=== PATIENT | female | born 1960 | race African-American/Black ===

== ENCOUNTER 2016-09-15 12:55 | Emergency (ER) | payer MEDICARE, OTHER ==
[2016-09-15] MEDS: ONDANSETRON PF 4 MG/2 ML VIAL. IV ONE (13:31)
[2016-09-15] MEDS: HYDROMORPHONE PF 1 MG/ML DISP.SYRIN. IV ONE ×2 (13:32→14:33)
[2016-09-15 13:54] LABS: BASO # 0.1 x10^3/uL (0.0-0.2); BASO % 1 % (0-3); EOS # 0.2 x10^3/uL (0.0-0.7); EOS % 4 % (0-3); HEMATOCRIT 38.8 % (36.0-47.0); HEMOGLOBIN 12.4 g/dL (12.0-15.5); LYMPH # 1.8 x10^3/uL (1.0-4.8); LYMPH % 27 % (24-48); MEAN CORPUSCULAR HEMOGLOBIN 28 pg (25-35); MEAN CORPUSCULAR HGB CONC 32 g/dL (31-37); MEAN CORPUSCULAR VOLUME 88 fL (79-100); MONO # 0.5 x10^3/uL (0.0-1.1); MONO % 7 % (0-9); NEUT % 61 % (31-73); PLATELET COUNT 205 x10^3/uL (140-400); RED BLOOD COUNT 4.42 x10^6/uL (3.50-5.40); WHITE BLOOD COUNT 6.5 x10^3/uL (4.0-11.0)
[2016-09-15 14:01] LABS: BILIRUBIN,URINE NEG (NEG); CLARITY,URINE HAZY; COLOR,URINE STRAW; GLUCOSE,URINE NEG (NEG)
[2016-09-15 14:02] LABS: AMORPHOUS SEDIMENT,UR PRESENT /HPF; BACTERIA,URINE FEW /HPF (0-FEW); GRANULAR CASTS,URINE OCC /HPF; HYALINE CASTS, URINE FEW /HPF; NITRITE,URINE NEG (NEG); SQUAMOUS EPITHELIAL CELL,UR MANY /LPF; UROBILINOGEN,URINE 0.2 mg/dL (0.2 mg/dL)
[2016-09-15 14:05] LABS: CREATININE 1.7 mg/dL (0.6-1.0); POTASSIUM 3.5 mmol/L (3.5-5.1)
[2016-09-15 15:00] VITALS: BP 131/48
--- NOTE | 2016-09-15 15:04 | ED.ADGEN ---
Past History Past Medical History: HIV Past Surgical History: Appendectomy, Hysterectomy Alcohol Use: None Drug Use: None Adult General HPI HPI Patient is a 55-year-old female presents emergency department complaining of lower abdominal pain. She has had this abdominal pain for at least 7 months since her last surgery. She has not followed back up with the surgeon regarding this pain. She was seen at another facility yesterday where she had a complete workup including blood work and a CT scan which all was normal. She is given prescriptions for hydrocodone and Phenergan which she did not fill. She has a follow-up appointment already scheduled with her primary care physician tomorrow. Patient denies that she has any new symptoms other than the pain which is at its baseline. Review of Systems Review of Systems Constitutional: Denies fever or chills [] Eyes: Denies change in visual acuity, redness, or eye pain [] HENT: Denies nasal congestion or sore throat [] Respiratory: Denies cough or shortness of breath [] Cardiovascular: No additional information not addressed in HPI [] GI: Denies abdominal pain, nausea, vomiting, bloody stools or diarrhea [] : Denies dysuria or hematuria [] Musculoskeletal: Denies back pain or joint pain [] Integument: Denies rash or skin lesions [] Neurologic: Denies headache, focal weakness or sensory changes [] Endocrine: Denies polyuria or polydipsia [] Current Medications Current Medications Current Medications Medications (Trade) Dose Ordered Sig/Bhavik Start Time Stop Time Status Last Admin Dose Admin Hydromorphone HCl (Dilaudid) 1 mg 1X ONCE 09/15/16 14:30 09/15/16 14:31 DC 09/15/16 14:33 1 MG Ondansetron HCl (Zofran) 4 mg 1X ONCE 09/15/16 13:40 09/15/16 13:41 DC 09/15/16 13:31 4 MG Allergies Allergies Allergies Coded Allergies Type Severity Reaction Last Updated Verified aspirin Allergy Intermediate 03/06/16 Yes tramadol Allergy Intermediate 03/06/16 Yes Physical Exam Physical Exam Constitutional: Well developed, well nourished, no acute distress, non-toxic appearance. [] HENT: Normocephalic, atraumatic, bilateral external ears normal, oropharynx moist, no oral exudates, nose normal. [] Eyes: PERRLA, EOMI, conjunctiva normal, no discharge. [] Neck: Normal range of motion, no tenderness, supple, no stridor. [] Cardiovascular:Heart rate regular rhythm, no murmur [] Lungs & Thorax: Bilateral breath sounds clear to auscultation [] Abdomen: Bowel sounds normal, soft, suprapubic tenderness palpation without peritoneal signs, no masses, no pulsatile masses. [] Skin: Warm, dry, no erythema, no rash. [] Back: No tenderness, no CVA tenderness. [] Extremities: No tenderness, no cyanosis, no clubbing, ROM intact, no edema. [] Neurologic: Alert and oriented X 3, normal motor function, normal sensory function, no focal deficits noted. [] Psychologic: Affect normal, judgement normal, mood normal. [] Current Patient Data Vital Signs Vital Signs Date Time Temp Pulse Resp B/P Pulse Ox O2 Delivery O2 Flow Rate FiO2 09/15/16 15:00 96 16 131/48 97 09/15/16 12:55 97.5 Room Air Lab Results Laboratory Tests Test 09/15/16 13:20 09/15/16 13:34 Urine Collection Type Unknown Urine Color Straw Urine Clarity Hazy Urine pH 5.0 Urine Specific [place] 1.010 Urine Protein 30 mg/dl (NEG-TRACE) Urine Glucose (UA) Negmg/dL (NEG) Urine Ketones (Stick) Negmg/dL (NEG) Urine Blood Trace (NEG) Urine Nitrite Neg (NEG) Urine Bilirubin Neg (NEG) Urine Urobilinogen Dipstick 0.2mg/dL (0.2 mg/dL) Urine Leukocyte Esterase Neg (NEG) Urine RBC 1-2/HPF (0-2) Urine WBC 1-4/HPF (0-4) Urine Squamous Epithelial Cells Many/LPF Urine Amorphous Sediment Present/HPF Urine Bacteria Few/HPF (0-FEW) Urine Hyaline Casts Few/HPF Urine Granular Casts Occ/HPF Urine Mucus Slight/LPF White Blood Count 6.5x10^3/uL (4.0-11.0) Red Blood Count 4.42x10^6/uL (3.50-5.40) Hemoglobin 12.4g/dL (12.0-15.5) Hematocrit 38.8% (36.0-47.0) Mean Corpuscular Volume 88fL (79-100) Mean Corpuscular Hemoglobin 28pg (25-35) Mean Corpuscular Hemoglobin Concent 32g/dL (31-37) Red Cell Distribution Width 16.0% (11.5-14.5) H Platelet Count 205x10^3/uL (140-400) Neutrophils (%) (Auto) 61% (31-73) Lymphocytes (%) (Auto) 27% (24-48) Monocytes (%) (Auto) 7% (0-9) Eosinophils (%) (Auto) 4% (0-3) H Basophils (%) (Auto) 1% (0-3) Neutrophils # (Auto) 4.0x10^3uL (1.8-7.7) Lymphocytes # (Auto) 1.8x10^3/uL (1.0-4.8) Monocytes # (Auto) 0.5x10^3/uL (0.0-1.1) Eosinophils # (Auto) 0.2x10^3/uL (0.0-0.7) Basophils # (Auto) 0.1x10^3/uL (0.0-0.2) Sodium Level 142mmol/L (136-145) Potassium Level 3.5mmol/L (3.5-5.1) Chloride Level 105mmol/L (98-107) Carbon Dioxide Level 27mmol/L (21-32) Anion Gap 10 (6-14) Blood Urea Nitrogen 15mg/dL (7-20) Creatinine 1.7mg/dL (0.6-1.0) H Estimated GFR (Cockcroft-Gault) 38.0 Glucose Level 109mg/dL (70-99) H Calcium Level 9.0mg/dL (8.5-10.1) Aspartate Amino Transferase (AST) 12U/L (15-37) L Alanine Aminotransferase (ALT) 27U/L (14-59) Alkaline Phosphatase 117U/L (46-116) H Lipase 81U/L (73-393) EKG EKG [] Radiology/Procedures Radiology/Procedures [] Course & Med Decision Making Course & Med Decision Making Pertinent Labs and Imaging studies reviewed. (See chart for details) Blood work was reassuring. Pain was improved after dose of Dilaudid. Patient was discharged home with supportive care instructions as well as follow-up directions. She was asked to fill her prescriptions are given to her yesterday. [] Final Impression Final Impression Abdominal pain [] Problems: Dragon Disclaimer Dragon Disclaimer This electronic medical record was generated, in whole or in part, using a voice recognition dictation system. ANA LEDESMA MD Sep 15, 2016 15:04
== END 2016-09-15 15:00 | disposition home or self-care (01) ==
LOC: ER 12:55
DX: R10.30 Lower abdominal pain, unspecified (principal); Z90.49 Acquired absence of other specified parts of digestive tract; Z90.710 Acquired absence of both cervix and uterus; Z21 Asymptomatic human immunodeficiency virus [HIV] infection status; Z88.6 Allergy status to analgesic agent
CPT/HCPCS: 36415; 80048; 81001; 83690; 84075; 84450; 84460; 85027; 96374; 96375; 96376; 99284; J1170; J2405

== ENCOUNTER 2016-12-02 20:24 | Emergency (ER) | payer MEDICARE, OTHER ==
[~2016-12-02] VITALS: Ht 172.7 cm; Wt 96.0 kg
[2016-12-02 20:25] VITALS: BP 131/48
--- NOTE | 2016-12-02 20:30 | ED.ADGEN ---
Past History Past Medical History: Depression, HIV, Seizure Past Surgical History: Appendectomy, Hysterectomy Alcohol Use: None Drug Use: None Adult General Chief Complaint Chief Complaint Bilateral hand numbness [facility] HPI Patient is a 56 year old -[place] female who presents with bilateral hand numbness is going on for greater than 3 years. She states she saw her neurologist today who ordered her night splints for her carpal tunnel syndrome. She's was go tomorrow to hang her clinic to get this performed. She presents to ER stating that she doesn't want to wait to finality ROM with her hands. She denies any fevers chills nausea vomiting. She denies any numbness or tingling and states that she has to wiggle no night and shake her hands make him feel better. Review of Systems Review of Systems Constitutional: Denies fever or chills [] Eyes: Denies change in visual acuity, redness, or eye pain [] HENT: Denies nasal congestion or sore throat [] Respiratory: Denies cough or shortness of breath [] Cardiovascular: No additional information not addressed in HPI [] GI: Denies abdominal pain, nausea, vomiting, bloody stools or diarrhea [] : Denies dysuria or hematuria [] Musculoskeletal: Denies back pain or joint pain [] Integument: Denies rash or skin lesions [] Neurologic: Denies headache, focal weakness or sensory changes [] Endocrine: Denies polyuria or polydipsia [] Allergies Allergies Allergies Coded Allergies Type Severity Reaction Last Updated Verified aspirin Allergy Intermediate 03/06/16 Yes tramadol Allergy Intermediate 03/06/16 Yes Physical Exam Physical Exam Constitutional: Well developed, well nourished, no acute distress, non-toxic appearance. [] HENT: Normocephalic, atraumatic, bilateral external ears normal, oropharynx moist, no oral exudates, nose normal. [] Eyes: PERRLA, EOMI, conjunctiva normal, no discharge. [] Neck: Normal range of motion, no tenderness, supple, no stridor. [] Cardiovascular:Heart rate regular rhythm, no murmur [] Lungs & Thorax: Bilateral breath sounds clear to auscultation [] Abdomen: Bowel sounds normal, soft, no tenderness, no masses, no pulsatile masses. [] Skin: Warm, dry, no erythema, no rash. [] Back: No tenderness, no CVA tenderness. [] Extremities: No tenderness, no cyanosis, no clubbing, ROM intact, no edema. [] Neurologic: Alert and oriented X 3, normal motor function, normal sensory function, no focal deficits noted. [] Psychologic: Affect normal, judgement normal, mood normal. [] Current Patient Data Lab Results Laboratory Tests Test 12/02/16 20:50 12/02/16 20:55 White Blood Count 6.3 x10^3/uL (4.0-11.0) Red Blood Count 4.02 x10^6/uL (3.50-5.40) Hemoglobin 11.8 g/dL (12.0-15.5) L Hematocrit 36.3 % (36.0-47.0) Mean Corpuscular Volume 90 fL (79-100) Mean Corpuscular Hemoglobin 29 pg (25-35) Mean Corpuscular Hemoglobin Concent 33 g/dL (31-37) Red Cell Distribution Width 14.2 % (11.5-14.5) Platelet Count 255 x10^3/uL (140-400) Neutrophils (%) (Auto) 48 % (31-73) Lymphocytes (%) (Auto) 40 % (24-48) Monocytes (%) (Auto) 9 % (0-9) Eosinophils (%) (Auto) 2 % (0-3) Basophils (%) (Auto) 1 % (0-3) Neutrophils # (Auto) 3.1 x10^3uL (1.8-7.7) Lymphocytes # (Auto) 2.5 x10^3/uL (1.0-4.8) Monocytes # (Auto) 0.5 x10^3/uL (0.0-1.1) Eosinophils # (Auto) 0.1 x10^3/uL (0.0-0.7) Basophils # (Auto) 0.0 x10^3/uL (0.0-0.2) Urine Collection Type Unknown Urine Color Yellow Urine Clarity Clear Urine pH 6.5 Urine Specific [place] 1.020 Urine Protein 30 mg/dl (NEG-TRACE) Urine Glucose (UA) Neg mg/dL (NEG) Urine Ketones (Stick) Neg mg/dL (NEG) Urine Blood Neg (NEG) Urine Nitrite Neg (NEG) Urine Bilirubin Neg (NEG) Urine Urobilinogen Dipstick 0.2 mg/dL (0.2 mg/dL) Urine Leukocyte Esterase Neg (NEG) Urine RBC Occ /HPF (0-2) Urine WBC 1-4 /HPF (0-4) Urine Squamous Epithelial Cells Many /LPF Urine Bacteria 0 /HPF (0-FEW) Sodium Level 140 mmol/L (136-145) Potassium Level 3.7 mmol/L (3.5-5.1) Chloride Level 105 mmol/L (98-107) Carbon Dioxide Level 28 mmol/L (21-32) Anion Gap 7 (6-14) Blood Urea Nitrogen 23 mg/dL (7-20) H Creatinine 1.4 mg/dL (0.6-1.0) H Estimated GFR (Cockcroft-Gault) 47.4 BUN/Creatinine Ratio 16 (6-20) Glucose Level 97 mg/dL (70-99) Calcium Level 8.6 mg/dL (8.5-10.1) Magnesium Level 2.0 mg/dL (1.8-2.4) Total Bilirubin 1.1 mg/dL (0.2-1.0) H Aspartate Amino Transferase (AST) 20 U/L (15-37) Alanine Aminotransferase (ALT) 33 U/L (14-59) Alkaline Phosphatase 172 U/L (46-116) H Total Protein 6.9 g/dL (6.4-8.2) Albumin 3.5 g/dL (3.4-5.0) Albumin/Globulin Ratio 1.0 (1.0-1.7) EKG EKG [] Radiology/Procedures Radiology/Procedures [] Course & Med Decision Making Course & Med Decision Making Pertinent Labs and Imaging studies reviewed. (See chart for details) 6 labs not show any acute amount. I do have TSH pending. She was seen today by Dr. 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 She's being discharged with return precautions. Final Impression Final Impression Bilateral carpal Tunnel syndrome Problems: Dragon Disclaimer Dragon Disclaimer This electronic medical record was generated, in whole or in part, using a voice recognition dictation system. TENISHA AHN MD Dec 02, 2016 20:30
[2016-12-02 21:15] LABS: BASO % 1 % (0-3); EOS # 0.1 x10^3/uL (0.0-0.7); EOS % 2 % (0-3); HEMATOCRIT 36.3 % (36.0-47.0); HEMOGLOBIN 11.8 g/dL (12.0-15.5); LYMPH # 2.5 x10^3/uL (1.0-4.8); LYMPH % 40 % (24-48); MEAN CORPUSCULAR HEMOGLOBIN 29 pg (25-35); MEAN CORPUSCULAR HGB CONC 33 g/dL (31-37); MEAN CORPUSCULAR VOLUME 90 fL (79-100); MONO # 0.5 x10^3/uL (0.0-1.1); MONO % 9 % (0-9); NEUT # 3.1 x10^3uL (1.8-7.7); NEUT % 48 % (31-73); PLATELET COUNT 255 x10^3/uL (140-400); RED BLOOD COUNT 4.02 x10^6/uL (3.50-5.40); RED CELL DISTRIBUTION WIDTH 14.2 % (11.5-14.5); WHITE BLOOD COUNT 6.3 x10^3/uL (4.0-11.0)
[2016-12-02 21:34] LABS: ALBUMIN 3.5 g/dL (3.4-5.0); CALCIUM 8.6 mg/dL (8.5-10.1); CREATININE 1.4 mg/dL (0.6-1.0); GFR 47.4; POTASSIUM 3.7 mmol/L (3.5-5.1); TOTAL BILIRUBIN 1.1 mg/dL (0.2-1.0); TOTAL PROTEIN 6.9 g/dL (6.4-8.2)
[2016-12-02 21:45] LABS: BACTERIA,URINE 0 /HPF (0-FEW); BILIRUBIN,URINE NEG (NEG); CLARITY,URINE CLEAR; COLOR,URINE YELLOW; GLUCOSE,URINE NEG (NEG); NITRITE,URINE NEG (NEG); RBC,URINE OCC /HPF (0-2); SQUAMOUS EPITHELIAL CELL,UR MANY /LPF; UROBILINOGEN,URINE 0.2 mg/dL (0.2 mg/dL)
== END 2016-12-02 22:25 | disposition home or self-care (01) ==
LOC: ER 20:24
DX: G56.03 Carpal tunnel syndrome, bilateral upper limbs (principal); Z88.6 Allergy status to analgesic agent; F32.9 Major depressive disorder, single episode, unspecified
CPT/HCPCS: 36415; 80053; 81001; 83735; 84443; 85027; 99284

== ENCOUNTER 2017-03-23 23:32 | Emergency (ER) | payer MEDICARE, OTHER ==
[~2017-03-23] VITALS: Ht 172.7 cm; Wt 91.5 kg
--- NOTE | 2017-03-23 23:54 | EKG ---
[address] [address] Test Date: 2017-03-23 Test Time: 23:36:52 Pat Name: HERNAN ANGEL Department: Room: Gender: F Regulatory Lead: : 1960 Requested By: TENISHA AHN Order Number: [id number] Reading MD: Measurements Intervals [place] Rate: 98 P: 2 IN: 188 QRS: 14 QRSD: 72 T: 22 QT: 404 QTc: 518 Interpretive Statements SINUS RHYTHM QRS(T) CONTOUR ABNORMALITY CONSIDER ANTEROLATERAL MYOCARDIAL DAMAGE PROLONGED QT POSSIBLY ABNORMAL ECG RI6.01 No previous ECG available for comparison
[2017-03-24] MEDS ORDERED: IV NORMAL SALINE 1,000ML 1,000 ML IV SCH
--- NOTE | 2017-03-24 00:01 | PHYS DOC ---
Past History Past Medical History: Depression, HIV, Seizure Past Surgical History: Appendectomy, Hysterectomy Alcohol Use: None Drug Use: None Adult General Chief Complaint Chief Complaint: SEIZURE HPI HPI Patient is a 56 year old -Wel[place] female who presents with a seizure. She states she has these occasionally. She states she is late alert during these and feels very tired afterwards. She states a friend was over and he noticed her having a seizure and got her attention. She also complains of some chest pain that she's been having for the last 3 months. She states is substernal as been constant in nature nothing makes it better or worse. She states she was hospitalized overnight in [place] for this same pain. She denies any nausea vomiting or shortness of breath. He states she's been compliant with all of her medications including her HIV and Keppra meds for her seizures. She is unsure what her viral load is but states it's low. Review of Systems Review of Systems Constitutional: Denies fever or chills [] Eyes: Denies change in visual acuity, redness, or eye pain [] HENT: Denies nasal congestion or sore throat [] Respiratory: Denies cough or shortness of breath [] Cardiovascular: No additional information not addressed in HPI [] GI: Denies abdominal pain, nausea, vomiting, bloody stools or diarrhea [] : Denies dysuria or hematuria [] Musculoskeletal: Denies back pain or joint pain [] Integument: Denies rash or skin lesions [] Neurologic: Denies headache, focal weakness or sensory changes [] Endocrine: Denies polyuria or polydipsia [] Current Medications Current Medications Current Medications Medications (Trade) Dose Ordered Sig/Bhavik Start Time Stop Time Status Last Admin Dose Admin Sodium Chloride 1,000 ml @ 1,000 mls/hr Q1H 03/24/17 00:00 03/24/17 00:59 Allergies Allergies Allergies Coded Allergies Type Severity Reaction Last Updated Verified aspirin Allergy Intermediate 03/06/16 Yes tramadol Allergy Intermediate 03/06/16 Yes Physical Exam Physical Exam Constitutional: Well developed, well nourished, no acute distress, non-toxic appearance. [] HENT: Normocephalic, atraumatic, bilateral external ears normal, oropharynx moist, no oral exudates, nose normal. [] Eyes: PERRLA, EOMI, conjunctiva normal, no discharge. [] Neck: Normal range of motion, no tenderness, supple, no stridor. [] Cardiovascular:Heart rate regular rhythm, no murmur [] Lungs & Thorax: Bilateral breath sounds clear to auscultation [] Abdomen: Bowel sounds normal, soft, no tenderness, no masses, no pulsatile masses. [] Skin: Warm, dry, no erythema, no rash. [] Back: No tenderness, no CVA tenderness. [] Extremities: No tenderness, no cyanosis, no clubbing, ROM intact, no edema. [] Neurologic: Alert and oriented X 3, normal motor function, normal sensory function, no focal deficits noted. [] Psychologic: Affect normal, judgement normal, mood normal. [] EKG EKG EKG shows sinus rhythm with rate of [address] elevations or T-wave inversions, normal axis, QTC 518 ms, as interpreted by me. Radiology/Procedures Radiology/Procedures One view chest x-ray does not show any bony abnormalities, pneumothorax, foreign bodies, as interpreted by me. Impressions: Seizure disorder Chest pain Hypokalemia Course & Med Decision Making Course & Med Decision Making Pertinent Labs and Imaging studies reviewed. (See chart for details) Her chest pains been constant for over a month. He is been evaluated once before. Her EKG, labs do not show any acute abnormalities in addition to her chest x-ray. Her potassium was slightly low at 3.2 and it was replaced with 140 mg 11. She has not had any additional seizures in her lactic acid is 2.2. She received 1 L of normal saline which should help clear out her slightly elevated lactic acid. She is in stable condition this time be discharged home with return precautions. Dragon Disclaimer Dragon Disclaimer This chart was dictated in whole or in part using Voice Recognition software in a busy, high-work load, and often noisy Emergency Department environment. It may contain unintended and wholly unrecognized errors or omissions. Departure Departure: Impression: Primary Impression: Seizure disorder Disposition: 01 HOME, SELF-CARE Condition: STABLE Referrals: ANNITA WOODWARD DO, [facility] (PCP) Patient Instructions: Seizure Disorder, Child, Generalized Tonic-Clonic Additional Instructions: You were seen today for your chest discomfort, your seizure disorder and your potassium level was slightly low. You potassium was replaced. You received IV fluids. Your being discharged home. Your EKG, chest x-ray and blood work did not show any abnormalities with her heart. You should follow up with your primary care physician regarding your constant chest pain that you have been having. Please continue taking your seizure medicines as instructed. TENISHA AHN MD Mar 24, 2017 00:01
[2017-03-24 01:00] LABS: BASO % 0 % (0-3); EOS % 1 % (0-3); HEMATOCRIT 38.6 % (36.0-47.0); HEMOGLOBIN 12.7 g/dL (12.0-15.5); LYMPH % 30 % (24-48); MEAN CORPUSCULAR HEMOGLOBIN 29 pg (25-35); MEAN CORPUSCULAR HGB CONC 33 g/dL (31-37); MEAN CORPUSCULAR VOLUME 89 fL (79-100); MONO # 0.6 x10^3/uL (0.0-1.1); MONO % 6 % (0-9); NEUT # 6.2 x10^3uL (1.8-7.7); NEUT % 63 % (31-73); PLATELET COUNT 240 x10^3/uL (140-400); RED BLOOD COUNT 4.36 x10^6/uL (3.50-5.40); RED CELL DISTRIBUTION WIDTH 14.8 % (11.5-14.5); WHITE BLOOD COUNT 9.8 x10^3/uL (4.0-11.0)
[2017-03-24 01:34] LABS: ALBUMIN 3.5 g/dL (3.4-5.0); CALCIUM 9.1 mg/dL (8.5-10.1); CREATININE 1.5 mg/dL (0.6-1.0); DIRECT BILIRUBIN 0.3 mg/dL (0.0-0.2); GFR 43.8; POTASSIUM 3.2 mmol/L (3.5-5.1); TOTAL BILIRUBIN 1.4 mg/dL (0.2-1.0)
[2017-03-24] MEDS ORDERED: POTASSIUM CHLORIDE 20 MEQ TABLET.ER. PO ONE (02:00)
[2017-03-24 02:09] VITALS: BP 107/60
[2017-03-24 02:09] LABS: BARBITURATES NEG (NEG); BENZODIAZEPINES NEG (NEG); CANNABINOIDS NEG (NEG); COCAINE NEG (NEG); METHADONE NEG (NEG); OPIATES POS (NEG); PHENCYCLIDINE NEG (NEG)
[2017-03-24 02:11] LABS: BACTERIA,URINE FEW /HPF (0-FEW); BILIRUBIN,URINE NEG (NEG); CLARITY,URINE CLEAR; COLOR,URINE YELLOW; GLUCOSE,URINE 500 mg/dL (NEG); NITRITE,URINE NEG (NEG); RBC,URINE 0 /HPF (0-2); SQUAMOUS EPITHELIAL CELL,UR FEW /LPF; UROBILINOGEN,URINE 1 mg/dL (0.2 mg/dL); WBC,URINE OCC /HPF (0-4)
[2017-03-24 02:13] LABS: AMPHETAMINE/METHAMPHETAMINE NEG (NEG)
[2017-03-24] MEDS ORDERED: ACETAMINOPHEN 500 MG TABLET PO ONE (02:30)
--- NOTE | 2017-03-24 07:38 | RAD ---
Chest x-ray Indication: Chest pain, seizure activity Technique: Portable AP chest x-ray Comparison: Previous study from 03/06/2016. Findings: Heart is normal in size. Lungs are clear. No pneumothorax or pleural effusion. Visualized bony thorax is within normal limits. Impression: No acute cardiopulmonary process.
== END 2017-03-24 02:27 | disposition home or self-care (01) ==
LOC: ER 23:32
DX: G40.909 Epilepsy, unspecified, not intractable, without status epilepticus (principal); E87.6 Hypokalemia; R07.2 Precordial pain; F32.9 Major depressive disorder, single episode, unspecified; Z88.6 Allergy status to analgesic agent
CPT/HCPCS: 36415; 71010; 80048; 80076; 80307; 81001; 82553; 83605; 83690; 83735; 83880; 84484; 85025; 85610; 85730; 93005; 96360; 99285-25; G0479; J7030

== ENCOUNTER 2017-05-10 20:26 | Emergency (ER) | payer MEDICARE, OTHER ==
[~2017-05-10] VITALS: Ht 172.7 cm; Wt 124.3 kg
[2017-05-10 22:34] LABS: BASO % 0 % (0-3); EOS # 0.1 x10^3/uL (0.0-0.7); EOS % 1 % (0-3); HEMATOCRIT 33.6 % (36.0-47.0); HEMOGLOBIN 10.9 g/dL (12.0-15.5); LYMPH # 2.9 x10^3/uL (1.0-4.8); LYMPH % 26 % (24-48); MEAN CORPUSCULAR HEMOGLOBIN 28 pg (25-35); MEAN CORPUSCULAR HGB CONC 32 g/dL (31-37); MEAN CORPUSCULAR VOLUME 88 fL (79-100); MONO # 0.8 x10^3/uL (0.0-1.1); MONO % 7 % (0-9); NEUT # 7.5 x10^3uL (1.8-7.7); NEUT % 66 % (31-73); PLATELET COUNT 390 x10^3/uL (140-400); RED BLOOD COUNT 3.84 x10^6/uL (3.50-5.40); RED CELL DISTRIBUTION WIDTH 14.3 % (11.5-14.5); WHITE BLOOD COUNT 11.3 x10^3/uL (4.0-11.0)
[2017-05-10 22:46] LABS: ALBUMIN 3.1 g/dL (3.4-5.0); ALBUMIN/GLOBULIN RATIO 0.7 (1.0-1.7); CALCIUM 9.2 mg/dL (8.5-10.1); CREATININE 1.4 mg/dL (0.6-1.0); GFR 47.4; POTASSIUM 3.2 mmol/L (3.5-5.1); TOTAL BILIRUBIN 1.2 mg/dL (0.2-1.0); TOTAL PROTEIN 7.4 g/dL (6.4-8.2)
[2017-05-10] MEDS ORDERED: HYDROcodone/APAP 5/325MG 1 TAB TABLET PO ONE (23:00)
[2017-05-10] MEDS ORDERED: IBUPROFEN 600 MG TABLET. PO ONE (23:00)
[2017-05-10] MEDS ORDERED: LORazepam 2 MG/ML VIAL ONE (23:25)
[2017-05-10] MEDS ORDERED: LORazepam 2 MG/ML VIAL IV ONE (23:30)
[2017-05-10] MEDS ORDERED: LORazepam 2 MG/ML VIAL IM ONE (23:30)
--- NOTE | 2017-05-10 23:35 | PHYS DOC ---
Past History Past Medical History: Depression, HIV, Migraines, Seizure Past Surgical History: Appendectomy, Hysterectomy, Other Alcohol Use: None Drug Use: None Adult General Chief Complaint Chief Complaint: SEIZURE HPI HPI Patient is a 56-year-old female with a history significant for HIV, seizure disorder, migraines, depression, who presents here today secondary to a seizure. Patient reports that she is on Keppra and has been compliant with her medication. Patient reports her last seizure was approximately 1-2 weeks ago. Patient has any fevers shakes chills nausea vomiting diarrhea chest pain short of breath cough cold rhinorrhea. Patient is complaining of diffuse myalgias after her seizure. Patient reports that she fell down and has pain to her lower back legs hip arms. Patient denies any C-spine or head discomfort. Review of systems: Constitutional: Denies fever or chills Eyes: Denies change in visual acuity, redness, or eye pain HENT: Denies nasal congestion or sore throat All other systems were reviewed and found to be within normal limits, except as documented in this note. Physical exam Constitutional: Well developed, well nourished, no acute distress, non-toxic appearance. HENT: Normocephalic, atraumatic, bilateral external ears normal, oropharynx moist, no oral exudates, nose normal. Eyes: PERRLA, EOMI, conjunctiva normal, no discharge. Neck: Normal range of motion, no tenderness, supple, no stridor. Cardiovascular:Heart rate regular rhythm, Lungs & Thorax: Bilateral breath sounds clear to auscultation Abdomen: Bowel sounds normal, soft, no tenderness, no masses, no pulsatile masses. Skin: Warm, dry, no erythema, no rash. Back: No tenderness, no CVA tenderness. Extremities: No tenderness, no cyanosis, no clubbing, ROM intact, no edema. Neurologic: Alert and oriented X 3, normal motor function, normal sensory function, no focal deficits noted. Psychologic: Affect normal, judgement normal, mood normal. EKG revealed normal sinus rhythm with nonspecific ST-T wave abnormalities at a heart rate of 87 with no evidence of ST elevation TN as interpreted by ER physician. Laboratory Tests Test 05/10/17 22:02 White Blood Count 11.3 x10^3/uL Red Blood Count 3.84 x10^6/uL Hemoglobin 10.9 g/dL Hematocrit 33.6 % Mean Corpuscular Volume 88 fL Mean Corpuscular Hemoglobin 28 pg Mean Corpuscular Hemoglobin Concent 32 g/dL Red Cell Distribution Width 14.3 % Platelet Count 390 x10^3/uL Neutrophils (%) (Auto) 66 % Lymphocytes (%) (Auto) 26 % Monocytes (%) (Auto) 7 % Eosinophils (%) (Auto) 1 % Basophils (%) (Auto) 0 % Neutrophils # (Auto) 7.5 x10^3uL Lymphocytes # (Auto) 2.9 x10^3/uL Monocytes # (Auto) 0.8 x10^3/uL Eosinophils # (Auto) 0.1 x10^3/uL Basophils # (Auto) 0.0 x10^3/uL Sodium Level 139 mmol/L Potassium Level 3.2 mmol/L Chloride Level 103 mmol/L Carbon Dioxide Level 29 mmol/L Anion Gap 7 Blood Urea Nitrogen 11 mg/dL Creatinine 1.4 mg/dL Estimated GFR (Cockcroft-Gault) 47.4 BUN/Creatinine Ratio 8 Glucose Level 96 mg/dL Calcium Level 9.2 mg/dL Total Bilirubin 1.2 mg/dL Aspartate Amino Transf (AST/SGOT) 13 U/L Alanine Aminotransferase (ALT/SGPT) 16 U/L Alkaline Phosphatase 140 U/L Troponin I Quantitative < 0.017 ng/mL Total Protein 7.4 g/dL Albumin 3.1 g/dL Albumin/Globulin Ratio 0.7 Current Medications Medications (Trade) Dose Ordered Sig/Bhavik Route PRN Reason Start Time Stop Time Status Last Admin Dose Admin Ibuprofen (Motrin) 600 mg 1X ONCE PO 05/10/17 23:00 05/10/17 23:01 DC 05/10/17 22:59 600 MG Acetaminophen/ Hydrocodone Bitart (Lortab 5/325) 1 tab 1X ONCE PO 05/10/17 23:00 05/10/17 23:01 DC 05/10/17 22:59 1 TAB Lorazepam (Ativan) 2 mg STK-MED ONCE .ROUTE 05/10/17 23:25 05/10/17 23:26 DC Lorazepam (Ativan) 1 mg 1X ONCE IV 05/10/17 23:30 05/10/17 23:31 UNV Assessment and plan: 1. Seizure disorder: Patient's clinically hemodynamically stable. Patient has been monitored in the ER for approximately 4 hours without any further episodes of seizure. Patient's labs were all within normal limits except for her hypokalemia. Patient's hyperkalemia was treated with 40 mmol of potassium. Patient is complaining of diffuse myalgias for which was given both ibuprofen and Jasper for. Patient reports some point that she had the sensation of feeling she might have another seizure so she was given 1 mg of IM Ativan to assist her with her seizure disorder. Patient was instructed to follow-up with her primary care physician for further evaluation the morning to reassess her medications. Keppra level has been sent but that likely will not be back in time for her disposition. Current Medications Current Medications Current Medications Medications (Trade) Dose Ordered Sig/Bhavik Start Time Stop Time Status Last Admin Dose Admin Acetaminophen/ Hydrocodone Bitart (Lortab 5/325) 1 tab 1X ONCE 05/10/17 23:00 05/10/17 23:01 DC 05/10/17 22:59 1 TAB Ibuprofen (Motrin) 600 mg 1X ONCE 05/10/17 23:00 05/10/17 23:01 DC 05/10/17 22:59 600 MG Lorazepam (Ativan) 1 mg 1X ONCE 05/10/17 23:30 05/10/17 23:31 UNV Allergies Allergies Allergies Coded Allergies Type Severity Reaction Last Updated Verified tramadol Allergy Intermediate 03/06/16 Yes aspirin Allergy Mild 03/24/17 Yes Current Patient Data Vital Signs Vital Signs Date Time Temp Pulse Resp B/P (MAP) Pulse Ox O2 Delivery O2 Flow Rate FiO2 05/10/17 20:30 98.0 88 12 98 Room Air Lab Results Laboratory Tests Test 05/10/17 22:02 White Blood Count 11.3 x10^3/uL (4.0-11.0) H Red Blood Count 3.84 x10^6/uL (3.50-5.40) Hemoglobin 10.9 g/dL (12.0-15.5) L Hematocrit 33.6 % (36.0-47.0) L Mean Corpuscular Volume 88 fL (79-100) Mean Corpuscular Hemoglobin 28 pg (25-35) Mean Corpuscular Hemoglobin Concent 32 g/dL (31-37) Red Cell Distribution Width 14.3 % (11.5-14.5) Platelet Count 390 x10^3/uL (140-400) Neutrophils (%) (Auto) 66 % (31-73) Lymphocytes (%) (Auto) 26 % (24-48) Monocytes (%) (Auto) 7 % (0-9) Eosinophils (%) (Auto) 1 % (0-3) Basophils (%) (Auto) 0 % (0-3) Neutrophils # (Auto) 7.5 x10^3uL (1.8-7.7) Lymphocytes # (Auto) 2.9 x10^3/uL (1.0-4.8) Monocytes # (Auto) 0.8 x10^3/uL (0.0-1.1) Eosinophils # (Auto) 0.1 x10^3/uL (0.0-0.7) Basophils # (Auto) 0.0 x10^3/uL (0.0-0.2) Sodium Level 139 mmol/L (136-145) Potassium Level 3.2 mmol/L (3.5-5.1) L Chloride Level 103 mmol/L (98-107) Carbon Dioxide Level 29 mmol/L (21-32) Anion Gap 7 (6-14) Blood Urea Nitrogen 11 mg/dL (7-20) Creatinine 1.4 mg/dL (0.6-1.0) H Estimated GFR (Cockcroft-Gault) 47.4 BUN/Creatinine Ratio 8 (6-20) Glucose Level 96 mg/dL (70-99) Calcium Level 9.2 mg/dL (8.5-10.1) Total Bilirubin 1.2 mg/dL (0.2-1.0) H Aspartate Amino Transferase (AST) 13 U/L (15-37) L Alanine Aminotransferase (ALT) 16 U/L (14-59) Alkaline Phosphatase 140 U/L (46-116) H Troponin I Quantitative < 0.017 ng/mL (0-0.055) Total Protein 7.4 g/dL (6.4-8.2) Albumin 3.1 g/dL (3.4-5.0) L Albumin/Globulin Ratio 0.7 (1.0-1.7) L EKG EKG [] Radiology/Procedures Radiology/Procedures [] Course & Med Decision Making Course & Med Decision Making Pertinent Labs and Imaging studies reviewed. (See chart for details) [] Christopher Disclaimer Dragon Disclaimer This electronic medical record was generated, in whole or in part, using a voice recognition dictation system. Departure Departure: Impression: Primary Impression: Seizure disorder Additional Impressions: Epilepsy HIV (human immunodeficiency virus infection) Musculoskeletal pain Hypokalemia Disposition: 01 HOME, SELF-CARE Condition: IMPROVED Referrals: ANNITA WOODWARD DO, MPH (PCP) Patient Instructions: Hypokalemia, Seizure, Adult Problem Qualifiers PLACIDO ASHFORD MD May 10, 2017 23:35
[2017-05-10 23:36] VITALS: BP 116/68
[2017-05-10] MEDS ORDERED: POTASSIUM CHLORIDE 20 MEQ TABLET.ER. PO ONE (23:45)
--- NOTE | 2017-05-11 07:56 | EKG ---
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
== END 2017-05-10 23:44 | disposition home or self-care (01) ==
LOC: ER 20:26
DX: G40.909 Epilepsy, unspecified, not intractable, without status epilepticus (principal); M79.1 Myalgia; E87.6 Hypokalemia; M54.5 Low back pain; G43.909 Migraine, unspecified, not intractable, without status migrainosus; F32.9 Major depressive disorder, single episode, unspecified; Z21 Asymptomatic human immunodeficiency virus [HIV] infection status; Z88.6 Allergy status to analgesic agent
CPT/HCPCS: 36415; 80053; 84484; 85025; 93005; 96372; 99285; J2060

== ENCOUNTER 2017-07-14 12:31 | Emergency (ER) | payer MEDICARE, OTHER ==
[~2017-07-14] VITALS: Ht 172.7 cm; Wt 91.5 kg
--- NOTE | 2017-07-14 12:58 | PHYS DOC ---
Past History Past Medical History: Depression, HIV, Migraines, Seizure Past Surgical History: Appendectomy, Hysterectomy, Other Alcohol Use: None Drug Use: None Adult General Chief Complaint Chief Complaint: LOWEREXTREMITY INJURY [facility] HPI Patient is a pleasant 56-year-old -Citizen Of [place] female with a known history of chronic lower back pain HIV positivity who does not remember her last CD4 count and last viral load who is on antiretrovirals presents with hip pain that began after a fall 3 days ago. Although she fell one month ago in her kitchen and has used Tylenol to treat her symptoms she fell than 3 days ago and noted increased pain of her right lateral thigh right knee right hip. Said the pain is actually better with walking worse with certain positions and ranges of motion. The pain emanates from the posterior aspect of the hip and radiates down the leg to the knee. She denies any numbness and tingling in the lower leg below the injury point. She denies any weakness chest pain. She is attempted use Tylenol without much improvement. She says that she is in some his discomfort she would prefer to be admitted to the hospital as her chronic pain. She denies any UTI symptoms, denies any nausea, vomiting, bloody stools, constipation or other symptoms. She denies any upper back pain or injuries from the fall sustained 3 days ago. She was able to ambulate to the EMS rig picked up for today's evaluation. Her pain today is 10 of 10 at this time she is resting quietly on the cot Review of Systems Review of Systems Constitutional: Denies fever or chills [] Eyes: Denies change in visual acuity, redness, or eye pain [] HENT: Denies nasal congestion or sore throat [] Respiratory: Denies cough or shortness of breath [] Cardiovascular: No additional information not addressed in HPI [] GI: Denies abdominal pain, nausea, vomiting, bloody stools or diarrhea [] : Denies dysuria or hematuria [] Musculoskeletal: Positive for chronic back pain and right hip pain and right knee pain Integument: Denies rash or skin lesions [] Neurologic: Denies headache, focal weakness or sensory changes [] Endocrine: Denies polyuria or polydipsia [] All other systems were reviewed and found to be within normal limits, except as documented in this note. Allergies Allergies Allergies Coded Allergies Type Severity Reaction Last Updated Verified tramadol Allergy Intermediate 03/06/16 Yes aspirin Allergy Mild 03/24/17 Yes Physical Exam Physical Exam Other vital signs recorded the chart this time within normal limits Constitutional: Well developed, well nourished, no acute distress, non-toxic appearance. [] HENT: Normocephalic, atraumatic, bilateral external ears normal, oropharynx moist, no oral exudates, nose normal. [] Cardiovascular:Heart rate regular rhythm, no murmur [] Lungs & Thorax: Bilateral breath sounds clear to auscultation [] Abdomen: Bowel sounds normal, soft, no tenderness, no masses, no pulsatile masses. [] Skin: Warm, dry, no erythema, no rash. [] Back: Slight tenderness to palpation of the right lateral aspect erector spinae muscles nothing midline Extremities: She has significant tenderness to palpation of the lateral aspect of the right hip with no obvious soft tissue swelling decreased range of motion secondary to pain obvious deformity patient is laying on her left side down there is no internal rotation of her hip patient has or hips straight and her leg straight decreased range of motion within the knee with lateral tenderness to palpation negative anterior posterior draw, there is some tenderness along the patella as well with no obvious deformities.. [] Neurologic: Alert and oriented X 3, normal motor function, normal sensory function, no focal deficits noted. [] Psychologic: Patient seems somewhat anxious and angry that she cannot be admitted to the hospital immediately given IV narcotics. Current Patient Data Vital Signs Vital Signs Date Time Temp Pulse Resp B/P (MAP) Pulse Ox O2 Delivery O2 Flow Rate FiO2 07/14/17 12:34 98.2 85 18 100 Room Air EKG EKG [] Radiology/Procedures Radiology/Procedures [] [address] [address] IMAGING REPORT Signed PATIENT: HERNAN ANGEL I ACCOUNT: [id number] : 1960 LOCATION: ER AGE: 56 SEX: F EXAM STATUS: REG ER ORD. PHYSICIAN: FLAKO HERNANDEZ MD REASON: all from standing right hip pain PROCEDURE: CT PELVIS WO CONTRAST EXAM: Pelvis CT without contrast. HISTORY: Fall. TECHNIQUE: Computed tomographic images of the pelvis were obtained without contrast. *One or more of the following individualized dose reduction techniques were utilized for this examination: 1. Automated exposure control. 2. Adjustment of the mA and/or kV according to patient size. 3. Use of iterative reconstruction technique. COMPARISON: 03/06/2016. FINDINGS: No acute fracture is seen. The femoral heads are normal in configuration and seated appropriately. There is instrumented posterior spinal fusion at L5-S1. The instrumentation consists of transpedicular screws bridged by vertical rods at the fused levels. There is lucency surrounding the right greater than left S1 screws, consistent with loosening. There are partial laminectomy changes at the fused levels. There is scarring within the midline posterior back soft tissues due to prior fusion surgery. The uterus and ovaries are surgically absent. The bladder and visualized bowel are unremarkable. IMPRESSION: 1. No acute osseous finding. 2. Instrumented fusion at L5-S1. There is lucency surrounding the right greater than left S1 screws, consistent with loosening. Electronically signed by: Ninoska Rios MD (07/14/2017 1:35 PM) [place] [id number] DICTATED AND SIGNED BY: NINOSKA RIOS MD DATE: 07/14/17 0812 CC: FLAKO HERNANDEZ MD; ANNITA WOODWARD DO, [place] ~ [place] [address] IMAGING REPORT Signed PATIENT: HERNAN ANGEL I ACCOUNT: [id number] : 1960 LOCATION: ER AGE: 56 SEX: F EXAM STATUS: REG ER ORD. PHYSICIAN: FLAKO HERNANDEZ MD REASON: fall PROCEDURE: KNEE RIGHT 3V EXAM: Right knee, 3 views; right femur, 2 views. HISTORY: Fall. COMPARISON: None. FINDINGS: Frontal and lateral views of the right femur and frontal, lateral and oblique views of the right knee are obtained. There is no acute fracture, dislocation or subluxation. There is a minimal tricompartmental spurring. There is trace joint fluid, without a significant effusion. IMPRESSION: No acute osseous finding. Electronically signed by: Ninoska Rios MD (07/14/2017 1:36 PM) [place] [id number] DICTATED AND SIGNED BY: NINOSKA RIOS MD DATE: 07/14/17 7286 CC: FLAKO HERNANDEZ MD; ANNITA WOODWARD DO, MPH ~ [address] [place] [address] IMAGING REPORT Signed PATIENT: HERNAN ANGEL I ACCOUNT: [id number] : 1960 LOCATION: ER AGE: 56 SEX: F EXAM STATUS: REG ER ORD. PHYSICIAN: FLAKO HERNANDEZ MD REASON: fall PROCEDURE: RIGHT FEMUR XRAY EXAM: Right knee, 3 views; right femur, 2 views. HISTORY: Fall. COMPARISON: None. FINDINGS: Frontal and lateral views of the right femur and frontal, lateral and oblique views of the right knee are obtained. There is no acute fracture, dislocation or subluxation. There is a minimal tricompartmental spurring. There is trace joint fluid, without a significant effusion. IMPRESSION: No acute osseous finding. Electronically signed by: Ninoska Rios MD (07/14/2017 1:36 PM) [place] [id number] DICTATED AND SIGNED BY: NINOSKA RIOS MD DATE: 07/14/17 7392 CC: FLAKO HERNANDEZ MD; ANNITA WOODWARD DO, MPH ~ Course & Med Decision Making Course & Med Decision Making Pertinent Labs and Imaging studies reviewed. (See chart for details) []She presents with hip pain that began 3 days ago after a fall from standing. Patient been able to walk on this wound since with increasing pain to her right knee right hip and right lower back. I will image her pelvis to ensure that this no injury to her pelvis from the fall. Looking for pelvic ring fractures, lumbar spine fractures and injuries within the itself. On physical exam she has marked tenderness to palpation with minimal if any soft tissue swelling. Patient is adamant that she wants medications for her pain include IV pain medications and admission to the hospital to treat her discomfort. Patient was given 2 by mouth Lortabs here in the emergency department her CAT scan of her did not show any acute injury or fracture there was questionable increased lucency around her sacral screw that may represent a loosening screw. Given the fact there is no acute injury at this time in her femur and knee based on x-rays read by me patient was given a muscle spasm medication and some for breakthrough pain and asked to follow-up with her neurosurgeon to review her films and see if any intervention on this loosening screw needed to be done. Disposition diagnosis contusion, knee sprain. I'm concerned with this patient's presentation that they may be addicted to narcotic medications. Their behavior could be described as drug seeking in nature and I'm concerned that if I do not explain to them my concerns and we have a discussion about how to treat this in the future we will continue to see them using these medications and possibly dangerous manners. We talked about overutilization that the medications associated with narcotics to include acetaminophen when taking large doses can cause liver injury that is permanent nature. We discussed a treatment plan and need for follow-up with a automotive painter to talk about alternatives to narcotic medications. We also talked about possible psychiatric intervention to help him cope with her chronic pain condition. We also discussed possible social work involvement or addiction treatment involvement to help address the possible withdrawal symptoms that may be experiencing which is causing the further use narcotics in this way. I will take the time to provide them addiction clinic information in the follow- up if they choose to accept my help. discharge: I've spoken with the patient and/or caregivers. I've explained the patient's condition, diagnosis and treatment plan based on information available to me at this time. I've answered the patient's and/or caregivers questions and addressed any concerns. The patient and/or caregivers have a good understanding the patient's diagnosis, condition and treatment plan as can be expected at this point. Vital signs have been stabilized. The patient's condition is stable for discharge from the emergency department. The patient will pursue further outpatient evaluation with her primary care provider or other designated consulting physician as outlined in the discharge instructions. Patient and/or caregivers are agreeable to this plan of care and follow-up instructions have been explained in detail. The patient and/or caregivers have received these instructions in written format and expressed understanding of these discharge instructions. The patient and her caregivers are aware that if any significant change in condition or worsening of symptoms should prompt him to immediately return to this of the closest emergency department. If an emergent department is not readily available I would encourage him to call 911. Christopher Disclaimer Christopher Disclaimer This electronic medical record was generated, in whole or in part, using a voice recognition dictation system. Departure Departure: Impression: Primary Impression: Contusion Additional Impressions: Back pain Knee contusion Disposition: 01 HOME, SELF-CARE Condition: STABLE Referrals: ANNITA WOODWARD DO, MPH (PCP) Patient Instructions: Contusion, Hip Exercises, Generic, SportsMed, Hip Injury , Hip Pain Additional Instructions: discharge: I've spoken with the patient and/or caregivers. I've explained the patient's condition, diagnosis and treatment plan based on information available to me at this time. I've answered the patient's and/or caregivers questions and addressed any concerns. The patient and/or caregivers have a good understanding the patient's diagnosis, condition and treatment plan as can be expected at this point. Vital signs have been stabilized. The patient's condition is stable for discharge from the emergency department. The patient will pursue further outpatient evaluation with her primary care provider or other designated consulting physician as outlined in the discharge instructions. Patient and/or caregivers are agreeable to this plan of care and follow-up instructions have been explained in detail. The patient and/or caregivers have received these instructions in written format and expressed understanding of these discharge instructions. The patient and her caregivers are aware that if any significant change in condition or worsening of symptoms should prompt him to immediately return to this of the closest emergency department. If an emergent department is not readily available I would encourage him to call 911. Scripts Methocarbamol (ROBAXIN-750) 750 Mg Tablet 1 TAB PO BID, #20 TAB Prov: FLAKO HERNANDEZ MD 07/14/17 Oxycodone Hcl/Acetaminophen (PERCOCET 5-325 MG TABLET) 1 Each Tablet 1-2 TAB PO Q4-6HRS, #10 TAB Prov: FLAKO HERNANDEZ MD 07/14/17 Problem Qualifiers FLAKO HERNANDEZ MD Jul 14, 2017 12:58
[2017-07-14] MEDS ORDERED: HYDROcodone/APAP 5/325MG 1 TAB TABLET PO ONE (13:30)
--- NOTE | 2017-07-14 13:38 | RAD ---
EXAM: Pelvis CT without contrast. HISTORY: Fall. TECHNIQUE: Computed tomographic images of the pelvis were obtained without contrast. *One or more of the following individualized dose reduction techniques were utilized for this examination: 1. Automated exposure control. 2. Adjustment of the mA and/or kV according to patient size. 3. Use of iterative reconstruction technique. COMPARISON: 03/06/2016. FINDINGS: No acute fracture is seen. The femoral heads are normal in configuration and seated appropriately. There is instrumented posterior spinal fusion at L5-S1. The instrumentation consists of transpedicular screws bridged by vertical rods at the fused levels. There is lucency surrounding the right greater than left S1 screws, consistent with loosening. There are partial laminectomy changes at the fused levels. There is scarring within the midline posterior back soft tissues due to prior fusion surgery. The uterus and ovaries are surgically absent. The bladder and visualized bowel are unremarkable. IMPRESSION: 1. No acute osseous finding. 2. Instrumented fusion at L5-S1. There is lucency surrounding the right greater than left S1 screws, consistent with loosening. Electronically signed by: Ninoska Gomez MD (07/14/2017 1:35 PM) [place] [id number]
--- NOTE | 2017-07-14 13:39 | RAD ---
EXAM: Right knee, 3 views; right femur, 2 views. HISTORY: Fall. COMPARISON: None. FINDINGS: Frontal and lateral views of the right femur and frontal, lateral and oblique views of the right knee are obtained. There is no acute fracture, dislocation or subluxation. There is a minimal tricompartmental spurring. There is trace joint fluid, without a significant effusion. IMPRESSION: No acute osseous finding. Electronically signed by: Ninoska Gomez MD (07/14/2017 1:36 PM) [place] [id number]
[2017-07-14] MEDS ORDERED: METH-38 PO (14:03)
[2017-07-14] MEDS ORDERED: OXYC-323 PO (14:03)
[2017-07-14 14:11] VITALS: BP 123/65
== END 2017-07-14 14:13 | disposition home or self-care (01) ==
LOC: ER 12:31
DX: S80.01XA Contusion of right knee, initial encounter (principal); M25.551 Pain in right hip; G89.29 Other chronic pain; M54.5 Low back pain; G43.909 Migraine, unspecified, not intractable, without status migrainosus; Z21 Asymptomatic human immunodeficiency virus [HIV] infection status; Z88.6 Allergy status to analgesic agent; W19.XXXA Unspecified fall, initial encounter; Y93.89 Activity, other specified; Y99.8 Other external cause status; Y92.89 Other specified places as the place of occurrence of the external cause
CPT/HCPCS: 72192; 73552; 73562; 99284-25

== ENCOUNTER 2017-09-23 15:16 | Inpatient (IN) | payer OTHER ==
[~2017-09-23] VITALS: Ht 172.7 cm; Wt 90.0 kg
[~2017-09-23 15:16] MED LIST: METH-38 PO; OXYC-323 PO
[2017-09-23] MEDS ORDERED: IV NORMAL SALINE 1,000ML 1,000 ML IV SCH (15:30)
--- NOTE | 2017-09-23 16:13 | PHYS DOC ---
Past History Past Medical History: Depression, HIV, Migraines, Seizure Past Surgical History: Appendectomy, Hysterectomy, Other Alcohol Use: None Drug Use: None Adult General Chief Complaint Chief Complaint: SEIZURE HPI HPI Patient is a 56 year old female who presents with complaint of seizure-like episode. Patient states that this took place approximately 20 minutes prior to arrival. Patient states that she has history of seizures and is currently on Keppra therapy. Patient takes 2250 mg of Keppra twice daily. Patient states that she has not missed any doses. Patient states that she started to feel numbness along the left side of her body which she has felt with previous seizures. Patient states that she did not go completely out with this episode. The patient was accompanied by an acquaintance who called EMS and had the patient transferred here to the emergency department. Patient states that she feels tired at this time but does not feel any unilateral weakness. Patient denies any pain currently. Patient noted to have significant hyperglycemia on her fingerstick. Patient denies any history of diabetes mellitus. Review of Systems Review of Systems Constitutional: Generalized fatigue, denies fever or chills [] Eyes: Denies change in visual acuity, redness, or eye pain [] HENT: Denies nasal congestion or sore throat [] Respiratory: Denies cough or shortness of breath [] Cardiovascular: Denies chest pain or edema[] GI: Denies abdominal pain, nausea, vomiting, bloody stools or diarrhea [] : Denies dysuria or hematuria [] Musculoskeletal: Denies back pain or joint pain [] Integument: Denies rash or skin lesions [] Neurologic: Seizure, numbness to left side of body currently resolved, denies focal weakness[] All other systems were reviewed and found to be within normal limits, except as documented in this note. Current Medications Current Medications Current Medications Medications (Trade) Dose Ordered Sig/Bhavik Start Time Stop Time Status Last Admin Dose Admin Sodium Chloride 1,000 ml @ 1,000 mls/hr Q1H 09/23/17 15:30 09/23/17 16:29 Allergies Allergies Allergies Coded Allergies Type Severity Reaction Last Updated Verified tramadol Allergy Intermediate 03/06/16 Yes aspirin Allergy Mild 03/24/17 Yes Physical Exam Physical Exam Constitutional: Alert, afebrile, vital signs stable, no acute distress. [] HENT: Normocephalic, atraumatic, bilateral external ears normal, oropharynx moist, no oral exudates, nose normal. [] Eyes: PERRLA, EOMI, conjunctiva normal, no discharge. [] Neck: Normal range of motion, no tenderness, supple, no stridor. [] Cardiovascular:Heart rate regular rhythm, no murmur [] Lungs & Thorax: Bilateral breath sounds clear to auscultation [] Abdomen: Bowel sounds normal, soft, no tenderness, no masses, no pulsatile masses. [] Skin: Warm, dry, no erythema, no rash. [] Back: No tenderness, no CVA tenderness. [] Extremities: No tenderness, no cyanosis, no clubbing, ROM intact, no edema. [] Neurologic: Alert and oriented X 3, normal motor function, normal sensory function, no focal deficits noted. [] Current Patient Data Vital Signs Vital Signs Date Time Temp Pulse Resp B/P (MAP) Pulse Ox O2 Delivery O2 Flow Rate FiO2 09/23/17 15:31 98.7 63 20 98 Room Air EKG EKG Interpreted by me: Heart rate 50, sinus rhythm, normal intervals, normal axis, no acute ST/T-wave abnormalities present[] Radiology/Procedures Radiology/[place] [address] IMAGING REPORT Signed PATIENT: HERNAN ANGEL I ACCOUNT: [id number] : 1960 LOCATION: ER AGE: 56 SEX: F EXAM STATUS: REG ER ORD. PHYSICIAN: MARIA DEL ROSARIO BENITEZ MD REASON: hyperglycemia, rule out acute cardiopulmonary abnormality PROCEDURE: PORTABLE CHEST 1V PORTABLE CHEST 1V History: Hyperglycemia Comparison: March 23, 2017 Findings: Single view of the chest is submitted. There is no infiltrate, pneumothorax, or effusion. The pericardial cardiac silhouette is stable, upper limits of normal. Impression: 1. There is no radiographic evidence of acute cardiopulmonary disease. Electronically signed by: Andie Erazo MD (09/23/2017 4:10 PM) [id number] DICTATED AND SIGNED BY: ANDIE ERAZO MD DATE: 09/23/17 5010 CC: MARIA DEL ROSARIO BENITEZ MD; ANNITA WOODWARD DO, MPH ~ [] Course & Med Decision Making Course & Med Decision Making Pertinent Labs and Imaging studies reviewed. (See chart for details) Patient was given IV fluids in the emergency department. The patient was found to have significantly elevated blood sugar about 300 which appears to be new onset. The patient likely has undiagnosed diabetes mellitus. Patient also noted to have elevated lactic acid level. Etiology is unclear and can be due to dehydration, recent seizure activity, or possible indolent infection though patient is afebrile and vital signs have remained stable during her emergency department stay. Patient has no evidence of infection in the pulmonary or urinary systems. After speaking with the patient, she states that she would prefer to be admitted to the hospital given her current findings. I spoke with Dr. Logan who accepted care patient in hospital. Dragon Disclaimer Dragon Disclaimer This electronic medical record was generated, in whole or in part, using a voice recognition dictation system. Departure Departure: Impression: Primary Impression: Hyperglycemia Additional Impressions: Elevated lactic acid level Seizure disorder Disposition: ADMITTED INPATIENT Admitting Physician: Alice Logan Condition: GUARDED Referrals: ANNITA WOODWARD DO, MPH (PCP) Problem Qualifiers MARIA DEL ROSARIO BENITEZ MD Sep 23, 2017 16:13
[2017-09-23 16:14] LABS: BASO % 0 % (0-3); EOS % 0 % (0-3); HEMATOCRIT 40.1 % (36.0-47.0); HEMOGLOBIN 12.5 g/dL (12.0-15.5); LYMPH # 1.3 x10^3/uL (1.0-4.8); LYMPH % 6 % (24-48); MEAN CORPUSCULAR HEMOGLOBIN 25 pg (25-35); MEAN CORPUSCULAR HGB CONC 31 g/dL (31-37); MEAN CORPUSCULAR VOLUME 81 fL (79-100); MONO # 0.9 x10^3/uL (0.0-1.1); MONO % 4 % (0-9); NEUT # 19.5 x10^3uL (1.8-7.7); NEUT % 90 % (31-73); PLATELET COUNT 389 x10^3/uL (140-400); RED BLOOD COUNT 4.92 x10^6/uL (3.50-5.40); RED CELL DISTRIBUTION WIDTH 16.9 % (11.5-14.5); WHITE BLOOD COUNT 21.8 x10^3/uL (4.0-11.0)
[2017-09-23 16:33] LABS: ALBUMIN 2.9 g/dL (3.4-5.0); ALBUMIN/GLOBULIN RATIO 0.6 (1.0-1.7); CREATININE 1.6 mg/dL (0.6-1.0); GFR 40.6; MAGNESIUM 2.2 mg/dL (1.8-2.4); POTASSIUM 4.3 mmol/L (3.5-5.1); TOTAL BILIRUBIN 1.4 mg/dL (0.2-1.0); TOTAL PROTEIN 7.7 g/dL (6.4-8.2)
[2017-09-23 16:34] LABS: BARBITURATES NEG (NEG); BENZODIAZEPINES NEG (NEG); CANNABINOIDS NEG (NEG); COCAINE NEG (NEG); METHADONE NEG (NEG); OPIATES POS (NEG); PHENCYCLIDINE NEG (NEG)
[2017-09-23 16:37] LABS: AMPHETAMINE/METHAMPHETAMINE NEG (NEG)
[2017-09-23] MEDS ORDERED: IV NORMAL SALINE 1,000ML 1,000 ML IV ONE (16:45)
[2017-09-23 16:55] LABS: BACTERIA,URINE FEW /HPF (0-FEW); BILIRUBIN,URINE NEG (NEG); CLARITY,URINE CLEAR; COLOR,URINE YELLOW; GLUCOSE,URINE >=1000 mg/dL (NEG); NITRITE,URINE NEG (NEG); SQUAMOUS EPITHELIAL CELL,UR MOD /LPF; UROBILINOGEN,URINE 0.2 mg/dL (0.2 mg/dL)
[2017-09-23] MEDS ORDERED: ONDANSETRON PF 4 MG/2 ML VIAL. IV PRN (17:45)
[2017-09-23] MEDS ORDERED: LEVE500T6 PO (18:41)
[2017-09-23] MEDS ORDERED: RITO100T PO (18:41)
[2017-09-23] MEDS ORDERED: ATAZ300C PO (18:41)
[2017-09-23] MEDS ORDERED: SERT100T PO (18:41)
[2017-09-23] MEDS ORDERED: HYDR-2766 PO (18:41)
[2017-09-23] MEDS ORDERED: EMTR1TAB8 PO (18:41)
[2017-09-23 19:15] VITALS: BP 159/84
--- NOTE | 2017-09-23 19:15 | NUR ---
Pt was admitted from ER to [facility] room 121 via [facility], accompanied by EMS and nursing staff. Pt self transferred from [place] to bed independently, steady gait noted. Pt here for new onset DM and ? Seizure activity. Pt does have a hx of Seizures, stating that her last one was about a year ago, Pt takes Keppra. Pt is HIV+. Home medications & health history reviewed. IVF started per order. Pt lives at home with family. SCDs for VTE. Pt UTD on pneumonia vaccine. Pt was given written information regarding hospital policies, unit procedures and contact persons. Valuables were checked and left at bedside. Call light within reach. Pt given box lunch per request. Dietary consulted for DM education.
[2017-09-23 19:35] LABS: % LYMPHS 10 % (24-48); % MONOS 4 % (0-10); % SEGS 85 % (35-66)
[2017-09-23 20:00] LABS: PLT ESTIMATE ADEQUATE (ADEQUATE)
[2017-09-23 20:02] LABS: % ATYL 1 % (0-0)
[2017-09-23] MEDS: levETIRAcetam 250 MG TABLET PO SCH (20:59)
[2017-09-23] MEDS: HYDROcodone/APAP 10/325 1 TAB TABLET PO PRN (20:59)
[2017-09-23] MEDS: IV NORMAL SALINE 1,000ML 1,000 ML IV SCH (21:00)
[2017-09-23 22:55] VITALS: BP 128/74
[2017-09-24] MEDS: IV NORMAL SALINE 1,000ML 1,000 ML IV SCH ×4 (02:42→21:43)
[2017-09-24 05:13] VITALS: BP 123/73
[2017-09-24 06:13] LABS: BASO % 0 % (0-3); EOS % 0 % (0-3); HEMATOCRIT 37.4 % (36.0-47.0); HEMOGLOBIN 11.9 g/dL (12.0-15.5); LYMPH # 1.8 x10^3/uL (1.0-4.8); LYMPH % 9 % (24-48); MEAN CORPUSCULAR HEMOGLOBIN 26 pg (25-35); MEAN CORPUSCULAR HGB CONC 32 g/dL (31-37); MEAN CORPUSCULAR VOLUME 81 fL (79-100); MONO # 0.6 x10^3/uL (0.0-1.1); MONO % 3 % (0-9); NEUT # 17.7 x10^3uL (1.8-7.7); NEUT % 88 % (31-73); PLATELET COUNT 358 x10^3/uL (140-400); RED CELL DISTRIBUTION WIDTH 16.9 % (11.5-14.5); WHITE BLOOD COUNT 20.1 x10^3/uL (4.0-11.0)
[2017-09-24 06:21] LABS: CALCIUM 8.4 mg/dL (8.5-10.1); CREATININE 1.4 mg/dL (0.6-1.0); GFR 47.4; POTASSIUM 4.4 mmol/L (3.5-5.1)
[2017-09-24] MEDS: SERTRALINE 100 MG TABLET. PO SCH (08:19)
[2017-09-24] MEDS: levETIRAcetam 250 MG TABLET PO SCH ×2 (08:20→21:37)
[2017-09-24] MEDS: EMTRICITAB/TENOFOVIR 200/300MG TABLET. PO SCH (08:31)
[2017-09-24] MEDS: ATAZANAVIR SULFATE 300 MG PO SCH (09:00)
[2017-09-24] MEDS: RITONAVIR 100 MG PO SCH (09:00)
[2017-09-24 10:36] VITALS: BP 138/55
--- NOTE | 2017-09-24 12:12 | NUR ---
IP: patient has hx of MRSA+ blood culture, requires contact precautions until 2 negative results 7 days apart.
--- NOTE | 2017-09-24 13:55 | EKG ---
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
--- NOTE | 2017-09-24 15:04 | NUR ---
Pt complained of chest pain. EKG done with no abnormality. Applied 2L O2 and gave Fentanyl 50mcg with relief. Pt resting at this time now. Dr Logan informed of changes.
[2017-09-24 15:12] VITALS: BP 113/72
[2017-09-24] MEDS ORDERED: DEXTROSE 50% 25 GM / 50ML DISP.SYRIN. IV PRN (16:45)
--- NOTE | 2017-09-24 17:15 | HP ---
ADMIT DATE: 09/24/2017 HISTORY OF PRESENT ILLNESS: The patient is a 56-year-old -[place] female patient who presented to the Emergency Room with a complaint of seizure-like episode. She stated that took place about 20 minutes before she arrived to the Emergency Room. She is known to have seizures and is followed by Dr. Martinez. She is on 2250 mg of Keppra twice a day. Last seizure was about a year ago and she has not missed any of her doses. She stated that she has numbness along the left side of her body, which she has felt with previous seizures. She stated that she did not go completely out with this episode. She has been accompanied by an acquaintance who called EMS and had the patient transferred to the Emergency Department. She feels tired on arrival, does not feel any unilateral weakness. Denied any pain; however, while in the Emergency Room, she was found to have significant hyperglycemia on fingerstick, although she denied any history of diabetes mellitus. PAST MEDICAL HISTORY: Significant for epilepsy. She is known to have HIV for the last 10 years, followed by a physician at [facility] there. She does not know her CD4 or viral load number and apparently she has never been diagnosed with AIDS defining illness. She is also known to have depression and migraine headache. PAST SURGICAL HISTORY: Significant for back surgery, appendectomy, total abdominal hysterectomy, bilateral salpingo-oophorectomy. She has also underwent esophagogastroduodenoscopy and colonoscopy. ALLERGIES: She is allergic to ASPIRIN and TRAMADOL. MEDICATIONS: She is currently on following medications: She is on atazanavir, or Reyataz 300 mg daily. She is on Truvada 200/300 mg 1 tablet daily, ritonavir 100 mg daily. She is on hydrocodone/APAP 10/325 one tablet every 6 hours. She is on levetiracetam 1500 mg twice a day and sertraline 100 mg for Zoloft daily. FAMILY HISTORY: She has 4 sisters who are older and she has very strong family history of diabetes, hypertension, CVA, and aneurysm. Two sisters , one because of myocardial infarction and one because of cerebral aneurysm rupture. Her father has , does not know why and how old he was. Her mother was killed when she was 5 years old. SOCIAL HISTORY: She is , has a daughter and a son. She never smoked, does not drink alcohol or recreational drugs. She is currently on disability. She apparently acquired HIV from her . REVIEW OF SYSTEMS: The patient denied any blurring of vision, cataract, glaucoma or macular degeneration. Denied any earache, tinnitus or sensorineural deafness. Denied any nosebleeds, stuffy nose or postnasal drip. Denied any sore throat, sore tongue, toothache, hoarseness of voice, or difficulty swallowing. Denied any nausea, vomiting, diarrhea or constipation. Denied any hematemesis, melena or hematochezia. Denied any dysuria, frequency or hematuria. Denied any nocturia. She did complain of occasional chest pain and shortness of breath. Denied any cough, phlegm or hemoptysis. Denied any orthopnea or nocturnal dyspnea. Denied any cough, phlegm or hemoptysis. Denied any dizziness, lightheadedness, or vertigo. Denied any chills, rigors or fever. PHYSICAL EXAMINATION: GENERAL: On arrival to the Emergency Room, she looked well and was clearly in no apparent respiratory distress, slightly pale, no jaundice, cyanosis, or thyromegaly. No jugular venous distension. No limb edema. VITAL SIGNS: Heart rate was 63, blood pressure 116/64, temperature was 98.7, respiratory rate 20, and oxygen saturation was 98%. HEAD, EYES, EARS, NOSE, AND THROAT: Showed normocephalic, atraumatic. NECK: Supple. HEART: Showed normal first and second heart sounds. No gallop, rub or murmur. CHEST: Clear to auscultation. No crepitation or rhonchi. ABDOMEN: Distended, soft, nontender. NEUROLOGIC: She is awake, alert, responding appropriately. All cranial nerves intact. EXTREMITIES: She moves extremities without difficulty. She ambulates without assistance or assistive devices. LABORATORY DATA: On arrival to the Emergency Room, she has had lab work done showed a white cell count 21,800, hemoglobin 12.5, hematocrit 40, MCV 81 and platelet count of 389,000 with a manual differential showed 90% neutrophils, 6% lymphocytes and 4% monocytes. Her chemistry on arrival showed that her serum sodium was 133, potassium 4.3, chloride was 98, bicarbonate 18, and anion gap of 17, BUN 22, creatinine 1.6, estimated GFR was 40 mL per minute. Her glucose was 313. Lactic acid was 3.3. Her calcium was 9, magnesium 2.2. Total bilirubin 1.4. AST, ALT were normal, however alkaline phosphatase was elevated. Her total protein was 7.7, albumin was 2.9. Urinalysis showed the urine was yellow, clear with a pH of 5.5, specific gravity 1.015 with a small amount of protein, large amount of glucose, negative for ketones, small amount of blood, negative for nitrite and leukocyte esterase, 1-2 rbc's, 1-4 wbc's, very few bacteria and toxic screen was positive for opiates but negative for methadone, barbiturates, phencyclidine, amphetamine, methamphetamine, benzodiazepine, cocaine, cannabinoids and alcohol. She did have a chest x-ray, which basically showed that there is no infiltrate, pneumothorax or effusion. The cardiac silhouette is stable, upper limits of normal. There is no radiographic evidence of acute cardiopulmonary disease. IMPRESSION: In summary, this is a 56-year-old -[place] female patient with a past medical history of seizures, followed by Dr. Martinez. She is known to have HIV for the last 10 years, on antiretroviral medication, who is followed by Infectious Disease specialist at [facility] in [place], who came in with another, seemed to be new onset of seizures, the last seizure she was about a year ago. However on questioning her further, she has not bitten her tongue, she was not incontinent of bowel or bladder and by description, it does not seem to be tonic-clonic seizure, it could be partial or it could be even a TIA. Her lab work showed that she has marked hyperglycemia, which is obviously an expected side effect of antiretroviral medication. She has also impaired kidney function. This could be just because of dehydration. PLAN: My plan is to obviously start her on insulin sliding scale. I will arrange for her to have a CT scan of the head and consult Dr. Masters to evaluate her. Continue with all her other medications and decide on further management accordingly. MAXIMINO TOURE MD DR: ZO/justin JOB#: [id number] / [id number]
--- NOTE | 2017-09-24 18:39 | RAD ---
CT scan of the head without contrast September 24, 2017 Clinical History: Breakthrough seizure. Technique: Unenhanced, contiguous, 5 mm axial sections were obtained through the head. One or more of the following individualized dose reduction techniques were utilized for this study: 1. Automated exposure control. 2. Adjustment of the mA and/or kV according to patient size. 3. Use of iterative reconstruction technique. Findings: The ventricles and sulci are within normal limits in size and configuration. No focal area of abnormal attenuation is seen involving the brain parenchyma. No extra-axial fluid collection is seen. No skull fracture is seen. Impression: Negative study. Electronically signed by: Keenan Reed MD (09/24/2017 6:36 PM) [facility]
[2017-09-24 19:00] VITALS: BP 151/85
[2017-09-24] MEDS: INSULIN ASPART 300 UNITS/3 ML INSULN.PEN SQ SCH (21:43)
--- NOTE | 2017-09-25 00:11 | PN ---
DATE: 09/24/2017 SUBJECTIVE: The patient is resting, slightly propped up in bed, in no apparent respiratory distress. She is awake, alert, denied any complaint. She has had no further episodes of seizures since admission. Her lab work showed that she has marked hyperglycemia. She has also impaired kidney function, which could be just a manifestation of dehydration, although as I do not have any other numbers to compare with. She apparently has been seen in the Emergency Room multiple times before and her kidney function was probably at around this value, at least since 04/2017. At that time, her creatinine was 1.4 and her blood sugar was actually normal, at least on her last time she was seen in 08/2016. OBJECTIVE: GENERAL: In any case, when I saw her today, she looked well and was clearly in no apparent respiratory distress, pale, no jaundice, cyanosis, or thyromegaly. No jugular venous distension. No limb edema. VITAL SIGNS: Her heart rate was 72, blood pressure was 113/72, temperature was 97.9, respiratory rate 20, and oxygen saturation was 97%. HEAD, EYES, EARS, NOSE AND NECK: Normocephalic, atraumatic head. NECK: Supple. HEART: Showed normal first and second heart sounds. No gallop, rub or murmur. CHEST: Auscultation crepitation or rhonchi. ABDOMEN: Distended, soft, nontender. No guarding or rigidity. No organomegaly. Hernial orifice is intact. Bowel sounds normal. NEUROLOGIC: She was awake, alert, responding appropriately. Cranial nerves are intact. She moves extremities without difficulty, ambulates without assistance or assistive devices. Her intake was 2300. No output was reported. LABORATORY DATA: Her lab work this morning showed that her serum sodium was 133, potassium 4.4, chloride 101, bicarbonate 21, anion gap of 11, BUN 23, creatinine 1.4, estimated GFR was 47 mL per minute. Her glucose was 220, calcium was 8.4. Her white cell count is down to 20,000, her hemoglobin 11.9, hematocrit 37, MCV 81, and platelet count 358,000. IMPRESSION: So, in summary, this is a 56-year-old -[place] female patient with: 1. Human immunodeficiency virus, on antiretroviral medication for the last 10 years. She is followed by an infectious disease specialist at [facility]. 2. New onset diabetes with marked hyperglycemia. Her lab work at least since 01/2017 showed no evidence of hyperglycemia. She has lebvy-di-xmzwsbc kidney injury. Her baseline creatinine is about 1.4, which came yesterday. It went up to 1.6. Other medical problems include epilepsy for which she is on Keppra. She presented with what seems to be numbness in the left side which is more a kind of transient ischemic attack, what could be sensory transient ischemic attack than the motor. It was not the classic tonic-clonic seizure. She did not bite her tongue. She was not incontinent of bowel and bladder. She obviously has depression, on Zoloft that and itself can be epileptogenic. PLAN: My plan is to consult Dr. Masters, arrange for a CT scan of the head without contrast, start her on insulin sliding scale, as her creatinine is high and she would not be a candidate for metformin. MAXIMINO TOURE MD DR: ZO/justin JOB#: [id number] / [id number]
--- NOTE | 2017-09-25 04:41 | CONS ---
DATE OF CONSULTATION: 09/24/2017 NEUROLOGY CONSULTATION REFERRING PHYSICIAN: Dr. Logan. REASON FOR CONSULTATION: Slurred speech and left-sided numbness. HISTORY OF PRESENT ILLNESS: This is a 56-year-old right-handed -[place] Citizen female, who has had positive HIV for 10 years, presented with a chief complaint of 20-minute episode described as a sudden onset of slurred speech, difficulty to complete sentences and numbness confined to the left upper and lower extremities. The patient stated that these are her symptoms when she would have a seizure. I asked about the cause of seizure. It is unknown and she described it as a sudden onset of difficulty to speak and numbness of the left side. The patient was followed by a neurologist in [place], and she has been receiving Keppra for possible seizure. The patient stated she never had an electroencephalogram done so far. She was somewhat confused, but she denies urinary or bowel incontinence or tongue biting. The patient recalls the event and she never had any convulsions. The patient denies any convulsion during her previous episodes. She was found to have hyperglycemia as well. On arrival to Emergency Room, the patient was alert and oriented. She has not had any recurrent seizures since admission, which was yesterday. The patient also complains of intermittent left-sided chest ____ without radiation to the shoulder or associated with nausea, vomiting or shortness of breath. She denies headache, visual disturbances or dysphagia. Initial nonenhanced head CT scan revealed no evidence of acute intracranial process. PAST MEDICAL HISTORY: Significant for HIV diagnosed 10 years ago and she on HIV medications, depressions, history of seizure-like activities, and migraine headaches. PAST SURGICAL HISTORY: Significant for hysterectomy, appendectomy, lumbosacral spine surgery with fusion. SOCIAL HISTORY: The patient is single. She has 2 children. She denies smoking, alcohol drinking, or illicit drug use. FAMILY HISTORY: Strongly positive for diabetes mellitus in her four sisters, hypertension, stroke and cerebral aneurysm. Otherwise, mother was killed when the patient was at the age of 5. MEDICATIONS: Keppra 750 mg twice daily, Truvada 200/300 tablet daily, Zoloft 100 mg daily, Reyataz 1 capsule daily, and ritonavir 1 tablet daily. ALLERGIES: THE PATIENT IS ALLERGIC TO ASPIRIN AND TRAMADOL. REVIEW OF SYSTEMS: 10-point review of system was performed and as mentioned above in history of present illness, otherwise unremarkable. PHYSICAL EXAMINATION: GENERAL: Well-developed and well-nourished -[place] Citizen female, not in acute distress. VITAL SIGNS: Blood pressure 151/85, respiratory rate 20, pulse is 45, temperature 98, and oxygen saturation is 96% on room air. HEENT: Normocephalic, atraumatic, otherwise unremarkable. NECK: Supple. Negative for carotid bruit, lymphadenopathy or thyromegaly. LUNGS: Clear to A and P. CARDIOVASCULAR: Regular rhythm, normal S1, S2. ABDOMEN: Soft. Bowel sounds positive. EXTREMITIES: Negative for cyanosis, clubbing or pitting edema. NEUROLOGIC: MENTAL STATUS: The patient is alert and oriented x 3. The speech is fluent. There is no language dysfunction. Memory, judgment and abstracting thinking are normal. The patient denies hallucination or delusion. CRANIAL NERVES: Visual brand are full. The pupils are reactive to light and accommodation. The extraocular movements are intact. There is no nystagmus. There is no facial motor or sensory deficit. Hearing is intact bilaterally. The palate is elevated symmetrically. Sternocleidomastoid muscles are powerful bilaterally. The patient shrugs her shoulders symmetrically and protrudes her tongue in the midline without fasciculation or atrophy. MOTOR: No focal muscle bulk was seen. The tone is normal. The strength is 5/5 throughout. SENSORY: Examination revealed normal pinprick, light touch, vibratory and position senses. Deep tendon reflexes were symmetric and hypoactive in the lower extremities, with absent Achilles responses bilaterally. GAIT: The stance is steady. The patient walks without assistance. DIAGNOSTIC DATA: A nonenhanced head CT scan as described above and chest x-ray revealed no evidence of acute cardiopulmonary process. LABORATORY DATA: CBC revealed white blood cells of 20,100, hemoglobin 11.9, hematocrit 37.4, and platelet count 358,000 with left shift. Chemistry: Sodium 133, potassium 4.4, chloride 101, CO2 of 21, BUN 23, creatinine 1.4, glucose 326, and calcium 8.4. Urinalysis is negative for urinary tract infection. Urine drug screen is positive for opiate. IMPRESSION: 1. A 20-minute episode of slurred speech associated with numbness and paresthesia of the left upper and lower extremities, etiology uncertain, rule out complex past partial seizure versus transient ischemic attack. 2. New-onset of hyperglycemia. RECOMMENDATIONS: 1. We will obtain carotid Doppler study. 2. Continue with current home medications and management initiated by Dr. Logan. 3. We will arrange for EEG to be done on an outpatient basis. M Kathy GR MD DR: JENNIFER/justin JOB#: [id number] / [id number]
[2017-09-25 06:18] VITALS: BP 176/86
[2017-09-25 06:22] LABS: HEMATOCRIT 39.8 % (36.0-47.0); HEMOGLOBIN 12.9 g/dL (12.0-15.5); RED BLOOD COUNT 4.89 x10^6/uL (3.50-5.40); RED CELL DISTRIBUTION WIDTH 17.2 % (11.5-14.5); WHITE BLOOD COUNT 23.1 x10^3/uL (4.0-11.0)
[2017-09-25 06:33] LABS: ALBUMIN 2.5 g/dL (3.4-5.0); ALBUMIN/GLOBULIN RATIO 0.5 (1.0-1.7); CALCIUM 8.4 mg/dL (8.5-10.1); CREATININE 1.3 mg/dL (0.6-1.0); GFR 51.6; POTASSIUM 4.7 mmol/L (3.5-5.1); TOTAL BILIRUBIN 0.6 mg/dL (0.2-1.0); TOTAL PROTEIN 7.5 g/dL (6.4-8.2)
[2017-09-25] MEDS: HYDROcodone/APAP 10/325 1 TAB TABLET PO PRN ×2 (06:56→21:40)
[2017-09-25] MEDS ORDERED: INSULIN ASPART 300 UNITS/3 ML INSULN.PEN SQ SCH (07:30)
[2017-09-25] MEDS: ATAZANAVIR SULFATE 300 MG PO SCH (08:59)
[2017-09-25] MEDS: RITONAVIR 100 MG PO SCH (09:00)
[2017-09-25] MEDS: EMTRICITAB/TENOFOVIR 200/300MG TABLET. PO SCH (09:01)
[2017-09-25] MEDS: SERTRALINE 100 MG TABLET. PO SCH (09:01)
[2017-09-25] MEDS: levETIRAcetam 250 MG TABLET PO SCH ×2 (09:02→21:31)
[2017-09-25] MEDS: INSULIN ASPART 300 UNITS/3 ML INSULN.PEN SQ SCH ×3 (09:05→17:23)
[2017-09-25 10:13] VITALS: BP 156/82
[2017-09-25] MEDS: IV NORMAL SALINE 1,000ML 1,000 ML IV SCH ×2 (10:15→18:04)
--- NOTE | 2017-09-25 10:41 | RAD ---
Clinical indications: Left-sided numbness. Slurred speech.. Duplex sonography of the cervical portion of both carotid arteries was performed including color flow imaging and spectral waveform analysis with flow velocity measurement and braswell scale evaluation. Right side: Peak systolic flow velocity of the mid CCA is 72 cm/sec. Peak systolic flow velocity of the ICA is 88 cm/sec. Thus, the ICA/CCA ratio is 1.2. Peak end diastolic flow velocity of the ICA is 30 cm/sec. The peak systolic velocity of the ECA is 79 cm/sec. Left side: Peak systolic flow velocity of the mid CCA is 75 cm/sec. Peak systolic flow velocity of the ICA is 84 cm/sec. Thus, the ICA/CCA ratio is 1.1. Peak end diastolic flow velocity of the ICA is 33 cm/sec. Peak systolic flow velocity of the ECA is 45 cm/sec. No significant plaque formation is identified. Antegrade vertebral flow is seen bilaterally. The measurements were made using the NASCET criteria. Impression:No significant plaque formation is identified within the cervical portion of either carotid artery.
[2017-09-25] MEDS ORDERED: NITROGLYCERIN SUBLINGUAL 0.4 MG BOTTLE OF 25. SL PRN (12:15)
--- NOTE | 2017-09-25 12:22 | EKG ---
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
--- NOTE | 2017-09-25 12:50 | PN ---
DATE: 09/25/2017 SUBJECTIVE: The patient denies any new neurological complaints; however, she continues to have intermittent substernal chest pain, more on the right side. She denied shortness of breath, diaphoresis, nausea, vomiting. A carotid Doppler study was performed today and revealed no evidence of significant carotid artery stenosis. OBJECTIVE: GENERAL: Well-developed, well-nourished -[place] female in no acute distress. VITAL SIGNS: Blood pressure 156/82, respiratory 20, pulse is 42, temperature is 97.8, oxygen saturation is 100% on room air. HEENT: Normocephalic, atraumatic, otherwise unremarkable. NECK: Supple. Negative for carotid bruit, JVD, lymphadenopathy or thyromegaly. LUNGS: Clear to A and P. CARDIOVASCULAR: Sinus rhythm, bradycardia, normal S1, S2. There is no S3, S4 or murmur. ABDOMEN: Soft, bowel sounds positive. EXTREMITIES: Negative for cyanosis, clubbing, edema. NEUROLOGIC: Mental status and intact cranial nerves. There is no evidence of focal motor or sensory deficit. Deep tendon reflexes were symmetric and hypoactive with absent acute responses. Gait and coordination are normal. LABORATORY DATA: CBC reveals white blood cells of 23.1 thousand, hemoglobin 12.9, hematocrit 39.8, platelet count 372. Chemistry revealed sodium of 133, potassium 4.7, chloride 102, CO2 25, BUN 27, creatinine 1.3, glucose 178. Lipid profile is normal with HDL of 64. IMPRESSION: 1. History of seizure disorder of unknown etiology and positive symptoms of transient ischemic attack, presented with slurred speech and left-sided numbness and paresthesia -- resolved with negative carotid Doppler study. 2. Positive human immunodeficiency virus, on medication. 3. New onset of hyperglycemia, hypertension and bradycardia. RECOMMENDATION: 1. Continue with current management initiated by Dr. Logan 2. We will arrange EEG to be done next week on an outpatient basis. JOSSUE SHELDON MD DR: RALF/justin JOB#: [id number] / [id number]
[2017-09-25 14:00] VITALS: BP 149/73
[2017-09-25 20:11] VITALS: BP 120/76
[2017-09-25 22:49] VITALS: BP 134/88
[2017-09-26 00:08] LABS: HEMOGLOBIN A1C 6.4 % (4.8-5.6)
[2017-09-26] MEDS: IV NORMAL SALINE 1,000ML 1,000 ML IV SCH (02:15)
[2017-09-26 05:22] VITALS: BP 128/86
[2017-09-26 05:52] LABS: CALCIUM 8.4 mg/dL (8.5-10.1); CREATININE 1.3 mg/dL (0.6-1.0); GFR 51.6
[2017-09-26] MEDS: PANTOPRAZOLE 40 MG TABLET. PO SCH (08:20)
[2017-09-26] MEDS: levETIRAcetam 250 MG TABLET PO SCH ×2 (08:20→21:34)
[2017-09-26] MEDS: SERTRALINE 100 MG TABLET. PO SCH (08:20)
[2017-09-26] MEDS: RITONAVIR 100 MG PO SCH (08:21)
[2017-09-26] MEDS: EMTRICITAB/TENOFOVIR 200/300MG TABLET. PO SCH (08:21)
[2017-09-26] MEDS: ATAZANAVIR SULFATE 300 MG PO SCH (08:22)
[2017-09-26] MEDS: INSULIN ASPART 300 UNITS/3 ML INSULN.PEN SQ SCH ×3 (08:29→17:09)
[2017-09-26] MEDS ORDERED: GLIMEPIRIDE 2 MG TABLET PO SCH ×2 (09:00→21:00)
--- NOTE | 2017-09-26 10:06 | PN ---
DATE: 09/25/2017 SUBJECTIVE: The patient is resting, slightly propped up in bed, in no apparent respiratory distress. She continued to have intermittent chest pain that comes and goes, not associated with exertion. It is retrosternal. No nausea, no vomiting, no diaphoresis. She has also episodes of bradycardia, especially at nighttime when she is asleep, so we did an EKG, which showed that she was in sinus rhythm with no evidence of ST segment elevation or depression. We have also arranged for at least first set of cardiac enzyme was negative. Her lipid profile was normal. In fact, her LDL was only 78 and HDL was 64 and the ratio was 2. She was seen by Dr. Masters, and we did a CT scan of the head which was unremarkable. She also had bilateral carotid Doppler ultrasound and this showed no significant plaque formation identified within the cervical portion of the either carotid artery. PHYSICAL EXAMINATION: GENERAL: When I examined her this afternoon, she was resting slightly propped up in bed, in no apparent respiratory distress. She was pale, not jaundice, cyanosis, or thyromegaly. No jugular venous distension. No limb edema. VITAL SIGNS: Her heart rate was 42, blood pressure 156/82, temperature 97.8, respiratory rate 20, and oxygen saturation was 100% on room air. HEAD, EYES, EARS, NOSE AND THROAT: Normocephalic, atraumatic. NECK: Supple. HEART: Showed normal first and second heart sounds with no gallop, rub or murmur. CHEST: Clear to auscultation. No crepitation or rhonchi. ABDOMEN: Distended, soft, nontender. No guarding or rigidity. No organomegaly. Hernial orifice intact. Bowel sounds normal. NEUROLOGIC: She is awake, alert, responding appropriately. Cranial nerves intact. She moves extremities without difficulty. She ambulates without assistance or assistive devices. Her intake over the last 24 hours was 2313. Output was recorded. LABORATORY DATA: As of this morning, her white cell count was 23,000, hemoglobin 12.9, hematocrit was 40, and platelet count was 372,000. Her chemistry showed a serum sodium 133, potassium 4.7, chloride 102, bicarbonate 25, anion gap of 6, BUN 27, creatinine 1.3, estimated GFR was 51 mL per minute. Her glucose was 501, calcium was 8.4. Total bilirubin, AST, ALT, alkaline phosphatase were normal. Total protein was 7.5, albumin was 2.8. Urinalysis was essentially unremarkable. Toxic screen was positive for opiates and negative for all other substances. Her chest x-ray showed no radiographic evidence of acute cardiopulmonary disease. The patient has chest pain that has responded to sublingual nitroglycerin; however, EKG and first cardiac enzymes were negative. ASSESSMENT: 1. Human immunodeficiency virus, on antiretroviral medication for the last 10 years. She is followed by the infectious disease specialist at [facility]. 2. New onset diabetes with marked hyperglycemia. Her lab works at least since 01/2017 showed no evidence of hyperglycemia. 3. She has acute on chronic kidney injury. Her baseline creatinine is about 1.4. When she came yesterday it went up to 1.6. 4. Other medical problems including epilepsy for which she is on Keppra. She presented with what seems to be numbness in her left side, which is more like a transient ischemic attack. It could be sensory rather than motor. It was not the classic tonic-clonic seizures. She did not bite her tongue. She was not incontinent of bowel or bladder. 5. She has depression, on Zoloft. So far, the patient had a CT scan which was negative. The bilateral carotid ultrasounds were negative. My plan is to start her on Amaryl 1 mg twice a day to hopefully have a good controlled blood sugar. We will consult the air export agent. MAXIMINO TOURE MD DR: ZO/justin JOB#: [id number] / [id number]
[2017-09-26 10:48] VITALS: BP 145/88
--- NOTE | 2017-09-26 11:50 | PDOC2 ---
CARDIAC CONSULT DATE OF CONSULT Date Of Consult DATE: 09/26/17 TIME: 11:39 REASON FOR CONSULT Reason for Consult Bradycardia REFERRING PHYSICIAN Referring Physician Dr. Logan SOURCE Source: Patient HPI History of Present Illness The patient is a pleasant 56-year-old female who was admitted on September 23 through the emergency room for seizure-like episode. The patient does have a history of seizure disorder and is treated by Dr. Rosado. The patient was continued on her baseline medications including Keppra and has no had no further recurrence. There was some question whether she may have had a mild TIA due to some facial drooping. CT head scan shows no acute changes. Carotid ultrasound shows no significant plaquing. Troponin has been normal at less than 0.017. Her EKG shows a sinus rhythm with mild nonspecific ST-T wave changes. We have been asked see the patient due to episodes of bradycardia at night while the patient is sleeping. In review of the last 48 hours, tele has shown several episodes of a heart rate during sleep decreasing to 38-40 bpm. She has remained in sinus rhythm. The patient denies any dizziness, lightheadedness or near syncopal episodes. She is now resting comfortably in bed. The patient has been HIV positive for greater than 10 years and has follow through [facility]. PAST MEDICAL HISTORY CENTRAL NERVOUS SYSTEM: Migraine, Seizure Psych: Depression Infectious disease: HIV PAST SURGICAL HISTORY Past Surgical History: Appendectomy, Hysterectomy FAMILY HISTORY Family History: Cancer, Coronary Artery Disease, Diabetes, Other SOCIAL HISTORY Smoke: No ALCOHOL: none CURRENT MEDICATIONS Current Medications Current Medications Sodium Chloride 1,000 ml @ 1,000 mls/hr Q1H IV Last administered on 09/23/17at 16:10; Start 09/23/17 at 15:30; Stop 09/23/17 at 16:29; Status DC Sodium Chloride 1,000 ml @ 1,000 mls/hr 1X ONCE IV Last administered on at 17:44; Start 09/23/17 at 16:45; Stop 09/23/17 at 17:44; Status DC Ondansetron HCl (Zofran) 4 mg PRN Q4HRS PRN IV NAUSEA/VOMITING; Start 09/23/17 at 17:45; Stop 09/24/17 at 17:44; Status DC Fentanyl Citrate (Fentanyl 2ml Vial) 50 mcg PRN Q2HR PRN IV PAIN Last administered on 09/24/17 13:11; Start 09/23/17 at 17:45; Stop 09/24/17 at 17:44; Status DC Sodium Chloride 1,000 ml @ 125 mls/hr Q8H IV Last administered on 09/24/17at 13: 17; Start 09/23/17 at 17:37; Stop 09/24/17 at 17:36; Status DC Emtricitabine/ Tenofovir (Truvada 200/300 Mg) 1 tab DAILY PO Last administered on 09/26/17 08:21; Start 09/24/17 at 09:00 Acetaminophen/ Hydrocodone Bitart (Lortab 10/325) 1 tab PRN Q6HRS PRN PO PAIN Last administered on 09/25/17 21:40; Start 09/23/17 at 20:30 Levetiracetam (Keppra) 750 mg BID PO Last administered on 09/26/17 08:20; Start 09/23/17 at 21:00 Sertraline HCl (Zoloft) 100 mg DAILY PO Last administered on 09/26/17 08:20; Start 09/24/17 at 09:00 Non-Formulary Medication (Atazanavir Sulfate (Reyataz)) 1 cap DAILY PO Last administered on 09/26/17 08:22; Start 09/24/17 at 09:00 Non-Formulary Medication (Ritonavir (Norvir)) 1 tab DAILY PO Last administered on 09/26/17 08:21; Start 09/24/17 at 09:00 Insulin Aspart (NovoLOG) 0-7 UNITS TIDAC SQ ; Start 09/25/17 at 07:30; Stop at 07:30; Status DC Dextrose 12.5 gm PRN Q15MIN PRN IV SEE COMMENTS; Start 09/24/17 at 16:45 Sodium Chloride 1,000 ml @ 125 mls/hr Q8H IV Last administered on 09/24/17 21: 43; Start 09/24/17 at 18:15 Insulin Aspart (NovoLOG) 0-7 UNITS TIDAC SQ Last administered on 09/26/17 08:29 ; Start 09/24/17 at 21:15 Nitroglycerin (Nitrostat) 0.4 mg PRN Q5MIN PRN SL CHEST PAIN Last administered on 09/25/17at 12:53; Start 09/25/17 at 12:15 Pantoprazole Sodium (Protonix) 40 mg DAILYAC PO Last administered on 09/26/17at 08:20; Start 09/26/17 at 07:30 Glimepiride (Amaryl) 2 mg DAILY PO Last administered on 09/26/17at 08:20; Start 09/26/17 at 09:00 Active Scripts Active Reported Levetiracetam 500 Mg Tablet 1.5 Tab PO BID LAST DOSE GIVEN: DATE: TIME: NEXT DOSE DUE: DATE: TIME: Norvir (Ritonavir) 100 Mg Tablet 1 Tab PO DAILY LAST DOSE GIVEN: DATE: TIME: NEXT DOSE DUE: DATE: TIME: Reyataz (Atazanavir Sulfate) 300 Mg Capsule 1 Cap PO DAILY LAST DOSE GIVEN: DATE: TIME: NEXT DOSE DUE: DATE: TIME: Truvada 200 Mg-300 Mg Tablet (Emtricitabine/Tenofovir) 1 Each Tablet 1 Tab PO DAILY LAST DOSE GIVEN: DATE: TIME: NEXT DOSE DUE: DATE: TIME: Hydrocodone-Apap 10-325 (Hydrocodone Bit/Acetaminophen) 1 Each Tablet 1 Tab PO PRN Q6HRS PRN LAST DOSE GIVEN: DATE: TIME: NEXT DOSE DUE: DATE: TIME: Zoloft (Sertraline Hcl) 100 Mg Tablet 1 Tab PO DAILY LAST DOSE GIVEN: DATE: TIME: NEXT DOSE DUE: DATE: TIME: ALLERGIES Allergies: Coded Allergies: tramadol (Verified Allergy, Intermediate, 03/06/16) aspirin (Verified Allergy, Mild, 03/24/17) RASH I S O L A T I O N *CONTACT* (Verified Allergy, Unknown, 09/24/17) +MRSA blood 03/06/16 ROS General: YES: Fatigue Neurological: YES: Weakness PHYSICAL EXAM General: No acute distress HEENT: Atraumatic Lungs: Clear to auscultation Heart: Regular rate Abdomen: Normal bowel sounds VITALS Vital Signs Vital Signs Date Time Temp Pulse Resp B/P (MAP) Pulse Ox O2 Delivery O2 Flow Rate FiO2 09/26/17 10:48 98.6 49 18 145/88 (107) 97 Room Air LABS LABS Laboratory Tests Test 09/24/17 15:15 09/24/17 16:36 4/6/18 20:38 09/25/17 05:55 Nasal Screen MRSA (PCR) Negative (Negative) Glucose (Fingerstick) 281 mg/dL (70-99) 326 mg/dL (70-99) White Blood Count 23.1 x10^3/uL (4.0-11.0) Red Blood Count 4.89 x10^6/uL (3.50-5.40) Hemoglobin 12.9 g/dL (12.0-15.5) Hematocrit 39.8 % (36.0-47.0) Mean Corpuscular Volume 81 fL (79-100) Mean Corpuscular Hemoglobin 26 pg (25-35) Mean Corpuscular Hemoglobin Concent 32 g/dL (31-37) Red Cell Distribution Width 17.2 % (11.5-14.5) Platelet Count 372 x10^3/uL (140-400) Sodium Level 133 mmol/L (136-145) Potassium Level 4.7 mmol/L (3.5-5.1) Chloride Level 102 mmol/L (98-107) Carbon Dioxide Level 25 mmol/L (21-32) Anion Gap 6 (6-14) Blood Urea Nitrogen 27 mg/dL (7-20) Creatinine 1.3 mg/dL (0.6-1.0) Estimated GFR (Cockcroft-Gault) 51.6 BUN/Creatinine Ratio 21 (6-20) Glucose Level 201 mg/dL (70-99) Hemoglobin A1c 6.4 % (4.8-5.6) Calcium Level 8.4 mg/dL (8.5-10.1) Total Bilirubin 0.6 mg/dL (0.2-1.0) Aspartate Amino Transf (AST/SGOT) 5 U/L (15-37) Alanine Aminotransferase (ALT/SGPT) 22 U/L (14-59) Alkaline Phosphatase 162 U/L (46-116) Total Protein 7.5 g/dL (6.4-8.2) Albumin 2.5 g/dL (3.4-5.0) Albumin/Globulin Ratio 0.5 (1.0-1.7) Triglycerides Level 42 mg/dL (0-150) Cholesterol Level 150 mg/dL (0-200) LDL Cholesterol, Calculated 78 mg/dL (0-100) VLDL Cholesterol, Calculated 8 mg/dL (0-40) Non-HDL Cholesterol Calculated 86 mg/dL (0-129) HDL Cholesterol 64 mg/dL (40-60) Cholesterol/HDL Ratio 2.0 Test 09/25/17 07:18 09/25/17 11:34 09/25/17 12:47 09/25/17 14:35 Glucose (Fingerstick) 178 mg/dL (70-99) 199 mg/dL (70-99) Creatine Kinase 24 U/L (26-192) Troponin I Quantitative < 0.017 ng/mL (0-0.055) < 0.017 ng/mL (0-0.055) Test 09/25/17 16:27 09/25/17 18:30 09/25/17 20:36 09/26/17 05:15 Glucose (Fingerstick) 211 mg/dL (70-99) 340 mg/dL (70-99) Troponin I Quantitative < 0.017 ng/mL (0-0.055) Sodium Level 130 mmol/L (136-145) Potassium Level 5.0 mmol/L (3.5-5.1) Chloride Level 97 mmol/L (98-107) Carbon Dioxide Level 23 mmol/L (21-32) Anion Gap 10 (6-14) Blood Urea Nitrogen 33 mg/dL (7-20) Creatinine 1.3 mg/dL (0.6-1.0) Estimated GFR (Cockcroft-Gault) 51.6 Glucose Level 254 mg/dL (70-99) Calcium Level 8.4 mg/dL (8.5-10.1) Test 09/26/17 08:19 Glucose (Fingerstick) 228 mg/dL (70-99) IMAGES IMAGES CT head scan without contrast shows no acute disease. Carotid ultrasound shows no significant plaquing Chest x-ray shows no acute disease EKG EKG EKG shows a sinus rhythm with mild nonspecific ST-T wave changes ASSESSMENT/PLAN Assessment/Plan 1. Probable seizure episode. Patient has a history of seizure disorders as above and is followed by neurology. There has been some consideration of possible mild TIA. She is continue on present medical treatment and feels well. 2. Hyperglycemia. Onset of diabetes. Treatment as above. 3. Nocturnal sinus bradycardia. Patient has episodes of heart rates down into the 38-42 bpm range. She has no episodes of bradycardia while awake. She is asymptomatic. She is on some neurological medicines that may contribute to this. However at this time in the setting of her nocturnal asymptomatic sinus bradycardia would continue to monitor while she is an inpatient. If the patient developed any symptoms suggestive of waking bradycardia would place an outpatient monitor. 4. History of migraine headaches. Thank you for allowing us to participate in the care of your patient MARK STEVENSON MD Sep 26, 2017 11:50
[2017-09-26] MEDS: GLIMEPIRIDE 2 MG TABLET PO SCH (17:07)
[2017-09-26 19:45] VITALS: BP 136/95
--- NOTE | 2017-09-26 22:27 | PN ---
DATE: REFERRING PHYSICIAN: Dr. Logan. SUBJECTIVE: The patient denies any new medical or neurological complaints. She stated her chest pain has resolved. She denies nausea, vomiting or any recurrent seizure-like activities. OBJECTIVE: GENERAL: Well-developed and well-nourished -[place] female, not in acute distress. VITAL SIGNS: Blood pressure 145/88, respiratory rate 18, pulse is 49, temperature 98.6, and oxygen saturation 97% on room air. HEENT: Normocephalic, atraumatic, otherwise unremarkable. NECK: Supple. Negative for carotid bruit, lymphadenopathy, JVD or thyromegaly. LUNGS: Clear to A and P. CARDIOVASCULAR: Regular rhythm, normal S1, S2. ABDOMEN: Soft. Bowel sounds positive. EXTREMITIES: Negative for cyanosis, clubbing or pitting edema. NEUROLOGIC: Normal mental status and intact cranial nerves. There is no focal motor or sensory deficit. Deep tendon reflexes were symmetric and hypoactive with absent Achilles responses. Gait and coordination are normal. LABORATORY DATA: Chemistry: Sodium 130, potassium 5, chloride 97, CO2 of 23, BUN 33, creatinine 1.3, glucose 254, hemoglobin A1c is 6.4, and calcium 8.4. Troponin level is less than 0.017. CK is 24. EKG is normal sinus rhythm, rate in the 50s, it was reported that pulse dropped to 39 during sleep. IMPRESSION: 1. HIV, on antiviral medications. 2. History of seizures and recurrent seizure-like activities versus transient ischemic attack, no recurrence. 3. Intermittent chest pain, probably noncardiac with bradycardia. 4. Chronic/acute renal failure. 5. New-onset of hyperglycemia/diabetes mellitus. 6. Multiple psychiatric problems including depression and anxiety. RECOMMENDATIONS: 1. Continue with current management initiated by Dr. Logan. 2. We will arrange for the EEG on an outpatient basis. The patient is neurologically stable. M Kathy GR MD DR: JENNIFER/justin JOB#: [id number] / [id number]
--- NOTE | 2017-09-26 22:55 | PN ---
DATE: SUBJECTIVE: The patient is resting, slightly propped up in bed, no apparent distress. On questioning her, she denied any complaint. Nursing staff ____ blood sugar continued to be high. PHYSICAL EXAMINATION: GENERAL: On examining her, she looked pale, but no jaundice, cyanosis, or thyromegaly. No jugular venous distension. No limb edema. VITAL SIGNS: Her heart rate was 49, blood pressure was 145/88, temperature was 98.6, respiratory rate was 18 and oxygen saturation was 97%. HEAD, EYES, EARS, NOSE AND THROAT: Normocephalic, atraumatic. NECK: Supple. HEART: Showed normal first and second heart sounds with no gallop, rub or murmur. CHEST: Clear to auscultation. No crepitation or rhonchi. ABDOMEN: Distended, soft, and nontender. No guarding or rigidity. No organomegaly. Hernial orifices intact. Bowel sounds normal. NEUROLOGIC: She is awake, alert, responding appropriately. Cranial nerves intact. She moves extremities without difficulty. She ambulates without assistance or assistive devices. Her intake over the last 24 hours was 1760 and no output was recorded. LABORATORY DATA: Lab work showed a white cell count of 23,000, hemoglobin 13, hematocrit 39, MCV 81 and platelet count 372,000. Her chemistry showed a serum sodium of 130, potassium 5, chloride 97, bicarbonate 23, anion gap of 10, BUN 33, creatinine 1.3, estimated GFR was ____ mL per minute. Her glucose was 254, calcium was 8.4. ASSESSMENT: 1. Human immunodeficiency virus, on antiretroviral medication for the last 10 years. She is followed by Infectious Disease specialist at [facility]. 2. New-onset diabetes with marked hyperglycemia. Her lab work since 01/2016 showed no evidence of hyperglycemia. 3. She has acute on chronic kidney injury. Her baseline creatinine is about 1.4. On arrival here, she went into ____, her creatinine was up to 1.6. 4. Other medical problems include epilepsy, for which she is on Keppra. 5. She presented with what seems to be numbness in her left side, which is more likely transient ischemic attack. It could be sensory rather than motor, but it was not the classic tonic-clonic seizures. She did not bite her tongue. She was not incontinent of bowel and bladder. 6. She has depression, on Zoloft. 7. She has nocturnal bradycardia with heart rate going down below 40, although she continued to be in sinus bradycardia in the mean time, her heart rate is usually within the mid 50s. PLAN: My plan is to increase her Amaryl to 2 mg twice a day and so far, her CT scan of the head was negative. The bilateral carotid ultrasound were negative and the biotech production specialist stated that they will do outpatient monitoring if she manifested any diurnal bradycardia and we will consult our bilingual patient support caseworker for placement in some form of an assisted living like [facility] that will be probably the perfect placement for her. MAXIMINO TOURE MD DR: ZO/justin JOB#: [id number] / [id number]
[2017-09-27 05:45] VITALS: BP 129/87
--- NOTE | 2017-09-27 06:16 | NUR ---
Pt has had an episode of urinary incontinence for the past two nights. Pt refused a brief last night, but decided she did want a brief at night time. Pt stated she sleeps so deep she just does not wake up.
[2017-09-27 07:00] LABS: ALBUMIN 2.6 g/dL (3.4-5.0); ALBUMIN/GLOBULIN RATIO 0.5 (1.0-1.7); BASO % 0 % (0-3); CALCIUM 8.6 mg/dL (8.5-10.1); CREATININE 1.4 mg/dL (0.6-1.0); EOS % 0 % (0-3); GFR 47.4; HEMATOCRIT 41.4 % (36.0-47.0); HEMOGLOBIN 13.3 g/dL (12.0-15.5); LYMPH # 1.9 x10^3/uL (1.0-4.8); LYMPH % 9 % (24-48); MEAN CORPUSCULAR HEMOGLOBIN 26 pg (25-35); MEAN CORPUSCULAR HGB CONC 32 g/dL (31-37); MEAN CORPUSCULAR VOLUME 81 fL (79-100); MONO # 1.1 x10^3/uL (0.0-1.1); MONO % 5 % (0-9); NEUT # 18.8 x10^3uL (1.8-7.7); NEUT % 86 % (31-73); PLATELET COUNT 365 x10^3/uL (140-400); POTASSIUM 4.6 mmol/L (3.5-5.1); RED CELL DISTRIBUTION WIDTH 17.1 % (11.5-14.5); TOTAL BILIRUBIN 1.2 mg/dL (0.2-1.0); TOTAL PROTEIN 7.8 g/dL (6.4-8.2); WHITE BLOOD COUNT 21.8 x10^3/uL (4.0-11.0)
[2017-09-27] MEDS: levETIRAcetam 250 MG TABLET PO SCH (08:19)
[2017-09-27] MEDS: ATAZANAVIR SULFATE 300 MG PO SCH (08:19)
[2017-09-27] MEDS: PANTOPRAZOLE 40 MG TABLET. PO SCH (08:19)
[2017-09-27] MEDS: SERTRALINE 100 MG TABLET. PO SCH (08:19)
[2017-09-27] MEDS: RITONAVIR 100 MG PO SCH (08:19)
[2017-09-27] MEDS: EMTRICITAB/TENOFOVIR 200/300MG TABLET. PO SCH (08:20)
[2017-09-27] MEDS: GLIMEPIRIDE 2 MG TABLET PO SCH (08:21)
[2017-09-27] MEDS: INSULIN ASPART 300 UNITS/3 ML INSULN.PEN SQ SCH ×2 (08:22→11:15)
[2017-09-27 08:55] LABS: % BANDS 2 % (0-9); % EOS 1 % (0-5); % LYMPHS 17 % (24-48); % MONOS 4 % (0-10); % SEGS 76 % (35-66); PLT ESTIMATE ADEQUATE (ADEQUATE)
[2017-09-27] MEDS: HYDROcodone/APAP 10/325 1 TAB TABLET PO PRN (08:56)
--- NOTE | 2017-09-27 09:34 | PN ---
DATE: 09/25/2017 SUBJECTIVE: The patient denies any new neurological complaints; however, she continues to have intermittent substernal chest pain, more on the right side. She denied shortness of breath, diaphoresis, nausea, vomiting. A carotid Doppler study was performed today and revealed no evidence of significant carotid artery stenosis. OBJECTIVE: GENERAL: Well-developed, well-nourished -[place]izen [place] female in no acute distress. VITAL SIGNS: Blood pressure 156/82, respiratory 20, pulse is 42, temperature is 97.8, oxygen saturation is 100% on room air. HEENT: Normocephalic, atraumatic, otherwise unremarkable. NECK: Supple. Negative for carotid bruit, JVD, lymphadenopathy or thyromegaly. LUNGS: Clear to A and P. CARDIOVASCULAR: Sinus rhythm, bradycardia, normal S1, S2. There is no S3, S4 or murmur. ABDOMEN: Soft, bowel sounds positive. EXTREMITIES: Negative for cyanosis, clubbing, edema. NEUROLOGIC: Mental status and intact cranial nerves. There is no evidence of focal motor or sensory deficit. Deep tendon reflexes were symmetric and hypoactive with absent acute responses. Gait and coordination are normal. LABORATORY DATA: CBC reveals white blood cells of 23.1 thousand, hemoglobin 12.9, hematocrit 39.8, platelet count 372. Chemistry revealed sodium of 133, potassium 4.7, chloride 102, CO2 25, BUN 27, creatinine 1.3, glucose 178. Lipid profile is normal with HDL of 64. IMPRESSION: 1. History of seizure disorder of unknown etiology and positive symptoms of transient ischemic attack, presented with slurred speech and left-sided numbness and paresthesia -- resolved with negative carotid Doppler study. 2. Positive human immunodeficiency virus, on medication. 3. New onset of hyperglycemia, hypertension and bradycardia. RECOMMENDATION: 1. Continue with current management initiated by Dr. Logan 2. We will arrange EEG to be done next week on an outpatient basis. M Kathy GR MD DR: JENNIFER/justin JOB#: [id number] / [id number]
[2017-09-27 10:40] VITALS: BP 146/77
--- NOTE | 2017-09-27 10:49 | PN ---
DATE: 09/27/2017 REFERRING PHYSICIAN: Alice Logan MD SUBJECTIVE: The patient denies any new medical or neurological complaints. She has not had any seizure since admission. OBJECTIVE: GENERAL: Well-developed, well-nourished -[place]ic female, not in acute distress. VITAL SIGNS: Blood pressure 129/87, respiratory rate 16, pulse is 54, temperature 97.9, oxygen saturation 100% on room air. HEENT: Normocephalic, atraumatic, otherwise unremarkable. NECK: Supple. Negative for carotid bruit, lymphadenopathy or thyromegaly. LUNGS: Clear to A and P. CARDIOVASCULAR: Regular rate and rhythm, normal S1, S2. There is no S3, S4 or murmur. ABDOMEN: Soft. Bowel sounds positive. EXTREMITIES: Negative for cyanosis, clubbing, pitting edema. NEUROLOGICAL EXAM: Mental Status: The patient is alert and oriented x 3. Speech is fluent. There is no language dysfunction. Memory, judgment and abstract thinking are normal. The patient denies hallucination or delusion. Cranial nerves are intact. No focal motor or sensory deficit. Deep tendon reflexes were symmetric and hypoactive with absent Achilles responses. Gait: Gait and coordination are normal; however, the patient is recommended to use a cane for ambulation. IMPRESSION: 1. History of seizure disorders. No recurrence since admission. 2. HIV, on antiviral medications. 3. Bradycardia with intermittent chest pain with normal cardiac enzymes and EKG. 4. Chronic/acute renal failure. 5. New onset of hyperglycemia-diabetes mellitus. 6. Multiple psychiatric problems include depressions and anxiety. RECOMMENDATIONS: 1. Continue with current management initiated by Dr. Logan. 2. We will arrange EEG, outpatient to be done on 09/29/2017 at 3:00 p.m. M Kathy GR MD DR: JENNIFER/justin JOB#: [id number] / [id number]
[2017-09-27] MEDS ORDERED: GLIM2TAB PO (11:58)
[2017-09-27] MEDS ORDERED: PANT40TA5 PO (11:58)
--- NOTE | 2017-09-27 12:20 | NUR ---
Pt has flat affect while expressing concerns about managing the newly diagnosed DM II. Pt information on the importance of glucose management, diet, medicine administration, and possible side effects were discussed at length with the pt. Pt expressed a understanding of the afore mentioned. Reinforcement teaching with demonstration return was performed prior to lunch. Pt expressed and showed proper knowledge.
--- NOTE | 2017-09-27 12:56 | DS ---
DATE OF DISCHARGE: 09/27/2017 HISTORY OF PRESENT ILLNESS: The patient is a 56-year-old female patient who presented to Emergency Room with a complaint of seizure-like episode. She stated that took place about 20 minutes before she arrived to the Emergency Room. She is known to have seizures followed by Dr. Martinez. She is on 1500 mg of Keppra twice a day. Last seizure was about a year ago. She has not missed any of her medication. She stated that she has numbness along the left side of her body which she felt with previous seizures. She has not lost any consciousness. She did not bite her tongue nor did she became incontinent of bowel or bladder and was brought to the Emergency Room for further evaluation and treatment. On arrival, she feels tired, but does not feel any unilateral weakness. Denied any pain. However, when she was seen in the Emergency Room, she was found to have significant hyperglycemia fingerstick, although she denied any history of diabetes mellitus and we looked back into her labs and as of last January 2017, her blood sugar was normal. In any case, the patient was admitted and extensively evaluated including a CT scan of the head, carotid Doppler ultrasound and both were negative. She was seen by Dr. Masters. She also complained of chest pain and has nocturnal bradycardia for which she was seeing Dr. Caicedo who did not recommend any further lab work. For her blood sugar, she was started on insulin and glimepiride and her blood sugar is slightly better, but not yet optimally controlled. Unfortunately, she has chronic kidney disease with baseline creatinine of about 1.4, which makes metformin probably contraindicated. PHYSICAL EXAMINATION: GENERAL: When I examined her today, she looked well and was in no apparent respiratory distress, pale, but no jaundice, cyanosis, or thyromegaly. No jugular venous distention. No limb edema. VITAL SIGNS: Her heart rate was 59, blood pressure 146/77, temperature was 100, respiratory rate was 20, and oxygen saturation was 97%. HEAD, EYES, EARS, NOSE, AND THROAT: Showed normocephalic, atraumatic. NECK: Supple. HEART: Showed normal first and second heart sounds with no gallop, rub, or murmur. CHEST: Clear to auscultation. No crepitation or rhonchi. ABDOMEN: Distended, soft, nontender. No guarding or rigidity. No organomegaly. Hernial orifice intact. Bowel sounds normal. NEUROLOGIC: She is awake, alert, responding appropriately. All cranial nerves intact. She moves extremities without difficulty. Her intake over the last 24 hours was 3900, no output was recorded. LABORATORY DATA: Her lab work as of this morning showed a serum sodium 134, potassium 4.6, chloride 98, bicarbonate 28, anion gap of 8, BUN 33, creatinine 1.4. Estimated GFR was 47 mL per minute. Her glucose was 125, calcium was 8.6. Total bilirubin, AST, ALT, alkaline phosphatase slightly elevated. Her total protein was 7.8, albumin 2.6. White cell count continued to be high at 21,800, hemoglobin 13, hematocrit 41, MCV 81, and platelet count 365,000 with manual differential showed 86% polymorphs, 9% lymphocytes. DISCHARGE MEDICATIONS: She was discharged home with home health to continue on the following medications: Glimepiride 2 mg twice a day, Protonix 40 mg once a day, Reyataz 300 mg daily, Truvada 1 tablet twice daily, hydrocodone/apap 10/325 one tablet every 6 hours, Keppra 1500 mg twice a day, ritonavir 100 mg daily, and sertraline for Zoloft 100 mg once a day. FINAL DISCHARGE DIAGNOSES: 1. Human immunodeficiency virus, on antiretroviral medications for the last 10 years. She is followed by infectious disease specialist at [facility]. 2. New-onset diabetes with marked hyperglycemia. Her lab work since January 2007 showed no evidence of hyperglycemia. 3. Amzaf-po-obdjiqw kidney injury, her baseline creatinine is about 1.4. On arrival, her creatinine was 1.6. 4. Other medical problems include epilepsy for which she is on Keppra 1500 mg twice a day. She also presented with numbness in her left side, which is more like transient ischemic attack. 5. Depression, for which she is on Zoloft. She has also nocturnal bradycardia with heart rate going down to below 40, although she continued to be in sinus rhythm in the meantime. Her heart rate is usually within mid 50s. The patient to be discharged home with home health. outreach and education social worker should assist her with move towards [facility]. MAXIMINO TOURE MD DR: ZO/justin JOB#: [id number] / [id number]
--- NOTE | 2017-09-27 14:09 | NUR ---
Received phone call from [facility] regarding pt. Radha from [place] stated that it was not safe to send her home to her sister's house. She stated that she had been sent home with home health to her sister's previously and her sister refused to allow home health agency employees into the house. According to Radha this cause the pt to go septic and "nearly ". This information was passed on to case management and after further investigation it was concluded that pt would be in a safe environment at her sister's house.
== END 2017-09-27 16:21 | disposition home health service (06) | DRG 638 ==
LOC: ER 15:16 → 1 SOUTH 17:25
PROVIDERS: ADMIT Internal Medicine; ATTEND Internal Medicine
DX: E11.65 Type 2 diabetes mellitus with hyperglycemia (principal); G45.9 Transient cerebral ischemic attack, unspecified; N17.9 Acute kidney failure, unspecified; E11.22 Type 2 diabetes mellitus with diabetic chronic kidney disease; E86.0 Dehydration; F41.9 Anxiety disorder, unspecified; F32.9 Major depressive disorder, single episode, unspecified; G43.909 Migraine, unspecified, not intractable, without status migrainosus; G40.909 Epilepsy, unspecified, not intractable, without status epilepticus; N18.9 Chronic kidney disease, unspecified; I12.9 Hypertensive chronic kidney disease with stage 1 through stage 4 chronic kidney disease, or unspecified chronic kidney disease; Z21 Asymptomatic human immunodeficiency virus [HIV] infection status; R00.1 Bradycardia, unspecified; Z79.899 Other long term (current) drug therapy; Z88.6 Allergy status to analgesic agent; Z88.8 Allergy status to other drugs, medicaments and biological substances; Z82.49 Family history of ischemic heart disease and other diseases of the circulatory system; Z82.3 Family history of stroke; Z83.3 Family history of diabetes mellitus; Z90.49 Acquired absence of other specified parts of digestive tract; Z90.710 Acquired absence of both cervix and uterus; Z90.722 Acquired absence of ovaries, bilateral
CPT/HCPCS: 36415; 70450; 71045; 80048; 80053; 80061; 80307; 81001; 82550; 82947; 83036; 83605; 83735; 84484; 85007; 85025; 85027; 87641; 93005; 93880; J1815; J3010; 99285-25; G0479; J7030

== ENCOUNTER 2017-11-06 05:34 | Emergency (ER) | payer OTHER ==
[~2017-11-06] VITALS: Ht 172.7 cm; Wt 89.8 kg
[~2017-11-06 05:34] MED LIST changes: +ATAZ300C PO; +EMTR1TAB8 PO; +GLIM2TAB PO; +HYDR-2766 PO; +LEVE500T6 PO; +PANT40TA5 PO; +RITO100T PO; +SERT100T PO
--- NOTE | 2017-11-06 05:37 | ED.ADGEN ---
Past History Past Medical History: Depression, HIV, Migraines, Seizure, Other Past Surgical History: Appendectomy, Hysterectomy, Other Alcohol Use: None Drug Use: None Adult General Chief Complaint Chief Complaint ".. I think I had a seizure.. I was sleep.. I ve been off my seizure meds.. they did not continue my Keppra when I was discharged from [facility]... ".." I am sore all...over like when I get a seizure..." HPI HPI Patient is a 57 year old female who presents with hx of seizure. Pt. reportedly has been off her seizure meds since discharge from [facility] on . Pt. was in [facility] for tx. of osteomyelitis of her spine in previous surgery and hardware placement. Initial back surgery was in 2008. Pt. was in [facility] from 10/01-to 10/18 for IV antibiotics. Pt. currently getting daily Home health infusions of antibiotics. Patient has history of prior seizure disorder which was controlled on Keppra 500 mg twice a day. Patient does have a history of diabetes. Patient's glucose per paramedics was 70. Pt. glucose on arrival 63. Pt. given glucose oral and 25 gm IV. Patient normally receives her care at [facility]. No recent travel. No specific ill contacts. No recent changes in meds other than has not taken Keppra since discharge from [facility]. Pt. admitted by at [place] on by Dr. Logan. Hx. of Multiple medical issues, DM, HIV, Chronic Renal Failure , and Psych. Issue.s. Review of Systems Review of Systems Constitutional: Denies fever or chills [] Eyes: Denies change in visual acuity, redness, or eye pain [] HENT: Denies nasal congestion or sore throat [] Respiratory: Denies cough or shortness of breath [] Cardiovascular: No additional information not addressed in HPI [] GI: Denies abdominal pain, nausea, vomiting, bloody stools or diarrhea [] : Denies dysuria or hematuria [] Musculoskeletal: generalize back pain and joint pain [] Integument: Denies rash or skin lesions [] Neurologic: Denies headache, focal weakness or sensory changes []Complaints of Seizure. Endocrine: Denies polyuria or polydipsia []- complaints of hypoglycemia. All other systems were reviewed and found to be within normal limits, except as documented in this note. Family History Family History Noncontributory Current Medications Current Medications Current Medications Medications (Trade) Dose Ordered Sig/Bhavik Start Time Stop Time Status Last Admin Dose Admin Dextrose 25 gm 1X ONCE 11/06/17 06:00 11/06/17 06:01 Glucose (Insta-Glucose) 15 gm STK-MED ONCE 11/06/17 05:40 11/06/17 05:41 DC Levetiracetam (Keppra) 500 mg STK-MED ONCE 11/06/17 05:55 11/06/17 05:56 DC Levetiracetam 1000 mg/Sodium Chloride 100 ml @ 400 mls/hr 1X ONCE 11/06/17 06:00 11/06/17 06:14 Lorazepam (Ativan) 1 mg 1X ONCE 11/06/17 06:00 11/06/17 06:01 Sodium Chloride 100 ml @ As Directed STK-MED ONCE 11/06/17 05:55 11/06/17 05:56 DC Allergies Allergies Allergies Coded Allergies Type Severity Reaction Last Updated Verified tramadol Allergy Intermediate 03/06/16 Yes aspirin Allergy Mild 03/24/17 Yes I S O L A T I O N *CONTACT* Allergy Unknown 09/24/17 Yes Physical Exam Physical Exam Constitutional: Moderately acute distress, non-toxic appearance. [] HENT: Normocephalic, atraumatic, bilateral external ears normal, oropharynx moist, no oral exudates, nose normal. [] Eyes: PERRLA, EOMI, conjunctiva normal, no discharge. [] Neck: Normal range of motion, no tenderness, supple, no stridor. [] Cardiovascular: Tachycardia Heart rate regular rhythm, no murmur [] Lungs & Thorax: Bilateral breath sounds equal at apexes with a few scattered rhonchi on right on auscultation [] Abdomen: Bowel sounds normal, soft, no tenderness, no masses, no pulsatile masses. [] Obese. Old surgery scars. Skin: Warm, dry, no erythema, no rash. [] Back: Para lumbar muscle tenderness, large old surgery scar that is somewhat tender, no CVA tenderness. [] Extremities: Generalized muscle tenderness, no cyanosis, no clubbing, ROM intact , trace ankle edema. [] Neurologic: Alert and oriented X 3, moves all extremities on request,, DTRs are +2 at patella. Psychologic: Affect anxious, judgement normal, mood normal. [] Current Patient Data Lab Results Laboratory Tests Test 11/06/17 05:38 Glucose (Fingerstick) 63 mg/dL (70-99) L EKG EKG [] Radiology/Procedures Radiology/Procedures [] Course & Med Decision Making Course & Med Decision Making Pertinent Labs and Imaging studies reviewed. (See chart for details)- Review presentation and current Hx. with Dr. Wolf at 0600 shift change. She will make disposition of pt. [] Final Impression Final Impression 1. Seizure 2. Hypoglycemia 3. Recent history of osteoarthritis-currently on IV antibiotic therapy[] 4. Hx. DM 5, Hx. of HIV 6. Hx. of Chronic Renal Failure 7. Hx. of Multiple Psych. Problems. Dragon Disclaimer Dragon Disclaimer This electronic medical record was generated, in whole or in part, using a voice recognition dictation system. CASEY CANNON MD November 06, 2017 05:37
[2017-11-06] MEDS ORDERED: DEXTROSE ORAL GEL 15 GM TUBE. ONE (05:40)
[2017-11-06] MEDS ORDERED: IV NORMAL SALINE 100ML 100 ML ONE ×2 (05:55→05:57)
[2017-11-06] MEDS ORDERED: levETIRAcetam 500 MG/5 ML VIAL IV ONE (05:55)
[2017-11-06] MEDS ORDERED: DEXTROSE 50% 25 GM / 50ML DISP.SYRIN. IV ONE (06:00)
[2017-11-06] MEDS ORDERED: LORazepam 2 MG/ML VIAL IV ONE (06:00)
[2017-11-06 06:15] LABS: BASO % 0 % (0-3); EOS # 0.2 x10^3/uL (0.0-0.7); EOS % 2 % (0-3); HEMATOCRIT 33.1 % (36.0-47.0); HEMOGLOBIN 10.8 g/dL (12.0-15.5); LYMPH # 3.1 x10^3/uL (1.0-4.8); LYMPH % 33 % (24-48); MEAN CORPUSCULAR HEMOGLOBIN 28 pg (25-35); MEAN CORPUSCULAR HGB CONC 33 g/dL (31-37); MEAN CORPUSCULAR VOLUME 86 fL (79-100); MONO # 0.7 x10^3/uL (0.0-1.1); MONO % 8 % (0-9); NEUT # 5.4 x10^3uL (1.8-7.7); NEUT % 57 % (31-73); PLATELET COUNT 267 x10^3/uL (140-400); RED BLOOD COUNT 3.85 x10^6/uL (3.50-5.40); WHITE BLOOD COUNT 9.4 x10^3/uL (4.0-11.0)
--- NOTE | 2017-11-06 06:26 | EKG ---
[address] [address] Test Date: 2017-11-06 Test Time: 06:20:59 Pat Name: HERNAN ANGEL Department: Room: Gender: F Sheet Sorter: STIVEN : 1960 Requested By: CASEY CANNON Order Number: [id number] Reading MD: Measurements Intervals [place] Rate: 96 P: 35 CT: 214 QRS: 8 QRSD: 74 T: 14 QT: 404 QTc: 518 Interpretive Statements SINUS RHYTHM PROLONGED CT INTERVAL PROLONGED QT ABNORMAL ECG RI6.01 Compared to ECG 09/25/2017 12:19:22 First degree AV block now present Prolonged QT interval now present
[2017-11-06 06:40] LABS: ANION GAP 9 (6-14); BLOOD UREA NITROGEN 12 mg/dL (7-20); CALCIUM 8.6 mg/dL (8.5-10.1); CARBON DIOXIDE 25 mmol/L (21-32); CHLORIDE 108 mmol/L (98-107); CREATININE 1.3 mg/dL (0.6-1.0); GFR 51.5; GLUCOSE 82 mg/dL (70-99); POTASSIUM 3.1 mmol/L (3.5-5.1); SODIUM 142 mmol/L (136-145)
--- NOTE | 2017-11-06 06:58 | PHYS DOC ---
Past History Past Medical History: Depression, HIV, Migraines, Seizure, Other Past Surgical History: Appendectomy, Hysterectomy, Other Alcohol Use: None Drug Use: None Adult General Chief Complaint Chief Complaint: SEIZURE HPI HPI Patient is a 57 year old female who presents with hx of seizure. Pt. reportedly has been off her seizure meds since discharge from [facility] on . Pt. was in [facility] for tx. of osteomyelitis of her spine in previous surgery and hardware placement. Initial back surgery was in 2008. Pt. was in [facility] from 10/01-to 10/18 for IV antibiotics. Pt. currently getting daily Home health infusions of antibiotics. Patient has history of prior seizure disorder which was controlled on Keppra 500 mg twice a day. Patient does have a history of diabetes. Patient's glucose per paramedics was 70. Pt. glucose on arrival 63. Pt. given glucose oral and 25 gm IV. Patient normally receives her care at [facility]. No recent travel. No specific ill contacts. No recent changes in meds other than has not taken Keppra since discharge from [facility]. Pt. admitted by at [place] on by Dr. Logan. Hx. of Multiple medical issues, DM, HIV, Chronic Renal Failure , and Psych. Issue.s."copied from Dr Fong chart" Review of Systems Review of Systems Constitutional: Denies fever or chills [] Eyes: Denies change in visual acuity, redness, or eye pain [] HENT: Denies nasal congestion or sore throat [] Respiratory: Denies cough or shortness of breath [] Cardiovascular: No additional information not addressed in HPI [] GI: Denies abdominal pain, nausea, vomiting, bloody stools or diarrhea [] : Denies dysuria or hematuria [] Musculoskeletal: generalize back pain and joint pain [] Integument: Denies rash or skin lesions [] Neurologic: Denies headache, focal weakness or sensory changes []Complaints of Seizure. Endocrine: Denies polyuria or polydipsia []- complaints of hypoglycemia. All other systems were reviewed and found to be within normal limits, except as documented in this note. Copied from Dr Fong chart Current Medications Current Medications Current Medications Medications (Trade) Dose Ordered Sig/Bhavik Start Time Stop Time Status Last Admin Dose Admin Dextrose 25 gm 1X ONCE 11/06/17 06:00 11/06/17 06:01 DC 11/06/17 06:03 25 GM Glucose (Insta-Glucose) 15 gm STK-MED ONCE 11/06/17 05:40 11/06/17 05:41 DC Levetiracetam (Keppra) 500 mg STK-MED ONCE 11/06/17 05:55 11/06/17 05:56 DC Levetiracetam 1000 mg/Sodium Chloride 100 ml @ 400 mls/hr 1X ONCE 11/06/17 06:00 11/06/17 06:14 DC 11/06/17 06:00 400 MLS/HR Lorazepam (Ativan) 1 mg 1X ONCE 11/06/17 06:00 11/06/17 06:01 DC 11/06/17 06:03 1 MG Potassium Bicarbonate (Klyte/Cl) 25 meq DAILY 11/06/17 09:00 UNV Sodium Chloride 100 ml @ As Directed STK-MED ONCE 11/06/17 05:57 11/06/17 05:58 DC Allergies Allergies Allergies Coded Allergies Type Severity Reaction Last Updated Verified tramadol Allergy Intermediate 03/06/16 Yes aspirin Allergy Mild 03/24/17 Yes I S O L A T I O N *CONTACT* Allergy Unknown 09/24/17 Yes Physical Exam Physical Exam Constitutional: Moderately acute distress, non-toxic appearance. [] HENT: Normocephalic, atraumatic, bilateral external ears normal, oropharynx moist, no oral exudates, nose normal. [] Eyes: PERRLA, EOMI, conjunctiva normal, no discharge. [] Neck: Normal range of motion, no tenderness, supple, no stridor. [] Cardiovascular: Tachycardia Heart rate regular rhythm, no murmur [] Lungs & Thorax: Bilateral breath sounds equal at apexes with a few scattered rhonchi on right on auscultation [] Abdomen: Bowel sounds normal, soft, no tenderness, no masses, no pulsatile masses. [] Obese. Old surgery scars. Skin: Warm, dry, no erythema, no rash. [] Back: Para lumbar muscle tenderness, large old surgery scar that is somewhat tender, no CVA tenderness. [] Extremities: Generalized muscle tenderness, no cyanosis, no clubbing, ROM intact , trace ankle edema. [] Neurologic: Alert and oriented X 3, moves all extremities on request,, DTRs are +2 at patella. Psychologic: Affect anxious, judgement normal, mood normal. [] "Copied from Dr Fong chart" Current Patient Data Lab Results Laboratory Tests Test 11/06/17 05:38 11/06/17 05:49 Glucose (Fingerstick) 63 mg/dL (70-99) L White Blood Count 9.4 x10^3/uL (4.0-11.0) Red Blood Count 3.85 x10^6/uL (3.50-5.40) Hemoglobin 10.8 g/dL (12.0-15.5) L Hematocrit 33.1 % (36.0-47.0) L Mean Corpuscular Volume 86 fL (79-100) Mean Corpuscular Hemoglobin 28 pg (25-35) Mean Corpuscular Hemoglobin Concent 33 g/dL (31-37) Red Cell Distribution Width 20.0 % (11.5-14.5) H Platelet Count 267 x10^3/uL (140-400) Neutrophils (%) (Auto) 57 % (31-73) Lymphocytes (%) (Auto) 33 % (24-48) Monocytes (%) (Auto) 8 % (0-9) Eosinophils (%) (Auto) 2 % (0-3) Basophils (%) (Auto) 0 % (0-3) Neutrophils # (Auto) 5.4 x10^3uL (1.8-7.7) Lymphocytes # (Auto) 3.1 x10^3/uL (1.0-4.8) Monocytes # (Auto) 0.7 x10^3/uL (0.0-1.1) Eosinophils # (Auto) 0.2 x10^3/uL (0.0-0.7) Basophils # (Auto) 0.0 x10^3/uL (0.0-0.2) Prothrombin Time 9.9 SEC (9.4-11.4) Prothrombin Time INR 1.0 (0.9-1.1) PTT 23 SEC (23-33) Sodium Level 142 mmol/L (136-145) Potassium Level 3.1 mmol/L (3.5-5.1) L Chloride Level 108 mmol/L (98-107) H Carbon Dioxide Level 25 mmol/L (21-32) Anion Gap 9 (6-14) Blood Urea Nitrogen 12 mg/dL (7-20) Creatinine 1.3 mg/dL (0.6-1.0) H Estimated GFR (Cockcroft-Gault) 51.5 Glucose Level 82 mg/dL (70-99) Calcium Level 8.6 mg/dL (8.5-10.1) Magnesium Level 2.0 mg/dL (1.8-2.4) Creatine Kinase 54 U/L (26-192) Creatine Kinase MB (Mass) < 0.5 ng/mL (0.0-3.6) Creatine Kinase MB Relative Index 0.9 % (0-4) Troponin I Quantitative < 0.017 ng/mL (0-0.055) NT-Gri-D-Type Natriuretic Peptide 95 pg/mL (0-124) EKG EKG [] Radiology/Procedures Radiology/Procedures [][address] [address] IMAGING REPORT Signed PATIENT: HERNAN ANGEL I ACCOUNT: [id number] : 1960 LOCATION: ER AGE: 57 SEX: F EXAM STATUS: DEP ER ORD. PHYSICIAN: CASEY FONG MD REASON: seizure PROCEDURE: PORTABLE CHEST 1V AP portable chest radiograph 11/06/2017 Clinical History: Seizure. History of hyperglycemia and chest pain. An AP erect portable digital radiograph of the chest was obtained. Comparison study is dated 09/23/2017. A left arm PICC has been placed. The tip of this catheter extends to overlie the superior vena cava. The cardiac silhouette is normal in size. The thoracic aorta is mildly tortuous. No acute pulmonary infiltrate is seen. No pleural effusion or pneumothorax is noted. A linear band of scarring and/or subsegmental atelectasis is seen within the right midlung essentially unchanged. The osseous structures are unchanged. Impression: No acute abnormality is seen. Electronically signed by: Keenan Reed MD (11/06/2017 8:02 AM) [facility] DICTATED AND SIGNED BY: KEENAN REED MD DATE: 11/06/17 0759 CC: CASEY FONG MD; RODERICK CABRERA MD; PCP,UNKNOWN ~ Course & Med Decision Making Course & Med Decision Making Pertinent Labs and Imaging studies reviewed. (See chart for details) Patient care transferred to me by at 0600 and he signed the chart by mistake, therefore I copied his note to my chart. Patient brought in because of seizure this morning and treated with Keppra that ordered by Dr. Fong. Patient also had blood sugar of 63 and treated with D50. Patient had unremarkable labs except for potassium of 3.1 and anemia with normal blood sugar. Prescription for Keppra was given and patient instructed to follow-up with her physician. Dragon Disclaimer Dragon Disclaimer This electronic medical record was generated, in whole or in part, using a voice recognition dictation system. Departure Departure: Impression: Primary Impression: Recurrent seizures Additional Impressions: Hypokalemia Renal insufficiency HIV (human immunodeficiency virus infection) Noncompliance Disposition: HOME, SELF-CARE (At 0705) Condition: IMPROVED Referrals: PCP,UNKNOWN (PCP) Patient Instructions: Hypokalemia, Seizure, Adult Additional Instructions: Follow-up with your primary care physician in 3-5 days Return to ER if not getting better Scripts Levetiracetam (KEPPRA) 500 Mg Tablet 1 TAB PO BID, #60 TAB 5 Refills Prov: RODERICK CABRERA MD 11/06/17 Problem Qualifiers RODERICK CABRERA MD November 06, 2017 06:58
[2017-11-06] MEDS ORDERED: POTASSIUM BICARB 25 MEQ EFFERVESCENT TAB. PO SCH (07:00)
[2017-11-06 07:03] VITALS: BP 110/77
[2017-11-06] MEDS ORDERED: POTASSIUM BICARB 25 MEQ EFFERVESCENT TAB. PO ONE (07:05)
[2017-11-06] MEDS ORDERED: LEVE500T56 PO (07:07)
--- NOTE | 2017-11-06 08:05 | RAD ---
AP portable chest radiograph 11/06/2017 Clinical History: Seizure. History of hyperglycemia and chest pain. An AP erect portable digital radiograph of the chest was obtained. Comparison study is dated 09/23/2017. A left arm PICC has been placed. The tip of this catheter extends to overlie the superior vena cava. The cardiac silhouette is normal in size. The thoracic aorta is mildly tortuous. No acute pulmonary infiltrate is seen. No pleural effusion or pneumothorax is noted. A linear band of scarring and/or subsegmental atelectasis is seen within the right midlung essentially unchanged. The osseous structures are unchanged. Impression: No acute abnormality is seen. Electronically signed by: Keenan Reed MD (11/06/2017 8:02 AM) [facility] [place]
[2017-11-06] MEDS ORDERED: DEXTROSE ORAL GEL 15 GM TUBE. PO ONE (20:15)
== END 2017-11-06 07:15 | disposition home or self-care (01) ==
LOC: ER 05:34
DX: G40.909 Epilepsy, unspecified, not intractable, without status epilepticus (principal); M54.9 Dorsalgia, unspecified; E87.6 Hypokalemia; N18.9 Chronic kidney disease, unspecified; E11.22 Type 2 diabetes mellitus with diabetic chronic kidney disease; M19.90 Unspecified osteoarthritis, unspecified site; F32.9 Major depressive disorder, single episode, unspecified; G43.909 Migraine, unspecified, not intractable, without status migrainosus; Z91.19 Patient's noncompliance with other medical treatment and regimen; Z21 Asymptomatic human immunodeficiency virus [HIV] infection status; Z88.6 Allergy status to analgesic agent; Z91.041 Radiographic dye allergy status
CPT/HCPCS: 36415; 71045; 80048; 82553; 82947; 83735; 83880; 84484; 85025; 85610; 85730; 93005; 96365; 96375; 99285; J1953; J2060

== ENCOUNTER 2017-11-23 05:19 | Emergency (ER) | payer MEDICARE, OTHER ==
[~2017-11-23] VITALS: Ht 172.7 cm; Wt 88.9 kg
[~2017-11-23 05:19] MED LIST changes: +LEVE500T56 PO
--- NOTE | 2017-11-23 06:16 | PHYS DOC ---
Past History Past Medical History: Other Past Surgical History: Appendectomy, Hysterectomy, Other Alcohol Use: None Drug Use: None Adult General Chief Complaint Chief Complaint: BACK PAIN - NO INJURY HPI HPI 57-year-old female presents with exacerbation of her chronic lumbar back pain. She states the pain is severe in and around her incision site. She denies pain going down her legs or radiating up her back. She had a fusion done. The patient recently had an infection for which she was seizing IV antibiotics. Her PICC line was removed yesterday. She tells me that she woke up about 2 AM with severe pain and spasm. She was supposed to be prescribed Flexeril, but did not get the prescription. She does have a regular doctor she follows for this. She denies fever or chills. She denies any new trauma or inciting event. She was asleep when the pain started. Review of Systems Review of Systems Constitutional: Denies fever or chills [] Eyes: Denies change in visual acuity, redness, or eye pain [] HENT: Denies nasal congestion or sore throat [] Respiratory: Denies cough or shortness of breath [] Cardiovascular: No additional information not addressed in HPI [] GI: Denies abdominal pain, nausea, vomiting, bloody stools or diarrhea [] : Denies dysuria or hematuria [] Musculoskeletal: Low back pain [] Integument: Denies rash or skin lesions [] Neurologic: Denies headache, focal weakness or sensory changes [] Endocrine: Denies polyuria or polydipsia [] All other systems were reviewed and found to be within normal limits, except as documented in this note. Allergies Allergies Allergies Coded Allergies Type Severity Reaction Last Updated Verified tramadol Allergy Intermediate 03/06/16 Yes aspirin Allergy Mild 03/24/17 Yes I S O L A T I O N *CONTACT* Allergy Unknown 09/24/17 Yes Physical Exam Physical Exam Constitutional: Well developed, well nourished, no acute distress, non-toxic appearance. [] HENT: Normocephalic, atraumatic, bilateral external ears normal, oropharynx moist, no oral exudates, nose normal. [] Eyes: PERRLA, EOMI, conjunctiva normal, no discharge. [] Neck: Normal range of motion, no tenderness, supple, no stridor. [] Cardiovascular:Heart rate regular rhythm, no murmur [] Lungs & Thorax: Bilateral breath sounds clear to auscultation [] Abdomen: Bowel sounds normal, soft, no tenderness, no masses, no pulsatile masses. [] Skin: Warm, dry, no erythema, no rash. [] Back: Diffuse lumbar paraspinal muscle pain and spasm bilaterally [] Extremities: No tenderness, no cyanosis, no clubbing, ROM intact, no edema. [] Neurologic: Alert and oriented X 3, normal motor function, normal sensory function, no focal deficits noted. [] Psychologic: Affect normal, judgement normal, mood normal. [] Current Patient Data Vital Signs Vital Signs Date Time Temp Pulse Resp B/P (MAP) Pulse Ox O2 Delivery O2 Flow Rate FiO2 11/23/17 05:21 98.0 89 20 97 Room Air EKG EKG [] Radiology/Procedures Radiology/Procedures [] Course & Med Decision Making Course & Med Decision Making Pertinent Labs and Imaging studies reviewed. (See chart for details A review of prescription drug registry shows that the patient has 120 hydrocodone 5/325 prescribed to her October 28. She had 120 prescribed October 18. I explained to the patient that it was very important that her pain medications be managed by one provider. I will be able to give her a muscle relaxer and 1 pain pill here in the ED, but she must go back to her provider for further pain management prescriptions. Patient stated understanding. She has a ride home with a cab. I will give her [place] 5/325 and Norflex IM. I will discharge her with prescription for Flexeril. [] Dragon Disclaimer Dragon Disclaimer This electronic medical record was generated, in whole or in part, using a voice recognition dictation system. Departure Departure: Referrals: ANNITA WOODWARD DO, MPH (PCP) Scripts Cyclobenzaprine Hcl (CYCLOBENZAPRINE HCL) 10 Mg Tablet 1 TAB PO TID, #30 TAB Prov: GAGE MOON DO 11/23/17 GAGE MOON DO Nov 23, 2017 06:16
[2017-11-23] MEDS ORDERED: CYCL-331 PO (06:19)
[2017-11-23] MEDS ORDERED: HYDROcodone/APAP 5/325MG 1 TAB TABLET PO ONE (06:30)
[2017-11-23] MEDS ORDERED: ORPHENADRINE CITRATE 60 MG/2 ML VIAL. IM ONE (06:30)
[2017-11-23 06:55] VITALS: BP 145/65
== END 2017-11-23 06:55 | disposition home or self-care (01) ==
LOC: ER 05:19
DX: G89.29 Other chronic pain (principal); M54.5 Low back pain; Z88.6 Allergy status to analgesic agent; Z91.041 Radiographic dye allergy status
CPT/HCPCS: 96372; 99283; J2360

== ENCOUNTER 2018-03-01 11:05 | Inpatient (IN) | payer MEDICARE, OTHER ==
[~2018-03-01] VITALS: Ht 172.7 cm; Wt 95.4 kg
[~2018-03-01 11:05] MED LIST changes: +CYCL-331 PO
[2018-03-01] MEDS ORDERED: ONDANSETRON PF 4 MG/2 ML VIAL. IV PRN (12:30)
[2018-03-01] MEDS ORDERED: ENOXAPARIN ** NOTE DOSE ** SYRINGE SQ ONE (12:30)
--- NOTE | 2018-03-01 12:38 | RAD ---
Left upper extremity venous Doppler ultrasound History: Left arm swelling. PICC line removal February 10. Technique: Grayscale, color Doppler and spectral waveform analysis is used. Findings: Left internal jugular vein is patent. Thrombus identified within the left subclavian vein, not occlusive. Small amount of flow is identified. Left axillary vein is patent. Very small nonocclusive thrombus is also suggested at the distal cephalic vein. Left basilic vein, brachial vein, radial vein and ulnar vein are patent. Impression: Positive for deep venous thrombosis. Thrombus identified in the left subclavian vein. Very small focus of thrombus is suggested in the distal cephalic vein. FOR INTERNAL CODING PURPOSES Critical result: Findings discussed with Dr. Bolivar at 03/01/2018 12:35 PM. RESULT CODE: (C) Electronically signed by: Tod Agarwal MD (03/01/2018 12:35 PM) [id number]
[2018-03-01] MEDS ORDERED: WARFARIN 5 MG TABLET. PO ONE (13:00)
[2018-03-01 13:18] LABS: BASO # 0.1 x10^3/uL (0.0-0.2); BASO % 1 % (0-3); EOS # 0.1 x10^3/uL (0.0-0.7); EOS % 2 % (0-3); HEMATOCRIT 37.3 % (36.0-47.0); LYMPH # 2.6 x10^3/uL (1.0-4.8); LYMPH % 37 % (24-48); MEAN CORPUSCULAR HEMOGLOBIN 28 pg (25-35); MEAN CORPUSCULAR HGB CONC 32 g/dL (31-37); MEAN CORPUSCULAR VOLUME 86 fL (79-100); MONO # 0.5 x10^3/uL (0.0-1.1); MONO % 8 % (0-9); NEUT # 3.5 x10^3uL (1.8-7.7); NEUT % 52 % (31-73); PLATELET COUNT 250 x10^3/uL (140-400); RED BLOOD COUNT 4.34 x10^6/uL (3.50-5.40); RED CELL DISTRIBUTION WIDTH 15.2 % (11.5-14.5); WHITE BLOOD COUNT 6.8 x10^3/uL (4.0-11.0)
[2018-03-01 13:31] LABS: ALBUMIN 3.3 g/dL (3.4-5.0); ALBUMIN/GLOBULIN RATIO 0.8 (1.0-1.7); CREATININE 1.2 mg/dL (0.6-1.0); GFR 56.4; POTASSIUM 4.4 mmol/L (3.5-5.1); TOTAL BILIRUBIN 1.7 mg/dL (0.2-1.0); TOTAL PROTEIN 7.6 g/dL (6.4-8.2)
[2018-03-01] MEDS: MORPHINE SULFATE 4 MG/ML DISP.SYRIN. IV PRN ×2 (13:44→17:22)
[2018-03-01 14:34] VITALS: BP 128/87
[2018-03-01] MEDS ORDERED: DOXY100C2 PO (15:47)
[2018-03-01] MEDS ORDERED: EMTR1TAB12 PO (15:47)
[2018-03-01 19:00] VITALS: BP 129/89
[2018-03-01] MEDS: levETIRAcetam 500 MG TABLET PO SCH (21:09)
[2018-03-01] MEDS: DOXYCYCLINE HYCLATE 100 MG TABLET PO SCH (21:09)
[2018-03-01] MEDS: HYDROcodone/APAP 10/325 1 TAB TABLET PO PRN (21:10)
[2018-03-01 22:32] VITALS: BP 100/63
[2018-03-02 05:36] VITALS: BP 112/71
[2018-03-02] MEDS ORDERED: REYATAZ 300 MG PO SCH (08:00)
[2018-03-02] MEDS: DOXYCYCLINE HYCLATE 100 MG TABLET PO SCH (08:06)
[2018-03-02] MEDS: levETIRAcetam 500 MG TABLET PO SCH (08:07)
[2018-03-02] MEDS: HYDROcodone/APAP 10/325 1 TAB TABLET PO PRN (08:11)
[2018-03-02] MEDS ORDERED: DESCOVY 200-25MG TAB PO SCH (09:00)
[2018-03-02] MEDS ORDERED: NORVIR 100MG TAB PO SCH (09:00)
[2018-03-02] MEDS ORDERED: SERTRALINE 100 MG TABLET. PO SCH (09:00)
[2018-03-02 10:21] VITALS: BP 112/61
[2018-03-02 13:19] LABS: CREATININE 1.4 mg/dL (0.6-1.0); GFR 47.2; POTASSIUM 3.7 mmol/L (3.5-5.1)
--- NOTE | 2018-03-02 13:32 | PDOC1 ---
History of Present Illness History of Present Illness 57-year-old female presented to the emergency department yesterday with left arm pain and swelling. Patient had a PICC line removed Past medical history: HIV, seizure disorder, migraines, depression Past surgical history: Total abdominal hysterectomy with bilateral salpingo- oophorectomy, appendectomy, back surgery Family history: Patient's father unknown cause, her mother was killed when she was 5 years old, she has 4 older sisters one with myocardial infarction one with cerebral aneurysm, strong family history of diabetes Social history: Patient is she has 2 kids she is on disability with HIV. Denies any history of alcohol tobacco or illicit substance abuse. Patient reportedly contracted HIV from her spouse, she was diagnosed 10 years ago uncertain of her viral load. Her PCP is at [facility] doctor is at [facility] on [address] Chief Complaint: UPPER EXTREMITY SWELLING Allergies: Coded Allergies: tramadol (Verified Allergy, Intermediate, 03/06/16) aspirin (Verified Allergy, Mild, 03/24/17) RASH I S O L A T I O N *CONTACT* (Verified Allergy, Unknown, 09/24/17) +MRSA blood 03/06/16 levofloxacin (Verified Allergy, Unknown, 03/01/18) naproxen (Verified Allergy, Unknown, 03/01/18) Review of Systems Review Of Systems Fourteen system , review of systems has been reviewed. See HPI for pertinent positives and negative responses, other silver all other systems are negative, non pertinent or non contributory Medications Current Medications Enoxaparin Sodium (Lovenox 100mg Syringe) 100 mg 1X ONCE SQ Last administered on 03/01/18at 13:14; Start 03/01/18 at 12:30; Stop 03/01/18 at 12:35; Status DC Ondansetron HCl (Zofran) 4 mg PRN Q4HRS PRN IV NAUSEA/VOMITING; Start 03/01/18 at 12:30; Stop 03/02/18 at 12:29; Status DC Morphine Sulfate (Morphine 4mg Syringe) 4 mg PRN Q2HR PRN IV PAIN Last administered on 03/01/18at 17:22; Start 03/01/18 at 12:30; Stop 03/02/18 at 12:29 ; Status DC Warfarin Sodium (Coumadin) 10 mg 1X ONCE PO Last administered on 03/01/18at 17: 23; Start 03/01/18 at 13:00; Stop 03/01/18 at 13:01; Status DC Sertraline HCl (Zoloft) 100 mg DAILY PO Last administered on 03/02/18at 08:06; Start 03/02/18 at 09:00 Non-Formulary Medication (Atazanavir Sulfate (Reyataz)) 1 cap DAILY08 PO Last administered on 03/02/18at 08:07; Start 03/02/18 at 08:00 Doxycycline Hyclate (Vibra-Tab) 100 mg BID PO Last administered on 03/02/18 08 :06; Start 03/01/18 at 21:00 Non-Formulary Medication (Emtricitabine/ Tenofov Alafenam (Descovy 200-25 mg Tablet)) 1 each DAILY PO Last administered on 03/02/18at 08:06; Start 03/02/18 at 09:00 Acetaminophen/ Hydrocodone Bitart (Lortab 10/325) 1 tab PRN Q6HRS PRN PO PAIN Last administered on 03/02/18at 08:11; Start 03/01/18 at 16:45 Levetiracetam (Keppra) 1,500 mg BID PO Last administered on 03/02/18 08:07; Start 03/01/18 at 21:00 Non-Formulary Medication (Ritonavir (Norvir)) 1 tab DAILY PO Last administered on 03/02/18at 08:07; Start 03/02/18 at 09:00 Warfarin Sodium (Coumadin Per Pharmacy) 1 each PRN DAILY PRN MC SEE COMMENTS Last administered on 03/01/18at 20:38; Start 03/01/18 at 20:15 Active Scripts Active Reported Descovy 200-25 mg Tablet (Emtricitabine/Tenofov Alafenam) 1 Each Tablet 1 Each PO DAILY Doxycycline Hyclate 100 Mg Capsule 1 Cap PO BID Levetiracetam 500 Mg Tablet 1.5 Tab PO BID LAST DOSE GIVEN: DATE: TIME: NEXT DOSE DUE: DATE: TIME: Norvir (Ritonavir) 100 Mg Tablet 1 Tab PO DAILY LAST DOSE GIVEN: DATE: TIME: NEXT DOSE DUE: DATE: TIME: Reyataz (Atazanavir Sulfate) 300 Mg Capsule 1 Cap PO DAILY LAST DOSE GIVEN: DATE: TIME: NEXT DOSE DUE: DATE: TIME: Hydrocodone-Apap 10-325 (Hydrocodone Bit/Acetaminophen) 1 Each Tablet 1 Tab PO PRN Q6HRS PRN LAST DOSE GIVEN: DATE: TIME: NEXT DOSE DUE: DATE: TIME: Zoloft (Sertraline Hcl) 100 Mg Tablet 1 Tab PO DAILY LAST DOSE GIVEN: DATE: TIME: NEXT DOSE DUE: DATE: TIME: Exam Vital Signs Vital Signs Date Time Temp Pulse Resp B/P (MAP) Pulse Ox O2 Delivery O2 Flow Rate FiO2 03/02/18 10:21 98.0 109 20 112/61 (78) 96 Room Air COURSE Allergies Coded Allergies Type Severity Reaction Last Updated Verified tramadol Allergy Intermediate 03/06/16 Yes aspirin Allergy Mild 03/24/17 Yes I S O L A T I O N *CONTACT* Allergy Unknown 09/24/17 Yes levofloxacin Allergy Unknown 03/01/18 Yes naproxen Allergy Unknown 03/01/18 Yes Laboratory Tests Test 03/02/18 05:46 Prothrombin Time 9.9 SEC (9.4-11.4) Prothromb Time International Ratio 1.0 (0.9-1.1) Sodium Level 140 mmol/L (136-145) Potassium Level 3.7 mmol/L (3.5-5.1) Chloride Level 105 mmol/L (98-107) Carbon Dioxide Level 27 mmol/L (21-32) Anion Gap 8 (6-14) Blood Urea Nitrogen 22 mg/dL (7-20) Creatinine 1.4 mg/dL (0.6-1.0) Estimated GFR (Cockcroft-Gault) 47.2 Glucose Level 87 mg/dL (70-99) Calcium Level 9.0 mg/dL (8.5-10.1) Current Medications Medications (Trade) Dose Ordered Sig/Bhavik Route PRN Reason Start Time Stop Time Status Last Admin Dose Admin Sertraline HCl (Zoloft) 100 mg DAILY PO 03/02/18 09:00 03/02/18 08:06 Non-Formulary Medication (Atazanavir Sulfate (Reyataz)) 1 cap DAILY08 PO 03/02/18 08:00 03/02/18 08:07 Doxycycline Hyclate (Vibra-Tab) 100 mg BID PO 03/01/18 21:00 03/02/18 08:06 Non-Formulary Medication (Emtricitabine/ Tenofov Alafenam (Descovy 200-25 mg Tablet)) 1 each DAILY PO 03/02/18 09:00 03/02/18 08:06 Acetaminophen/ Hydrocodone Bitart (Lortab 10/325) 1 tab PRN Q6HRS PRN PO PAIN 03/01/18 16:45 03/02/18 08:11 Levetiracetam (Keppra) 1,500 mg BID PO 03/01/18 21:00 03/02/18 08:07 Non-Formulary Medication (Ritonavir (Norvir)) 1 tab DAILY PO 03/02/18 09:00 03/02/18 08:07 Warfarin Sodium (Coumadin Per Pharmacy) 1 each PRN DAILY PRN MC SEE COMMENTS 03/01/18 20:15 03/01/18 20:38 I & O 03/02/18 00:00 Intake Total 1060 ml Balance 1060 ml Orders Procedure Category Date Status Time Partial LAB 03/01/18 Complete Thromboplastin Time 13:37 Regular DIET 03/01/18 Transmitted Dinner Insert And Maintain Iv BRIGIDA 03/01/18 In Process 14:26 Up Ad Feli (As BRIGIDA 03/01/18 In Process Tolerated) 14:26 Fall Precautions BRIGIDA 03/01/18 In Process 15:58 Apply Delonte Stockings BRIGIDA 03/01/18 In Process And Toñito Wr 15:58 Pneumatic Compression BRIGIDA 03/01/18 In Process Device 15:58 Admit Orders ADT 03/01/18 Transmitted High Risk Dc CONS 03/01/18 Transmitted Readmission 16:19 Sertraline (Zoloft) PHA 03/02/18 In Process 09:00 (Nf) Atazanavir PHA 03/02/18 In Process Sulfate (Reyataz) 08:00 Doxycycline Hyclate PHA 03/01/18 In Process (Vibra-Tab) 21:00 (NF) PHA 03/02/18 In Process Emtricitabine/Tenofov 09:00 Hydrocodone/Apap PHA 03/01/18 In Process 10/325 (Lortab 10/325) 16:45 Levetiracetam (Keppra) PHA 03/01/18 In Process 21:00 (Nf) Ritonavir PHA 03/02/18 In Process (Norvir) 09:00 Mrsa By Pcr LAB 03/01/18 In Process 20:15 Warfarin Per Pharmacy PHA 03/01/18 In Process (Coumadin Per Phar 20:15 Protime LAB 03/02/18 Complete 06:00 Protime LAB 03/03/18 Verified 06:00 Protime LAB 03/04/18 Verified 06:00 Basic Metabolic Panel LAB 03/02/18 Complete 13:08 Vital Signs Date Time Temp Pulse Resp B/P (MAP) Pulse Ox O2 Delivery O2 Flow Rate FiO2 03/02/18 10:21 98.0 109 20 112/61 (78) 96 Room Air ANDIE POST DO Mar 02, 2018 13:32
== END 2018-03-02 14:26 | disposition home or self-care (01) | DRG 300 ==
LOC: ER 11:05 → 1 SOUTH 14:00
PROVIDERS: ADMIT Neuromusculoskeletal Medicine & OMM; ATTEND Neuromusculoskeletal Medicine & OMM
DX: I82.B12 Acute embolism and thrombosis of left subclavian vein (principal); E44.1 Mild protein-calorie malnutrition; G40.909 Epilepsy, unspecified, not intractable, without status epilepticus; F32.9 Major depressive disorder, single episode, unspecified; Z90.722 Acquired absence of ovaries, bilateral; Z90.710 Acquired absence of both cervix and uterus; Z90.49 Acquired absence of other specified parts of digestive tract; Z83.3 Family history of diabetes mellitus; Z82.49 Family history of ischemic heart disease and other diseases of the circulatory system; Z88.6 Allergy status to analgesic agent; Z88.8 Allergy status to other drugs, medicaments and biological substances; Z79.899 Other long term (current) drug therapy
CPT/HCPCS: 36415; 80048; 80053; 85025; 85610; 85730; 87641; 93971; 96372; J1650; J2270; 99285-25

== ENCOUNTER → 2018-05-11 | Outpatient (CLI) | payer MEDICARE, OTHER, MEDICAID ==
[~2018-05-11] MED LIST changes: +DOXY100C2 PO; +EMTR1TAB12 PO
--- NOTE | 2018-05-11 13:17 | RAD ---
Left upper extremity venous doppler ultrasound History: Left arm pain, arm swelling Comparison: None Findings: Multiple grayscale, color, and duplex spectral analysis sonographic images were acquired of the left upper extremity veins to evaluate for the presence of DVT. Interrogated left upper extremity veins are patent with normal color flow and phasicity, also normal compression. There is questionable small left elbow joint effusion. Impression: 1. There is no evidence of deep venous thrombosis of the interrogated left upper extremity veins. Electronically signed by: Juan José Loving MD (05/11/2018 1:13 PM) [id number]
== END | disposition home or self-care (01) ==
LOC: US 10:26
PROVIDERS: ATTEND Family Medicine Sports Medicine
DX: M79.602 Pain in left arm (principal); R22.32 Localized swelling, mass and lump, left upper limb
CPT/HCPCS: 93971

== ENCOUNTER 2018-05-14 16:34 | Emergency (ER) | payer MEDICARE, OTHER ==
[~2018-05-14] VITALS: Ht 172.7 cm; Wt 98.0 kg
--- NOTE | 2018-05-14 17:25 | RAD ---
EXAM: Left elbow, 3 views; left humerus, 2 views. HISTORY: Pain. COMPARISON: None. FINDINGS: 3 views of the left elbow and 2 views left humerus are obtained. There is no fracture, dislocation or subluxation. There is no elbow effusion. There is a tiny corticated ossicle adjacent to the coronoid process of the olecranon, possibly developmental or the sequela of remote injury. IMPRESSION: 1. No acute osseous finding. 2. Tiny corticated ossicle adjacent to the coronoid process of the olecranon, possibly developmental or the sequela of remote injury. Electronically signed by: Ninoska Gomez MD (05/14/2018 5:22 PM) [facility]
--- NOTE | 2018-05-14 17:50 | PHYS DOC ---
Past History Past Medical History: Diabetes, HIV, Seizure, Other Past Surgical History: Appendectomy, Hysterectomy, Other Alcohol Use: None Drug Use: None Adult General Chief Complaint Chief Complaint: ELBOW PROBLEM HPI HPI 57-year-old female presents with left elbow and upper arm pain. Patient states that she fell a couple hours ago at home. She tripped over something on the floor in her living room. She denies hitting her head or losing consciousness. She has had pain in this arm previously, but states that it is now worse. It is tender to touch her elbow and humerus. She denies any other injuries or complaints. Review of Systems Review of Systems Constitutional: Denies fever or chills [] Eyes: Denies change in visual acuity, redness, or eye pain [] HENT: Denies nasal congestion or sore throat [] Respiratory: Denies cough or shortness of breath [] Cardiovascular: No additional information not addressed in HPI [] GI: Denies abdominal pain, nausea, vomiting, bloody stools or diarrhea [] : Denies dysuria or hematuria [] Musculoskeletal: Left upper extremity pain[] Integument: Denies rash or skin lesions [] Neurologic: Denies headache, focal weakness or sensory changes [] Endocrine: Denies polyuria or polydipsia [] All other systems were reviewed and found to be within normal limits, except as documented in this note. Allergies Allergies Allergies Coded Allergies Type Severity Reaction Last Updated Verified tramadol Allergy Intermediate 03/06/16 Yes aspirin Allergy Mild 03/24/17 Yes I S O L A T I O N *CONTACT* Allergy Unknown 09/24/17 Yes levofloxacin Allergy Unknown 03/01/18 Yes naproxen Allergy Unknown 03/01/18 Yes Physical Exam Physical Exam Constitutional: Well developed, well nourished, no acute distress, non-toxic appearance. [] HENT: Normocephalic, atraumatic, bilateral external ears normal, oropharynx moist, no oral exudates, nose normal. [] Eyes: PERRLA, EOMI, conjunctiva normal, no discharge. [] Neck: Normal range of motion, no tenderness, supple, no stridor. [] Cardiovascular:Heart rate regular rhythm, no murmur [] Lungs & Thorax: Bilateral breath sounds clear to auscultation [] Abdomen: Bowel sounds normal, soft, no tenderness, no masses, no pulsatile masses. [] Skin: Warm, dry, no erythema, no rash. [] Back: No tenderness, no CVA tenderness. [] Extremities: Tenderness of the left elbow and humerus, no ecchymosis, no swelling, no obvious deformity[] Neurologic: Alert and oriented X 3, normal motor function, normal sensory function, no focal deficits noted. [] Psychologic: Affect normal, judgement normal, mood normal. [] Current Patient Data Vital Signs Vital Signs Date Time Temp Pulse Resp B/P (MAP) Pulse Ox O2 Delivery O2 Flow Rate FiO2 05/14/18 16:40 Room Air 05/14/18 16:40 98.3 91 20 100 EKG EKG [] Radiology/Procedures Radiology/Procedures [] Impressions: EXAM: Left elbow, 3 views; left humerus, 2 views. HISTORY: Pain. COMPARISON: None. FINDINGS: 3 views of the left elbow and 2 views left humerus are obtained. There is no fracture, dislocation or subluxation. There is no elbow effusion. There is a tiny corticated ossicle adjacent to the coronoid process of the olecranon, possibly developmental or the sequela of remote injury. IMPRESSION: 1. No acute osseous finding. 2. Tiny corticated ossicle adjacent to the coronoid process of the olecranon, possibly developmental or the sequela of remote injury. Electronically signed by: Ninoska Gomez MD (05/14/2018 5:22 PM) [facility] DICTATED AND SIGNED BY: NINOSKA GOMEZ MD DATE: 05/14/18 1720 CC: GAGE MOON DO; ANNITA WOODWARD DO, MPH Course & Med Decision Making Course & Med Decision Making Pertinent Labs and Imaging studies reviewed. (See chart for details) The patient's x-rays are negative for acute fracture. She does have some old findings that could be exacerbating her pain. I will advise that she take over- the-counter pain medication as needed. She is stable for discharge at this time. [] Dragon Disclaimer Dragon Disclaimer This electronic medical record was generated, in whole or in part, using a voice recognition dictation system. Departure Departure: Referrals: ANNITA WOODWARD DO, MPH (PCP) GAGE MOON DO May 14, 2018 17:50
[2018-05-14 18:00] VITALS: BP 109/75
== END 2018-05-14 18:00 | disposition home or self-care (01) ==
LOC: ER 16:34
DX: M25.522 Pain in left elbow (principal); M79.622 Pain in left upper arm; E11.9 Type 2 diabetes mellitus without complications; G89.11 Acute pain due to trauma; Z88.6 Allergy status to analgesic agent; Z88.1 Allergy status to other antibiotic agents; Z91.041 Radiographic dye allergy status; Z88.8 Allergy status to other drugs, medicaments and biological substances; W18.09XA Striking against other object with subsequent fall, initial encounter; Y93.89 Activity, other specified; Y92.098 Other place in other non-institutional residence as the place of occurrence of the external cause; Y99.8 Other external cause status
CPT/HCPCS: 73060; 73080; 99284

== ENCOUNTER 2018-06-10 12:16 | Emergency (ER) | payer MEDICARE, OTHER ==
[~2018-06-10] VITALS: Ht 172.7 cm; Wt 100.2 kg
[~2018-06-10 12:16] MED LIST changes: -HYDR-2766 PO; +HYDR-2769 PO; -OXYC-323 PO; +OXYC1TAB15 PO
--- NOTE | 2018-06-10 12:54 | PHYS DOC ---
Past History Past Medical History: Diabetes, HIV, Seizure, Other Past Surgical History: Appendectomy, Hysterectomy, Other Alcohol Use: None Drug Use: None Adult General Chief Complaint Chief Complaint: chest pain HPI HPI Patient is a 57-year-old female who presents with complaint of chest pain that started this morning. Patient states that pain is also in her mid thoracic region. She describes pain as being sharp and stabbing in nature and states the pain is worse when she takes in a deep breath. She denies any recent injuries and denies any heavy lifting. She denies any cough. She also denies any nausea, vomiting or diaphoresis. Patient rates her pain to be an 8 out of 10 and states that nothing improves her pain. Review of Systems Review of Systems Constitutional: Denies fever or chills [] Respiratory: Denies cough or shortness of breath [] Cardiovascular: No additional information not addressed in HPI [] GI: Denies abdominal pain, nausea, vomiting or diarrhea [] Musculoskeletal: Complains of back pain [] All other systems were reviewed and found to be within normal limits, except as documented in this note. Allergies Allergies Allergies Coded Allergies Type Severity Reaction Last Updated Verified tramadol Allergy Intermediate 03/06/16 Yes aspirin Allergy Mild 03/24/17 Yes I S O L A T I O N *CONTACT* Allergy Unknown 09/24/17 Yes levofloxacin Allergy Unknown 03/01/18 Yes naproxen Allergy Unknown 03/01/18 Yes Physical Exam Physical Exam Constitutional: Well developed, well nourished, no acute distress, non-toxic appearance. [] HENT: Normocephalic, atraumatic, bilateral external ears normal, oropharynx moist, no oral exudates, nose normal. [] Eyes: PERRLA, EOMI, conjunctiva normal, no discharge. [] Neck: Normal range of motion, no tenderness, supple, no stridor. [] Cardiovascular: Regular rate and rhythm [] Lungs & Thorax: Bilateral breath sounds clear to auscultation [] Abdomen: Bowel sounds normal, soft, no tenderness. [] Skin: Warm, dry, no erythema, no rash. [] Extremities: No tenderness, no cyanosis, no clubbing, ROM intact, no edema. [] Neurologic: Awake and alert, no focal deficits noted. [] EKG EKG EKG demonstrates normal sinus rhythm with no ST segment abnormalities.[] Radiology/Procedures Radiology/Procedures [] Impressions: PROCEDURE: PORTABLE CHEST 1V PORTABLE CHEST 1V History: CHEST PAIN TODAY. Comparison: November 06, 2017 Cardiomediastinal silhouette: Not grossly enlarged. Lungs: Somewhat low lung volumes. No airspace consolidation. Pleura: No evidence of pleural effusion. Pneumothorax: None visualized Support Devices: None. Impression: No evidence of acute infiltrate. Electronically signed by: Tod Agarwal MD (06/10/2018 1:02 PM) [id number] Course & Med Decision Making Course & Med Decision Making Pertinent Labs and Imaging studies reviewed. (See chart for details) [] Dragon Disclaimer Dragon Disclaimer This electronic medical record was generated, in whole or in part, using a voice recognition dictation system. Departure Departure: Impression: Primary Impression: Costochondritis Disposition: 01 HOME, SELF-CARE Condition: STABLE Referrals: ANNITA WOODWARD DO, MPH (PCP) Patient Instructions: Costochondritis Scripts Methylprednisolone (MEDROL) 4 Mg Tab.ds.pk 1 PKG PO UD for inflammation, #1 PKG Prov: IKER BRITO Jr. DO 06/10/18 Diclofenac Sodium (DICLOFENAC SODIUM) 50 Mg Tablet.dr 1 TAB PO BID PRN for PAIN, #20 TAB Prov: IKER BRITO Jr. DO 06/10/18 IKER BRITO Jr. DO Jun 10, 2018 12:53
[2018-06-10 12:56] LABS: BASO % 1 % (0-3); EOS # 0.1 x10^3/uL (0.0-0.7); EOS % 1 % (0-3); HEMATOCRIT 39.1 % (36.0-47.0); HEMOGLOBIN 12.6 g/dL (12.0-15.5); LYMPH # 2.1 x10^3/uL (1.0-4.8); LYMPH % 39 % (24-48); MEAN CORPUSCULAR HEMOGLOBIN 28 pg (25-35); MEAN CORPUSCULAR HGB CONC 32 g/dL (31-37); MEAN CORPUSCULAR VOLUME 88 fL (79-100); MONO # 0.4 x10^3/uL (0.0-1.1); MONO % 8 % (0-9); NEUT # 2.7 x10^3uL (1.8-7.7); NEUT % 50 % (31-73); PLATELET COUNT 251 x10^3/uL (140-400); RED BLOOD COUNT 4.44 x10^6/uL (3.50-5.40); RED CELL DISTRIBUTION WIDTH 14.4 % (11.5-14.5); WHITE BLOOD COUNT 5.3 x10^3/uL (4.0-11.0)
--- NOTE | 2018-06-10 13:06 | RAD ---
PORTABLE CHEST 1V History: CHEST PAIN TODAY. Comparison: November 06, 2017 Cardiomediastinal silhouette: Not grossly enlarged. Lungs: Somewhat low lung volumes. No airspace consolidation. Pleura: No evidence of pleural effusion. Pneumothorax: None visualized Support Devices: None. Impression: No evidence of acute infiltrate. Electronically signed by: Tod Agarwal MD (06/10/2018 1:02 PM) [id number]
[2018-06-10 13:10] LABS: ALBUMIN 3.5 g/dL (3.4-5.0); ALBUMIN/GLOBULIN RATIO 0.8 (1.0-1.7); CALCIUM 9.6 mg/dL (8.5-10.1); CREATININE 1.4 mg/dL (0.6-1.0); GFR 47.2; POTASSIUM 4.1 mmol/L (3.5-5.1); TOTAL BILIRUBIN 1.9 mg/dL (0.2-1.0); TOTAL PROTEIN 7.7 g/dL (6.4-8.2)
[2018-06-10] MEDS ORDERED: METH4TAB2 PO (13:38)
[2018-06-10] MEDS ORDERED: DICL50TA4 PO (13:38)
[2018-06-10] MEDS ORDERED: KETOROLAC 30 MG/ML VIAL. IV ONE (13:45)
[2018-06-10 13:50] VITALS: BP 129/84
== END 2018-06-10 13:50 | disposition home or self-care (01) ==
LOC: ER 12:16
DX: M94.0 Chondrocostal junction syndrome [Tietze] (principal); E11.9 Type 2 diabetes mellitus without complications; Z90.49 Acquired absence of other specified parts of digestive tract; Z90.710 Acquired absence of both cervix and uterus; Z88.6 Allergy status to analgesic agent; Z88.1 Allergy status to other antibiotic agents; Z91.041 Radiographic dye allergy status
CPT/HCPCS: 36415; 71045; 80053; 84484; 85025; 93005; 96374; 99284; J1885

== ENCOUNTER 2018-06-12 23:33 | Emergency (ER) | payer MEDICARE, OTHER ==
[~2018-06-12] VITALS: Ht 175.3 cm; Wt 103.9 kg
[~2018-06-12 23:33] MED LIST changes: +DICL50TA4 PO; +METH4TAB2 PO
[2018-06-13] MEDS ORDERED: IV NORMAL SALINE 1,000ML 1,000 ML IV ONE (00:30)
[2018-06-13 00:51] LABS: BASO % 1 % (0-3); EOS # 0.2 x10^3/uL (0.0-0.7); EOS % 2 % (0-3); HEMATOCRIT 38.3 % (36.0-47.0); HEMOGLOBIN 12.2 g/dL (12.0-15.5); LYMPH # 2.7 x10^3/uL (1.0-4.8); LYMPH % 40 % (24-48); MEAN CORPUSCULAR HEMOGLOBIN 28 pg (25-35); MEAN CORPUSCULAR HGB CONC 32 g/dL (31-37); MEAN CORPUSCULAR VOLUME 89 fL (79-100); MONO # 0.8 x10^3/uL (0.0-1.1); MONO % 12 % (0-9); NEUT # 3.1 x10^3uL (1.8-7.7); NEUT % 45 % (31-73); PLATELET COUNT 259 x10^3/uL (140-400); RED BLOOD COUNT 4.33 x10^6/uL (3.50-5.40); RED CELL DISTRIBUTION WIDTH 14.1 % (11.5-14.5); WHITE BLOOD COUNT 6.8 x10^3/uL (4.0-11.0)
[2018-06-13 00:59] LABS: ALBUMIN 3.5 g/dL (3.4-5.0); ALBUMIN/GLOBULIN RATIO 0.9 (1.0-1.7); CALCIUM 9.5 mg/dL (8.5-10.1); CREATININE 1.6 mg/dL (0.6-1.0); GFR 40.5; POTASSIUM 3.6 mmol/L (3.5-5.1); TOTAL BILIRUBIN 1.1 mg/dL (0.2-1.0); TOTAL PROTEIN 7.6 g/dL (6.4-8.2)
--- NOTE | 2018-06-13 01:04 | PHYS DOC ---
Past History Past Medical History: Diabetes, HIV, Seizure, Other Past Surgical History: Appendectomy, Hysterectomy, Other Alcohol Use: None Drug Use: None Adult General Chief Complaint Chief Complaint: SEIZURE HPI HPI 57-year-old female presents via EMS after seizure. Patient had a witnessed seizure at home. Was reportedly lasted a couple of minutes. The patient has known seizure disorder. She is on 1500 mg a day of Keppra. She ran out of her medication 4 days ago. She cannot get a refill until days from now due to the holiday. Patient's last seizure before that was about a month ago. At this time she does not have any complaints. She has some nasal congestion, but no other signs of illness. She has not had fever or chills. Review of Systems Review of Systems Constitutional: Denies fever or chills [] Eyes: Denies change in visual acuity, redness, or eye pain [] HENT: Denies nasal congestion or sore throat [] Respiratory: Denies cough or shortness of breath [] Cardiovascular: No additional information not addressed in HPI [] GI: Denies abdominal pain, nausea, vomiting, bloody stools or diarrhea [] : Denies dysuria or hematuria [] Musculoskeletal: Denies back pain or joint pain [] Integument: Denies rash or skin lesions [] Neurologic: Denies headache, focal weakness or sensory changes [] Endocrine: Denies polyuria or polydipsia [] All other systems were reviewed and found to be within normal limits, except as documented in this note. Current Medications Current Medications Current Medications Medications (Trade) Dose Ordered Sig/Bhavik Start Time Stop Time Status Last Admin Dose Admin Levetiracetam (Keppra) 500 mg 1X STAT 06/13/18 00:58 06/13/18 00:59 UNV Levetiracetam 1000 mg/Sodium Chloride 100 ml @ 400 mls/hr 1X ONCE 06/13/18 00:30 06/13/18 00:44 DC Sodium Chloride 1,000 ml @ 1,000 mls/hr 1X ONCE 06/13/18 00:30 06/13/18 01:29 Allergies Allergies Allergies Coded Allergies Type Severity Reaction Last Updated Verified tramadol Allergy Intermediate 03/06/16 Yes aspirin Allergy Mild 03/24/17 Yes I S O L A T I O N *CONTACT* Allergy Unknown 09/24/17 Yes levofloxacin Allergy Unknown 03/01/18 Yes naproxen Allergy Unknown 03/01/18 Yes Physical Exam Physical Exam Constitutional: Well developed, well nourished, no acute distress, non-toxic appearance. [] HENT: Normocephalic, atraumatic, bilateral external ears normal, oropharynx moist, no oral exudates, nose congested. [] Eyes: PERRLA, EOMI, conjunctiva normal, no discharge. [] Neck: Normal range of motion, no tenderness, supple, no stridor. [] Cardiovascular:Heart rate regular rhythm, no murmur [] Lungs & Thorax: Bilateral breath sounds clear to auscultation [] Abdomen: Bowel sounds normal, soft, no tenderness, no masses, no pulsatile masses. [] Skin: Warm, dry, no erythema, no rash. [] Back: No tenderness, no CVA tenderness. [] Extremities: No tenderness, no cyanosis, no clubbing, ROM intact, no edema. [] Neurologic: Alert and oriented X 3, normal motor function, normal sensory function, no focal deficits noted. [] Psychologic: Affect normal, judgement normal, mood normal. [] Current Patient Data Vital Signs Vital Signs Date Time Temp Pulse Resp B/P (MAP) Pulse Ox O2 Delivery O2 Flow Rate FiO2 06/12/18 23:33 98.1 90 18 100 Room Air EKG EKG [] Radiology/Procedures Radiology/Procedures [] Course & Med Decision Making Course & Med Decision Making Pertinent Labs and Imaging studies reviewed. (See chart for details) I will not get a Keppra level back tonight, so I will presume her Keppra level as low as and she has not had a dose in 5 days. I will load her with 1 g by IV as well as 500 by mouth. Labs are unremarkable except for an elevated creatinine 1.6 and an elevated BUN of 29. A review of the patient's chart shows that her creatinine has been 1.4 in the past with the BUN in the mid 20s. She was given 1 L normal saline. The patient's urinalysis is suggestive of infection. I will give her 1 g of Rocephin in the ED followed by 3 more days of Keflex. I will order an additional 1500 mg of Keppra for the patient to come and last picker after our pharmacy opens in the morning so that she will have a dose to get her through until she can get her refill the day after tomorrow. The patient is stable for discharge at this time. [] Dragon Disclaimer Dragon Disclaimer This electronic medical record was generated, in whole or in part, using a voice recognition dictation system. Departure Departure: Referrals: ANNITA WOODWARD DO, [facility] (PCP) GAGE MOON DO Jun 13, 2018 01:04
[2018-06-13 01:08] LABS: BACTERIA,URINE FEW /HPF (0-FEW); BILIRUBIN,URINE NEG (NEG); CLARITY,URINE HAZY; COLOR,URINE STRAW; GLUCOSE,URINE NEG (NEG); NITRITE,URINE NEG (NEG); RBC,URINE OCC /HPF (0-2); UROBILINOGEN,URINE 0.2 mg/dL (0.2 mg/dL)
[2018-06-13 01:09] LABS: SQUAMOUS EPITHELIAL CELL,UR FEW /LPF
[2018-06-13] MEDS ORDERED: levETIRAcetam 500 MG/5 ML VIAL IV ONE (01:13)
[2018-06-13] MEDS ORDERED: IV NORMAL SALINE 100ML 100 ML ONE (01:13)
[2018-06-13] MEDS ORDERED: levETIRAcetam 500 MG TABLET PO ONE (01:30)
[2018-06-13] MEDS ORDERED: CEPH-264 PO (01:52)
[2018-06-13] MEDS ORDERED: IV NORMAL SALINE 50ML 50 ML ONE (02:15)
[2018-06-13] MEDS ORDERED: cefTRIAXone SODIUM 1 GM VIAL IV ONE (02:15)
[2018-06-13 02:50] VITALS: BP 103/66
[2018-06-13] MEDS ORDERED: OXYMETAZOLINE 0.05% NASAL SPRAY 15ML BOTTLE. NS ONE (04:00)
== END 2018-06-13 03:18 | disposition home or self-care (01) ==
LOC: ER 23:33
DX: G40.901 Epilepsy, unspecified, not intractable, with status epilepticus (principal); E11.9 Type 2 diabetes mellitus without complications; Z88.6 Allergy status to analgesic agent; Z91.041 Radiographic dye allergy status; Z88.1 Allergy status to other antibiotic agents; Z88.8 Allergy status to other drugs, medicaments and biological substances
CPT/HCPCS: 36415; 80053; 81001; 85025; 87086; 96365; 96367; 99283; J0696; J1953; J7030

== ENCOUNTER 2018-07-12 12:19 | Emergency (ER) | payer MEDICARE, OTHER ==
[~2018-07-12] VITALS: Ht 175.3 cm; Wt 107.5 kg
[~2018-07-12 12:19] MED LIST changes: +CEPH-264 PO
[2018-07-12 13:46] VITALS: BP 121/73
[2018-07-12] MEDS ORDERED: LEVE100020 PO (13:57)
--- NOTE | 2018-07-12 13:57 | PHYS DOC ---
Past History Past Medical History: Diabetes, HIV, Seizure, Other Past Surgical History: Appendectomy, Hysterectomy, Other Alcohol Use: None Drug Use: None Adult General Chief Complaint Chief Complaint: SEIZURE HPI HPI Patient is a 57 year old F who presents with a seizure. Matthew does have seizures disorder. She currently takes Keppra 1500 mg twice daily however she's been out of her medications for a couple of days. She is planning on following up with her neurologist next week. She does not feel that her symptoms are unusual for her previous seizures. She states that she has seizure approximately once a month despite taking her medication regularly Review of Systems Review of Systems Constitutional: Denies fever or chills [] Eyes: Denies change in visual acuity, redness, or eye pain [] HENT: Denies nasal congestion or sore throat [] Respiratory: Denies cough or shortness of breath [] Cardiovascular: No additional information not addressed in HPI [] GI: Denies abdominal pain, nausea, vomiting, bloody stools or diarrhea [] : Denies dysuria or hematuria [] Musculoskeletal: Denies back pain or joint pain [] Integument: Denies rash or skin lesions [] Neurologic: Denies headache, focal weakness or sensory changes [] Endocrine: Denies polyuria or polydipsia [] All other systems were reviewed and found to be within normal limits, except as documented in this note. Family History Family History No pertinent family medical history is reported Current Medications Current Medications Current medications reviewed Allergies Allergies Allergies Coded Allergies Type Severity Reaction Last Updated Verified tramadol Allergy Intermediate 03/06/16 Yes aspirin Allergy Mild 03/24/17 Yes I S O L A T I O N *CONTACT* Allergy Unknown 09/24/17 Yes levofloxacin Allergy Unknown 03/01/18 Yes naproxen Allergy Unknown 03/01/18 Yes Physical Exam Physical Exam Constitutional: Well developed, well nourished, no acute distress, non-toxic appearance. [] HENT: Normocephalic, atraumatic, Eyes: PERRLA, EOMI, conjunctiva normal, no discharge. [] Neck: Normal range of motion, no tenderness, supple, no stridor. [] Cardiovascular:Heart rate regular rhythm, Lungs & Thorax: Bilateral breath sounds clear to auscultation [] Abdomen: Bowel sounds normal, soft, no tenderness, no masses, no pulsatile masses. [] Skin: Warm, dry, no erythema, no rash. [] Back: No tenderness, no CVA tenderness. [] Extremities: No tenderness, no cyanosis, no clubbing, ROM intact, no edema. [] Neurologic: Alert and oriented X 3, normal motor function, normal sensory function, no focal deficits noted. [] Psychologic: Affect normal, judgement normal, mood normal. [] Current Patient Data Vital Signs Vital Signs Date Time Temp Pulse Resp B/P (MAP) Pulse Ox O2 Delivery O2 Flow Rate FiO2 07/12/18 13:46 86 18 121/73 (89) 95 Room Air 07/12/18 12:29 97.9 EKG EKG [] Radiology/Procedures Radiology/Procedures [] Course & Med Decision Making Course & Med Decision Making Pertinent Labs and Imaging studies reviewed. (See chart for details) [] Dragon Disclaimer Dragon Disclaimer This electronic medical record was generated, in whole or in part, using a voice recognition dictation system. Departure Departure: Impression: Primary Impression: Seizure Disposition: 01 HOME, SELF-CARE Condition: STABLE Referrals: ANNITA WOODWARD DO, [facility] (PCP) Patient Instructions: Seizure, Adult Additional Instructions: Matthew was seen in the emergency department for seizure. No emergency medical condition was found on history or physical exam. She was given a refill of her Keppra and advised to follow up with her neurologist as soon as possible for further management. Scripts Levetiracetam (KEPPRA) 1,000 Mg Tablet 1.5 TAB PO BID for seizure for 14 Days, #42 TAB 0 Refills Prov: JOSSUE BROOKE MD 07/12/18 JOSSUE BROOKE MD Jul 12, 2018 13:57
== END 2018-07-12 14:05 | disposition home or self-care (01) ==
LOC: ER 12:19
DX: G40.909 Epilepsy, unspecified, not intractable, without status epilepticus (principal); E11.9 Type 2 diabetes mellitus without complications; Z88.6 Allergy status to analgesic agent; Z91.041 Radiographic dye allergy status; Z88.1 Allergy status to other antibiotic agents; Z88.8 Allergy status to other drugs, medicaments and biological substances
CPT/HCPCS: 99283

== ENCOUNTER 2018-08-26 19:26 | Emergency (ER) | payer MEDICARE, OTHER ==
[~2018-08-26] VITALS: Ht 175.3 cm; Wt 98.4 kg
[~2018-08-26 19:26] MED LIST changes: +LEVE100020 PO
--- NOTE | 2018-08-26 19:31 | ED.ADGEN ---
Past History Past Medical History: Diabetes, HIV, Seizure, Other Past Surgical History: Appendectomy, Hysterectomy, Other Alcohol Use: None Drug Use: None Adult General Chief Complaint Chief Complaint ".. I just left [facility].. .they were working me up for my back pain.. but I had a seizure... I ve been taking my meds.. but I still get seizures.. and I ve got my post headache .. like I usually have..... I see Michelle tomorrow.... I ve been take my Keppra.. I don't want to do any big work up.. and CT.. " HPI HPI Patient is a 57 year old female who presents with hx of Seizure tonic clonic. Pt. has long hx of Seizure disorder. Pt. states she has been compliant with her seizure meds. Patient denies any other changes in meds. Patient denies any trauma. Patient denies any history of fever or chills. Patient currently alert and oriented. Moves all extremities on request. Does complain of a mild headache which is normal for her after a seizure. No recent travel. No specific ill contacts. Patient has a scheduled appointment with Dr. Martinez neurology at [facility]. at bedsides states her mental state is normal. Pt. has been compliant with all her meds. including HIV suppression meds. Pt. states she been HIV + for more 10 yrs. and counts remain low. Pt. has remote hx of TIA like presentation in past. Pt. insistent on discharge and at first decline labs. Pt. did state she did not want a CT or CXR. Review of Systems Review of Systems Constitutional: Denies fever or chills [] Eyes: Denies change in visual acuity, redness, or eye pain [] HENT: Denies nasal congestion or sore throat [] Respiratory: Denies cough or shortness of breath [] Cardiovascular: No additional information not addressed in HPI [] GI: Denies abdominal pain, nausea, vomiting, bloody stools or diarrhea [] : Denies dysuria or hematuria [] Musculoskeletal: Denies back pain or joint pain [] Integument: Denies rash or skin lesions [] Neurologic: Complains of mild frontal headache, complaints of seizure at home. Denies focal weakness or sensory changes [] Endocrine: Denies polyuria or polydipsia [] All other systems were reviewed and found to be within normal limits, except as documented in this note. Family History Family History Noncontributory Current Medications Current Medications Current Medications Medications (Trade) Dose Ordered Sig/Bhavik Start Time Stop Time Status Last Admin Dose Admin Lactated Ringer's 1,000 ml @ 1,000 mls/hr Q1H 08/26/18 19:35 08/26/18 20:34 DC Levetiracetam (Keppra) 500 mg STAT STAT 08/26/18 19:35 08/26/18 19:40 DC 08/26/18 20:26 500 MG Lorazepam (Ativan) 2 mg 1X ONCE 08/26/18 19:45 08/26/18 19:46 DC 08/26/18 20:25 2 MG Ondansetron HCl (Zofran Odt) 8 mg 1X ONCE 08/26/18 20:30 08/26/18 20:31 DC 08/26/18 20:30 8 MG Oxycodone/ Acetaminophen (Percocet 5/325) 2 tab 1X ONCE 08/26/18 20:30 08/26/18 20:31 DC 08/26/18 20:30 2 TAB Allergies Allergies Allergies Coded Allergies Type Severity Reaction Last Updated Verified tramadol Allergy Intermediate 03/06/16 Yes aspirin Allergy Mild 03/24/17 Yes I S O L A T I O N *CONTACT* Allergy Unknown 09/24/17 Yes levofloxacin Allergy Unknown 03/01/18 Yes naproxen Allergy Unknown 03/01/18 Yes Physical Exam Physical Exam Constitutional: no acute distress, non-toxic appearance. [] HENT: Normocephalic, atraumatic, bilateral external ears normal, oropharynx moist, no oral exudates, nose normal. [] Eyes: PERRLA, EOMI, conjunctiva normal, no discharge. [] Neck: Normal range of motion, no tenderness, supple, no stridor. [] Cardiovascular: Tachycardia Heart rate regular rhythm, no murmur [] Lungs & Thorax: Bilateral breath sounds equal at apexes auscultation [] Abdomen: Bowel sounds normal, soft, no tenderness, no masses, no pulsatile masses. [] Old surgery scars. Skin: Warm, dry, no erythema, no rash. [] Back: No tenderness, no CVA tenderness. [] Extremities: No tenderness, no cyanosis, no clubbing, ROM intact, no edema. [] Neurologic: Alert and oriented X 3, normal motor function, normal sensory function, no focal deficits noted. [DTRs +2 patella and brachial. No drift. [employer] equal. Ambulatory without problems Psychologic: Affect anxious, judgement normal, mood normal. [] Current Patient Data Vital Signs Vital Signs Date Time Temp Pulse Resp B/P (MAP) Pulse Ox O2 Delivery O2 Flow Rate FiO2 08/26/18 19:30 98.0 101 20 98 Room Air Lab Results Laboratory Tests Test 08/26/18 19:55 White Blood Count 6.0 x10^3/uL (4.0-11.0) Red Blood Count 4.27 x10^6/uL (3.50-5.40) Hemoglobin 12.0 g/dL (12.0-15.5) Hematocrit 37.7 % (36.0-47.0) Mean Corpuscular Volume 88 fL (79-100) Mean Corpuscular Hemoglobin 28 pg (25-35) Mean Corpuscular Hemoglobin Concent 32 g/dL (31-37) Red Cell Distribution Width 14.3 % (11.5-14.5) Platelet Count 262 x10^3/uL (140-400) Neutrophils (%) (Auto) 54 % (31-73) Lymphocytes (%) (Auto) 38 % (24-48) Monocytes (%) (Auto) 6 % (0-9) Eosinophils (%) (Auto) 1 % (0-3) Basophils (%) (Auto) 1 % (0-3) Neutrophils # (Auto) 3.2 x10^3uL (1.8-7.7) Lymphocytes # (Auto) 2.3 x10^3/uL (1.0-4.8) Monocytes # (Auto) 0.4 x10^3/uL (0.0-1.1) Eosinophils # (Auto) 0.1 x10^3/uL (0.0-0.7) Basophils # (Auto) 0.0 x10^3/uL (0.0-0.2) Erythrocyte Sedimentation Rate 42 (0-25) H Prothrombin Time 10.4 SEC (9.4-11.4) Prothrombin Time INR 1.0 (0.9-1.1) PTT 23 SEC (23-33) Sodium Level 143 mmol/L (136-145) Potassium Level 3.5 mmol/L (3.5-5.1) Chloride Level 105 mmol/L (98-107) Carbon Dioxide Level 30 mmol/L (21-32) Anion Gap 8 (6-14) Blood Urea Nitrogen 18 mg/dL (7-20) Creatinine 1.3 mg/dL (0.6-1.0) H Estimated GFR (Cockcroft-Gault) 51.5 Glucose Level 160 mg/dL (70-99) H Calcium Level 9.4 mg/dL (8.5-10.1) Magnesium Level 1.9 mg/dL (1.8-2.4) Total Bilirubin 1.4 mg/dL (0.2-1.0) H Direct Bilirubin 0.3 mg/dL (0.0-0.2) H Aspartate Amino Transferase (AST) 13 U/L (15-37) L Alanine Aminotransferase (ALT) 20 U/L (14-59) Alkaline Phosphatase 153 U/L (46-116) H Troponin I Quantitative < 0.017 ng/mL (0-0.055) JT-Qvb-H-Type Natriuretic Peptide 120 pg/mL (0-124) Total Protein 7.2 g/dL (6.4-8.2) Albumin 3.5 g/dL (3.4-5.0) Urine Opiates Screen Pos (NEG) Urine Methadone Screen Neg (NEG) Urine Barbiturates Neg (NEG) Urine Phencyclidine Screen Neg (NEG) Urine Amphetamine/Methamphetamine Neg (NEG) Urine Benzodiazepines Screen Neg (NEG) Urine Cocaine Screen Neg (NEG) Urine Cannabinoids Screen Neg (NEG) Urine Ethyl Alcohol Neg (NEG) EKG EKG My interpretation EKG shows a sinus rhythm at 93 bpm. There is slightly prolonged QT interval. QTc interval is a 5 23 ms. [] Radiology/Procedures Radiology/Procedures Pt. declines CXR or CT[]- risks of missed lesions discussed with pt. especially with Hx of HIV infection a concern. Course & Med Decision Making Course & Med Decision Making Pertinent Labs and Imaging studies reviewed. (See chart for details) Pt. follow-up with her primary care physician and Dr. Martinez neurology at [facility]. Patient continue her seizure meds as previous directed no change in dosage. Return if any concerns. No driving or hazard activity until released by neurology or primary. Pt. encourage to return if any symptoms- risks discussed reference missed diagnosis, and risks associated with HIV. [] Final Impression Final Impression 1. Breakthrough tonic-clonic seizure[] 2. Elevation ESR- 42 3. DM 160 glu 4. Elevated Stewart 1.4/0.3 direct and Alk Phos 153 5. Hx of HIV- on suppression meds Dragon Disclaimer Dragon Disclaimer This electronic medical record was generated, in whole or in part, using a voice recognition dictation system. CASEY CANNON MD Aug 26, 2018 19:31
[2018-08-26] MEDS ORDERED: levETIRAcetam 500 MG TABLET PO STA (19:35)
[2018-08-26] MEDS ORDERED: IV RINGERS SOLUTION,LACTATED 1,000 ML IV SCH (19:35)
[2018-08-26 20:19] LABS: BASO % 1 % (0-3); EOS # 0.1 x10^3/uL (0.0-0.7); EOS % 1 % (0-3); HEMATOCRIT 37.7 % (36.0-47.0); LYMPH # 2.3 x10^3/uL (1.0-4.8); LYMPH % 38 % (24-48); MEAN CORPUSCULAR HEMOGLOBIN 28 pg (25-35); MEAN CORPUSCULAR HGB CONC 32 g/dL (31-37); MEAN CORPUSCULAR VOLUME 88 fL (79-100); MONO # 0.4 x10^3/uL (0.0-1.1); MONO % 6 % (0-9); NEUT # 3.2 x10^3uL (1.8-7.7); NEUT % 54 % (31-73); PLATELET COUNT 262 x10^3/uL (140-400); RED BLOOD COUNT 4.27 x10^6/uL (3.50-5.40); RED CELL DISTRIBUTION WIDTH 14.3 % (11.5-14.5)
[2018-08-26 20:24] LABS: BARBITURATES NEG (NEG); BENZODIAZEPINES NEG (NEG); CANNABINOIDS NEG (NEG); COCAINE NEG (NEG); METHADONE NEG (NEG); OPIATES POS (NEG); PHENCYCLIDINE NEG (NEG)
[2018-08-26 20:25] LABS: AMPHETAMINE/METHAMPHETAMINE NEG (NEG)
[2018-08-26] MEDS ORDERED: oxyCODONE/APAP 5/325 1 TAB TABLET PO ONE (20:30)
[2018-08-26] MEDS ORDERED: ONDANSETRON ODT 4 MG TAB.RAPDIS PO ONE (20:30)
[2018-08-26 20:42] LABS: ALBUMIN 3.5 g/dL (3.4-5.0); CALCIUM 9.4 mg/dL (8.5-10.1); CREATININE 1.3 mg/dL (0.6-1.0); DIRECT BILIRUBIN 0.3 mg/dL (0.0-0.2); GFR 51.5; MAGNESIUM 1.9 mg/dL (1.8-2.4); POTASSIUM 3.5 mmol/L (3.5-5.1); TOTAL BILIRUBIN 1.4 mg/dL (0.2-1.0); TOTAL PROTEIN 7.2 g/dL (6.4-8.2)
[2018-08-26 21:27] VITALS: BP 107/70
[2018-08-26 21:34] LABS: SEDIMENTATION RATE 42 (0-25)
[2018-08-27] MEDS ORDERED: keppra PO (02:05)
--- NOTE | 2018-08-27 05:52 | EKG ---
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
== END 2018-08-26 21:30 | disposition home or self-care (01) ==
LOC: ER 19:26
DX: G40.909 Epilepsy, unspecified, not intractable, without status epilepticus (principal); R70.0 Elevated erythrocyte sedimentation rate; E11.9 Type 2 diabetes mellitus without complications; R74.8 Abnormal levels of other serum enzymes; E80.7 Disorder of bilirubin metabolism, unspecified; Z88.6 Allergy status to analgesic agent; Z91.041 Radiographic dye allergy status; Z88.1 Allergy status to other antibiotic agents
CPT/HCPCS: 36415; 80048; 80076; 80307; 83735; 83880; 84443; 84484; 85025; 85610; 85651; 85730; 93005; 96372; 99284; J2060; Q0162

== ENCOUNTER 2018-09-02 15:36 | Emergency (ER) | payer MEDICARE, OTHER ==
[~2018-09-02] VITALS: Ht 172.7 cm; Wt 101.1 kg
[~2018-09-02 15:36] MED LIST changes: +keppra PO
[2018-09-02] MEDS ORDERED: IV NORMAL SALINE 1,000ML 1,000 ML IV ONE (15:45)
[2018-09-02 16:14] LABS: BASO % 1 % (0-3); EOS % 1 % (0-3); HEMATOCRIT 36.1 % (36.0-47.0); HEMOGLOBIN 11.7 g/dL (12.0-15.5); LYMPH % 36 % (24-48); MEAN CORPUSCULAR HEMOGLOBIN 29 pg (25-35); MEAN CORPUSCULAR HGB CONC 32 g/dL (31-37); MEAN CORPUSCULAR VOLUME 89 fL (79-100); MONO # 0.3 x10^3/uL (0.0-1.1); MONO % 6 % (0-9); NEUT # 3.2 x10^3uL (1.8-7.7); NEUT % 57 % (31-73); PLATELET COUNT 245 x10^3/uL (140-400); RED BLOOD COUNT 4.08 x10^6/uL (3.50-5.40); RED CELL DISTRIBUTION WIDTH 14.9 % (11.5-14.5); WHITE BLOOD COUNT 5.6 x10^3/uL (4.0-11.0)
[2018-09-02 16:30] LABS: ALBUMIN 3.4 g/dL (3.4-5.0); CALCIUM 9.3 mg/dL (8.5-10.1); CREATININE 1.3 mg/dL (0.6-1.0); DIRECT BILIRUBIN 0.2 mg/dL (0.0-0.2); GFR 51.5; POTASSIUM 3.5 mmol/L (3.5-5.1); TOTAL BILIRUBIN 1.4 mg/dL (0.2-1.0); TOTAL PROTEIN 7.1 g/dL (6.4-8.2)
--- NOTE | 2018-09-02 16:31 | RAD ---
PQRS Compliance Statement: One or more of the following individualized dose reduction techniques were utilized for this examination: 1. Automated exposure control 2. Adjustment of the mA and/or kV according to patient size 3. Use of iterative reconstruction technique CT HEAD WITHOUT CONTRAST History: AURA WITH POSSIBLE SEIZURE, HX OF EPILEPSY Comparison: CT head without contrast, September 24, 2017. Procedure: Axial images are obtained of the head from the skull base through the vertex without IV contrast. Findings: The ventricles and sulci are normal for the patient's age. No mass-effect, midline shift, hemorrhage, extra-axial fluid collection, or obvious acute infarction is identified. Basilar cisterns are patent. Bone windows demonstrate no acute calvarial abnormality. The visualized paranasal sinuses are clear. Mastoid air cells are well aerated. IMPRESSION: No acute intracranial abnormality. Electronically signed by: Panchito Jackman MD (09/02/2018 4:28 PM) [id number]
--- NOTE | 2018-09-02 16:34 | PHYS DOC ---
Past History Past Medical History: Diabetes, Glaucoma, HIV, Hypertension, Seizure Past Surgical History: Appendectomy, Hysterectomy, Tonsillectomy Alcohol Use: None Drug Use: None Adult General Chief Complaint Chief Complaint: seizure HPI HPI 57-year-old female presenting the emergency department after having an episode of a focal seizure in her left upper extremity. She reports this happened about an hour prior to arrival. She reports a tremulousness of the left upper extremity which lasted for approximately 5-10 minutes. It was witnessed by her significant other. It then resolved. She called paramedics and they bring her in to be evaluated. She has a history of HIV. She reports seeing her medications. She cannot remember what her last CD4 count was spent reports continuous use of her medication since being diagnosed and not sustaining palpitations of the diagnosis thus far. She has a history of seizures and is on Keppra twice a day 750 mg. She follows with Dr. Rosado neurology. ROS: She denies any recent headaches fevers vision changes slurred speech numbness weakness or tingling. All other review of systems is negative unless otherwise noted in history of present illness. ED course: 57-year-old female presenting the emergency department today with an episode of a focal seizure. She has a history of epilepsy and took her antiepileptic medications as usual. She has feeling much better. On arrival she is afebrile with a normal heart rate. Pulse within normal limits. Saturating well on room air. Neurologic exam is unremarkable this time. Blood work ordered along with head CT. CBC shows 2000 lymphocytes. Intervals within normal limits. Total White blood cell count is 5.6 within normal limits similar to previous on August 26. Chemistry panel shows creatinine of 1.3 similar to previous on the eighth of this month. I attempted to get a hold of our neurologist Dr. Masters manager animation for the hospital and Dr. Haji manager animation for [facility]. We've paged Dr. Masters [address] Haji 5 times we've been waiting approximately 1 hour to return phone calls from these neurologists, however have not heard a response. The patient would like to be discharged. The patient will probably need an MRI which can be sought an outpatient basis. She is stable at this time and I do not see a reason to admit her to the hospital. She is asymptomatic at this time resting comfortably examination room. We'll have her follow up with her neurologist Dr. Rosado or to return for any changing or worsening symptoms. Addendum: Dr. Haji finally returned the page. He would like to add Depakote 500 mg by mouth every 12 to the patient's antiepileptic medication regimen. We will initiate that and have her follow-up with Dr. Rosado.The patient has been examined and was not found to have an emergency medical condition. The patient was then discharged home in stable condition to follow up with their primary care physician over the next 1-2 days. They were to return if their symptoms worsened or if they were concerned for any reason. They were also instructed to return to the emergency department if they were unable to get the recommended and appropriate follow-up. [id number] discharge instructions and return precautions were given. Patient's questions were answered to their satisfaction. Patient is comfortable with plan. Review of Systems Review of Systems SEE ABOVE. Current Medications Current Medications Current Medications Medications (Trade) Dose Ordered Sig/Bhavik Start Time Stop Time Status Last Admin Dose Admin Sodium Chloride 1,000 ml @ 1,000 mls/hr 1X ONCE 09/02/18 15:45 09/02/18 16:44 09/02/18 16:09 1,000 MLS/HR Allergies Allergies Allergies Coded Allergies Type Severity Reaction Last Updated Verified tramadol Allergy Intermediate 03/06/16 Yes aspirin Allergy Mild 03/24/17 Yes I S O L A T I O N *CONTACT* Allergy Unknown 09/24/17 Yes levofloxacin Allergy Unknown 03/01/18 Yes naproxen Allergy Unknown 03/01/18 Yes Physical Exam Physical Exam SEE ABOVE Constitutional: Well developed, well nourished, no acute distress, non-toxic appearance. [] HENT: Normocephalic, atraumatic, bilateral external ears normal, oropharynx moist, no oral exudates, nose normal. Eyes: PERRLA, EOMI, conjunctiva normal, no discharge. [] Neck: Normal range of motion, no tenderness, supple, no stridor. Cardiovascular:Heart rate regular rhythm, no murmur Lungs & Thorax: Bilateral breath sounds clear to auscultation [] Abdomen: Bowel sounds normal, soft, no tenderness, no masses, no pulsatile masses. Skin: Warm, dry, no erythema, no rash. [] Back: No tenderness, no CVA tenderness. Extremities: No tenderness, no cyanosis, no clubbing, ROM intact, no edema. [] Neurologic: Mental status: Awake oriented and alert x3 Cranial nerves: Extraocular movements intact, eyebrows garth bilaterally, smile symmetric, uvula elevation nl, shoulder shrug intact bilaterally, tongue protrusion normal DTRs: 2+ Sensation: equal and normal in all extremities Strength: 5/5 in upper and lower extremities bilaterally Psychologic: Affect normal, judgement normal, mood normal. [] Current Patient Data Vital Signs Vital Signs Date Time Temp Pulse Resp B/P (MAP) Pulse Ox O2 Delivery O2 Flow Rate FiO2 09/02/18 15:36 98.4 86 24 99 Room Air Lab Results Laboratory Tests Test 09/02/18 16:00 White Blood Count 5.6 x10^3/uL (4.0-11.0) Red Blood Count 4.08 x10^6/uL (3.50-5.40) Hemoglobin 11.7 g/dL (12.0-15.5) L Hematocrit 36.1 % (36.0-47.0) Mean Corpuscular Volume 89 fL (79-100) Mean Corpuscular Hemoglobin 29 pg (25-35) Mean Corpuscular Hemoglobin Concent 32 g/dL (31-37) Red Cell Distribution Width 14.9 % (11.5-14.5) H Platelet Count 245 x10^3/uL (140-400) Neutrophils (%) (Auto) 57 % (31-73) Lymphocytes (%) (Auto) 36 % (24-48) Monocytes (%) (Auto) 6 % (0-9) Eosinophils (%) (Auto) 1 % (0-3) Basophils (%) (Auto) 1 % (0-3) Neutrophils # (Auto) 3.2 x10^3uL (1.8-7.7) Lymphocytes # (Auto) 2.0 x10^3/uL (1.0-4.8) Monocytes # (Auto) 0.3 x10^3/uL (0.0-1.1) Eosinophils # (Auto) 0.0 x10^3/uL (0.0-0.7) Basophils # (Auto) 0.0 x10^3/uL (0.0-0.2) EKG EKG [] Radiology/Procedures Radiology/Procedures [] Course & Med Decision Making Course & Med Decision Making Pertinent Labs and Imaging studies reviewed. (See chart for details) [] Dragon Disclaimer Dragon Disclaimer This electronic medical record was generated, in whole or in part, using a voice recognition dictation system. Departure Departure: Impression: Primary Impression: Seizure Disposition: 01 HOME, SELF-CARE Condition: STABLE Referrals: ANNITA WOODWARD DO, MPH (PCP) Patient Instructions: Seizure, Adult Additional Instructions: Thank you for allowing us to participate in your care today. Return to the emergency department you have any new or worsening symptoms, or if you are concerned for any reason. Return to emergency department if you have any new or concerning symptoms including but not limited to fever, chills, nausea, vomiting, intractable pain, any new rashes, chest pain, shortness of air , uncontrolled bleeding, difficulty breathing, and/or vision loss. Follow up with your primary care physician within 1-2 days. Call your Primary Doctor tomorrow and inform them of your visit today. If you do not have a primary care provider we are happy to provide you with a list of our primary care providers contact information. This condition should be evaluated by your primary care physician and any recommended consulting services for continued management within 2 days after discharge. If at any time, you are having difficulty getting into your primary care doctor or a specialist, return to the emergency department. Scripts Divalproex Sodium (DEPAKOTE ER) 500 Mg Tab.er.24h 1 TAB PO BID for seizure for 7 Days, #14 TAB 0 Refills Prov: ELAINE SOSA MD 09/02/18 ELAINE SOSA MD Sep 02, 2018 16:34
[2018-09-02 16:42] LABS: BILIRUBIN,URINE NEG (NEG); CLARITY,URINE CLEAR; COLOR,URINE YELLOW; GLUCOSE,URINE NEG (NEG); UROBILINOGEN,URINE 0.2 mg/dL (0.2 mg/dL)
[2018-09-02 16:43] LABS: BACTERIA,URINE 0 /HPF (0-FEW); NITRITE,URINE NEG (NEG); RBC,URINE 0 /HPF (0-2); SQUAMOUS EPITHELIAL CELL,UR OCC /LPF; U PREG PATIENT NEGATIVE (NEG); WBC,URINE 0 /HPF (0-4)
[2018-09-02 17:40] VITALS: BP 109/58
[2018-09-02] MEDS ORDERED: DIVA500T4 PO (17:57)
--- NOTE | 2018-09-03 12:28 | EKG ---
[address] [address] Test Date: 2018-09-02 Test Time: 15:44:44 Pat Name: HERNAN ANGEL Department: Room: Gender: F [employer]: : 1960 Requested By: ELAINE SOSA Order Number: [id number] Reading MD: Pete Vegas MD Measurements Intervals [place] Rate: 81 P: 24 LA: 214 QRS: 22 QRSD: 74 T: 18 QT: 382 QTc: 444 Interpretive Statements SINUS RHYTHM PROLONGED LA INTERVAL Electronically Signed On 09-08-2018 13:57:26 CDT by Peet Vegas MD
== END 2018-09-02 18:00 | disposition home or self-care (01) ==
LOC: ER 15:36
DX: G40.909 Epilepsy, unspecified, not intractable, without status epilepticus (principal); E11.9 Type 2 diabetes mellitus without complications; I10 Essential (primary) hypertension; E11.39 Type 2 diabetes mellitus with other diabetic ophthalmic complication; H42 Glaucoma in diseases classified elsewhere; Z88.6 Allergy status to analgesic agent; Z91.041 Radiographic dye allergy status; Z88.1 Allergy status to other antibiotic agents; Z88.8 Allergy status to other drugs, medicaments and biological substances
CPT/HCPCS: 36415; 70450; 80048; 80076; 81001; 81025; 83690; 85025; 96360; 99284-25; J7030

== ENCOUNTER 2019-02-01 16:40 | Emergency (ER) | payer MEDICARE, OTHER ==
[~2019-02-01] VITALS: Ht 172.7 cm; Wt 104.1 kg
[~2019-02-01 16:40] MED LIST changes: +DIVA500T4 PO
[2019-02-01] MEDS ORDERED: HYDR-3165 PO (17:53)
[2019-02-01] MEDS ORDERED: CEPH-264 PO (17:53)
--- NOTE | 2019-02-01 17:53 | PHYS DOC ---
Past History Past Medical History: Diabetes, Glaucoma, HIV, Hypertension, Seizure Past Surgical History: Appendectomy, Hysterectomy, Tonsillectomy Alcohol Use: None Drug Use: None Adult General Chief Complaint Chief Complaint: EYE PROBLEMS HPI HPI 58 showed female presents with left periorbital eye problem. Patient states that she accidentally walked into a wind chime 3 days ago. She initially felt like she had a scratching sensation in her eye, but that has resolved. She has a small abrasion below the eye. She states that there has been some purulent drainage from it. She is concern for infection. It is still quite tender to the touch. She denies change in vision. She denies fever or chills. She has no other injuries or complaints. Review of Systems Review of Systems Constitutional: Denies fever or chills [] Eyes: Denies change in visual acuity. Abrasion below the left eye. [] HENT: Denies nasal congestion or sore throat [] Respiratory: Denies cough or shortness of breath [] Cardiovascular: No additional information not addressed in HPI [] GI: Denies abdominal pain, nausea, vomiting, bloody stools or diarrhea [] : Denies dysuria or hematuria [] Musculoskeletal: Denies back pain or joint pain [] Integument: Denies rash or skin lesions [] Neurologic: Denies headache, focal weakness or sensory changes [] Endocrine: Denies polyuria or polydipsia [] All other systems were reviewed and found to be within normal limits, except as documented in this note. Allergies Allergies Allergies Coded Allergies Type Severity Reaction Last Updated Verified levofloxacin Allergy Severe seizure 02/01/19 Yes aspirin Allergy Mild 02/01/19 Yes naproxen Allergy Mild RASH 02/01/19 Yes tramadol Allergy Mild RASH 02/01/19 Yes I S O L A T I O N *CONTACT* Allergy Unknown 09/24/17 Yes ibuprofen Allergy Unknown 02/01/19 Yes Physical Exam Physical Exam Constitutional: Well developed, well nourished, no acute distress, non-toxic appearance. [] HENT: Normocephalic, atraumatic, bilateral external ears normal, oropharynx moist, no oral exudates, nose normal. [] Eyes: PERRLA, EOMI, conjunctiva mildly erythematous on the left, no discharge. Abrasion of the skin below the left eye, mildly erythematous and warm. [] Neck: Normal range of motion, no tenderness, supple, no stridor. [] Cardiovascular:Heart rate regular rhythm, no murmur [] Lungs & Thorax: Bilateral breath sounds clear to auscultation [] Abdomen: Bowel sounds normal, soft, no tenderness, no masses, no pulsatile masses. [] Skin: Warm, dry, no erythema, no rash. [] Back: No tenderness, no CVA tenderness. [] Extremities: No tenderness, no cyanosis, no clubbing, ROM intact, no edema. [] Neurologic: Alert and oriented X 3, normal motor function, normal sensory function, no focal deficits noted. [] Psychologic: Affect normal, judgement normal, mood normal. [] Current Patient Data Vital Signs Vital Signs Date Time Temp Pulse Resp B/P (MAP) Pulse Ox O2 Delivery O2 Flow Rate FiO2 02/01/19 16:53 98.3 86 18 97 Room Air EKG EKG [] Radiology/Procedures Radiology/Procedures [] Course & Med Decision Making Course & Med Decision Making Pertinent Labs and Imaging studies reviewed. (See chart for details) The patient's abrasion is mildly erythematous and warm. I am not certain of infection. Given its proximity to her eye, I will not take a chance I will cover her with antibiotics. She has multiple allergies. She believes she has tolerated Keflex in the past. I will discharge her this medication for 7 days. I will also give her a short course of [place] for her pain as she has requested. She is stable for discharge at this time. [] Dragon Disclaimer Dragon Disclaimer This electronic medical record was generated, in whole or in part, using a voice recognition dictation system. Departure Departure: Impression: Primary Impression: Periorbital cellulitis of left eye Disposition: HOME, SELF-CARE Condition: STABLE Referrals: ANNITA WOODWARD DO, MPH (PCP) Patient Instructions: Cellulitis, [id number] Scripts Hydrocodone Bit/Acetaminophen (NORCO 5-325 TABLET) 1 Each Tablet 1 TAB PO PRN Q6HRS PRN for PAIN, #10 TAB 0 Refills Prov: GAGE MOON DO 02/01/19 Cephalexin (KEFLEX) 500 Mg Capsule 1 CAP PO TID for cellulitis, #21 CAP Prov: GAGE MOON DO 02/01/19 GAGE MOON DO Feb 01, 2019 17:53
[2019-02-01 18:03] VITALS: BP 108/80
== END 2019-02-01 18:04 | disposition home or self-care (01) ==
LOC: ER 16:40
DX: S00.81XA Abrasion of other part of head, initial encounter (principal); L03.213 Periorbital cellulitis; E11.39 Type 2 diabetes mellitus with other diabetic ophthalmic complication; H42 Glaucoma in diseases classified elsewhere; I10 Essential (primary) hypertension; Z88.6 Allergy status to analgesic agent; Z91.041 Radiographic dye allergy status; W22.8XXA Striking against or struck by other objects, initial encounter; Y93.89 Activity, other specified; Y92.89 Other specified places as the place of occurrence of the external cause; Y99.8 Other external cause status
CPT/HCPCS: 99283

== ENCOUNTER → 2019-02-10 | Outpatient (CLI) | payer MEDICARE, OTHER ==
[2019-02-01 18:03] VITALS: BP 108/80
[~2019-02-10] MED LIST changes: +HYDR-3165 PO
== END | disposition home or self-care (01) ==
LOC: SURG 08:28
PROVIDERS: ATTEND Anesthesiology Pain Medicine
DX: M47.816 Spondylosis without myelopathy or radiculopathy, lumbar region (principal); M46.46 Discitis, unspecified, lumbar region; M96.1 Postlaminectomy syndrome, not elsewhere classified; F11.90 Opioid use, unspecified, uncomplicated; B20 Human immunodeficiency virus [HIV] disease; M19.90 Unspecified osteoarthritis, unspecified site; Z79.899 Other long term (current) drug therapy
CPT/HCPCS: 99214

== ENCOUNTER 2019-06-07 11:32 | Emergency (ER) | payer MEDICARE, OTHER, MEDICAID ==
[~2019-06-07] VITALS: Ht 172.7 cm; Wt 104.1 kg
[2019-06-07] MEDS ORDERED: HYDROcodone/APAP 5/325MG 1 TAB TABLET PO ONE (12:00)
[2019-06-07] MEDS ORDERED: DEXAMETHASONE SOD PHOS 10 MG/ML VIAL IV ONE (12:00)
--- NOTE | 2019-06-07 12:08 | PHYS DOC ---
Past History Past Medical History: Diabetes, DVT, Glaucoma, HIV, Hypertension, Seizure Past Surgical History: Appendectomy, Hysterectomy, Tonsillectomy Smoking: Non-smoker Alcohol Use: None Drug Use: None Adult General Chief Complaint Chief Complaint: LOWER EXT PAIN HPI HPI 58-year-old female presents with several week history of right knee achiness. Denies known trauma. Reports thinks there might be some slight swelling. Denies fever or chills. Denies redness. Patient does have a history of DVT. Denies current blood thinner use. Denies trauma. Review of Systems Review of Systems Constitutional: Denies fever or chills Eyes: Denies redness or eye pain HENT: Denies nasal congestion or sore throat Respiratory: Denies cough or shortness of breath Cardiovascular: Denies chest pain or palpitations GI: Denies abdominal pain, nausea, or vomiting : Denies dysuria or hematuria Musculoskeletal: Denies back pain; reports right knee pain and swelling Integument: Denies rash or skin lesions Neurologic: Denies headache, focal weakness or sensory changes Complete systems were reviewed and found to be within normal limits, except as documented in this note. Current Medications Current Medications Current Medications Medications (Trade) Dose Ordered Sig/Bhavik Start Time Stop Time Status Last Admin Dose Admin Acetaminophen/ Hydrocodone Bitart (Lortab 5/325) 1 tab 1X ONCE 06/07/19 12:00 06/07/19 12:01 DC Dexamethasone Sodium Phosphate (Decadron) 10 mg 1X ONCE 06/07/19 12:00 06/07/19 12:01 DC Allergies Allergies Allergies Coded Allergies Type Severity Reaction Last Updated Verified levofloxacin Allergy Severe seizure 02/10/19 Yes aspirin Allergy Mild 02/10/19 Yes naproxen Allergy Mild RASH 02/10/19 Yes tramadol Allergy Mild RASH 02/10/19 Yes I S O L A T I O N *CONTACT* Allergy Unknown 02/10/19 Yes ibuprofen Allergy Unknown 02/10/19 Yes Physical Exam Physical Exam Constitutional: Well developed, obese, no acute distress, non-toxic appearance HENT: Normocephalic, atraumatic, oropharynx moist Eyes: Conjunctiva normal, no discharge Neck: Normal range of motion, no tenderness, supple Cardiovascular: Heart rate normal, regular rhythm Lungs & Thorax: Bilateral breath sounds clear to auscultation, no wheezing Skin: Warm, dry, no erythema, no rash Extremities: Mild right tibial tenderness on palpation, no deformity, ROM intact, 1+ pretibial edema bilaterally Neurologic: Alert and oriented X 3, no focal deficits noted Psychologic: Affect normal, judgement normal EKG EKG [] Radiology/Procedures Radiology/Procedures PROCEDURE: KNEE RIGHT 3V EXAM: Right knee, 3 views. HISTORY: Pain. COMPARISON: None. FINDINGS: 3 views of the right knee are obtained. There is medial compartment joint space narrowing. There is degenerative subchondral cyst formation involving the patella. There is no fracture, dislocation or subluxation. There is no joint effusion. IMPRESSION: 1. Mild osteoarthritis of the right knee. 2. No acute osseous finding. Electronically signed by: Ninoska Gomez MD (06/07/2019 12:15 PM) [id number] PROCEDURE: VENOUS LOWER EXTREMITY RIGHT Right lower extremity venous doppler ultrasound History: Right leg pain Comparison: None Findings: Multiple grayscale, color, and duplex spectral analysis sonographic images were acquired of the right lower extremity veins to evaluate for the presence of DVT. There is normal phasicity. Normal compression, color-flow, and augmentation is demonstrated from the right common femoral to the popliteal veins. There is normal color flow of the proximal greater saphenous and profunda femoris veins. There is normal color flow of segments of the calf veins. Impression: 1. There is no evidence of deep venous thrombosis from the right common femoral to the popliteal veins. Electronically signed by: Juan José Loving MD (06/07/2019 1:09 PM) [facility] Course & Med Decision Making Course & Med Decision Making Pertinent Imaging studies reviewed. (See chart for details) Patient presents with right knee pain without known history of trauma. Knee stable. No ecchymosis or erythema appreciated. No joint effusion noted. X-ray obtained with signs of arthritis. Venous Doppler negative for acute DVT. Pain addressed with [place] and one-time dose of oral dexamethasone. Patient reports taking taxi to department and previously treated for pain with norco. [facility] report obtained with last narcotic prescription from 02/19/19. Patient stable for discharge with outpatient follow-up with PCP/orthopedics. Orthopedic referral provided Discussed findings and plan with patient, who acknowledges understanding and agreement. Dragon Disclaimer Dragon Disclaimer This electronic medical record was generated, in whole or in part, using a voice recognition dictation system. Departure Departure: Impression: Primary Impression: Knee pain, right Disposition: 01 HOME, SELF-CARE Condition: STABLE Referrals: ANNITA WOODWARD DO, MPH (PCP) XIOMARA WEBB MD Patient Instructions: Knee Pain, [id number]-[id number], Knee Wraps (Elastic Bandage) and RICE Scripts Hydrocodone Bit/Acetaminophen (NORCO 5-325 TABLET) 1 Each Tablet 0.5-1 TAB PO Q6HRS PRN for PAIN, #10 TAB Prov: SHANTHI BENAVIDES DO 06/07/19 Problem Qualifiers Primary Impression: Knee pain, right Chronicity: acute Qualified Codes: M25.561 - Pain in right knee SHANTHI BENAVIDES DO Jun 07, 2019 12:08
--- NOTE | 2019-06-07 12:18 | RAD ---
EXAM: Right knee, 3 views. HISTORY: Pain. COMPARISON: None. FINDINGS: 3 views of the right knee are obtained. There is medial compartment joint space narrowing. There is degenerative subchondral cyst formation involving the patella. There is no fracture, dislocation or subluxation. There is no joint effusion. IMPRESSION: 1. Mild osteoarthritis of the right knee. 2. No acute osseous finding. Electronically signed by: Ninoska Gomez MD (06/07/2019 12:15 PM) [facility]
[2019-06-07] MEDS ORDERED: HYDR-3165 PO (12:26)
[2019-06-07] MEDS ORDERED: DEXAMETHASONE 4 MG TABLET PO ONE (12:45)
[2019-06-07 13:05] VITALS: BP 117/65
--- NOTE | 2019-06-07 13:12 | RAD ---
Right lower extremity venous doppler ultrasound History: Right leg pain Comparison: None Findings: Multiple grayscale, color, and duplex spectral analysis sonographic images were acquired of the right lower extremity veins to evaluate for the presence of DVT. There is normal phasicity. Normal compression, color-flow, and augmentation is demonstrated from the right common femoral to the popliteal veins. There is normal color flow of the proximal greater saphenous and profunda femoris veins. There is normal color flow of segments of the calf veins. Impression: 1. There is no evidence of deep venous thrombosis from the right common femoral to the popliteal veins. Electronically signed by: Juan José Loving MD (06/07/2019 1:09 PM) [id number]
== END 2019-06-07 13:23 | disposition home or self-care (01) ==
LOC: ER 11:32
DX: M25.561 Pain in right knee (principal); R22.31 Localized swelling, mass and lump, right upper limb; Z86.718 Personal history of other venous thrombosis and embolism; E11.9 Type 2 diabetes mellitus without complications; I10 Essential (primary) hypertension; Z88.1 Allergy status to other antibiotic agents; Z88.6 Allergy status to analgesic agent; Z91.041 Radiographic dye allergy status
CPT/HCPCS: 73562; 93971; 99284; J8540

== ENCOUNTER 2019-06-14 17:28 | Emergency (ER) | payer MEDICARE, OTHER, MEDICAID ==
[~2019-06-14] VITALS: Ht 172.7 cm; Wt 106.1 kg
[2019-06-14] MEDS ORDERED: IV NORMAL SALINE 1,000ML 1,000 ML IV ONE (17:45)
--- NOTE | 2019-06-14 17:45 | PHYS DOC ---
Past History Past Medical History: Diabetes, DVT, Glaucoma, HIV, Hypertension, Seizure (BLAKE CASTILLO DO) Past Surgical History: Appendectomy, Hysterectomy, Tonsillectomy (BLAKE CASTILLO DO) Smoking: Non-smoker Alcohol Use: None Drug Use: None (BLAKE CASTILLO DO) Adult General Chief Complaint Chief Complaint: SEIZURE HPI HPI Patient is a 58-year-old female presents following a seizure. She does have a known history of seizures, and is currently on Keppra. No recent changes in her antiseizure medicines. This happened approximately 40 minutes prior to arrival, and may have lasted up to 20 minutes according to EMS. Patient reports being sor e in her lower extremities. She was lying down when the seizure happened, did not hit her head. Denies any other pain. Denies any nausea or vomiting. Denies any loss of bowel or bladder control. No medicine has been taken for the discomfort. The discomfort in her legs is mild to moderate and improving over time.[] (BLAKE CASTILLO DO) Review of Systems Review of Systems Constitutional: Denies fever or chills [] Eyes: Denies change in visual acuity, redness, or eye pain [] HENT: Denies nasal congestion or sore throat [] Respiratory: Denies cough or shortness of breath [] Cardiovascular: No chest pain or palpitations[] GI: Denies abdominal pain, nausea, vomiting, bloody stools or diarrhea [] : Denies dysuria or hematuria [] Musculoskeletal: Denies back pain, see history of present illness[] Integument: Denies rash or skin lesions [] Neurologic: Denies headache, focal weakness or sensory changes, see history of present illness [] Endocrine: Denies polyuria or polydipsia [] All other systems were reviewed and found to be within normal limits, except as documented in this note. (BLAKE CASTILLO DO) Allergies Allergies Allergies Coded Allergies Type Severity Reaction Last Updated Verified levofloxacin Allergy Severe seizure 02/10/19 Yes aspirin Allergy Mild 02/10/19 Yes naproxen Allergy Mild RASH 02/10/19 Yes tramadol Allergy Mild RASH 02/10/19 Yes I S O L A T I O N *CONTACT* Allergy Unknown 02/10/19 Yes ibuprofen Allergy Unknown 02/10/19 Yes (EIDENBERG,BLAKE DO) Physical Exam Physical Exam Constitutional: Well developed, well nourished, no acute distress, non-toxic appearance. [] HENT: Normocephalic, atraumatic, bilateral external ears normal, oropharynx moist, no oral exudates, nose normal. [] Eyes: PERRLA, EOMI, conjunctiva normal, no discharge. [] Neck: Normal range of motion, no tenderness, supple, no stridor. [] Cardiovascular:Heart rate regular rhythm, no murmur [] Lungs & Thorax: Bilateral breath sounds clear to auscultation [] Abdomen: Bowel sounds normal, soft, no tenderness, no masses, no pulsatile masses. [] Skin: Warm, dry, no erythema, no rash. [] Back: No tenderness, no CVA tenderness. [] Extremities: Mild tenderness diffusely in bilateral lower extremities in the quadriceps, hamstrings, and Achilles/gastroc groups. There is no pain with axial loading. Hip, knee, ankle joints all have full range of motion without any laxity. There is no pain in the long bones with axial loading. She is distally neurovascularly intact. No significant edema is appreciated bilaterally. She was able to ambulate to the restroom without any significant difficulty The upper extremities show: No tenderness, no cyanosis, no clubbing, ROM intact, no edema. [] Neurologic: Alert and oriented X 3, normal motor function, normal sensory function, no focal deficits noted. [] Psychologic: Affect normal, judgement normal, mood normal. [] (BLAKE CASTILLO DO) EKG EKG [] (BLAKE CASTILLO DO) Radiology/Procedures Radiology/Procedures [] (BLAKE CASTILLO DO) Course & Med Decision Making Course & Med Decision Making Pertinent Labs and Imaging studies reviewed. (See chart for details) Emergency department course: Patient arrived, was placed in bed, and tolerated exam well. IV access was established, she was given IV fluids, and laboratory samples were obtained. Patient care was endorsed to the nighttime physician at 1800 with laboratory testing and reevaluation pending.[] (BLAKE CASTILLO DO) Course & Med Decision Making The patient's labs are essentially unremarkable. I've given her an additional 1000 mg of Keppra by mouth. I have also given her one [place] 5/325 for some lower extremity pain. The patient had no further seizure activity. I advised that she follow up with her neurologist about her breakthrough seizure. She is stable for discharge at this time. (GAGE MOON DO) Dragon Disclaimer Dragon Disclaimer This electronic medical record was generated, in whole or in part, using a voice recognition dictation system. (BLAKE CASTILLO DO) Departure Departure: Impression: Primary Impression: Breakthrough seizure Disposition: 01 HOME, SELF-CARE Condition: STABLE Referrals: ANNITA WOODWARD DO, MPH (PCP) Patient Instructions: Seizure, Adult, [id number] BLAKE CASTILLO DO Jun 14, 2019 17:45 GAGE MOON DO Jun 14, 2019 19:12
[2019-06-14 18:37] LABS: BASO # 0.1 x10^3/uL (0.0-0.2); BASO % 1 % (0-3); EOS # 0.2 x10^3/uL (0.0-0.7); EOS % 1 % (0-3); HEMATOCRIT 39.7 % (36.0-47.0); HEMOGLOBIN 12.5 g/dL (12.0-15.5); LYMPH # 3.9 x10^3/uL (1.0-4.8); LYMPH % 32 % (24-48); MEAN CORPUSCULAR HEMOGLOBIN 29 pg (25-35); MEAN CORPUSCULAR HGB CONC 32 g/dL (31-37); MEAN CORPUSCULAR VOLUME 91 fL (79-100); MONO # 0.9 x10^3/uL (0.0-1.1); MONO % 7 % (0-9); NEUT # 7.1 x10^3uL (1.8-7.7); NEUT % 59 % (31-73); PLATELET COUNT 306 x10^3/uL (140-400); RED BLOOD COUNT 4.37 x10^6/uL (3.50-5.40); RED CELL DISTRIBUTION WIDTH 13.8 % (11.5-14.5); WHITE BLOOD COUNT 12.1 x10^3/uL (4.0-11.0)
[2019-06-14 18:40] LABS: CALCIUM 9.1 mg/dL (8.5-10.1); CREATININE 1.2 mg/dL (0.6-1.0); GFR 56.2; POTASSIUM 4.5 mmol/L (3.5-5.1)
[2019-06-14 18:47] LABS: ALBUMIN 3.3 g/dL (3.4-5.0); TOTAL BILIRUBIN 1.2 mg/dL (0.2-1.0); TOTAL PROTEIN 6.7 g/dL (6.4-8.2)
[2019-06-14 18:53] LABS: BACTERIA,URINE 0 /HPF (0-FEW); BILIRUBIN,URINE NEG (NEG); CLARITY,URINE CLEAR; COLOR,URINE YELLOW; GLUCOSE,URINE NEG (NEG); NITRITE,URINE NEG (NEG); RBC,URINE 0 /HPF (0-2); SQUAMOUS EPITHELIAL CELL,UR MOD /LPF; UROBILINOGEN,URINE 0.2 mg/dL (0.2 mg/dL)
[2019-06-14] MEDS ORDERED: HYDROcodone/APAP 5/325MG 1 TAB TABLET PO ONE (19:00)
[2019-06-14] MEDS ORDERED: levETIRAcetam 500 MG TABLET PO ONE (19:00)
[2019-06-14 19:20] VITALS: BP 107/79
== END 2019-06-14 19:25 | disposition home or self-care (01) ==
LOC: ER 17:28
DX: R56.9 Unspecified convulsions (principal); E11.39 Type 2 diabetes mellitus with other diabetic ophthalmic complication; I10 Essential (primary) hypertension; Z86.718 Personal history of other venous thrombosis and embolism; Z88.1 Allergy status to other antibiotic agents; Z88.6 Allergy status to analgesic agent; Z88.8 Allergy status to other drugs, medicaments and biological substances; Z91.041 Radiographic dye allergy status
CPT/HCPCS: 36415; 80053; 81001; 82550; 83605; 85025; 87086; 99284-25; J7030

== ENCOUNTER 2019-06-22 18:31 | Emergency (ER) | payer MEDICARE, OTHER, MEDICAID ==
[~2019-06-22] VITALS: Ht 172.7 cm; Wt 104.1 kg
[2019-06-22 19:10] LABS: BASO % 1 % (0-3); EOS # 0.1 x10^3/uL (0.0-0.7); EOS % 1 % (0-3); HEMATOCRIT 36.6 % (36.0-47.0); HEMOGLOBIN 11.9 g/dL (12.0-15.5); LYMPH % 30 % (24-48); MEAN CORPUSCULAR HEMOGLOBIN 29 pg (25-35); MEAN CORPUSCULAR HGB CONC 32 g/dL (31-37); MEAN CORPUSCULAR VOLUME 89 fL (79-100); MONO # 0.7 x10^3/uL (0.0-1.1); MONO % 7 % (0-9); NEUT # 6.1 x10^3uL (1.8-7.7); NEUT % 61 % (31-73); PLATELET COUNT 268 x10^3/uL (140-400); RED BLOOD COUNT 4.13 x10^6/uL (3.50-5.40); RED CELL DISTRIBUTION WIDTH 13.6 % (11.5-14.5)
--- NOTE | 2019-06-22 19:12 | RAD ---
PORTABLE CHEST 1V Clinical History: Chest pain Technique: AP view of the chest was obtained at 06/22/2019 6:42 PM. Comparison: None. Findings: The cardiomediastinal silhouette is normal. The pulmonary vasculature is normal. There is linear opacities in the lung bases. Impression: Mild basal infiltrates likely discoid atelectasis. Electronically signed by: Leonidas Orellana III, MD (06/22/2019 7:09 PM) [facility]
[2019-06-22 19:22] LABS: CALCIUM 9.1 mg/dL (8.5-10.1); CREATININE 1.2 mg/dL (0.6-1.0); GFR 56.2
--- NOTE | 2019-06-22 19:23 | PHYS DOC ---
Past History Past Medical History: Diabetes, DVT, Glaucoma, HIV, Hypertension, Seizure Past Surgical History: Appendectomy, Hysterectomy, Tonsillectomy, Other Additional Past Surgical Histo: BACK AND LEFT ACHILLES Smoking: Non-smoker Alcohol Use: None Drug Use: None Adult General Chief Complaint Chief Complaint: CHEST PAIN HPI HPI Patient is a 58-year-old female who presented to ER today for evaluation of substernal chest pain that started about 2 PM today. Patient described the pain as sharp stabbing pain hurt worse with palpation or cough on deep breathing. She denies any fever, no nausea or vomiting, no trouble breathing. She denies any abdominal pain, no recent Or, no recent operation. Patient had history of DVT in the past. Patient has history of diabetes, hypertension, HIV.. Patient is on anti-HIV medication. She had no history of coronary artery disease, no family history of coronary artery disease. aLL OTHER ros IS NEGATIVE UNLESS OTHERWISE NOTED IN hpi Review of Systems Review of Systems See above Allergies Allergies Allergies Coded Allergies Type Severity Reaction Last Updated Verified levofloxacin Allergy Severe seizure 02/10/19 Yes aspirin Allergy Mild 02/10/19 Yes naproxen Allergy Mild RASH 02/10/19 Yes tramadol Allergy Mild RASH 02/10/19 Yes I S O L A T I O N *CONTACT* Allergy Unknown 02/10/19 Yes ibuprofen Allergy Unknown 02/10/19 Yes Physical Exam Physical Exam See above Constitutional: Well developed, well nourished, no acute distress, non-toxic appearance. [] HENT: Normocephalic, atraumatic, bilateral external ears normal, oropharynx moist, no oral exudates, nose normal. [] Eyes: PERRLA, EOMI, conjunctiva normal, no discharge. [] Neck: Normal range of motion, no tenderness, supple, no stridor. [] Cardiovascular:Heart rate regular rhythm, no murmur [] Lungs & Thorax: Bilateral breath sounds clear to auscultation . ANTERIOR CHEST, STERNUM AREA ARE TENDER TO PALPATION, REPRODUCIBLE. Abdomen: Bowel sounds normal, soft, no tenderness, no masses, no pulsatile masses. [] Skin: Warm, dry, no erythema, no rash. [] Back: No tenderness, no CVA tenderness. [] Extremities: No tenderness, no cyanosis, no clubbing, ROM intact, no edema. [] Neurologic: Alert and oriented X 3, normal motor function, normal sensory function, no focal deficits noted. [] Psychologic: Affect normal, judgement normal, mood normal. [] Current Patient Data Lab Results Laboratory Tests Test 06/22/19 18:35 White Blood Count 10.0 x10^3/uL (4.0-11.0) Red Blood Count 4.13 x10^6/uL (3.50-5.40) Hemoglobin 11.9 g/dL (12.0-15.5) L Hematocrit 36.6 % (36.0-47.0) Mean Corpuscular Volume 89 fL (79-100) Mean Corpuscular Hemoglobin 29 pg (25-35) Mean Corpuscular Hemoglobin Concent 32 g/dL (31-37) Red Cell Distribution Width 13.6 % (11.5-14.5) Platelet Count 268 x10^3/uL (140-400) Neutrophils (%) (Auto) 61 % (31-73) Lymphocytes (%) (Auto) 30 % (24-48) Monocytes (%) (Auto) 7 % (0-9) Eosinophils (%) (Auto) 1 % (0-3) Basophils (%) (Auto) 1 % (0-3) Neutrophils # (Auto) 6.1 x10^3uL (1.8-7.7) Lymphocytes # (Auto) 3.0 x10^3/uL (1.0-4.8) Monocytes # (Auto) 0.7 x10^3/uL (0.0-1.1) Eosinophils # (Auto) 0.1 x10^3/uL (0.0-0.7) Basophils # (Auto) 0.0 x10^3/uL (0.0-0.2) EKG EKG EKG WAS READ BY THIS PHYSICIAN AT 0640 PM, RATE OF 89 BPM, NO STEMI. Radiology/Procedures Radiology/Procedures [][address] [address] IMAGING REPORT Signed PATIENT: HERNAN ANGEL I ACCOUNT: [id number] : 1960 LOCATION: ER AGE: 58 SEX: F EXAM STATUS: REG ER ORD. PHYSICIAN: JOSSUE GRAY DO REASON: chest pain PROCEDURE: PORTABLE CHEST 1V PORTABLE CHEST 1V Clinical History: Chest pain Technique: AP view of the chest was obtained at 06/22/2019 6:42 PM. Comparison: None. Findings: The cardiomediastinal silhouette is normal. The pulmonary vasculature is normal. There is linear opacities in the lung bases. Impression: Mild basal infiltrates likely discoid atelectasis. Electronically signed by: Xiomara Anaya III, MD (06/22/2019 7:09 PM) [facility] DICTATED AND SIGNED BY: XIOMARA ANAYA III, MD DATE: 06/22/191908 CC: JOSSUE GRAY DO; ANNITA WOODWARD DO, MPH ~ [address] [address] IMAGING REPORT Signed PATIENT: HERNAN ANGEL I ACCOUNT: [id number] : 1960 LOCATION: ER AGE: 58 SEX: F EXAM STATUS: REG ER ORD. PHYSICIAN: JOSSUE GRAY DO REASON: chest pain, soa. Hx: DVT, HIV, Appy, Hystero PROCEDURE: CT ANGIOGRAPHY CHEST CTA Chest with contrast: Clinical History: Chest pain and Shortness of breath. Axial helical images of the chest were obtained after the administration of 100 cc of IV Isovue-370 and timed appropriately for a pulmonary arterial study. Conventional axial reconstruction was performed in addition to coronal, sagittal and bilateral oblique MIP (maximum intensity projection). This study was ordered to detect possible pulmonary embolism. There are no filling defects to suggest pulmonary embolism. The lungs and pleural margins are clear. There is no mediastinal or hilar lymphadenopathy. The thoracic aorta appears normal. Impression: 1. No evidence of pulmonary embolism. 2. No significant findings. PQRS Compliance Statement: One or more of the following individualized dose reduction techniques were utilized for this examination: 1. Automated exposure control 2. Adjustment of the mA and/or kV according to patient size 3. Use of iterative reconstruction technique Electronically signed by: Xiomara Anaya III, MD (06/22/2019 8:36 PM) [facility] DICTATED AND SIGNED BY: XIOMARA ANAYA III, MD DATE: 06/22/192035 CC: JOSSUE GRAY DO; ANNITA WOODWARD DO, MPH ~ Course & Med Decision Making Course & Med Decision Making Pertinent Labs and Imaging studies reviewed. (See chart for details) [] Dragon Disclaimer Dragon Disclaimer This electronic medical record was generated, in whole or in part, using a voice recognition dictation system. Departure Departure: Impression: Primary Impression: Chest pain Disposition: HOME, SELF-CARE Condition: IMPROVED Referrals: ANNITA WOODWARD DO, MPH (PCP) PLEASE CALL YOUR DOCTOR FOR FOLLOW UP ON WEDNESDAY Patient Instructions: Chest Pain (Nonspecific) Additional Instructions: CALL YOUR DOCTOR TOMORROW FOR FOLLOW UP FOR REEVALUATION. HEART Score for Chest Pain PTs The HEART Score for CP Pts HEART Score for Chest Pain: HEART Score for Chest Pain Response (Comments) Value History Slighlty/Non-Suspicious 0 ECG Normal 0 Age >45 - < 65 1 Risk Factors 1 or 2 Risk Factors 1 Troponin < Normal Limit 0 Total 2 Risk Factors: Risk Factors: DM, Current or recent (<one month) smoker, HTN, HLP, family history of CAD, obesity. Risk Scores: Score 0 - 3: 2.5% MACE over next 6 weeks - Discharge Home Score 4 - 6: 20.3% MACE over next 6 weeks - Admit for Clinical Observation Score 7 - 10: 72.7% MACE over next 6 weeks - Early Invasive Strategies JOSSUE GRAY DO Jun 22, 2019 19:23
[2019-06-22 19:34] LABS: ALBUMIN 3.2 g/dL (3.4-5.0); MAGNESIUM 1.7 mg/dL (1.8-2.4); TOTAL PROTEIN 6.5 g/dL (6.4-8.2)
[2019-06-22] MEDS ORDERED: IOHEXOL 350 MG/ML 100 ML VIAL. IV ONE (20:00)
[2019-06-22 20:10] LABS: BACTERIA,URINE 0 /HPF (0-FEW); BILIRUBIN,URINE NEG (NEG); CLARITY,URINE CLEAR; COLOR,URINE YELLOW; GLUCOSE,URINE NEG (NEG); NITRITE,URINE NEG (NEG); RBC,URINE 0 /HPF (0-2); SQUAMOUS EPITHELIAL CELL,UR OCC /LPF; UROBILINOGEN,URINE 0.2 mg/dL (0.2 mg/dL); WBC,URINE 0 /HPF (0-4)
--- NOTE | 2019-06-22 20:38 | RAD ---
CTA Chest with contrast: Clinical History: Chest pain and Shortness of breath. Axial helical images of the chest were obtained after the administration of 100 cc of IV Isovue-370 and timed appropriately for a pulmonary arterial study. Conventional axial reconstruction was performed in addition to coronal, sagittal and bilateral oblique MIP (maximum intensity projection). This study was ordered to detect possible pulmonary embolism. There are no filling defects to suggest pulmonary embolism. The lungs and pleural margins are clear. There is no mediastinal or hilar lymphadenopathy. The thoracic aorta appears normal. Impression: 1. No evidence of pulmonary embolism. 2. No significant findings. PQRS Compliance Statement: One or more of the following individualized dose reduction techniques were utilized for this examination: 1. Automated exposure control 2. Adjustment of the mA and/or kV according to patient size 3. Use of iterative reconstruction technique Electronically signed by: Leonidas Orellana III, MD (06/22/2019 8:36 PM) [facility]
[2019-06-22 21:16] VITALS: BP 126/81
--- NOTE | 2019-06-24 01:17 | EKG ---
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
== END 2019-06-22 21:20 | disposition home or self-care (01) ==
LOC: ER 18:31
DX: R07.2 Precordial pain (principal); Z86.718 Personal history of other venous thrombosis and embolism; E11.9 Type 2 diabetes mellitus without complications; I10 Essential (primary) hypertension; Z88.6 Allergy status to analgesic agent; Z88.8 Allergy status to other drugs, medicaments and biological substances; Z91.041 Radiographic dye allergy status; Z88.1 Allergy status to other antibiotic agents
CPT/HCPCS: 36415; 71045; 71275; 80053; 80177; 81001; 83690; 83735; 83880; 84484; 85025; 85610; 85730; 93005; 96374; 99285; J3010; Q9967

== ENCOUNTER → 2019-06-29 | Outpatient (CLI) | payer MEDICARE, OTHER, MEDICAID ==
[~2019-06-29] MED LIST changes: +0.9 % SODIUM CHLORIDE 10 ML VIAL ONE; +IOHEXOL 300 MG/ML 50 ML VIAL. ONE; +LIDOCAINE 1% PF 30 ML VIAL. ONE; +methylPREDNISolone ACETATE 80 MG/ML VIAL. ONE
[2019-06-29 15:05] VITALS: BP 121/79
== END | disposition home or self-care (01) ==
LOC: SURG 14:05
PROVIDERS: ATTEND Anesthesiology Pain Medicine
DX: M47.26 Other spondylosis with radiculopathy, lumbar region (principal); B20 Human immunodeficiency virus [HIV] disease; M46.46 Discitis, unspecified, lumbar region; M96.1 Postlaminectomy syndrome, not elsewhere classified; F11.90 Opioid use, unspecified, uncomplicated; M19.90 Unspecified osteoarthritis, unspecified site; Z91.041 Radiographic dye allergy status; Z79.899 Other long term (current) drug therapy; Z88.6 Allergy status to analgesic agent; Z88.8 Allergy status to other drugs, medicaments and biological substances; Z98.890 Other specified postprocedural states
CPT/HCPCS: 62323; 82947; J1040; J2001; Q9967

== ENCOUNTER 2019-07-26 15:29 | Emergency (ER) | payer MEDICARE, OTHER, MEDICAID ==
[~2019-07-26] VITALS: Ht 172.7 cm; Wt 111.0 kg
[~2019-07-26 15:29] MED LIST changes: -0.9 % SODIUM CHLORIDE 10 ML VIAL ONE; -IOHEXOL 300 MG/ML 50 ML VIAL. ONE; -LIDOCAINE 1% PF 30 ML VIAL. ONE; -methylPREDNISolone ACETATE 80 MG/ML VIAL. ONE
[2019-07-26] MEDS ORDERED: IV NORMAL SALINE 1,000ML 1,000 ML IV ONE (16:00)
[2019-07-26 16:23] LABS: BASO # 0.1 x10^3/uL (0.0-0.2); BASO % 1 % (0-3); EOS # 0.1 x10^3/uL (0.0-0.7); EOS % 1 % (0-3); HEMATOCRIT 37.9 % (36.0-47.0); HEMOGLOBIN 12.2 g/dL (12.0-15.5); LYMPH # 2.6 x10^3/uL (1.0-4.8); LYMPH % 29 % (24-48); MEAN CORPUSCULAR HEMOGLOBIN 29 pg (25-35); MEAN CORPUSCULAR HGB CONC 32 g/dL (31-37); MEAN CORPUSCULAR VOLUME 90 fL (79-100); MONO # 0.6 x10^3/uL (0.0-1.1); MONO % 6 % (0-9); NEUT # 5.5 x10^3uL (1.8-7.7); NEUT % 62 % (31-73); PLATELET COUNT 265 x10^3/uL (140-400); RED BLOOD COUNT 4.19 x10^6/uL (3.50-5.40); RED CELL DISTRIBUTION WIDTH 14.8 % (11.5-14.5); WHITE BLOOD COUNT 8.8 x10^3/uL (4.0-11.0)
[2019-07-26 16:26] LABS: CALCIUM 8.8 mg/dL (8.5-10.1); CREATININE 1.2 mg/dL (0.6-1.0); GFR 56.2; POTASSIUM 3.7 mmol/L (3.5-5.1)
[2019-07-26 16:32] LABS: ALBUMIN 3.1 g/dL (3.4-5.0); ALBUMIN/GLOBULIN RATIO 0.8 (1.0-1.7); MAGNESIUM 1.7 mg/dL (1.8-2.4); TOTAL PROTEIN 7.1 g/dL (6.4-8.2)
--- NOTE | 2019-07-26 16:33 | PHYS DOC ---
Past History Past Medical History: Diabetes, DVT, Glaucoma, HIV, Hypertension, Seizure Past Surgical History: Appendectomy, Hysterectomy, Tonsillectomy, Other Additional Past Surgical Histo: BACK AND LEFT ACHILLES Smoking: Non-smoker Alcohol Use: None Drug Use: None Adult General Chief Complaint Chief Complaint: SEIZURE HPI HPI Patient is a 58-year-old female who presents to the ED after a seizure-like episode that lasted approximately 20 minutes. She states that during that period of time she was conscious but unable to talk. She admits to having a headache following the episode. She lives at home alone with no one to witness recent events. She states that this has been happening since childhood. She recently went to her neurologist on the 21 of July for an epilepsy workup. She is cu rrently taking Keppra. She denies biting her tongue, loss of bowel or bladder control, and confusion following event. She denies any recent illnesses, fevers, chills, dysuria, increased frequency of urination, diarrhea, nausea, and vomiting. Review of Systems Review of Systems Constitutional: Denies fever or chills Eyes: Denies redness or eye pain, denies blurred vision HENT: Denies nasal congestion or sore throat Respiratory: Denies cough or shortness of breath Cardiovascular: Denies chest pain or palpitations GI: Denies abdominal pain, nausea, or vomiting : Denies dysuria or hematuria Musculoskeletal: Denies back pain or joint pain Neurologic: Admits headache, denies focal weakness, dizziness, and sensory changes Complete systems were reviewed and found to be within normal limits, except as documented in this note. Family History Family History Sister with history of seizures Current Medications Current Medications Current Medications Medications (Trade) Dose Ordered Sig/Bhavik Start Time Stop Time Status Last Admin Dose Admin Sodium Chloride 1,000 ml @ 1,000 mls/hr 1X ONCE 07/26/19 16:00 07/26/19 16:59 07/26/19 16:00 1,000 MLS/HR Allergies Allergies Allergies Coded Allergies Type Severity Reaction Last Updated Verified levofloxacin Allergy Severe seizure 06/29/19 Yes aspirin Allergy Mild 06/29/19 Yes naproxen Allergy Mild RASH 06/29/19 Yes tramadol Allergy Mild RASH 06/29/19 Yes I S O L A T I O N *CONTACT* Allergy Unknown 06/29/19 Yes ibuprofen Allergy Unknown 06/29/19 Yes Physical Exam Physical Exam Constitutional: Well developed, well nourished, no acute distress, non-toxic appearance HENT: Normocephalic, atraumatic, oropharynx moist Eyes: PERRL, EOMI, conjunctiva normal, no discharge Neck: Normal range of motion, no tenderness, supple Cardiovascular: Heart rate normal, regular rhythm Lungs & Thorax: Bilateral breath sounds clear to auscultation, no wheezing Abdomen: Soft, no tenderness Skin: Warm, dry, no erythema, no rash Extremities: Left lower extremity tenderness to palpation, ROM intact, no edema Neurologic: Alert and oriented X 3, normal motor function, normal sensory function, no focal deficits noted, cranial nerves II through XII intact bilaterally Psychologic: Affect normal, judgment normal Current Patient Data Vital Signs Vital Signs Date Time Temp Pulse Resp B/P (MAP) Pulse Ox O2 Delivery O2 Flow Rate FiO2 07/26/19 15:32 98.5 96 18 150/89 (109) 98 Room Air EKG EKG [] Radiology/Procedures Radiology/Procedures [] Course & Med Decision Making Course & Med Decision Making Pertinent Labs and Imaging studies reviewed. (See chart for details) [] Dragon Disclaimer Dragon Disclaimer This electronic medical record was generated, in whole or in part, using a voice recognition dictation system. Departure Departure: Impression: Primary Impression: Seizure-like activity Additional Impressions: Hypomagnesemia Headache Disposition: 01 HOME, SELF-CARE Condition: STABLE Referrals: ANNITA WOODWARD DO, MPH (PCP) Patient Instructions: Headache, FAQs, Hypomagnesemia, Nonepileptic Seizures, Seizure, Adult, [id number] Additional Instructions: Please follow with your neurologist. Dr. Martinez at [facility] Scripts [place]al[place]/Acetaminophen/Caffeine ([id number] 50-325-40) 1 Each Tablet 1 EACH PO Q6HRS PRN for HEADACHE, #14 TAB Prov: SHANTHI BENAVIDES DO 07/26/19 Problem Qualifiers Additional Impressions: Headache Headache type: unspecified Headache chronicity pattern: acute headache Intractability: not intractable Qualified Codes: R51 - Headache SHANTHI BENAVIDES DO Jul 26, 2019 16:33
[2019-07-26] MEDS ORDERED: MAGNESIUM CHLORIDE ER 64 MG TABLET.ER PO ONE (16:45)
[2019-07-26 17:08] LABS: BARBITURATES NEG (NEG); BENZODIAZEPINES NEG (NEG); CANNABINOIDS NEG (NEG); COCAINE NEG (NEG); METHADONE NEG (NEG); OPIATES NEG (NEG); PHENCYCLIDINE NEG (NEG)
[2019-07-26 17:10] LABS: BACTERIA,URINE 0 /HPF (0-FEW); BILIRUBIN,URINE NEG (NEG); CLARITY,URINE CLEAR; COLOR,URINE YELLOW; GLUCOSE,URINE NEG (NEG); NITRITE,URINE NEG (NEG); RBC,URINE 0 /HPF (0-2); SQUAMOUS EPITHELIAL CELL,UR FEW /LPF; UROBILINOGEN,URINE 0.2 mg/dL (0.2 mg/dL)
[2019-07-26 17:13] LABS: AMPHETAMINE/METHAMPHETAMINE NEG (NEG)
[2019-07-26 17:20] VITALS: BP 132/82
[2019-07-26] MEDS ORDERED: BUTA1TAB23 PO (17:33)
[2019-07-26] MEDS ORDERED: BUTALB/APAP/CAFEIN 50/325/40MG TABLET. PO ONE (17:45)
== END 2019-07-26 17:40 | disposition home or self-care (01) ==
LOC: ER 15:29
DX: R51 Headache (principal); E83.42 Hypomagnesemia; E11.9 Type 2 diabetes mellitus without complications; I10 Essential (primary) hypertension; Z88.1 Allergy status to other antibiotic agents; Z88.6 Allergy status to analgesic agent; Z88.8 Allergy status to other drugs, medicaments and biological substances; Z90.49 Acquired absence of other specified parts of digestive tract; Z90.710 Acquired absence of both cervix and uterus; Z90.89 Acquired absence of other organs
CPT/HCPCS: 36415; 80053; 80177; 80307; 81001; 82550; 83605; 83735; 85025; 99284; J7030

== ENCOUNTER 2019-08-02 17:53 | Emergency (ER) | payer MEDICARE, OTHER, MEDICAID ==
[~2019-08-02] VITALS: Ht 172.7 cm; Wt 113.0 kg
[~2019-08-02 17:53] MED LIST changes: +BUTA1TAB23 PO
--- NOTE | 2019-08-02 19:07 | PHYS DOC ---
Past History Past Medical History: Diabetes, DVT, Glaucoma, HIV, Hypertension, Seizure Past Surgical History: Appendectomy, Hysterectomy, Tonsillectomy, Other Additional Past Surgical Histo: BACK AND LEFT ACHILLES Smoking: Non-smoker Alcohol Use: None Drug Use: None Adult General Chief Complaint Chief Complaint: SEIZURE HPI HPI Patient is a 58 year old female who presents with complaint of seizures. Patient states that she has had 2 seizure episodes today. Her first episode was at 1600. The patient states she has history of seizure disorder and currently follows with Dr. Rosado of neurology. States that she is scheduled to have an EEG done on August [address] Rosado for further evaluation of seizures. Currently takes Keppra for treatment. States that the patient is able to be conscious during these episodes. States that she is unable to speak or move when these episodes occur. First episode happened while at rest using the restroom. She notes a second episode which occurred at 1730. These episodes last between 5-10 minutes. EMS was called and brought patient to the emergency department. They noted patient was alert and oriented 3 at scene and she continues to display normal cognition currently. Patient denies any fever, chest pain, shortness of breath, abdominal pain, or vomiting. Does note headache which she has had with previous seizure episodes. Notes that she has been having more frequent seizures over the past 2-3 weeks. Review of Systems Review of Systems Constitutional: Denies fever or chills [] Eyes: Denies change in visual acuity, redness, or eye pain [] HENT: Denies nasal congestion or sore throat [] Respiratory: Denies cough or shortness of breath [] Cardiovascular: Denies chest pain or edema[] GI: Denies abdominal pain, nausea, vomiting, bloody stools or diarrhea [] : Denies dysuria or hematuria [] Musculoskeletal: Denies back pain or joint pain [] Integument: Denies rash or skin lesions [] Neurologic: Seizure, headache, denies focal weakness or sensory changes [] All other systems were reviewed and found to be within normal limits, except as documented in this note. Allergies Allergies Allergies Coded Allergies Type Severity Reaction Last Updated Verified levofloxacin Allergy Severe seizure 06/29/19 Yes aspirin Allergy Mild 06/29/19 Yes naproxen Allergy Mild RASH 06/29/19 Yes tramadol Allergy Mild RASH 06/29/19 Yes I S O L A T I O N *CONTACT* Allergy Unknown 06/29/19 Yes ibuprofen Allergy Unknown 06/29/19 Yes Physical Exam Physical Exam Constitutional: Well developed, well nourished, no acute distress, non-toxic appearance. [] HENT: Normocephalic, atraumatic, bilateral external ears normal, oropharynx moist, no oral exudates, nose normal. [] Eyes: PERRLA, EOMI, conjunctiva normal, no discharge. [] Neck: Normal range of motion, no tenderness, supple, no stridor. [] Cardiovascular:Heart rate regular rhythm, no murmur [] Lungs & Thorax: Bilateral breath sounds clear to auscultation [] Abdomen: Bowel sounds normal, soft, no tenderness, no masses, no pulsatile masses. [] Skin: Warm, dry, no erythema, no rash. [] Back: No tenderness, no CVA tenderness. [] Extremities: No tenderness, no cyanosis, no clubbing, ROM intact, no edema. [] Neurologic: Alert and oriented X 3, normal motor function, normal sensory function, no focal deficits noted. [] Current Patient Data Vital Signs Vital Signs Date Time Temp Pulse Resp B/P (MAP) Pulse Ox O2 Delivery O2 Flow Rate FiO2 08/02/19 18:54 83 18 157/88 (111) 98 Room Air 08/02/19 18:01 98.3 Lab Results Laboratory Tests Test 08/02/19 18:44 08/02/19 19:01 White Blood Count 9.6 x10^3/uL Red Blood Count 4.29 x10^6/uL Hemoglobin 12.5 g/dL Hematocrit 38.8 % Mean Corpuscular Volume 91 fL Mean Corpuscular Hemoglobin 29 pg Mean Corpuscular Hemoglobin Concent 32 g/dL Red Cell Distribution Width 14.9 % Platelet Count 272 x10^3/uL Neutrophils (%) (Auto) 63 % Lymphocytes (%) (Auto) 30 % Monocytes (%) (Auto) 6 % Eosinophils (%) (Auto) 1 % Basophils (%) (Auto) 1 % Neutrophils # (Auto) 6.0 x10^3uL Lymphocytes # (Auto) 2.8 x10^3/uL Monocytes # (Auto) 0.6 x10^3/uL Eosinophils # (Auto) 0.1 x10^3/uL Basophils # (Auto) 0.1 x10^3/uL Sodium Level 141 mmol/L Potassium Level 3.9 mmol/L Chloride Level 103 mmol/L Carbon Dioxide Level 29 mmol/L Anion Gap 9 Blood Urea Nitrogen 26 mg/dL Creatinine 1.1 mg/dL Estimated GFR (Cockcroft-Gault) 62.2 Glucose Level 107 mg/dL Calcium Level 9.1 mg/dL Urine Collection Type Unknown Urine Color Yellow Urine Clarity Clear Urine pH 5.5 Urine Specific [place] 1.025 Urine Protein Neg Urine Glucose (UA) Neg mg/dL Urine Ketones (Stick) Neg mg/dL Urine Blood Neg Urine Nitrite Neg Urine Bilirubin Neg Urine Urobilinogen Dipstick 0.2 mg/dL Urine Leukocyte Esterase Neg Urine RBC 0 /HPF Urine WBC 1-4 /HPF Urine Squamous Epithelial Cells Occ /LPF Urine Bacteria Few /HPF Urine Mucus Slight /LPF Urine Opiates Screen Pos Urine Methadone Screen Neg Urine Barbiturates Pos Urine Phencyclidine Screen Neg Urine Amphetamine/Methamphetamine Neg Urine Benzodiazepines Screen Neg Urine Cocaine Screen Neg Urine Cannabinoids Screen Neg Urine Ethyl Alcohol Neg EKG EKG Interpreted by me: Heart rate 84, sinus rhythm, normal intervals, normal axis, no acute ST/T-wave abnormalities present[] Radiology/Procedures Radiology/Procedures Not performed[] Course & Med Decision Making Course & Med Decision Making Pertinent Labs and Imaging studies reviewed. (See chart for details) Patient was observed in the emergency department with no further seizure episodes. Urine drug screen positive for barbiturates and opiates. Kidney function appears stable compared to previous lab draw. The patient's symptoms described do not fit an epileptic seizure pattern. I contacted the patient's neurologist, Dr. Rosado, who recommended that patient be started on Tranxene in addition to her daily Keppra. Recommended starting 7.5 mg daily. Patient written for 2 week supply of Tranxene. Recommended continued plan for outpatient follow-up and EEG testing on August 08 as previously scheduled. Recommended return to the emergency department for any worsening symptoms. Patient was understanding and in agreement with treatment plan.[] Dragon Disclaimer Dragon Disclaimer This electronic medical record was generated, in whole or in part, using a voice recognition dictation system. Departure Departure: Impression: Primary Impression: Seizure disorder Disposition: HOME, SELF-CARE Condition: IMPROVED Referrals: PCP,KEHSA (PCP) Patient Instructions: Nonepileptic Seizures Additional Instructions: Follow-up with Dr. Rosado in the next 5-7 days for reevaluation. Return to the emergency department for any worsening symptoms. Scripts Clorazepate Dipotassium (TRANXENE T-TAB) 7.5 Mg Tablet 1 TAB PO DAILY MDD 3 Tablet(s) for 14 Days, #14 TAB 0 Refills Prov: MARIA DEL ROSARIO BENITEZ MD 08/02/19 MARIA DEL ROSARIO BENITEZ MD Aug 02, 2019 19:07
[2019-08-02 19:17] LABS: CALCIUM 9.1 mg/dL (8.5-10.1); CREATININE 1.1 mg/dL (0.6-1.0); GFR 62.2; POTASSIUM 3.9 mmol/L (3.5-5.1)
[2019-08-02 19:54] LABS: BASO # 0.1 x10^3/uL (0.0-0.2); BASO % 1 % (0-3); EOS # 0.1 x10^3/uL (0.0-0.7); EOS % 1 % (0-3); HEMATOCRIT 38.8 % (36.0-47.0); HEMOGLOBIN 12.5 g/dL (12.0-15.5); LYMPH # 2.8 x10^3/uL (1.0-4.8); LYMPH % 30 % (24-48); MEAN CORPUSCULAR HEMOGLOBIN 29 pg (25-35); MEAN CORPUSCULAR HGB CONC 32 g/dL (31-37); MEAN CORPUSCULAR VOLUME 91 fL (79-100); MONO # 0.6 x10^3/uL (0.0-1.1); MONO % 6 % (0-9); NEUT % 63 % (31-73); PLATELET COUNT 272 x10^3/uL (140-400); RED BLOOD COUNT 4.29 x10^6/uL (3.50-5.40); RED CELL DISTRIBUTION WIDTH 14.9 % (11.5-14.5); WHITE BLOOD COUNT 9.6 x10^3/uL (4.0-11.0)
[2019-08-02 20:14] LABS: BARBITURATES POS (NEG); BENZODIAZEPINES NEG (NEG); CANNABINOIDS NEG (NEG); COCAINE NEG (NEG); METHADONE NEG (NEG); OPIATES POS (NEG); PHENCYCLIDINE NEG (NEG)
[2019-08-02 20:19] LABS: AMPHETAMINE/METHAMPHETAMINE NEG (NEG)
[2019-08-02 20:30] LABS: BILIRUBIN,URINE NEG (NEG); CLARITY,URINE CLEAR; COLOR,URINE YELLOW; GLUCOSE,URINE NEG (NEG)
[2019-08-02 20:31] LABS: BACTERIA,URINE FEW /HPF (0-FEW); NITRITE,URINE NEG (NEG); RBC,URINE 0 /HPF (0-2); SQUAMOUS EPITHELIAL CELL,UR OCC /LPF; UROBILINOGEN,URINE 0.2 mg/dL (0.2 mg/dL)
[2019-08-02] MEDS ORDERED: CLOR7.5T43 PO (22:15)
[2019-08-02 22:31] VITALS: BP 111/71
--- NOTE | 2019-08-02 23:20 | EKG ---
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
== END 2019-08-02 22:40 | disposition home or self-care (01) ==
LOC: ER 17:53
DX: G40.909 Epilepsy, unspecified, not intractable, without status epilepticus (principal); E11.9 Type 2 diabetes mellitus without complications; I10 Essential (primary) hypertension; Z90.49 Acquired absence of other specified parts of digestive tract; Z90.710 Acquired absence of both cervix and uterus; Z90.89 Acquired absence of other organs; Z88.1 Allergy status to other antibiotic agents; Z88.6 Allergy status to analgesic agent; Z88.8 Allergy status to other drugs, medicaments and biological substances
CPT/HCPCS: 36415; 80048; 80307; 81001; 85025; 93005; 99284

== ENCOUNTER 2019-11-01 13:13 | Emergency (ER) | payer MEDICARE, OTHER, MEDICAID ==
[~2019-11-01] VITALS: Ht 172.7 cm; Wt 113.0 kg
[~2019-11-01 13:13] MED LIST changes: +CLOR7.5T43 PO
[2019-11-01 13:22] VITALS: BP 137/89
--- NOTE | 2019-11-01 13:44 | PHYS DOC ---
Past History Past Medical History: Diabetes, DVT, Glaucoma, HIV, Hypertension, Seizure Past Surgical History: Appendectomy, Hysterectomy, Tonsillectomy, Other Additional Past Surgical Histo: BACK AND LEFT ACHILLES Smoking: Non-smoker Alcohol Use: None Drug Use: None General Adult EDM: Chief Complaint: SHORTNESS OF BREATH HPI: HPI: Patient is a 59-year-old female who presents to the emergency department for evaluation. She states she recently moved into a new home, and is required to climb several more flights of stairs than she is used to and she has noted that she is getting some shortness of breath with exertion. She denies any pain, occluding any chest pain with exertion, denies any shortness of breath at rest, or pleuritic pain. She denies any fevers, chills, cough, or known COVID ex posures. She has not had any myalgias. She states she does have a history of a "blood clot" in her upper extremity, but review of prior records from 2018 reveals that she has had an isolated upper extremity DVT in the setting of recent PICC line removal at the time. She states she was treated with a brief course of anticoagulants but is not having any ongoing anticoagulation. There are no alleviating or exacerbating factors to the patient's symptoms except as noted above. Review of Systems: Review of Systems: Constitutional: Denies fever or chills Eyes: Denies change in visual acuity HENT: Denies nasal congestion or sore throat Respiratory: Denies cough or shortness of breath at rest. Cardiovascular: Denies chest pain or edema GI: Denies abdominal pain, nausea, vomiting, bloody stools or diarrhea : Denies dysuria Musculoskeletal: Denies back pain or joint pain Integument: Denies rash Neurologic: Denies headache, focal weakness or sensory changes Endocrine: Denies polyuria or polydipsia Lymphatic: Denies swollen glands Psychiatric: Denies depression or anxiety Heart Score: Risk Factors: Risk Factors: DM, Current or recent (<one month) smoker, HTN, HLP, family history of CAD, obesity. Risk Scores: Score 0 - 3: 2.5% MACE over next 6 weeks - Discharge Home Score 4 - 6: 20.3% MACE over next 6 weeks - Admit for Clinical Observation Score 7 - 10: 72.7% MACE over next 6 weeks - Early Invasive Strategies Allergies: Allergies: Allergies Coded Allergies Type Severity Reaction Last Updated Verified levofloxacin Allergy Severe seizure 06/29/19 Yes aspirin Allergy Mild 06/29/19 Yes naproxen Allergy Mild RASH 06/29/19 Yes tramadol Allergy Mild RASH 06/29/19 Yes I S O L A T I O N *CONTACT* Allergy Unknown 06/29/19 Yes ibuprofen Allergy Unknown 06/29/19 Yes Physical Exam: PE: PHYSICAL EXAM: CONSTITUTIONAL: Well developed, well nourished HEAD: normocephalic, atraumatic EENT: PERRL, EOMI. Conjunctivae normal color, sclerae non-icteric; moist mucous membranes. NECK: Supple, non-tender; no meningismus. LUNGS: Lungs CTA, breathing even and unlabored. Normal air movement. HEART: Regular rate and rhythm, no murmur CHEST: No deformity; non-tender ABDOMEN: The abdomen is soft, and non-tender, no masses or bruits. EXTREM: Normal ROM; no deformity, no calf tenderness. Normal pulses palpable in all extremities. There is no pedal edema. SKIN: No rash; no diaphoresis NEURO: Alert; normal speech and cognition; CN's grossly intact; strength grossly intact without focal deficit. BACK: No CVA TTP. Current Patient Data: Labs: Laboratory Tests Test 11/01/19 13:50 White Blood Count 5.4 x10^3/uL Red Blood Count 4.17 x10^6/uL Hemoglobin 12.1 g/dL Hematocrit 37.7 % Mean Corpuscular Volume 91 fL Mean Corpuscular Hemoglobin 29 pg Mean Corpuscular Hemoglobin Concent 32 g/dL Red Cell Distribution Width 13.3 % Platelet Count 279 x10^3/uL Neutrophils (%) (Auto) 53 % Lymphocytes (%) (Auto) 35 % Monocytes (%) (Auto) 9 % Eosinophils (%) (Auto) 2 % Basophils (%) (Auto) 1 % Neutrophils # (Auto) 2.9 x10^3uL Lymphocytes # (Auto) 1.9 x10^3/uL Monocytes # (Auto) 0.5 x10^3/uL Eosinophils # (Auto) 0.1 x10^3/uL Basophils # (Auto) 0.0 x10^3/uL D-Dimer (Mary) < 0.19 mg/L Sodium Level 142 mmol/L Potassium Level 4.0 mmol/L Chloride Level 105 mmol/L Carbon Dioxide Level 29 mmol/L Anion Gap 8 Blood Urea Nitrogen 14 mg/dL Creatinine 1.1 mg/dL Estimated GFR (Cockcroft-Gault) 61.9 BUN/Creatinine Ratio 13 Glucose Level 84 mg/dL Calcium Level 9.4 mg/dL Magnesium Level 1.9 mg/dL Total Bilirubin 1.3 mg/dL Aspartate Amino Transf (AST/SGOT) 16 U/L Alanine Aminotransferase (ALT/SGPT) 20 U/L Alkaline Phosphatase 134 U/L Lactate Dehydrogenase 174 U/L Troponin I Quantitative < 0.017 ng/mL II-Rtc-X-Type Natriuretic Peptide 262 pg/mL Total Protein 7.4 g/dL Albumin 3.4 g/dL Albumin/Globulin Ratio 0.9 Vital Signs: Vital Signs Date Time Temp Pulse Resp B/P (MAP) Pulse Ox O2 Delivery O2 Flow Rate FiO2 11/01/19 13:22 97.8 85 16 137/89 (105) 99 Room Air EKG: EKG: [] Radiology/Procedures: Radiology/Procedures: PROCEDURE: CHEST PA & LATERAL PA and lateral views of the chest. Comparison: 06/22/2019. Indication: Dyspnea on exertion Findings: The heart size is normal. No pneumothorax or effusion. No air space or interstitial disease. The bony structures are intact. Impression: 1. No acute cardiopulmonary process. [] Course & Med Decision Making: Course & Med Decision Making Pertinent Labs and Imaging studies reviewed. (See chart for details) [] Patient remains stable. I discussed test results, the need for close follow- up, and return precautions. Christopher Disclaimer: Christopher Disclaimer: This electronic medical record was generated, in whole or in part, using a voice recognition dictation system. Departure Departure: Impression: Primary Impression: Dyspnea on exertion Disposition: HOME/RESIDENCE PRIOR TO ADM Condition: STABLE Referrals: JONNY SANCHEZ APRN (PCP) SAAD COPE MD Patient Instructions: Shortness of Breath ANA CRUZ MD November 01, 2019 13:44
[2019-11-01 14:03] LABS: BASO % 1 % (0-3); EOS # 0.1 x10^3/uL (0.0-0.7); EOS % 2 % (0-3); HEMATOCRIT 37.7 % (36.0-47.0); HEMOGLOBIN 12.1 g/dL (12.0-15.5); LYMPH # 1.9 x10^3/uL (1.0-4.8); LYMPH % 35 % (24-48); MEAN CORPUSCULAR HEMOGLOBIN 29 pg (25-35); MEAN CORPUSCULAR HGB CONC 32 g/dL (31-37); MEAN CORPUSCULAR VOLUME 91 fL (79-100); MONO # 0.5 x10^3/uL (0.0-1.1); MONO % 9 % (0-9); NEUT # 2.9 x10^3uL (1.8-7.7); NEUT % 53 % (31-73); PLATELET COUNT 279 x10^3/uL (140-400); RED BLOOD COUNT 4.17 x10^6/uL (3.50-5.40); RED CELL DISTRIBUTION WIDTH 13.3 % (11.5-14.5); WHITE BLOOD COUNT 5.4 x10^3/uL (4.0-11.0)
--- NOTE | 2019-11-01 14:05 | RAD ---
PA and lateral views of the chest. Comparison: 06/22/2019. Indication: Dyspnea on exertion Findings: The heart size is normal. No pneumothorax or effusion. No air space or interstitial disease. The bony structures are intact. Impression: 1. No acute cardiopulmonary process. Electronically signed by: Mark Mir MD (11/01/2019 2:02 PM) [id number]
[2019-11-01 14:12] LABS: CALCIUM 9.4 mg/dL (8.5-10.1); CREATININE 1.1 mg/dL (0.6-1.0); GFR 61.9
[2019-11-01 14:24] LABS: ALBUMIN 3.4 g/dL (3.4-5.0); ALBUMIN/GLOBULIN RATIO 0.9 (1.0-1.7); MAGNESIUM 1.9 mg/dL (1.8-2.4); TOTAL BILIRUBIN 1.3 mg/dL (0.2-1.0); TOTAL PROTEIN 7.4 g/dL (6.4-8.2)
== END 2019-11-01 14:41 | disposition home or self-care (01) ==
LOC: ER 13:13
DX: R06.09 Other forms of dyspnea (principal); E11.39 Type 2 diabetes mellitus with other diabetic ophthalmic complication; H42 Glaucoma in diseases classified elsewhere; I10 Essential (primary) hypertension; Z86.718 Personal history of other venous thrombosis and embolism; Z88.1 Allergy status to other antibiotic agents; Z88.6 Allergy status to analgesic agent; Z91.041 Radiographic dye allergy status; Z88.8 Allergy status to other drugs, medicaments and biological substances
CPT/HCPCS: 36415; 71046; 80053; 83615; 83735; 83880; 84484; 85025; 85379; 99284

== ENCOUNTER 2019-11-09 11:54 | Observation (INO) | payer MEDICARE, OTHER, MEDICAID ==
[~2019-11-09] VITALS: Ht 172.7 cm; Wt 111.6 kg
--- NOTE | 2019-11-09 12:09 | EKG ---
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
[2019-11-09] MEDS ORDERED: IV NORMAL SALINE 1,000ML 1,000 ML IV ONE (12:15)
[2019-11-09 12:25] LABS: BASO % 1 % (0-3); EOS % 1 % (0-3); HEMATOCRIT 38.3 % (36.0-47.0); HEMOGLOBIN 12.3 g/dL (12.0-15.5); LYMPH # 1.9 x10^3/uL (1.0-4.8); LYMPH % 33 % (24-48); MEAN CORPUSCULAR HEMOGLOBIN 29 pg (25-35); MEAN CORPUSCULAR HGB CONC 32 g/dL (31-37); MEAN CORPUSCULAR VOLUME 91 fL (79-100); MONO % 9 % (0-9); NEUT # 3.2 x10^3uL (1.8-7.7); NEUT % 56 % (31-73); PLATELET COUNT 263 x10^3/uL (140-400); RED BLOOD COUNT 4.23 x10^6/uL (3.50-5.40); RED CELL DISTRIBUTION WIDTH 13.8 % (11.5-14.5); WHITE BLOOD COUNT 5.8 x10^3/uL (4.0-11.0)
[2019-11-09 12:26] LABS: EOS # 0.1 x10^3/uL (0.0-0.7); MONO # 0.5 x10^3/uL (0.0-1.1)
--- NOTE | 2019-11-09 12:43 | RAD ---
CHEST PA LATERAL History: Chest pain. Comparison: 11/01/2019. FINDINGS: The cardiomediastinal silhouette is unchanged. No evidence of pneumothorax. No evidence of pleural effusion. No focal infiltrate or consolidation. Mild linear opacity in left lung base laterally is stable. Aorta is mildly tortuous/ectatic, similar to prior study. IMPRESSION: No evidence of consolidating infiltrate or significant interval change. Electronically signed by: Tod Agarwal MD (11/09/2019 12:40 PM) [id number]
[2019-11-09 13:12] LABS: ALBUMIN 3.5 g/dL (3.4-5.0); ALBUMIN/GLOBULIN RATIO 0.9 (1.0-1.7); CALCIUM 9.7 mg/dL (8.5-10.1); CREATININE 1.1 mg/dL (0.6-1.0); GFR 61.9; POTASSIUM 4.3 mmol/L (3.5-5.1); TOTAL BILIRUBIN 1.1 mg/dL (0.2-1.0); TOTAL PROTEIN 7.4 g/dL (6.4-8.2)
--- NOTE | 2019-11-09 13:18 | PHYS DOC ---
Past History Past Medical History: Diabetes, DVT, Glaucoma, High Cholesterol, HIV, Seizure Past Surgical History: Appendectomy, Hysterectomy, Tonsillectomy, Other Additional Past Surgical Histo: BACK AND LEFT ACHILLES Smoking: Non-smoker Alcohol Use: None Drug Use: None General Adult EDM: Chief Complaint: SHORTNESS OF BREATH HPI: HPI: 59-year-old female presents with report of chest pain with associated shortness of air which started this morning. Patient had been seen in the emergency department on 11/01/2019 but reports chest pain has continued. Patient reports her PCP called her and let her know that her BNP was slightly elevated. Denies leg swelling or calf tenderness. Denies history of CHF. Reports cardiac risk factors of diabetes and high cholesterol. Patient also reports prior history of DVT. Denies pleuritic pain. Denies fever or chills. Denies cough. Review of Systems: Review of Systems: Constitutional: Denies fever or chills Eyes: Denies redness or eye pain HENT: Denies nasal congestion or sore throat Respiratory: Denies cough; reports shortness of breath Cardiovascular: Reports chest pain; denies palpitations GI: Denies abdominal pain, nausea, or vomiting : Denies dysuria or hematuria Musculoskeletal: Denies back pain or joint pain Integument: Denies rash or skin lesions Neurologic: Denies headache, focal weakness or sensory changes Complete systems were reviewed and found to be within normal limits, except as documented in this note. Heart Score: HEART Score for Chest Pain: HEART Score for Chest Pain Response (Comments) Value History Moderately Suspicious 1 ECG Normal 0 Age >45 - < 65 1 Risk Factors >3 Risk Factors or Hx CAD 2 Troponin < Normal Limit 0 Total 4 Risk Factors: Risk Factors: DM, Current or recent (<one month) smoker, HTN, HLP, family history of CAD, obesity. Risk Scores: Score 0 - 3: 2.5% MACE over next 6 weeks - Discharge Home Score 4 - 6: 20.3% MACE over next 6 weeks - Admit for Clinical Observation Score 7 - 10: 72.7% MACE over next 6 weeks - Early Invasive Strategies Current Medications: Current Meds: Current Medications Medications (Trade) Dose Ordered Sig/Bhavik Start Time Stop Time Status Last Admin Dose Admin Sodium Chloride 1,000 ml @ 1,000 mls/hr 1X ONCE 11/09/19 12:15 11/09/19 13:14 DC 11/09/19 12:24 1,000 MLS/HR Allergies: Allergies: Allergies Coded Allergies Type Severity Reaction Last Updated Verified levofloxacin Allergy Severe seizure 06/29/19 Yes aspirin Allergy Mild 06/29/19 Yes naproxen Allergy Mild RASH 06/29/19 Yes tramadol Allergy Mild RASH 06/29/19 Yes I S O L A T I O N *CONTACT* Allergy Unknown 06/29/19 Yes ibuprofen Allergy Unknown 06/29/19 Yes Physical Exam: PE: Constitutional: Well developed, well nourished, no acute distress, non-toxic appearance HENT: Normocephalic, atraumatic, oropharynx moist Eyes: Conjunctiva normal, no discharge Neck: Normal range of motion, no tenderness, supple Cardiovascular: Heart rate normal, regular rhythm Lungs & Thorax: Bilateral breath sounds clear to auscultation, no wheezing Abdomen: Soft, no tenderness Skin: Warm, dry, no erythema, no rash Extremities: No tenderness, ROM intact, no edema Neurologic: Alert and oriented X 3, no focal deficits noted Psychologic: Affect anxious, judgment normal Current Patient Data: Labs: Laboratory Tests Test 11/09/19 12:10 White Blood Count 5.8 x10^3/uL (4.0-11.0) Red Blood Count 4.23 x10^6/uL (3.50-5.40) Hemoglobin 12.3 g/dL (12.0-15.5) Hematocrit 38.3 % (36.0-47.0) Mean Corpuscular Volume 91 fL (79-100) Mean Corpuscular Hemoglobin 29 pg (25-35) Mean Corpuscular Hemoglobin Concent 32 g/dL (31-37) Red Cell Distribution Width 13.8 % (11.5-14.5) Platelet Count 263 x10^3/uL (140-400) Neutrophils (%) (Auto) 56 % (31-73) Lymphocytes (%) (Auto) 33 % (24-48) Monocytes (%) (Auto) 9 % (0-9) Eosinophils (%) (Auto) 1 % (0-3) Basophils (%) (Auto) 1 % (0-3) Neutrophils # (Auto) 3.2 x10^3uL (1.8-7.7) Lymphocytes # (Auto) 1.9 x10^3/uL (1.0-4.8) Monocytes # (Auto) 0.5 x10^3/uL (0.0-1.1) Eosinophils # (Auto) 0.1 x10^3/uL (0.0-0.7) Basophils # (Auto) 0.0 x10^3/uL (0.0-0.2) Prothrombin Time 10.0 SEC (9.4-11.4) Prothrombin Time INR 1.0 (0.9-1.1) Activated Partial Thromboplast Time 25 SEC (23-33) D-Dimer (Mary) < 0.19 mg/L (0.00-0.50) Sodium Level 141 mmol/L (136-145) Potassium Level 4.3 mmol/L (3.5-5.1) Chloride Level 104 mmol/L (98-107) Carbon Dioxide Level 27 mmol/L (21-32) Anion Gap 10 (6-14) Blood Urea Nitrogen 14 mg/dL (7-20) Creatinine 1.1 mg/dL (0.6-1.0) H Estimated GFR (Cockcroft-Gault) 61.9 BUN/Creatinine Ratio 13 (6-20) Glucose Level 112 mg/dL (70-99) H Calcium Level 9.7 mg/dL (8.5-10.1) Total Bilirubin 1.1 mg/dL (0.2-1.0) H Aspartate Amino Transferase (AST) 18 U/L (15-37) Alanine Aminotransferase (ALT) 25 U/L (14-59) Alkaline Phosphatase 130 U/L (46-116) H Creatine Kinase 142 U/L (26-192) Creatine Kinase MB (Mass) 1.1 ng/mL (0.0-3.6) Creatine Kinase MB Relative Index 0.8 % (0-4) Troponin I Quantitative < 0.017 ng/mL (0-0.055) ZA-Zlb-P-Type Natriuretic Peptide 101 pg/mL (0-124) Total Protein 7.4 g/dL (6.4-8.2) Albumin 3.5 g/dL (3.4-5.0) Albumin/Globulin Ratio 0.9 (1.0-1.7) L Lipase 38 U/L (73-393) L Vital Signs: Vital Signs Date Time Temp Pulse Resp B/P (MAP) Pulse Ox O2 Delivery O2 Flow Rate FiO2 11/09/19 13:10 74 16 105/55 (72) 99 Room Air 11/09/19 11:57 98.2 EKG: EKG: @1157 NSR at 88bpm, NO ST elevation, QRS 66ms, QT/QTc 366/446ms Radiology/Procedures: Radiology/Procedures: PROCEDURE: CHEST PA & LATERAL CHEST PA LATERAL History: Chest pain. Comparison: 11/01/2019. FINDINGS: The cardiomediastinal silhouette is unchanged. No evidence of pneumothorax. No evidence of pleural effusion. No focal infiltrate or consolidation. Mild linear opacity in left lung base laterally is stable. Aorta is mildly tortuous/ectatic, similar to prior study. IMPRESSION: No evidence of consolidating infiltrate or significant interval change. Electronically signed by: Tod Agarwal MD (11/09/2019 12:40 PM) [id number] Course & Med Decision Making: Course & Med Decision Making Pertinent Labs and Imaging studies reviewed. (See chart for details) Patient presents with report of intermittent chest pain which has been ongoing for the past week. Denies trauma. Denies leg swelling or calf tenderness. Patient does have a history of DVT. No signs of DVT appreciated on physical exam. EKG stable. Labs obtained and posted to chart. Initial troponin within normal limits. D-dimer negative. Chest x-ray without acute process. HEART score 4. Patient requiring observation admission for further evaluation and treatment. Discussed with Dr. Logan (hospitalist) who is in agreement with admission. Discussed findings and plan with patient, who acknowledges understanding and agreement. Christopher Disclaimer: Christopher Disclaimer: This electronic medical record was generated, in whole or in part, using a voice recognition dictation system. Departure Departure: Impression: Primary Impression: Chest pain Qualified Codes: R07.9 - Chest pain, unspecified Disposition: ADMITTED INPATIENT Admitting Physician: Alice Logan Condition: STABLE Referrals: OJNNY SANCHEZ APRN (PCP) TOD BENAVIDES DO November 09, 2019 13:18
[2019-11-09] MEDS ORDERED: DEXTROSE 50% 25 GM / 50ML DISP.SYRIN. IV PRN (13:30)
[2019-11-09] MEDS ORDERED: ONDANSETRON PF 4 MG/2 ML VIAL. IVP PRN (13:30)
--- NOTE | 2019-11-09 15:30 | NUR ---
Patient arrived to unit via EMS. Patient is oriented to room and offered food and drink. Patient is given admission teaching regarding chest pain. Patient is resting in bed at this time. Will continue to monitor.
[2019-11-09 15:56] VITALS: BP 133/87
[2019-11-09] MEDS ORDERED: LEVE250T4 PO (16:37)
[2019-11-09] MEDS ORDERED: DOXY100C2 PO (16:39)
[2019-11-09] MEDS ORDERED: SERT100T PO (16:39)
[2019-11-09] MEDS: INSULIN LISPRO 300 UNITS/3 ML VIAL. SQ SCH (16:52)
[2019-11-09 19:22] VITALS: BP 131/86
[2019-11-09] MEDS: levETIRAcetam 250 MG TABLET PO SCH (21:30)
[2019-11-09 23:37] VITALS: BP 102/70
--- NOTE | 2019-11-10 02:11 | HP ---
ADMIT DATE: 11/09/2019 HISTORY OF PRESENT ILLNESS: The patient is a 59-year-old -[place] female patient who came to the Emergency Room as her primary care physician called her stating that her BNP was high at more than 260 and since that call she started having chest pain and shortness of breath. The pain is mostly in the left side of the chest, started at rest, is not associated with any nausea or vomiting, did complain of shortness of breath, but denied any diaphoresis, denied any cough, phlegm or hemoptysis. She was evaluated in the Emergency Room, has had an EKG done, which showed that she was in sinus rhythm at a rate of 88 beats per minute, no ST segment elevation and a corrected QT interval of 446 milliseconds. Her chest x-ray showed no evidence of a consolidating infiltrate or significant interval change. Her first set of cardiac enzyme was less than 0.017. The patient was admitted to do 2 more sets of cardiac enzyme and check her fasting lipid profile. PAST MEDICAL HISTORY: Significant for type 2 diabetes, glaucoma, hyperlipidemia, HIV, seizure disorder and history of deep vein thrombosis. PAST SURGICAL HISTORY: Significant for appendectomy, total abdominal hysterectomy and tonsillectomy, 2 back surgeries. ALLERGIES: SHE IS ALLERGIC TO ASPIRIN, IBUPROFEN, LEVOFLOXACIN, NAPROXEN, AND TRAMADOL. MEDICATIONS: She is currently on following medications: She is on atazanavir sulfate 300 mg daily. She is on Descovy 200/25 mg 1 tablet daily. She is on Norvir 100 mg once a day. She is on levetiracetam 750 mg twice a day and sertraline for Zoloft 100 mg once a day. FAMILY HISTORY: She has 4 sisters, all older, and she has a very strong family history of CVA, hypertension, diabetes. Her father is still alive, but does not know about his whereabouts and mother when she was 5 years old. SOCIAL HISTORY: She is . She has a son and a daughter. She never smoked, does not drink alcohol or use any recreational drugs. She is on disability. REVIEW OF SYSTEMS: As per history of present illness. PHYSICAL EXAMINATION: GENERAL: On arrival to the Emergency Room, she looked well and was clearly in no apparent respiratory distress. She was somewhat pale, but no jaundice, cyanosis or thyromegaly. No jugular venous distention. No limb edema. VITAL SIGNS: Her heart rate was 78, blood pressure was 126/71, temperature was 98.2, respiratory rate was 16, and oxygen saturation was 99%. HEAD, EYES, EARS, NOSE AND THROAT: Showed normocephalic, atraumatic. NECK: Supple. HEART: Showed normal first and second heart sounds. No gallop, rub or murmur. CHEST: Clear to auscultation. No crepitation or rhonchi. ABDOMEN: Distended, soft, nontender. NEUROLOGIC: She is awake, alert, responding appropriately. All cranial nerves intact. EXTREMITIES: She moves extremities without difficulty. She ambulates without assistance or assistive devices. LABORATORY DATA: Showed a white cell count 5800, hemoglobin 12, hematocrit 38, MCV 91, and platelet count 263,000. Her prothrombin time, INR and aPTT and D-dimer were all normal. Her chemistry showed a serum sodium 141, potassium 4.3, chloride 104, bicarbonate 27, anion gap of 10, BUN 14, creatinine 1.1, estimated GFR was 63 mL per minute. Her glucose was 112, calcium was 9.7. Total bilirubin was 1.1. AST and ALT were normal. Alkaline phosphatase slightly elevated. Her first set of cardiac enzyme was less than 0.017. Her beta natriuretic peptide ____. Her total protein was 7.4, albumin 3.5. Lipase was 38. ASSESSMENT AND PLAN: In summary, this is a 59-year-old female patient who developed left-sided chest pain after her primary care physician called her with the lab results. The pain started at rest, was not associated with any nausea or vomiting and no diaphoresis. Did complain of shortness of breath. She obviously has risk factors for coronary artery disease including diabetes, hypertension. We will do 2 more sets of cardiac enzymes, check her fasting lipid profile and consult the Cardiology team tomorrow and we will decide on further management accordingly. MAXIMINO TOURE MD DR: ZO/justin JOB#: [id number] / [id number]
[2019-11-10 05:48] VITALS: BP 109/79
[2019-11-10 06:36] LABS: CALCIUM 8.9 mg/dL (8.5-10.1); CREATININE 1.1 mg/dL (0.6-1.0); GFR 61.9; POTASSIUM 4.1 mmol/L (3.5-5.1)
--- NOTE | 2019-11-10 07:18 | NUR ---
Cardiology consult called to Dr. Goncalves. L/M with answering service. Awaiting call back.
[2019-11-10] MEDS ORDERED: CLOR7.5T43 PO (07:52)
[2019-11-10] MEDS: levETIRAcetam 250 MG TABLET PO SCH (08:57)
[2019-11-10] MEDS ORDERED: ATAZANAVIR SULFATE PO SCH (09:00)
[2019-11-10] MEDS ORDERED: TENOFOV ALAFENAM PO SCH (09:00)
[2019-11-10] MEDS ORDERED: SERTRALINE 100 MG TABLET. PO SCH (09:00)
[2019-11-10] MEDS ORDERED: RITONAVIR PO SCH (09:00)
[2019-11-10] MEDS ORDERED: EMTRICITABINE PO SCH (09:00)
[2019-11-10] MEDS: INSULIN LISPRO 300 UNITS/3 ML VIAL. SQ SCH ×2 (09:05→12:00)
[2019-11-10 10:47] VITALS: BP 105/73
--- NOTE | 2019-11-10 12:08 | PDOC2 ---
CONSULT Date of Admission DATE: 11/10/19 TIME: 12:08 Reason for Consult: Chest pain Referring Physician: Dr. Logan Chief Complaint Chest pain Source: Chart review, Patient Problem List Problems Medical Problems: (1) Chest pain Status: Acute History of Present Illness 59-year-old female without any previous cardiac history saw her PCP recently for dyspnea on exertion. She apparently got a call back and told that her BNP level was high. She then started having retrosternal chest discomfort that she described as sharp in nature, 8/10 in severity not related to exertion. She continues to have dyspnea on exertion but denied any orthopnea/PND, palpitations or syncope. Past Medical History Diabetes mellitus type 2 Hyperlipidemia Seizure disorder DVT HIV Glaucoma Past Surgical History Appendectomy Hysterectomy Tonsillectomy Back surgery Family History Negative for premature coronary disease and positive for strokes Social History Patient denies any smoking, alcohol or drug abuse Current Medications Current Medications Sodium Chloride 1,000 ml @ 1,000 mls/hr 1X ONCE IV Last administered on 11/09/19at 12:24; Start 11/09/19 at 12:15; Stop 11/09/19 at 13:14; Status DC Ondansetron HCl (Zofran) 4 mg PRN Q4HRS PRN IVP NAUSEA/VOMITING; Start 11/09/19 at 13:30; Stop 11/10/19 at 13:29 Fentanyl Citrate (Fentanyl 2ml Vial) 50 mcg PRN Q4HRS PRN IVP PAIN; Start 11/09/19 at 13:30 Insulin Human Lispro (HumaLOG) 0-5 UNITS TIDWMEALS SQ ; Start 11/09/19 at 17:00 Dextrose (Dextrose 50%-Water Syringe) 12.5 gm PRN Q15MIN PRN IV SEE COMMENTS; Start 11/09/19 at 13:30 Levetiracetam (Keppra) 750 mg BID PO Last administered on 11/10/19at 08:57; Start 11/09/19 at 21:00 Sertraline HCl (Zoloft) 100 mg DAILY PO Last administered on 11/10/19at 08:57; Start 11/10/19 at 09:00 Non-Formulary Medication (Atazanavir Sulfate (Reyataz)) 1 cap DAILYWBKFT PO Last administered on 11/10/19at 08:58; Start 11/10/19 at 09:00 Non-Formulary Medication (Emtricitabine/ Tenofov Alafenam (Descovy 200-25 mg Tablet)) 1 each DAILY PO Last administered on 11/10/19at 08:59; Start 11/10/19 at 09:00 Non-Formulary Medication (Ritonavir (Norvir)) 1 tab DAILY PO Last administered on 11/10/19at 08:59; Start 11/10/19 at 09:00 Non-Formulary Medication (Clorazepate Dipotassium (Tranxene T-Tab)) 1 tab HS PO ; Start 11/10/19 at 21:00 Active Scripts Active Reported Tranxene T-Tab (Clorazepate Dipotassium) 7.5 Mg Tablet 1 Tab PO HS MDD 3 Tablet(s) NOT GIVEN IN THE HOSPITAL NEXT DOSE DUE: DATE: TODAY TIME: AT BEDTIME Doxycycline Hyclate 100 Mg Capsule 100 Mg PO BID LAST DOSE GIVEN: DATE: TODAY TIME: AM NEXT DOSE DUE: DATE: TODAY TIME: PM Zoloft (Sertraline Hcl) 100 Mg Tablet 100 Mg PO DAILY LAST DOSE GIVEN: DATE: TODAY TIME: AM NEXT DOSE DUE: DATE: TOMORROW TIME: AM Levetiracetam 250 Mg Tablet 750 Mg PO BID LAST DOSE GIVEN: DATE: TODAY TIME: AM NEXT DOSE DUE: DATE: TODAY TIME: PM Reyataz (Atazanavir Sulfate) 300 Mg Capsule 1 Cap PO DAILY LAST DOSE GIVEN: DATE: TIME: AM NEXT DOSE DUE: DATE: TOMORROW TIME: AM Descovy 200-25 mg Tablet (Emtricitabine/Tenofov Alafenam) 1 Each Tablet 1 Each PO DAILY LAST DOSE GIVEN: DATE: TODAY TIME: AM NEXT DOSE DUE: DATE: TOMORROW TIME: AM Norvir (Ritonavir) 100 Mg Tablet 1 Tab PO DAILY LAST DOSE GIVEN: DATE: TODAY TIME: AM NEXT DOSE DUE: DATE: TOMORROW TIME: AM Allergies: Coded Allergies: levofloxacin (Verified Allergy, Severe, seizure, 06/29/19) aspirin (Verified Allergy, Mild, 06/29/19) RASH naproxen (Verified Allergy, Mild, RASH, 06/29/19) tramadol (Verified Allergy, Mild, RASH, 06/29/19) I S O L A T I O N *CONTACT* (Verified Allergy, Unknown, 06/29/19) +MRSA blood 03/06/16 ibuprofen (Verified Allergy, Unknown, 06/29/19) PSYCHOLOGICAL ROS: No: Hallucinations Eyes: No: Loss of vision HEENT: No: Epistaxis Respiratory: YES: Shortness of breath; No: Hemoptysis Cardiovascular: yes: Chest Pain; No: Palpitations Gastrointestinal: No: Vomiting, Diarrhea Skin: No: Rash General: Alert, Oriented X3 HEENT: Atraumatic Lungs: Clear to auscultation Heart: Regular rate Abdomen: Soft, No tenderness Extremities: No edema Neuro: Normal speech Psych/Mental Status: Mood NL VITALS Vital Signs Date Time Temp Pulse Resp B/P (MAP) Pulse Ox O2 Delivery O2 Flow Rate FiO2 11/10/19 10:47 98.0 77 20 105/73 (84) 96 Room Air Labs Laboratory Tests Test 11/09/19 12:10 11/09/19 15:54 11/09/19 17:04 11/09/19 19:51 White Blood Count 5.8 x10^3/uL (4.0-11.0) Red Blood Count 4.23 x10^6/uL (3.50-5.40) Hemoglobin 12.3 g/dL (12.0-15.5) Hematocrit 38.3 % (36.0-47.0) Mean Corpuscular Volume 91 fL (79-100) Mean Corpuscular Hemoglobin 29 pg (25-35) Mean Corpuscular Hemoglobin Concent 32 g/dL (31-37) Red Cell Distribution Width 13.8 % (11.5-14.5) Platelet Count 263 x10^3/uL (140-400) Neutrophils (%) (Auto) 56 % (31-73) Lymphocytes (%) (Auto) 33 % (24-48) Monocytes (%) (Auto) 9 % (0-9) Eosinophils (%) (Auto) 1 % (0-3) Basophils (%) (Auto) 1 % (0-3) Neutrophils # (Auto) 3.2 x10^3uL (1.8-7.7) Lymphocytes # (Auto) 1.9 x10^3/uL (1.0-4.8) Monocytes # (Auto) 0.5 x10^3/uL (0.0-1.1) Eosinophils # (Auto) 0.1 x10^3/uL (0.0-0.7) Basophils # (Auto) 0.0 x10^3/uL (0.0-0.2) Prothrombin Time 10.0 SEC (9.4-11.4) Prothromb Time International Ratio 1.0 (0.9-1.1) Activated Partial Thromboplast Time 25 SEC (23-33) D-Dimer (Mary) < 0.19 mg/L (0.00-0.50) Sodium Level 141 mmol/L (136-145) Potassium Level 4.3 mmol/L (3.5-5.1) Chloride Level 104 mmol/L (98-107) Carbon Dioxide Level 27 mmol/L (21-32) Anion Gap 10 (6-14) Blood Urea Nitrogen 14 mg/dL (7-20) Creatinine 1.1 mg/dL (0.6-1.0) Estimated GFR (Cockcroft-Gault) 61.9 BUN/Creatinine Ratio 13 (6-20) Glucose Level 112 mg/dL (70-99) Calcium Level 9.7 mg/dL (8.5-10.1) Total Bilirubin 1.1 mg/dL (0.2-1.0) Aspartate Amino Transf (AST/SGOT) 18 U/L (15-37) Alanine Aminotransferase (ALT/SGPT) 25 U/L (14-59) Alkaline Phosphatase 130 U/L (46-116) Creatine Kinase 142 U/L (26-192) Creatine Kinase MB (Mass) 1.1 ng/mL (0.0-3.6) Creatine Kinase MB Relative Index 0.8 % (0-4) Troponin I Quantitative < 0.017 ng/mL (0-0.055) < 0.017 ng/mL (0-0.055) < 0.017 ng/mL (0-0.055) RF-Zit-W-Type Natriuretic Peptide 101 pg/mL (0-124) Total Protein 7.4 g/dL (6.4-8.2) Albumin 3.5 g/dL (3.4-5.0) Albumin/Globulin Ratio 0.9 (1.0-1.7) Lipase 38 U/L (73-393) Glucose (Fingerstick) 70 mg/dL (70-99) Test 11/10/19 05:58 11/10/19 07:31 11/10/19 11:58 Sodium Level 142 mmol/L (136-145) Potassium Level 4.1 mmol/L (3.5-5.1) Chloride Level 106 mmol/L (98-107) Carbon Dioxide Level 29 mmol/L (21-32) Anion Gap 7 (6-14) Blood Urea Nitrogen 13 mg/dL (7-20) Creatinine 1.1 mg/dL (0.6-1.0) Estimated GFR (Cockcroft-Gault) 61.9 Glucose Level 90 mg/dL (70-99) Calcium Level 8.9 mg/dL (8.5-10.1) Glucose (Fingerstick) 121 mg/dL (70-99) 94 mg/dL (70-99) Assessment/Plan 1. Chest pain with atypical features. Myocardial infarction has been ruled out. Plan for outpatient 2D echo to assess LV function and Lexiscan nuclear stress test to rule out ischemia. 2. Dyspnea on exertion. Patient does not have any clinical evidence for fluid overload. She was told her BNP was elevated by PCP but BNP level obtained in hospital here is within normal limits. Chest x-ray did not show any CHF. Plan for outpatient ischemic evaluation as stated above. 3. Diabetes mellitus type 2 HIV, HIV, seizure disorder: Continue current treatment per primary team. Thank you for your consultation. ALICIA SMALLS MD November 10, 2019 12:08
--- NOTE | 2019-11-10 13:18 | NUR ---
NSG NOTE; DISCHARGE VERBAL AND WRITTEN DISCHARGE INSTRUCTIONS GIVEN TO PT WITH VERBAL UNDERSTANDING DISCHARGE TO HOME AT 1310 VIA AMB ACCOMP BY FAMILY MEMBER
--- NOTE | 2019-11-10 13:59 | DS ---
DATE OF DISCHARGE: 11/10/2019 HOSPITAL COURSE: The patient is a 59-year-old -[place] female patient. She apparently saw her primary care physician recently for dyspnea on exertion and she apparently got call back from and she was told that her BNP level was high and started having retrosternal chest pain, sharp in nature, 8/10 in severity, not related to exertion. She denied any nausea, vomiting, diaphoresis, palpitation or syncope. She was evaluated in the Emergency Room, her first set of cardiac enzyme was negative and given that she has multiple risk factors for coronary artery disease, she was admitted. We did 2 sets of cardiac enzyme and check also her fasting lipid profile and she was seen in consultation by the Cardiology team and basically, she was ruled out for acute myocardial infarction and the Cardiology recommended an outpatient echocardiogram and a stress test. PHYSICAL EXAMINATION: GENERAL: When I saw her this afternoon, she looked well and was clearly in no apparent respiratory distress. No pallor, jaundice, cyanosis or thyromegaly. No jugular venous distention or limb edema. VITAL SIGNS: Her heart rate was 77, blood pressure was 105/73, temperature was 98, respiratory rate 20, and oxygen saturation was 96% on room air. HEAD, EYES, EARS, NOSE AND THROAT: Showed normocephalic, atraumatic. NECK: Supple. HEART: Showed normal first and second heart sounds. No gallop or murmur. CHEST: Clear to auscultation. No crepitation or rhonchi. ABDOMEN: Distended, soft, nontender. NEUROLOGIC: She is grossly intact. LABORATORY DATA: This morning showed a serum sodium 142, potassium 4.1, chloride 106, bicarbonate 29, anion gap of 7, BUN 13, creatinine 1.1, estimated GFR was 62 mL per minute, her glucose was 90, calcium was 8.9. She has 3 sets of cardiac enzyme, all of them showed troponin to be less than 0.017 and therefore, the patient was discharged home to continue on all her medication including atazanavir sulfate 300 mg capsule daily, clorazepate dipotassium or Tranxene 7.5 mg at bedtime, doxycycline hyclate 100 mg capsule twice a day. She is on Descovy 200/25 mg tablet once a day, levetiracetam 750 mg twice a day, ritonavir 100 mg daily and sertraline for Zoloft 100 mg daily. FINAL DISCHARGE DIAGNOSES: Chest pain with atypical features, acute myocardial infarction has been ruled out. She has type 2 diabetes, hyperlipidemia, seizure disorder and HIV for which she continues to be on antiretroviral medication. The Cardiology team recommended outpatient 2D echo to assess left ventricular function and Lexiscan nuclear stress test to rule out ischemia. MAXIMINO TOURE MD DR: ZO/justin JOB#: [id number] / [id number]
[2019-11-10] MEDS ORDERED: CLORAZEPATE DIPOTASSIUM PO SCH (21:00)
== END 2019-11-10 13:10 | disposition home or self-care (01) ==
LOC: ER 11:54 → 1 SOUTH 14:22
PROVIDERS: ADMIT Internal Medicine; ATTEND Internal Medicine
DX: R07.89 Other chest pain (principal); E11.9 Type 2 diabetes mellitus without complications; E78.5 Hyperlipidemia, unspecified; G40.909 Epilepsy, unspecified, not intractable, without status epilepticus; Z86.718 Personal history of other venous thrombosis and embolism; Z90.710 Acquired absence of both cervix and uterus; Z21 Asymptomatic human immunodeficiency virus [HIV] infection status
CPT/HCPCS: 36415; 71046; 80048; 80053; 80061; 82553; 82947; 83036; 83690; 83880; 84484; 85025; 85379; 85610; 85730; 93005; 99285; G0378; G0379; J7030

== ENCOUNTER 2020-02-22 15:23 | Emergency (ER) | payer MEDICARE, OTHER ==
[~2020-02-22] VITALS: Ht 167.6 cm; Wt 111.6 kg
[~2020-02-22 15:23] MED LIST changes: +LEVE250T4 PO; -PANT40TA5 PO; +PANT40TA6 PO
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
--- NOTE | 2020-02-22 15:59 | RAD ---
AP, lateral, and oblique views of the right hand and wrist were performed as well as 2 views of the right forearm. INDICATION: Fall on outstretched hand now with pain. FINDINGS: No fracture subluxation dislocation. The carpal bones are aligned. There is mild osteopenia. Minimal degenerative changes identified. Electronically signed by: Mark Mir MD (02/22/2020 3:56 PM) [id number]
[2020-02-22] MEDS ORDERED: ACETAMINOPHEN 325 MG TABLET PO ONE (16:15)
--- NOTE | 2020-02-22 16:19 | RAD ---
SACRUM COCCYX 3V History: Reason: fall on behind / Spl. Instructions: / History: . Pain. Technique: 3 views sacrum and coccyx. Comparison: CT of the lumbar spine March 06, 2016. Findings: Normal alignment of the hips. Symmetric appearance of the bilateral sacroiliac joints. Postoperative changes lumbar spine an sacrum lucency surrounding the bilateral sacral screws, left greater than right. Normal alignment of the sacrum and coccyx. No definite fracture. Impression: 1. No acute osseous abnormality. 2. Postoperative changes lumbar spine and sacrum. Lucency surrounding the sacral screws, may indicate loosening. Electronically signed by: Jose Javed DO (02/22/2020 4:16 PM) [id number]
[2020-02-22 16:21] VITALS: BP 115/92
== END 2020-02-22 16:41 | disposition home or self-care (01) ==
LOC: ER 15:23
DX: S63.501A Unspecified sprain of right wrist, initial encounter (principal); S30.0XXA Contusion of lower back and pelvis, initial encounter; E11.9 Type 2 diabetes mellitus without complications; Z86.718 Personal history of other venous thrombosis and embolism; E78.00 Pure hypercholesterolemia, unspecified; Z88.1 Allergy status to other antibiotic agents; Z88.6 Allergy status to analgesic agent; Z88.8 Allergy status to other drugs, medicaments and biological substances; W18.39XA Other fall on same level, initial encounter; Y93.89 Activity, other specified; Y92.89 Other specified places as the place of occurrence of the external cause; Y99.8 Other external cause status
CPT/HCPCS: 29125; 72220; 73090; 73110; 73130; 99284

== ENCOUNTER 2020-02-26 19:58 | Emergency (ER) | payer MEDICARE, OTHER ==
[~2020-02-26] VITALS: Ht 167.6 cm; Wt 111.6 kg
--- NOTE | 2020-02-26 20:28 | PHYS DOC ---
Past History Past Medical History: Diabetes, DVT, Glaucoma, High Cholesterol, HIV, Seizure Past Surgical History: Appendectomy, Hysterectomy, Other Additional Past Surgical Histo: BACK AND LEFT ACHILLES Smoking: Non-smoker Alcohol Use: None Drug Use: None Adult General Chief Complaint Chief Complaint: MECHANICAL FALL [facility] HPI Patient is a 59-year-old female who presents for pain status post fall. Patient was seen and evaluated by myself at our facility 4 days ago for a fall. Patient suffered a mechanical ground-level fall falling on right outstretched wrist and subsequently landing on tailbone. She had negative imaging of right wrist and was placed in Velcro splint. She also had negative imaging of lower back and sacral/coccyx area which noted loosening of screws from prior lumbar surgical intervention without any other focal abnormalities. Patient was discharged home with supportive care advised with PCP follow-up and orthopedic surgeon follow- up. Patient has not seen either of these physicians since previous discharge. She has been using topical NSAID cream with mild relief in symptomology. She has not been icing her wrist or coccyx regularly as previously advised. She has only been taking Tylenol for pain which she reports provides mild relief at best, she has not taken anything today. She reports 9/10 pain of both wrist and back that is worse when she sleeps and rolls over in the middle of the night waking her up. She has not been sleeping. She is here for pain control. She denies any fever or other concerning signs or symptoms status post fall such as headache, loss of consciousness, changes in mentation, changes in motor or sensory function, neurological/focal deficits, loss of bladder and bowel control or saddle anesthesia Review of Systems Review of Systems Fourteen body systems of review of systems have been reviewed. See HPI for pertinent positives and negative responses, other silver all other systems are negative, non-pertinent or non-contributory Allergies Allergies Allergies Coded Allergies Type Severity Reaction Last Updated Verified levofloxacin Allergy Severe seizure 06/29/19 Yes aspirin Allergy Mild 06/29/19 Yes naproxen Allergy Mild RASH 06/29/19 Yes tramadol Allergy Mild RASH 06/29/19 Yes I S O L A T I O N *CONTACT* Allergy Unknown 06/29/19 Yes ibuprofen Allergy Unknown 06/29/19 Yes Physical Exam Physical Exam Constitutional: Pt is oriented to person, place, and time. Pt is morbidly obese and appears well-developed and well-nourished. HENT: Head: Normocephalic and atraumatic. Mouth/Throat: Oropharynx is clear and moist. No hematomas or lacerations or abrasions to face or scalp OP clear, no blood, no malocclusion, dentition intact Nares clear, no nasal septal hematoma Eyes: Conjunctivae and EOM are normal. Pupils are equal, round, and reactive to light. Neck: C-spine midline nontender, no step-offs Cardiovascular: Normal rate, regular rhythm and normal heart sounds. Pulmonary/Chest: Effort normal and breath sounds normal. No respiratory distress. No wheezes. CTA bilaterally Abdominal: Soft. Bowel sounds are normal. Pt exhibits no distension. There is no tenderness. Musculoskeletal: No deformities, full ROM extremities. Ambulatory from EMS gurney to ER bed without observed difficulties. Right Velcro wrist splint in place. Chest wall stable Pelvis stable and non-tender No vertebral TTP and spine without stepoffs. Patient admits tenderness to right paralumbar muscle bellies Neurological: Pt is alert and oriented to person, place, and time. Moving all extremities willfully, able to wiggle all fingers and toes Alert and oriented x 3 Sensation grossly intact Skin: Skin is warm and dry. No abrasions, no lacerations Psychiatric: Behavior is appropriate for situation Nursing note and vitals reviewed. Current Patient Data Vital Signs Vital Signs Date Time Temp Pulse Resp B/P (MAP) Pulse Ox O2 Delivery O2 Flow Rate FiO2 02/26/20 20:02 98.6 90 16 94/39 (57) 96 Room Air EKG EKG [] Radiology/Procedures Radiology/Procedures [] Course & Med Decision Making Course & Med Decision Making Grossly well-appearing nontoxic patient who is ambulatory from EMS gurney to ER bed without difficulty seen on immediate ER arrival ABCs non-concerning Comprehensive history and physical exam obtained, reviewed prior diagnostic studies from ER visit here 02/22/2020 X1 [place] 5 administered with good symptomatic relief Discussed no obvious or concerning findings for emergent or surgical pathology today, discussed limited utility in further diagnostic work-up Patient is established with primary care physician and orthopedic surgeon in outpatient settings, she has good access to both of these physicians and can obtain follow-up in upcoming 1 to 10 days time after ER visit today, I feel this is appropriate I discussed pathophysiology of fall in an obese person, I advised continued supportive care I have reviewed patient's [employer], I offered patient extremely short-term narcotic pain medication, [place] 5, for use of severe pain only to tide her over until she can be seen and evaluated in outpatient setting. She was educated extensively on the risks of excepting and using narcotic medications Strict return precautions were discussed with good understanding by patient, all questions and concerns addressed prior to ER departure in stable condition with new short-term prescription for [place] 5 and continued supportive care and rehabilitation status post fall Dragon Disclaimer Dragon Disclaimer This electronic medical record was generated, in whole or in part, using a voice recognition dictation system. Departure Departure: Impression: Primary Impression: Fall Additional Impressions: Back pain Wrist pain Disposition: HOME/RESIDENCE PRIOR TO ADM Condition: STABLE Referrals: JONNY SANCHEZ APRN (PCP) Patient Instructions: Low Back Sprain with [facility], Wrist Sprain with [facility] Scripts Hydrocodone Bit/Acetaminophen (NORCO 5-325 TABLET) 1 Each Tablet 1 TAB PO TID for SEVERE PAIN, #9 TAB Prov: TROY COLLINS DO 02/26/20 Justification of Admission: Justification of Admission: Justification of Admission Dx: N/A Problem Qualifiers TROY COLLINS DO Feb 26, 2020 20:28
[2020-02-26] MEDS ORDERED: HYDROcodone/APAP 5/325MG 1 TAB TABLET PO ONE (20:45)
[2020-02-26] MEDS ORDERED: HYDR-3165 PO (21:26)
[2020-02-26 21:50] VITALS: BP 91/46
== END 2020-02-26 21:55 | disposition home or self-care (01) ==
LOC: ER 19:58
DX: M25.531 Pain in right wrist (principal); M54.5 Low back pain; E11.9 Type 2 diabetes mellitus without complications; Z86.718 Personal history of other venous thrombosis and embolism; E78.00 Pure hypercholesterolemia, unspecified; Z90.89 Acquired absence of other organs; Z90.710 Acquired absence of both cervix and uterus; Z88.1 Allergy status to other antibiotic agents; Z88.6 Allergy status to analgesic agent; Z88.8 Allergy status to other drugs, medicaments and biological substances; W18.39XD Other fall on same level, subsequent encounter
CPT/HCPCS: 99285

== ENCOUNTER 2020-02-28 10:27 | Emergency (ER) | payer MEDICARE, OTHER ==
[~2020-02-28] VITALS: Ht 167.6 cm; Wt 103.4 kg
[2020-02-28 10:32] VITALS: BP 121/84
--- NOTE | 2020-02-28 10:45 | PHYS DOC ---
Past History Past Medical History: Diabetes, DVT, Glaucoma, High Cholesterol, HIV, Seizure Past Surgical History: Appendectomy, Hysterectomy, Other Additional Past Surgical Histo: BACK AND LEFT ACHILLES Smoking: Non-smoker Alcohol Use: None Drug Use: None General Adult EDM: Chief Complaint: LOWER BACK PAIN OR INJURY HPI: HPI: The history was obtained from the patient. Patient is a 59-year-old female with PMH chronic back pain, obesity, diabetes who presents with a chief complaint of back pain and right wrist pain. Patient reports a non-syncopal fall approximately 1 week prior to arrival. She was seen the day of her fall and had x-ray imaging of her lumbar spine and sacrum that was nonacute. She also had imaging of her right wrist that was nonacute. She was placed in a Velcro splint. She was discharged home with supportive care measures. She returned 2 days ago for persistent pain. She reported at that time that she has been using topical NSAID cream with mild relief of her symptoms. She had not been icing her coccyx as instructed. She had not been taking Tylenol or ibuprofen as well for relief. She was discharged home with 9 tablets of [place] 2 days ago. She states she is in the process of being evaluated by neurosurgery at [facility] for chronic back pain. She denies any new falls or trauma. She states she does have increased discomfort when she sits on the toilet. She is able to ambulate. She denies any new or worsening tenderness over the right scaphoid region. Patient denies any urinary retention, stool incontinence, saddle anesthesia, history of IV drug use, or history of cancer. Review of Systems: Review of Systems: Constitutional: Denies fever or chills Eyes: Denies change in visual acuity HENT: Denies nasal congestion or sore throat Respiratory: Denies cough or shortness of breath Cardiovascular: Denies chest pain or edema GI: Denies abdominal pain, nausea, vomiting, bloody stools or diarrhea : Denies dysuria Musculoskeletal: Denies back pain or joint pain Integument: Denies rash Neurologic: Denies headache, focal weakness or sensory changes Endocrine: Denies polyuria or polydipsia Lymphatic: Denies swollen glands Psychiatric: Denies depression or anxiety Heart Score: Risk Factors: Risk Factors: DM, Current or recent (<one month) smoker, HTN, HLP, family history of CAD, obesity. Risk Scores: Score 0 - 3: 2.5% MACE over next 6 weeks - Discharge Home Score 4 - 6: 20.3% MACE over next 6 weeks - Admit for Clinical Observation Score 7 - 10: 72.7% MACE over next 6 weeks - Early Invasive Strategies Allergies: Allergies: Allergies Coded Allergies Type Severity Reaction Last Updated Verified levofloxacin Allergy Severe seizure 06/29/19 Yes aspirin Allergy Mild 06/29/19 Yes naproxen Allergy Mild RASH 06/29/19 Yes tramadol Allergy Mild RASH 06/29/19 Yes I S O L A T I O N *CONTACT* Allergy Unknown 06/29/19 Yes ibuprofen Allergy Unknown 06/29/19 Yes Physical Exam: PE: Constitutional: Well developed, well nourished, no acute distress, non-toxic appearance. [] HENT: Normocephalic, atraumatic, bilateral external ears normal, oropharynx moist, no oral exudates, nose normal. [] Eyes: PERRLA, EOMI, conjunctiva normal, no discharge. [] Neck: Normal range of motion, no tenderness, supple, no stridor. [] Cardiovascular:Heart rate regular rhythm, no murmur [] Lungs & Thorax: Bilateral breath sounds clear to auscultation [] Abdomen: soft, no tenderness, no masses, no pulsatile masses. [] Skin: Warm, dry, no erythema, no rash. [] Back: + 5/5 motor strength in dorsiflexion and plantarflexion of the great toes bilaterally. Sensation intact between the webbing of the first and second toes bilaterally.. Midline reproducible tenderness over the L4-S1 region. No step- offs or deformities noted. Extremities: No tenderness, no cyanosis, no clubbing, ROM intact, no edema. [] Neurologic: Alert and oriented X 3, normal motor function, normal sensory function, no focal deficits noted. [] Psychologic: Affect normal, judgement normal, mood normal. [] Current Patient Data: Vital Signs: Vital Signs Date Time Temp Pulse Resp B/P (MAP) Pulse Ox O2 Delivery O2 Flow Rate FiO2 02/28/20 10:29 98.3 82 16 121/84 (96) 99 Room Air EKG: EKG: [] Radiology/Procedures: Radiology/Procedures: [place] [id number] IMAGING REPORT Signed PATIENT: HERNAN ANGEL I ACCOUNT: [id number] : 1960 LOCATION: ER AGE: 59 SEX: F EXAM STATUS: REG ER ORD. PHYSICIAN: JACKLYN ROSS DO REASON: fall PROCEDURE: CT PELVIS WO CONTRAST Study: CT pelvis without contrast INDICATION: Fall. COMPARISON: 07/14/2017 TECHNIQUE: Axial CT imaging of the pelvis performed without the use of intravenous contrast. Coronal and sagittal reformats were obtained. One or more of the following individualized dose reduction techniques were utilized for this examination: 1. Automated exposure control 2. Adjustment of the mA and/or kV according to patient size 3. Use of iterative reconstruction technique. FINDINGS: Bones: Partially imaged lumbosacral fusion construct. The visualized hardware is intact. Thin periscrew lucency about the right S1 screw is no different from 2018. Chronic bilateral pars defects at L5. Partial fusion across the L4-L5 and L5-S1 facet joints. No evidence for significant osseous stenosis of the central canal or neural foramina at L4-L5 and L5-S1. No acute fracture of the sacrum or coccyx is identified by CT. The iliac bones are intact as are the obturator rings. Normally aligned pubic symphysis with minimal degenerative change. No focal erosion or ankylosis across the SI joints. New from the 2017 comparison is a region of sclerosis at the posterior margin of the right femoral head with some central fat attenuation. The overlying articular surface is intact. This measures approximately 1.6 x 1.0 x 0.9 cm. Tiny bone island within the left femoral head. No significant arthrosis at either hip joint. Soft tissues: No CT evidence for a large hip joint effusion on either side nor fluid distention of the greater trochanteric bursa. No localized edema or hematoma to suggest acute musculotendinous injury. Absent uterus. The ovaries may be absent as well. IMPRESSION: 1. New from the 2017 comparison is a region of sclerosis measuring 1.6 x 1.0 x 0.9 cm at the posterior aspect of the right femoral head. The overlying articular surface is intact. This finding is not typical of trauma and could represent an area of osteonecrosis. Recommend correlation for right hip pain and any risk factors for this condition. 2. The rest of the pelvic osseous structures are unremarkable. A partially imaged lumbosacral fusion construct is intact. Electronically signed by: MEL BRADY MD (02/28/2020 11:30 AM) [id number] DICTATED AND SIGNED BY: MEL BRADY MD DATE: 02/28/20 1130 CC: JONNY SANCHEZ APRN; JACKLYN ROSS DO ~ [] Course & Med Decision Making: Course & Med Decision Making Pertinent Labs and Imaging studies reviewed. (See chart for details) [] Patient is a 59-year-old female who presents with a chief complaint of continued low back and right wrist pain status post mechanical fall approximately week ago. Initial vital signs unremarkable. Physical exam noted above. No acute neurologic symptoms appreciated. She is able to ambulate. CT imaging was obtained reveals no acute traumatic abnormality. Repeat x-ray imaging of the right wrist was obtained and reveals no occult fracture. She has no reproducible tenderness over the scaphoid region or snuffbox. She does have Velcro wrist splint for home. She does have an active [place] prescription for home. She was encouraged to follow-up with her primary care physician, pain specialist, and [facility] neurosurgery for consultation. At this time I do feel she is appropriate for discharge home. No indications for further imaging or laboratory testing. Ric[place]on Disclaimer: Christopher Disclaimer: This electronic medical record was generated, in whole or in part, using a voice recognition dictation system. Departure Departure: Impression: Primary Impression: Fall Qualified Codes: W19.XXXD - Unspecified fall, subsequent encounter Additional Impressions: Low back pain Qualified Codes: M54.5 - Low back pain; G89.29 - Other chronic pain Right wrist pain Disposition: 01 HOME/RESIDENCE PRIOR TO ADM Condition: STABLE Referrals: JONNY SANCHEZ APRN (PCP) Patient Instructions: Fall Prevention and Home Safety Additional Instructions: Please follow-up with your primary care physician and pain specialist in the next 2 to 3 days. Please follow-up with [facility] for surgical consultation of your chronic back pain. Justification of Admission: Justification of Admission: Justification of Admission Dx: N/A JACKLYN ROSS DO Feb 28, 2020 10:45
--- NOTE | 2020-02-28 11:18 | RAD ---
Study: CR WRIST 3V RIGHT Indication: Possible fracture. Comparison: Right hand and wrist radiographs 02/22/2020 Findings: Minimal bony irregularity along the radial margin of the lunate only appreciated on the PA view is favored degenerative. Cystic change within the capitate without proximal migration. Unchanged configuration of the scaphoid. Collectively no acute fracture seen throughout the wrist. Distal radioulnar joint alignment is maintained. The partially assessed osseous structures of the hand are grossly intact. Prominence of the soft tissues at the dorsum of the distal forearm is unchanged from the prior. Impression: 1. No acute fracture seen throughout the wrist or traumatic malalignment. If there is ongoing concern for occult osseous injury, such as with snuffbox tenderness, either follow-up radiograph could be obtained or eventual CT/MRI. 2. Mild cortical irregularity of the lunate adjacent to the scapholunate joint is favored degenerative. There are some cystic changes of the capitate as well. Electronically signed by: MEL BRADY MD (02/28/2020 11:15 AM) [id number]
--- NOTE | 2020-02-28 11:33 | RAD ---
Study: CT pelvis without contrast INDICATION: Fall. COMPARISON: 07/14/2017 TECHNIQUE: Axial CT imaging of the pelvis performed without the use of intravenous contrast. Coronal and sagittal reformats were obtained. One or more of the following individualized dose reduction techniques were utilized for this examination: 1. Automated exposure control 2. Adjustment of the mA and/or kV according to patient size 3. Use of iterative reconstruction technique. FINDINGS: Bones: Partially imaged lumbosacral fusion construct. The visualized hardware is intact. Thin periscrew lucency about the right S1 screw is no different from 2018. Chronic bilateral pars defects at L5. Partial fusion across the L4-L5 and L5-S1 facet joints. No evidence for significant osseous stenosis of the central canal or neural foramina at L4-L5 and L5-S1. No acute fracture of the sacrum or coccyx is identified by CT. The iliac bones are intact as are the obturator rings. Normally aligned pubic symphysis with minimal degenerative change. No focal erosion or ankylosis across the SI joints. New from the 2018 comparison is a region of sclerosis at the posterior margin of the right femoral head with some central fat attenuation. The overlying articular surface is intact. This measures approximately 1.6 x 1.0 x 0.9 cm. Tiny bone island within the left femoral head. No significant arthrosis at either hip joint. Soft tissues: No CT evidence for a large hip joint effusion on either side nor fluid distention of the greater trochanteric bursa. No localized edema or hematoma to suggest acute musculotendinous injury. Absent uterus. The ovaries may be absent as well. IMPRESSION: 1. New from the 2018 comparison is a region of sclerosis measuring 1.6 x 1.0 x 0.9 cm at the posterior aspect of the right femoral head. The overlying articular surface is intact. This finding is not typical of trauma and could represent an area of osteonecrosis. Recommend correlation for right hip pain and any risk factors for this condition. 2. The rest of the pelvic osseous structures are unremarkable. A partially imaged lumbosacral fusion construct is intact. Electronically signed by: MEL BRADY MD (02/28/2020 11:30 AM) [id number]
[2020-02-28] MEDS: KETOROLAC 30 MG/ML VIAL. IM ONE (11:44)
== END 2020-02-28 12:05 | disposition home or self-care (01) ==
LOC: ER 10:27
DX: M54.5 Low back pain (principal); M25.531 Pain in right wrist; G89.29 Other chronic pain; E11.9 Type 2 diabetes mellitus without complications; Z86.718 Personal history of other venous thrombosis and embolism; E78.00 Pure hypercholesterolemia, unspecified; Z90.89 Acquired absence of other organs; Z90.710 Acquired absence of both cervix and uterus; Z88.1 Allergy status to other antibiotic agents; Z88.6 Allergy status to analgesic agent; Z88.8 Allergy status to other drugs, medicaments and biological substances; W18.39XD Other fall on same level, subsequent encounter
CPT/HCPCS: 72192; 73110; 96372; 99284; J1885

== ENCOUNTER 2020-03-11 22:01 | Emergency (ER) | payer MEDICARE, OTHER ==
[~2020-03-11] VITALS: Ht 167.6 cm; Wt 103.4 kg
[2020-03-11 22:01] VITALS: BP 156/96
--- NOTE | 2020-03-11 22:11 | PHYS DOC ---
Past History Past Medical History: Diabetes, DVT, Fibromyalgia, Glaucoma, High Cholesterol, HIV, Seizure Past Surgical History: Appendectomy, Hysterectomy, Other Additional Past Surgical Histo: BACK AND LEFT ACHILLES Smoking: Non-smoker Alcohol Use: None Drug Use: None General Adult EDM: Chief Complaint: MECHANICAL FALL HPI: HPI: ".. I was starting to set up from my bed.. and slipped.. and fell hard on my Rt. side.. and milton twisted my neck.. I hurt all over.. but mainly on right arm.. and hip.. " Patient is a 59 year old female who presents with fall out of bed.. Patient denies any loss of consciousness. Patient does have spasms in her trapezius on the right. Does have sensation in right deltoid but tenderness in right upper arm. Does have point tenderness in right hip and thigh area. Patient rates her pain as 9-10 out of 10. Patient follows at [facility]. . Patient has past medical history of seizure disorder, HIV, arthritis, diabetes,. No recent fever or chills. Has been compliant with meds. No recent travel. No specific ill contacts. Review of Systems: Review of Systems: Constitutional: Denies fever or chills Eyes: Denies change in visual acuity HENT: Denies nasal congestion or sore throat Respiratory: Denies cough or shortness of breath Cardiovascular: Denies chest pain or edema GI: Denies abdominal pain, nausea, vomiting, bloody stools or diarrhea : Denies dysuria Musculoskeletal: Complains of right shoulder, right humerus, right hip pain. Integument: Denies rash Neurologic: Denies headache, focal weakness or sensory changes Endocrine: Denies polyuria or polydipsia Lymphatic: Denies swollen glands Psychiatric: History of anxiety Heart Score: Risk Factors: Risk Factors: DM, Current or recent (<one month) smoker, HTN, HLP, family history of CAD, obesity. Risk Scores: Score 0 - 3: 2.5% MACE over next 6 weeks - Discharge Home Score 4 - 6: 20.3% MACE over next 6 weeks - Admit for Clinical Observation Score 7 - 10: 72.7% MACE over next 6 weeks - Early Invasive Strategies Family History: Family History: Noncontributory Current Medications: Current Meds: See nursing for home meds Allergies: Allergies: Allergies Coded Allergies Type Severity Reaction Last Updated Verified levofloxacin Allergy Severe seizure 06/29/19 Yes aspirin Allergy Mild 06/29/19 Yes naproxen Allergy Mild RASH 06/29/19 Yes tramadol Allergy Mild RASH 06/29/19 Yes I S O L A T I O N *CONTACT* Allergy Unknown 06/29/19 Yes ibuprofen Allergy Unknown 06/29/19 Yes Physical Exam: PE: Constitutional: Moderate acute distress, non-toxic appearance. [] HENT: Normocephalic, atraumatic, bilateral external ears normal, oropharynx moist, no oral exudates, nose normal. [] Eyes: PERRLA, EOMI, conjunctiva normal, no discharge. [] Neck: Normal range of motion, no tenderness, supple, no stridor. Trapezius tenderness and right. Mild upper cervical muscle spasms. Cardiovascular:Heart rate regular rhythm, no murmur [] Lungs & Thorax: Bilateral breath sounds equal apex on auscultation [] Abdomen: Bowel sounds normal, soft, no tenderness, no masses, no pulsatile masses. Obese. Old surgery scars. Skin: Warm, dry, no erythema, no rash. [] Back: No tenderness, no CVA tenderness. [] Extremities: Right shoulder and upper arm and right hip tenderness, no cyanosis, no clubbing, , no edema. [] Neurologic: Alert and oriented X 3, moves all extremities on request, has distal sensation, no focal deficits noted. [] Psychologic: Affect anxious, judgement normal, mood normal. [] EKG: EKG: [] Radiology/Procedures: Radiology/Procedures: [] Impressions: [place] [id number] IMAGING REPORT Signed PATIENT: HERNAN ANGEL I ACCOUNT: [id number] : 1960 LOCATION: ER AGE: 59 SEX: F EXAM STATUS: REG ER ORD. PHYSICIAN: CASEY CANNON MD REASON: fall PROCEDURE: SHOULDER 2+V RIGHT INDICATION: Reason: fall / Spl. Instructions: / History: COMPARISON: None. IMPRESSION: Right shoulder: 3 views obtained. No acute fracture or dislocation. Right humerus: 3 views obtained. At the distal humerus radial aspect there is a linear lucency seen on one of the images and not seen on the other images. This appears to extend outside of the cortex therefore likely artifactual in nature rather than from nondisplaced fracture no definite fracture elsewhere within the humerus. Right hip: 2 views obtained. No acute fracture or dislocation. Right femur: 4 views obtained. No acute fracture or dislocation. Degenerative changes of knee. Electronically signed by: Trent Olmos MD (03/12/2020 12:18 AM) [id number] DICTATED AND SIGNED BY: TRENT OLMOS MD DATE: 03/12/2017 CC: CASEY CANNON MD; JONNY SANCHEZ APRN ~ [address] [address] IMAGING REPORT Signed PATIENT: HERNAN ANGEL I ACCOUNT: [id number] : 1960 LOCATION: ER AGE: 59 SEX: F EXAM STATUS: REG ER ORD. PHYSICIAN: CASEY CANNON MD REASON: fall PROCEDURE: HIP RIGHT 1 VIEW WITH PELVIS INDICATION: Reason: fall / Spl. Instructions: / History: COMPARISON: None. IMPRESSION: Right shoulder: 3 views obtained. No acute fracture or dislocation. Right humerus: 3 views obtained. At the distal humerus radial aspect there is a linear lucency seen on one of the images and not seen on the other images. This appears to extend outside of the cortex therefore likely artifactual in nature rather than from nondisplaced fracture no definite fracture elsewhere within the humerus. Right hip: 2 views obtained. No acute fracture or dislocation. Right femur: 4 views obtained. No acute fracture or dislocation. Degenerative changes of knee. Electronically signed by: Trent Olmos MD (03/12/2020 12:18 AM) [id number] DICTATED AND SIGNED BY: TRENT OLMOS MD DATE: 03/12/2017 CC: CASEY CANNON MD; JONNY SANCHEZ APRN ~ [address] [address] IMAGING REPORT Signed PATIENT: HERNAN ANGEL I ACCOUNT: [id number] : 1960 LOCATION: ER AGE: 59 SEX: F EXAM STATUS: REG ER ORD. PHYSICIAN: CASEY CANNON MD REASON: fall PROCEDURE: RIGHT FEMUR XRAY INDICATION: Reason: fall / Spl. Instructions: / History: COMPARISON: None. IMPRESSION: Right shoulder: 3 views obtained. No acute fracture or dislocation. Right humerus: 3 views obtained. At the distal humerus radial aspect there is a linear lucency seen on one of the images and not seen on the other images. This appears to extend outside of the cortex therefore likely artifactual in nature rather than from nondisplaced fracture no definite fracture elsewhere within the humerus. Right hip: 2 views obtained. No acute fracture or dislocation. Right femur: 4 views obtained. No acute fracture or dislocation. Degenerative changes of knee. Electronically signed by: Trent Olmos MD (03/12/2020 12:18 AM) [id number] DICTATED AND SIGNED BY: TRENT OLMOS MD DATE: 03/12/2017 CC: CASEY CANNON MD; JONNY SANCHEZ APRN ~ [place] [id number] IMAGING REPORT Signed PATIENT: HERNAN ANGEL I ACCOUNT: [id number] : 1960 LOCATION: ER AGE: 59 SEX: F EXAM STATUS: REG ER ORD. PHYSICIAN: CASEY CANNON MD REASON: fall PROCEDURE: CHEST AP ONLY INDICATION: Reason: fall / Spl. Instructions: / History: COMPARISON: November 09, 2019 FINDINGS: Single view of chest obtained. No definite focal airspace consolidation or pulmonary edema. Mild prominence of the upper mediastinum but likely exaggerated by portable technique. IMPRESSION: * No focal airspace consolidation or edema. Electronically signed by: Trent Olmos MD (03/12/2020 12:12 AM) [id number] DICTATED AND SIGNED BY: TRENT OLMOS MD DATE: 03/12/2011 CC: CASEY CANNON MD; JONNY SANCHEZ APRN ~ [address] [id number] IMAGING REPORT Signed PATIENT: HERNAN ANGEL I ACCOUNT: [id number] : 1960 LOCATION: ER AGE: 59 SEX: F EXAM STATUS: REG ER ORD. PHYSICIAN: CASEY CANNON MD REASON: fall PROCEDURE: CT CERVICAL SPINE WO CONTRAST INDICATION: Reason: fall / Spl. Instructions: / History: COMPARISON: None. TECHNIQUE: Axial CT images obtained through the cervical spine. One or more of the following individualized dose reduction techniques were utilized for this examination: 1. Automated exposure control; 2. Adjustment of the mA and/or kV according to patient size; 3. Use of iterative reconstruction technique. FINDINGS: Degenerative changes of the cervical spine. Osseous fusion changes at C5-6. There are some calcifications seen adjacent to the clivus. No definite acute fracture or dislocation. IMPRESSION: * Degenerative changes of the cervical spine with multilevel central canal and neural foraminal stenosis. No evidence of acute fracture or dislocation. Electronically signed by: Trent Olmos MD (03/11/2020 11:57 PM) [id number] DICTATED AND SIGNED BY: TRENT OLMOS MD DATE: 03/11/20 [id number] CC: CASEY CANNON MD; JONNY SANCHEZ APRN ~ Course & Med Decision Making: Course & Med Decision Making Pertinent Labs and Imaging studies reviewed. (See chart for details) Patient use ice packs as needed. Patient take meds as previous directed. For marked pain may take Percocet up to 4 times a day. Must follow-up. Return if any concerns. Patient amatory at time of discharge. Ported marked improvement of her discomfort. Impression: 1. Fall 2. Muscle strains and contusions [] Dragon Disclaimer: Christopher Disclaimer: This electronic medical record was generated, in whole or in part, using a voice recognition dictation system. Departure Departure: Disposition: HOME/RESIDENCE PRIOR TO ADM Condition: STABLE Referrals: JONNY SANCHEZ APRN (PCP) Scripts Oxycodone HCl/Acetaminophen (Percocet 5-325 mg Tablet) 1 Each Tablet 1 TAB PO PRN QID PRN for PAIN MDD 4 Tablet(s) for 30 Days, #30 TAB 0 Refills Prov: CASEY CANNON MD 03/12/20 Justification of Admission: Justification of Admission: Justification of Admission Dx: N/A Dragon Disclaimer This chart was dictated in whole or in part using Voice Recognition software in a busy, high-work load, and often noisy Emergency Department environment. It may contain unintended and wholly unrecognized errors or omissions. CASEY CANNON MD Mar 11, 2020 22:11
[2020-03-11] MEDS ORDERED: ORPHENADRINE CITRATE 60 MG/2 ML VIAL. IM ONE (22:15)
[2020-03-11] MEDS ORDERED: MORPHINE SULFATE 10 MG/ML SYRINGE. SQ ONE (22:15)
--- NOTE | 2020-03-12 | RAD ---
INDICATION: Reason: fall / Spl. Instructions: / History: COMPARISON: None. TECHNIQUE: Axial CT images obtained through the cervical spine. One or more of the following individualized dose reduction techniques were utilized for this examination: 1. Automated exposure control; 2. Adjustment of the mA and/or kV according to patient size; 3. Use of iterative reconstruction technique. FINDINGS: Degenerative changes of the cervical spine. Osseous fusion changes at C5-6. There are some calcifications seen adjacent to the clivus. No definite acute fracture or dislocation. IMPRESSION: * Degenerative changes of the cervical spine with multilevel central canal and neural foraminal stenosis. No evidence of acute fracture or dislocation. Electronically signed by: Janusz Jacobo MD (03/11/2020 11:57 PM) [id number]
--- NOTE | 2020-03-12 00:15 | RAD ---
INDICATION: Reason: fall / Spl. Instructions: / History: COMPARISON: November 09, 2019 FINDINGS: Single view of chest obtained. No definite focal airspace consolidation or pulmonary edema. Mild prominence of the upper mediastinum but likely exaggerated by portable technique. IMPRESSION: * No focal airspace consolidation or edema. Electronically signed by: Janusz Jacobo MD (03/12/2020 12:12 AM) [id number]
--- NOTE | 2020-03-12 00:21 | RAD ---
INDICATION: Reason: fall / Spl. Instructions: / History: COMPARISON: None. IMPRESSION: Right shoulder: 3 views obtained. No acute fracture or dislocation. Right humerus: 3 views obtained. At the distal humerus radial aspect there is a linear lucency seen on one of the images and not seen on the other images. This appears to extend outside of the cortex therefore likely artifactual in nature rather than from nondisplaced fracture no definite fracture elsewhere within the humerus. Right hip: 2 views obtained. No acute fracture or dislocation. Right femur: 4 views obtained. No acute fracture or dislocation. Degenerative changes of knee. Electronically signed by: Janusz Jacobo MD (03/12/2020 12:18 AM) [id number]
[2020-03-12] MEDS ORDERED: OXYC-325 PO (00:34)
== END 2020-03-12 00:45 | disposition home or self-care (01) ==
LOC: ER 22:01
DX: S16.1XXA Strain of muscle, fascia and tendon at neck level, initial encounter (principal); S46.811A Strain of other muscles, fascia and tendons at shoulder and upper arm level, right arm, initial encounter; S76.011A Strain of muscle, fascia and tendon of right hip, initial encounter; E11.9 Type 2 diabetes mellitus without complications; M79.7 Fibromyalgia; E78.00 Pure hypercholesterolemia, unspecified; Z86.718 Personal history of other venous thrombosis and embolism; Z88.1 Allergy status to other antibiotic agents; Z88.6 Allergy status to analgesic agent; Z88.8 Allergy status to other drugs, medicaments and biological substances; W06.XXXA Fall from bed, initial encounter; Y93.89 Activity, other specified; Y92.89 Other specified places as the place of occurrence of the external cause; Y99.8 Other external cause status
CPT/HCPCS: 71045; 72125; 73030; 73060; 73501; 73552; 96372; 99284; J2270; J2360

== ENCOUNTER 2020-03-14 10:15 | Emergency (ER) | payer MEDICARE, OTHER ==
[~2020-03-14] VITALS: Ht 167.6 cm; Wt 103.4 kg
[~2020-03-14 10:15] MED LIST changes: +OXYC-325 PO
--- NOTE | 2020-03-14 10:38 | PHYS DOC ---
Past History Past Medical History: Diabetes, DVT, Fibromyalgia, Glaucoma, High Cholesterol, HIV, Seizure Past Surgical History: Appendectomy, Hysterectomy, Other Additional Past Surgical Histo: BACK AND LEFT ACHILLES Smoking: Non-smoker Alcohol Use: None Drug Use: None General Adult EDM: Chief Complaint: WRIST PAIN HPI: HPI: Patient is a 59-year-old female presents with chief complaint of right upper extremity pain and swelling. Patient states she experienced mechanical fall 2020 1 days prior to arrival. She states that she has had right wrist pain since then. She notes some increased swelling in the area. States the pain seems to be worse over the dorsal aspect of her right arm. She has not seen any provider since her emergency department visit at that time. She was given a wrist splint. States x-rays were obtained were negative. She has been trying Tylenol at home with minimal relief. States she has an allergy to ibuprofen. She states she has been trying ice but it irritates her skin. Denies any chest pain or shortness of breath. Denies numbness or tingling. States the pain is aching in nature. Movement makes the pain worse. Nothing helps the pain. No other complaints. Review of Systems: Review of Systems: Constitutional: Denies fever or chills Eyes: Denies change in visual acuity HENT: Denies nasal congestion or sore throat Respiratory: Denies cough or shortness of breath Cardiovascular: Denies chest pain or edema GI: Denies abdominal pain, nausea, vomiting, bloody stools or diarrhea : Denies dysuria Musculoskeletal: Wrist pain Integument: Denies rash Neurologic: Denies headache, focal weakness or sensory changes Endocrine: Denies polyuria or polydipsia Lymphatic: Denies swollen glands Psychiatric: Denies depression or anxiety Heart Score: Risk Factors: Risk Factors: DM, Current or recent (<one month) smoker, HTN, HLP, family history of CAD, obesity. Risk Scores: Score 0 - 3: 2.5% MACE over next 6 weeks - Discharge Home Score 4 - 6: 20.3% MACE over next 6 weeks - Admit for Clinical Observation Score 7 - 10: 72.7% MACE over next 6 weeks - Early Invasive Strategies Allergies: Allergies: Allergies Coded Allergies Type Severity Reaction Last Updated Verified levofloxacin Allergy Severe seizure 06/29/19 Yes aspirin Allergy Mild 06/29/19 Yes naproxen Allergy Mild RASH 06/29/19 Yes tramadol Allergy Mild RASH 06/29/19 Yes I S O L A T I O N *CONTACT* Allergy Unknown 06/29/19 Yes ibuprofen Allergy Unknown 06/29/19 Yes Physical Exam: PE: Constitutional: Well developed, well nourished, no acute distress, non-toxic appearance. [] HENT: Normocephalic, atraumatic, bilateral external ears normal, oropharynx moist, no oral exudates, nose normal. [] Eyes: PERRLA, EOMI, conjunctiva normal, no discharge. [] Neck: Normal range of motion, no tenderness, supple, no stridor. [] Cardiovascular:Heart rate regular rhythm, no murmur [] Lungs & Thorax: Bilateral breath sounds clear to auscultation [] Abdomen: soft, no tenderness, no masses, no pulsatile masses. [] Skin: Warm, dry, no erythema, no rash. [] Back: No tenderness, no CVA tenderness. [] Extremities: R HAND/WRIST: Tenderness to palpation present at the dorsal aspect of the right wrist. Anatomic snuffbox without tenderness to palpation. Joints exhibit active range of motion without ligamentous laxity or instability. All tendons tested actively and against resistance without laxity. Subungual hematomas and nail injuries are absent. Radial pulse is present; +2/4. Capillary refill is less than 2 seconds. Sensation is intact in the median, ulnar and radial nerve distributions. Strength is intact in the median, ulnar and radial nerve distributions. Cyanosis, erythema, and pallor are absent. Neurologic: Alert and oriented X 3, normal motor function, normal sensory function, no focal deficits noted. [] Psychologic: Affect normal, judgement normal, mood normal. [] EKG: EKG: [] Radiology/Procedures: Radiology/Procedures: [address] [address] IMAGING REPORT Signed PATIENT: HERNAN ANGEL I ACCOUNT: [id number] : 1960 LOCATION: ER AGE: 59 SEX: F EXAM STATUS: REG ER ORD. PHYSICIAN: JACKLYN ROSS DO REASON: RUE swelling PROCEDURE: VENOUS UPPER EXTREMITY RIGHT Examination: Ultrasound right upper extremity venous duplex HISTORY: History of right upper extremity swelling COMPARISON: None available. TECHNIQUE: Grayscale, color Doppler 2-D, spectral waveform is in the right upper extremity venous system were performed FINDINGS: The visualized right internal jugular vein, subclavian vein, axillary vein, basilic, cephalic vein, brachial, radial, ulnar veins. IMPRESSION: No evidence of deep venous thrombosis right upper extremity venous system. Electronically signed by: Isaiah Calabrese MD (03/14/2020 11:27 AM) [id number] DICTATED AND SIGNED BY: ISAIAH CALABRESE MD DATE: 03/14/20 1127 CC: PCP,KESHA; JACKLYN ROSS DO ~ [] Course & Med Decision Making: Course & Med Decision Making Pertinent Labs and Imaging studies reviewed. (See chart for details) [] Patient is a 59-year-old female who presents with chief complaint of right upper extremity swelling and pain. She states she had a mechanical fall injury approximately 3 weeks prior to arrival. Initial vital signs unremarkable. Exam overall reassuring. Neurovascularly intact. No repeat injury noted per patient. Plain film imaging will be deferred. Given some increased swelling and history of blood clot right upper extremity ultrasound was obtained reveals no DVT. Her swelling could be due to continued inflammation. She was encouraged on RICE supportive care measures at home. I encouraged her continue to take her Tylenol given her history of allergies to NSAIDs. She was encouraged to continue to use her wrist splint. She was instructed to follow-up with her primary care physician in the next 2 to 3 days. Return precautions discussed and understood. Stable for discharge home. Christopher Disclaimer: Christopher Disclaimer: This electronic medical record was generated, in whole or in part, using a voice recognition dictation system. Departure Departure: Impression: Primary Impression: Right wrist pain Disposition: HOME/RESIDENCE PRIOR TO ADM Condition: STABLE Referrals: PCPKESHA (PCP) Patient Instructions: Wrist Pain, Wrist Pain, [id number] Additional Instructions: Please follow-up with your primary care physician in the next 2 to 3 days. Justification of Admission: Justification of Admission: Justification of Admission Dx: N/A JACKLYN ROSS DO Mar 14, 2020 10:38
--- NOTE | 2020-03-14 11:30 | RAD ---
Examination: Ultrasound right upper extremity venous duplex HISTORY: History of right upper extremity swelling COMPARISON: None available. TECHNIQUE: Grayscale, color Doppler 2-D, spectral waveform is in the right upper extremity venous system were performed FINDINGS: The visualized right internal jugular vein, subclavian vein, axillary vein, basilic, cephalic vein, brachial, radial, ulnar veins. IMPRESSION: No evidence of deep venous thrombosis right upper extremity venous system. Electronically signed by: Isaiah Iniguez MD (03/14/2020 11:27 AM) [id number]
[2020-03-14 12:03] VITALS: BP 103/73
== END 2020-03-14 12:00 | disposition home or self-care (01) ==
LOC: ER 10:15
DX: M25.531 Pain in right wrist (principal); R22.31 Localized swelling, mass and lump, right upper limb; E11.9 Type 2 diabetes mellitus without complications; M79.7 Fibromyalgia; E78.00 Pure hypercholesterolemia, unspecified; Z86.718 Personal history of other venous thrombosis and embolism; Z88.1 Allergy status to other antibiotic agents; Z88.6 Allergy status to analgesic agent; Z88.8 Allergy status to other drugs, medicaments and biological substances; W18.39XA Other fall on same level, initial encounter; Y93.89 Activity, other specified; Y92.89 Other specified places as the place of occurrence of the external cause; Y99.8 Other external cause status
CPT/HCPCS: 93971; 99284

== ENCOUNTER 2020-04-14 12:22 | Emergency (ER) | payer MEDICARE, OTHER ==
[~2020-04-14] VITALS: Ht 167.6 cm; Wt 103.4 kg
[2020-04-14 12:32] VITALS: BP 134/91
--- NOTE | 2020-04-14 12:56 | PHYS DOC ---
Past History Past Medical History: No Pertinent History Past Surgical History: Other Additional Past Surgical Histo: BACK AND LEFT ACHILLES Smoking: Non-smoker Alcohol Use: None Drug Use: None Adult General Chief Complaint Chief Complaint: WRIST PAIN HPI HPI Patient is a 59-year-old female with acute on chronic right wrist pain. Palpation make worse, nothing known makes better. She denies any known inciting event and/or trauma. She has full motor and sensory control of right upper extremity, no focal neurologic changes at this time. She reports Hexadite has worked in the past for this pain Review of Systems Review of Systems Fourteen body systems of review of systems have been reviewed. See HPI for pertinent positives and negative responses, other silver all other systems are negative, non-pertinent or non-contributory Allergies Allergies Allergies Coded Allergies Type Severity Reaction Last Updated Verified levofloxacin Allergy Severe seizure 06/29/19 Yes aspirin Allergy Mild 06/29/19 Yes naproxen Allergy Mild RASH 06/29/19 Yes tramadol Allergy Mild RASH 06/29/19 Yes I S O L A T I O N *CONTACT* Allergy Unknown 06/29/19 Yes ibuprofen Allergy Unknown 06/29/19 Yes Physical Exam Physical Exam Constitutional: Well developed, well nourished, no acute distress, non-toxic appearance. HENT: Normocephalic, atraumatic, bilateral external ears normal, oropharynx moist, no oral exudates, nose normal. Eyes: PERRLA, EOMI, conjunctiva normal, no discharge. Neck: Normal range of motion, no tenderness, supple, no stridor. Cardiovascular: Heart rate regular, sinus rhythm, no murmurs rubs or gallops Lungs & Thorax: Bilateral breath sounds clear to auscultation Abdomen: Bowel sounds normal, soft, no tenderness, no masses, no pulsatile masses. Nonsurgical abdomen, no peritoneal signs Skin: Warm, dry, no erythema, no rash. Back: No tenderness, no CVA tenderness. Extremities: No tenderness, no cyanosis, no clubbing, ROM intact, no edema. Negative Tinel's sign, negative Phalen and reverse Phalen's signs, capillary refill less than 3 seconds Right upper extremity: fingers: normal inspection, non tender, normal color, normal tendon function including FDS and FDP functions. Median, ulnar, and radial nerves intact Hand: normal inspection, non tender, normal color, tendon function intact Wrist: normal inspection, non tender, normal color, no joint swelling Forearm and elbow: normal inspection, mild diffuse tenderness to distal radius without any palpable abnormalities, normal color, no joint swelling Neurologic: Alert and oriented X 3, grossly normal motor & sensory function, no focal deficits noted. Psychologic: Affect normal, judgement normal, mood normal. Current Patient Data Vital Signs Vital Signs Date Time Temp Pulse Resp B/P (MAP) Pulse Ox O2 Delivery O2 Flow Rate FiO2 04/14/20 12:32 97.9 100 16 134/91 (105) 98 Room Air EKG EKG [] Radiology/Procedures Radiology/Procedures PROCEDURE: FOREARM RIGHT 2 views right forearm and 2 views right wrist dated 04/14/2020. No comparison available. CLINICAL INDICATION: Pain after injury. FINDINGS: 2 views right forearm show normal bony alignment. No displaced fracture. No acute osseous or articular abnormality. No periostitis or bone destruction. 2 views the right wrist show normal bony alignment. No displaced fracture. No acute osseous or articular abnormality. IMPRESSION: No acute findings. Electronically signed by: Tod Chisholm MD (04/14/2020 1:21 PM) [facility] Heart Score Risk Factors: Risk Factors: DM, Current or recent (<one month) smoker, HTN, HLP, family history of CAD, obesity. Risk Scores: Risk Factors: DM, Current or recent (<one month) smoker, HTN, HLP, family history of CAD, obesity. Course & Med Decision Making Course & Med Decision Making Pertinent Labs and Imaging studies reviewed. (See chart for details) Discussed most likely diagnosis of right wrist sprain. I do not feel this is emergent and/or requires further ER evaluation I discussed need for continued supportive care and close PCP follow-up with good understanding by patient, all questions and concerns addressed prior to ER dep arture in stable condition Dragon Disclaimer Dragon Disclaimer This electronic medical record was generated, in whole or in part, using a voice recognition dictation system. Departure Departure: Impression: Primary Impression: Right wrist pain Disposition: 01 DC HOME SELF CARE/HOMELESS Condition: STABLE Referrals: PCP,NO (PCP) Patient Instructions: RICE - Routine Care for Injuries, Wrist Exercises, Generic-SportsMed, Wrist Pain TROY COLLINS DO Apr 14, 2020 12:55
--- NOTE | 2020-04-14 13:24 | RAD ---
2 views right forearm and 2 views right wrist dated 04/14/2020. No comparison available. CLINICAL INDICATION: Pain after injury. FINDINGS: 2 views right forearm show normal bony alignment. No displaced fracture. No acute osseous or articular abnormality. No periostitis or bone destruction. 2 views the right wrist show normal bony alignment. No displaced fracture. No acute osseous or articular abnormality. IMPRESSION: No acute findings. Electronically signed by: Tod Chisholm MD (04/14/2020 1:21 PM) TRIXIE
== END 2020-04-14 13:38 | disposition home or self-care (01) ==
LOC: ER 12:22
DX: M25.531 Pain in right wrist (principal); M79.631 Pain in right forearm; Z98.890 Other specified postprocedural states; Z88.1 Allergy status to other antibiotic agents; Z88.8 Allergy status to other drugs, medicaments and biological substances
CPT/HCPCS: 73090; 73100; 99284

== ENCOUNTER 2020-04-28 12:26 | Emergency (ER) | payer MEDICARE, OTHER ==
[~2020-04-28] VITALS: Ht 167.6 cm; Wt 103.4 kg
[2020-04-28 12:26] VITALS: BP 123/78
[2020-04-28] MEDS ORDERED: IV NORMAL SALINE 1,000ML 1,000 ML IV ONE (13:15)
--- NOTE | 2020-04-28 13:22 | PHYS DOC ---
Past History Past Medical History: Diabetes, HIV, Seizure Additional Past Medical Histor: back pain, abd pain. Past Surgical History: Other Additional Past Surgical Histo: BACK AND LEFT ACHILLES Smoking: Non-smoker Alcohol Use: None Drug Use: None General Adult EDM: Chief Complaint: MULTIPLE COMPLAINTS HPI: HPI: 59-year-old female presents with right lower quadrant abdominal pain and "tingly sensation all over". This started about 2 hours ago while she was sitting on the couch. She denies any falls or trauma. The abdominal pain is a mild cramping sensation. She had an appendectomy many years ago. She is unsure about any other abdominal surgeries. She denies nausea, vomiting, diarrhea, constipation. No fever or chills at home. Review of Systems: Review of Systems: Constitutional: Denies fever or chills Eyes: Denies change in visual acuity HENT: Denies nasal congestion or sore throat Respiratory: Denies cough or shortness of breath Cardiovascular: Denies chest pain or edema GI: Right lower quadrant abdominal pain. Denies nausea, vomiting, bloody stools or diarrhea : Denies dysuria Musculoskeletal: Denies back pain or joint pain Integument: Denies rash Neurologic: Denies headache, focal weakness or sensory changes Endocrine: Denies polyuria or polydipsia Lymphatic: Denies swollen glands Psychiatric: Denies depression or anxiety Current Medications: Current Meds: Current Medications Medications (Trade) Dose Ordered Sig/Bhavik Start Time Stop Time Status Last Admin Dose Admin Sodium Chloride 1,000 ml @ 1,000 mls/hr 1X ONCE 04/28/20 13:15 04/28/20 14:14 UNV Allergies: Allergies: Allergies Coded Allergies Type Severity Reaction Last Updated Verified levofloxacin Allergy Severe seizure 06/29/19 Yes aspirin Allergy Mild 06/29/19 Yes naproxen Allergy Mild RASH 06/29/19 Yes tramadol Allergy Mild RASH 06/29/19 Yes I S O L A T I O N *CONTACT* Allergy Unknown 06/29/19 Yes ibuprofen Allergy Unknown 06/29/19 Yes Physical Exam: PE: Constitutional: Well developed, well nourished, obese, no acute distress, non- toxic appearance. [] HENT: Normocephalic, atraumatic, bilateral external ears normal, oropharynx moist, no oral exudates, nose normal. [] Eyes: PERRLA, EOMI, conjunctiva normal, no discharge. [] Neck: Normal range of motion, no tenderness, supple, no stridor. [] Cardiovascular: Heart rate regular rhythm, no murmur [] Lungs & Thorax: Bilateral breath sounds clear to auscultation [] Abdomen: Bowel sounds normal, soft, mild right lower quadrant tenderness, no masses, no pulsatile masses. [] Skin: Warm, dry, no erythema, no rash. [] Back: No tenderness, no CVA tenderness. [] Extremities: No tenderness, no cyanosis, no clubbing, ROM intact, no edema. [] Neurologic: Alert and oriented X 3, normal motor function, normal sensory function, no focal deficits noted. [] Psychologic: Affect normal, judgement normal, mood normal. [] Current Patient Data: Vital Signs: Vital Signs Date Time Temp Pulse Resp B/P (MAP) Pulse Ox O2 Delivery O2 Flow Rate FiO2 04/28/20 12:26 98.3 79 20 123/78 (93) 100 Room Air EKG: EKG: [] Radiology/Procedures: Radiology/Procedures: [] Impressions: PQRS Compliance Statement: One or more of the following individualized dose reduction techniques were utilized for this examination: 1. Automated exposure control 2. Adjustment of the mA and/or kV according to patient size 3. Use of iterative reconstruction technique CT ABDOMEN PELVIS WO CONTRAST Clinical Indication: Reason: RLQ abdominal pain Comparison: CT abdomen and pelvis without contrast, March 06, 2016. Technique: Helical CT imaging of the abdomen and pelvis is performed without IV or oral contrast. Patient does not have IV access. Findings: Evaluation of solid organs and bowel is limited without oral and IV contrast, decreasing sensitivity for detection of pathology. Minimal atelectasis or scarring in the lung bases. Cardiac size is normal. Surgical clips ventral abdominal wall near midline in midabdomen. Liver, gallbladder, spleen, pancreas, adrenal glands, and abdominal aorta are normal. Small cortical calcification lower pole right kidney. There is no hydronephrosis. No renal calculus. No obvious abnormality of the stomach. No dilated small bowel. The appendix is not seen, no secondary signs of appendicitis. No colon wall thickening. There are a view diverticula of the distal colon. No abdominal adenopathy or free fluid. Urinary bladder is normal. Hysterectomy. No pelvic free fluid. There is posterior fusion of L3-S1. There is spinous process fusion device at L2-L3. There is lucency along the bilateral S1 screws. There is interbody spacer of L3/L4. Disc space narrowing of L2/L3. IMPRESSION: 1. No acute abdominal or pelvic abnormality. No secondary signs of appendicitis. 2. Moderate colon stool volume, correlate for constipation. 3. Minimal distal colon diverticulosis. 4. Posterior fusion of L3-S1. There is lucency along the bilateral S1 screws which may indicate loosening. Electronically signed by: Panchito Lee MD (04/28/2020 2:00 PM) [id number] DICTATED AND SIGNED BY: PANCHITO LEE MD DATE: 04/28/20 1400 CC: GAGE MOON DO; PCP,NO ~ Heart Score: Risk Factors: Risk Factors: DM, Current or recent (<one month) smoker, HTN, HLP, family history of CAD, obesity. Risk Scores: Score 0 - 3: 2.5% MACE over next 6 weeks - Discharge Home Score 4 - 6: 20.3% MACE over next 6 weeks - Admit for Clinical Observation Score 7 - 10: 72.7% MACE over next 6 weeks - Early Invasive Strategies Course & Med Decision Making: Course & Med Decision Making Pertinent Labs and Imaging studies reviewed. (See chart for details) The patient's labs are unremarkable except for a mild anemia. It is similar to previous. Her CT scan shows a moderate stool burden, there is possible evidence of screw loosening in her posterior fusion. See official read for more details. I believe that her abdominal pain is likely due to her constipation. I have advised that she do a bowel cleanout at home with either high-dose Mi raLAX or magnesium citrate. She is stable for discharge at this time. [] Dragon Disclaimer: Dragon Disclaimer: This electronic medical record was generated, in whole or in part, using a voice recognition dictation system. Departure Departure: Impression: Primary Impression: Abdominal pain Additional Impressions: Constipation by delayed colonic transit Loosening of hardware in spine Disposition: 01 DC HOME SELF CARE/HOMELESS Condition: STABLE Referrals: PCP,NO (PCP) Patient Instructions: Constipation, Adult, [id number] Additional Instructions: Please contact your orthopedic surgeon and discuss your CT findings which showed you may have loosening of your spinal fusion hardware. Follow-up as necessary. GAGE MOON DO Apr 28, 2020 13:22
[2020-04-28 13:24] LABS: BASO % 1 % (0-3); EOS # 0.1 x10^3/uL (0.0-0.7); EOS % 2 % (0-3); HEMATOCRIT 35.4 % (36.0-47.0); HEMOGLOBIN 11.3 g/dL (12.0-15.5); LYMPH # 2.1 x10^3/uL (1.0-4.8); LYMPH % 32 % (24-48); MEAN CORPUSCULAR HEMOGLOBIN 29 pg (25-35); MEAN CORPUSCULAR HGB CONC 32 g/dL (31-37); MEAN CORPUSCULAR VOLUME 90 fL (79-100); MONO # 0.6 x10^3/uL (0.0-1.1); MONO % 9 % (0-9); NEUT # 3.6 x10^3uL (1.8-7.7); NEUT % 56 % (31-73); PLATELET COUNT 268 x10^3/uL (140-400); RED BLOOD COUNT 3.94 x10^6/uL (3.50-5.40); WHITE BLOOD COUNT 6.4 x10^3/uL (4.0-11.0)
[2020-04-28] MEDS ORDERED: IOHEXOL 300 MG/ML 75 ML VIAL. IV ONE (13:30)
--- NOTE | 2020-04-28 14:03 | RAD ---
PQRS Compliance Statement: One or more of the following individualized dose reduction techniques were utilized for this examination: 1. Automated exposure control 2. Adjustment of the mA and/or kV according to patient size 3. Use of iterative reconstruction technique CT ABDOMEN PELVIS WO CONTRAST Clinical Indication: Reason: RLQ abdominal pain Comparison: CT abdomen and pelvis without contrast, March 06, 2016. Technique: Helical CT imaging of the abdomen and pelvis is performed without IV or oral contrast. Patient does not have IV access. Findings: Evaluation of solid organs and bowel is limited without oral and IV contrast, decreasing sensitivity for detection of pathology. Minimal atelectasis or scarring in the lung bases. Cardiac size is normal. Surgical clips ventral abdominal wall near midline in midabdomen. Liver, gallbladder, spleen, pancreas, adrenal glands, and abdominal aorta are normal. Small cortical calcification lower pole right kidney. There is no hydronephrosis. No renal calculus. No obvious abnormality of the stomach. No dilated small bowel. The appendix is not seen, no secondary signs of appendicitis. No colon wall thickening. There are a view diverticula of the distal colon. No abdominal adenopathy or free fluid. Urinary bladder is normal. Hysterectomy. No pelvic free fluid. There is posterior fusion of L3-S1. There is spinous process fusion device at L2-L3. There is lucency along the bilateral S1 screws. There is interbody spacer of L3/L4. Disc space narrowing of L2/L3. IMPRESSION: 1. No acute abdominal or pelvic abnormality. No secondary signs of appendicitis. 2. Moderate colon stool volume, correlate for constipation. 3. Minimal distal colon diverticulosis. 4. Posterior fusion of L3-S1. There is lucency along the bilateral S1 screws which may indicate loosening. Electronically signed by: Panchito Jackman MD (04/28/2020 2:00 PM) [id number]
[2020-04-28 14:05] LABS: CALCIUM 9.3 mg/dL (8.5-10.1); CREATININE 1.1 mg/dL (0.6-1.0); GFR 61.9; POTASSIUM 3.6 mmol/L (3.5-5.1)
[2020-04-28 14:12] LABS: ALBUMIN 3.3 g/dL (3.4-5.0); ALBUMIN/GLOBULIN RATIO 0.8 (1.0-1.7); TOTAL BILIRUBIN 0.8 mg/dL (0.2-1.0); TOTAL PROTEIN 7.2 g/dL (6.4-8.2)
[2020-04-29] MEDS ORDERED: PSYL0.5215 PO (07:22)
== END 2020-04-28 14:35 | disposition home or self-care (01) ==
LOC: ER 12:26
DX: K59.01 Slow transit constipation (principal); M48.8X9 Other specified spondylopathies, site unspecified; R10.31 Right lower quadrant pain; E11.9 Type 2 diabetes mellitus without complications; Z88.1 Allergy status to other antibiotic agents; Z88.6 Allergy status to analgesic agent; Z88.8 Allergy status to other drugs, medicaments and biological substances
CPT/HCPCS: 36415; 74176; 80053; 85025; 99284

== ENCOUNTER 2020-04-29 06:46 | Emergency (ER) | payer MEDICARE, OTHER ==
[~2020-04-29] VITALS: Ht 167.6 cm; Wt 103.4 kg
[2020-04-29 07:09] VITALS: BP 118/97
[2020-04-29] MEDS ORDERED: SENNOSIDES 8.6 MG TABLET PO PRN (07:15)
[2020-04-29] MEDS ORDERED: PSYL0.5215 PO (07:22)
--- NOTE | 2020-04-29 07:23 | PHYS DOC ---
Past History Past Medical History: Diabetes, HIV, Seizure Additional Past Medical Histor: back pain, abd pain. Past Surgical History: Other Additional Past Surgical Histo: BACK AND LEFT ACHILLES Smoking: Non-smoker Alcohol Use: None Drug Use: None Adult General Chief Complaint Chief Complaint: CONSTIPATION HPI HPI Patient is a 59-year-old female who presents for constipation. She was seen ye sterday our facility and had a comprehensive work-up which showed grossly benign laboratory work and CT abdomen pelvis showing moderate constipation without any other surgical and/or emergent abnormalities. Patient's last "normal" bowel movement was approximately 48 hours ago. States she went home and drank x1 bottle milk of magnesium. She has not increased her p.o. water intake or fiber intake. She has been sedentary since ER visit yesterday. She has continued vague abdominal pain similar to presenting symptoms yesterday. Review of Systems Review of Systems Fourteen body systems of review of systems have been reviewed. See HPI for pertinent positives and negative responses, other silver all other systems are negative, non-pertinent or non-contributory Current Medications Current Medications Current Medications Medications (Trade) Dose Ordered Sig/Bhavik Start Time Stop Time Status Last Admin Dose Admin Sennosides (Senna) 17.2 mg PRN BID PRN 04/29/20 07:15 UNV Allergies Allergies Allergies Coded Allergies Type Severity Reaction Last Updated Verified levofloxacin Allergy Severe seizure 06/29/19 Yes aspirin Allergy Mild 06/29/19 Yes naproxen Allergy Mild RASH 06/29/19 Yes tramadol Allergy Mild RASH 06/29/19 Yes I S O L A T I O N *CONTACT* Allergy Unknown 06/29/19 Yes ibuprofen Allergy Unknown 06/29/19 Yes Physical Exam Physical Exam Constitutional: Well developed, well nourished, no acute distress, non-toxic appearance. HENT: Normocephalic, atraumatic, bilateral external ears normal, oropharynx moist, no oral exudates, nose normal. Eyes: PERRLA, EOMI, conjunctiva normal, no discharge. Neck: Normal range of motion, no tenderness, supple, no stridor. Cardiovascular: Heart rate regular, sinus rhythm, no murmurs rubs or gallops Lungs & Thorax: Bilateral breath sounds clear to auscultation Abdomen: Bowel sounds normal, soft, generalized tenderness without guarding or rebound, no masses, no pulsatile masses. Nonsurgical abdomen, no peritoneal signs. Rectal exam performed, unremarkable external appearance, sphincter intact, no rectal masses or findings consistent with impaction, no obvious abnormalities noted Skin: Warm, dry, no erythema, no rash. Back: No tenderness, no CVA tenderness. Extremities: No tenderness, no cyanosis, no clubbing, ROM intact, no edema. Neurologic: Alert and oriented X 3, grossly normal motor & sensory function, no focal deficits noted. Psychologic: Affect normal, judgement normal, mood normal. EKG EKG [] Radiology/Procedures Radiology/Procedures [] Heart Score Risk Factors: Risk Factors: DM, Current or recent (<one month) smoker, HTN, HLP, family history of CAD, obesity. Risk Scores: Risk Factors: DM, Current or recent (<one month) smoker, HTN, HLP, family history of CAD, obesity. Course & Med Decision Making Course & Med Decision Making Pertinent Labs and Imaging studies reviewed performed less than 24 hours ago. (See chart for details) ABCs nonconcerning, patient hemodynamically stable and ambulatory on arrival from EMS History and physical exam without any concerning abnormalities. Rectal exam unremarkable, no mass in rectal vault or findings consistent with impaction requiring disimpaction. Patient given x1 senna while in ER I discussed need for establishing with PCP in outpatient setting. Patient was given resources and advised to follow-up by end of week for continuity of care as she has had several ER visits that could have been seen in primary care setting I discussed possibility of repeating certain parts of ER intervention; however, I do not feel that repeat laboratory and/or radiographic or other imaging modalities are indicated at this time given patient's benign physical examination Continued supportive care advised. Discussed importance of adequate fluid intake of approximately 1.5 L/day, consuming approximately 10 g fiber per day and utilizing Metamucil 1 to 2 teaspoons 3 times daily in addition to daily exercise Patient understood care instructions provided but upset that her pain was not being addressed. I discussed that treating the underlying cause of her vague abdominal pain, her constipation, would solve her pain. Not the use of narcotics or other pain medications Strict return precautions were discussed with good understanding by patient, all questions and concerns addressed prior to ER departure in stable condition Christopher Disclaimer Dragon Disclaimer This electronic medical record was generated, in whole or in part, using a voice recognition dictation system. Departure Departure: Impression: Primary Impression: Constipation Disposition: 09 ADMITTED INPT THIS HOSP Condition: STABLE Referrals: PCP,NO (PCP) Patient Instructions: Constipation, Adult, Psyllium granules or powder for solution Additional Instructions: You have been evaluated in the Emergency Department today for abdominal pain. Your evaluation was not suggestive of any emergent condition requiring medical intervention at this time. However, some abdominal problems make take more time to appear. Therefore, it is important for you to watch for any new symptoms or worsening of your current condition. As discussed prior to ER departure, please use attached sheet to call local primary care physician and schedule outpatient follow-up in upcoming 5 days Ensure you are adequately hydrated, aim to drink approximately 1.5 L of water daily. Aim to consume approximately 10 g fiber daily. Please obtain Metamucil [id number] and take 1 to 2 teaspoons 3 times daily. Please increase your physical activity while at home Return to the Emergency Department if you experience worsening pain, persistent fevers greater than 100.4, recurrent vomiting, blood in vomit, blood in stool, dark tarry stool, chest pain, difficulty breathing, or any other concerning symptoms. Scripts Psyllium Husk (METAMUCIL) 0.52 Gm Capsule 1 CAP PO DAILY for CONSTIPATION for 30 Days, #30 CAP 0 Refills Prov: TROY COLLINS DO 04/29/20 TROY COLLINS DO Apr 29, 2020 07:23
== END 2020-04-29 07:55 | disposition admitted as inpatient to this hospital (09) ==
LOC: ER 06:46
DX: K59.00 Constipation, unspecified (principal); R10.84 Generalized abdominal pain; E11.9 Type 2 diabetes mellitus without complications; Z88.1 Allergy status to other antibiotic agents; Z88.6 Allergy status to analgesic agent; Z88.8 Allergy status to other drugs, medicaments and biological substances
CPT/HCPCS: 99283

== ENCOUNTER → 2020-05-05 | Emergency (ER) | payer MEDICARE, OTHER ==
[~2020-05-05] VITALS: Ht 167.6 cm; Wt 103.4 kg
[~2020-05-05] MED LIST changes: +HYOS0.1265 SL; +LACT10SO PO; +ONDA4TAB12 PO; +PSYL0.5215 PO
[2020-05-05 11:46] VITALS: BP 130/69
--- NOTE | 2020-05-05 12:36 | PHYS DOC ---
Past History Past Medical History: Diabetes, HIV, Seizure Additional Past Medical Histor: back pain, abd pain. Past Surgical History: Other Additional Past Surgical Histo: BACK AND LEFT ACHILLES Smoking: Non-smoker Alcohol Use: None Drug Use: None General Adult EDM: Chief Complaint: MULTIPLE COMPLAINTS HPI: HPI: Patient is a 59-year-old female well-known to the emergency department for chron ic complaints. Patient states that she has been having low abdominal pain since the eighth there was seen here at that time. She was diagnosed with constipation, return the next day. Patient drink bicitrate and had a bowel movement. Has been having intermittent bowel movement since during this last week. No urinary complaints no vomiting. Patient is unable to elaborate on the volume of stool. Review of Systems: Review of Systems: Constitutional: Denies fever or chills Eyes: Denies change in visual acuity HENT: Denies nasal congestion or sore throat Respiratory: Denies cough or shortness of breath Cardiovascular: Denies chest pain or edema GI: Denies abdominal pain, nausea, vomiting, bloody stools or diarrhea : Denies dysuria Musculoskeletal: Denies back pain or joint pain Integument: Denies rash Neurologic: Denies headache, focal weakness or sensory changes Endocrine: Denies polyuria or polydipsia Lymphatic: Denies swollen glands Psychiatric: Denies depression or anxiety Allergies: Allergies: Allergies Coded Allergies Type Severity Reaction Last Updated Verified levofloxacin Allergy Severe seizure 06/29/19 Yes aspirin Allergy Mild 06/29/19 Yes naproxen Allergy Mild RASH 06/29/19 Yes tramadol Allergy Mild RASH 06/29/19 Yes I S O L A T I O N *CONTACT* Allergy Unknown 06/29/19 Yes ibuprofen Allergy Unknown 06/29/19 Yes Physical Exam: PE: Constitutional: Well developed, well nourished, no acute distress, non-toxic greg earance. [] HENT: Normocephalic, atraumatic, bilateral external ears normal, oropharynx moist, no oral exudates, nose normal. [] Eyes: PERRLA, EOMI, conjunctiva normal, no discharge. [] Neck: Normal range of motion, no tenderness, supple, no stridor. [] Cardiovascular:Heart rate regular rhythm, no murmur [] Lungs & Thorax: Bilateral breath sounds clear to auscultation [] Abdomen: Bowel sounds normal, soft, no tenderness, no masses, no pulsatile masses. [] Skin: Warm, dry, no erythema, no rash. [] Back: No tenderness, no CVA tenderness. [] Extremities: No tenderness, no cyanosis, no clubbing, ROM intact, no edema. [] Neurologic: Alert and oriented X 3, normal motor function, normal sensory function, no focal deficits noted. [] Psychologic: Affect normal, judgement normal, mood normal. [] Current Patient Data: Vital Signs: Vital Signs Date Time Temp Pulse Resp B/P (MAP) Pulse Ox O2 Delivery O2 Flow Rate FiO2 05/05/20 11:46 98.3 79 16 130/69 (89) 100 Room Air EKG: EKG: [] Radiology/Procedures: Radiology/Procedures: PROCEDURE: ACUTE ABDOMEN SERIES STUDY DATE: 05/05/2020 CLINICAL INDICATION / HISTORY: Reason: low abd pain / Spl. Instructions: / History: . TECHNIQUE: Upright PA chest, supine and upright films of the abdomen were obtained. COMPARISON: Abdomen pelvis CT without IV contrast of 04/28/2020 FINDINGS: AP view the chest reveals the lungs to be clear. Cardiac and mediastinal silhouette are unremarkable. No free air is identified below the diaphragms. Supine and decubitus views of the abdomen reveal no dilated loops of bowel or air-fluid levels. No organomegaly is present. No destructive osseous lesions. Lumbar spinal fusion hardware is similar to prior is redemonstrated. IMPRESSION: No radiographic evidence for bowel obstruction. [] Heart Score: Risk Factors: Risk Factors: DM, Current or recent (<one month) smoker, HTN, HLP, family history of CAD, obesity. Risk Scores: Score 0 - 3: 2.5% MACE over next 6 weeks - Discharge Home Score 4 - 6: 20.3% MACE over next 6 weeks - Admit for Clinical Observation Score 7 - 10: 72.7% MACE over next 6 weeks - Early Invasive Strategies Course & Med Decision Making: Course & Med Decision Making On exam, patient has had extensive work-up for the same complaint within the last week. No new features that would warrant CT evaluation. X-rays show a large stool burden in the lower abdomen, discussed with patient she will need to increase her bowel regimen to include Fleet enemas and glycerin suppositories [] Dragon Disclaimer: Dragon Disclaimer: This electronic medical record was generated, in whole or in part, using a voice recognition dictation system. Departure Departure: Impression: Primary Impression: Constipation Disposition: 09 ADMITTED INPT THIS HOSP Condition: STABLE Referrals: [facility] Patient Instructions: Mineral Oil rectal enema Additional Instructions: Pharmacy or grocery store obtain a Fleet enema and glycerin suppositories. DIDI LOGAN MD May 05, 2020 12:36
--- NOTE | 2020-05-05 13:36 | RAD ---
PROCEDURE: ACUTE ABDOMEN SERIES STUDY DATE: 05/05/2020 CLINICAL INDICATION / HISTORY: Reason: low abd pain / Spl. Instructions: / History: . TECHNIQUE: Upright PA chest, supine and upright films of the abdomen were obtained. COMPARISON: Abdomen pelvis CT without IV contrast of 04/28/2020 FINDINGS: AP view the chest reveals the lungs to be clear. Cardiac and mediastinal silhouette are unremarkable. No free air is identified below the diaphragms. Supine and decubitus views of the abdomen reveal no dilated loops of bowel or air-fluid levels. No organomegaly is present. No destructive osseous lesions. Lumbar spinal fusion hardware is similar to prior is redemonstrated. IMPRESSION: No radiographic evidence for bowel obstruction. Electronically signed by: Ericka Kunz MD (05/05/2020 1:33 PM) [id number]
== END ==
LOC: ER 11:36
DX: K59.00 Constipation, unspecified (principal); R10.30 Lower abdominal pain, unspecified; E11.9 Type 2 diabetes mellitus without complications; Z98.890 Other specified postprocedural states; Z88.1 Allergy status to other antibiotic agents; Z88.6 Allergy status to analgesic agent; Z88.8 Allergy status to other drugs, medicaments and biological substances
CPT/HCPCS: 74022; 99284

== ENCOUNTER 2020-05-06 10:38 | Emergency (ER) | payer MEDICARE, OTHER ==
[~2020-05-06] VITALS: Ht 167.6 cm; Wt 110.3 kg
[~2020-05-06 10:38] MED LIST changes: -HYOS0.1265 SL; -LACT10SO PO; -ONDA4TAB12 PO
--- NOTE | 2020-05-06 10:55 | PHYS DOC ---
Past History Past Medical History: Diabetes, HIV, Seizure Additional Past Medical Histor: back pain, abd pain. Past Surgical History: Other Additional Past Surgical Histo: BACK AND LEFT ACHILLES Smoking: Non-smoker Alcohol Use: None Drug Use: None General Adult EDM: Chief Complaint: ABDOMINAL PAIN HPI: HPI: Patient is a 39-year-old female arrives via EMS with chief complaint of constipation. Patient's been here multiple times for last week for similar complaints. Patient had a negative CT and x-rays. Patient was seen here yesterday and was given a suppository and enema with not significant relief. Patient did have a small bowel movement within the last 24 hours. Patient denies any nausea vomiting, fever, chills, cough or shortness of breath. Patient states she is having abdominal cramping that is moderate in severity radiates to her legs is worse with palpation and movement. Review of Systems: Review of Systems: Constitutional: Denies fever or chills Eyes: Denies change in visual acuity HENT: Denies nasal congestion or sore throat Respiratory: Denies cough or shortness of breath Cardiovascular: Denies chest pain or edema GI: Complains abdominal pain but no nausea vomiting diarrhea or blood in stool. Patient complains of constipation : Denies dysuria Musculoskeletal: Denies back pain or joint pain Integument: Denies rash Neurologic: Denies headache, focal weakness or sensory changes Endocrine: Denies polyuria or polydipsia Lymphatic: Denies swollen glands Psychiatric: Denies depression or anxiety Allergies: Allergies: Allergies Coded Allergies Type Severity Reaction Last Updated Verified levofloxacin Allergy Severe seizure 06/29/19 Yes aspirin Allergy Mild 06/29/19 Yes naproxen Allergy Mild RASH 06/29/19 Yes tramadol Allergy Mild RASH 06/29/19 Yes I S O L A T I O N *CONTACT* Allergy Unknown 06/29/19 Yes ibuprofen Allergy Unknown 06/29/19 Yes Physical Exam: PE: Constitutional: Well developed, well nourished, no acute distress, non-toxic appearance. [] HENT: Normocephalic, atraumatic, bilateral external ears normal, no trismus nose normal. [] Eyes: PERRLA, EOMI, conjunctiva normal, no discharge. [] Neck: Normal range of motion, no tenderness, supple, no stridor. [] Cardiovascular:Heart rate regular rhythm, peripheral pulses are intact cap refill is brisk Lungs & Thorax: Bilateral breath sounds clear, no respiratory distress Abdomen: soft, diffusely tender without guarding or rebound, no masses, no pulsatile masses. [] Skin: Warm, dry, no erythema, no rash. [] Back: No tenderness, no CVA tenderness. [] Extremities: No tenderness, no cyanosis, no clubbing, ROM intact, no edema. [] Neurologic: Alert and oriented X 3, normal motor function, normal sensory function, no focal deficits noted. [] Psychologic: Affect normal, judgement normal, mood normal. [] Current Patient Data: Labs: Laboratory Tests Test 05/06/20 11:03 05/06/20 11:14 Urine Collection Type Void Urine Color Yellow Urine Clarity Clear Urine pH 5.5 Urine Specific Crosby 1.025 Urine Protein Neg Urine Glucose (UA) Neg mg/dL Urine Ketones (Stick) Neg mg/dL Urine Blood Neg Urine Nitrite Neg Urine Bilirubin Neg Urine Urobilinogen Dipstick 0.2 mg/dL Urine Leukocyte Esterase Neg Urine RBC 1-2 /HPF Urine WBC 1-4 /HPF Urine Squamous Epithelial Cells Few /LPF Urine Bacteria Few /HPF White Blood Count 6.2 x10^3/uL Red Blood Count 4.31 x10^6/uL Hemoglobin 12.6 g/dL Hematocrit 38.9 % Mean Corpuscular Volume 90 fL Mean Corpuscular Hemoglobin 29 pg Mean Corpuscular Hemoglobin Concent 32 g/dL Red Cell Distribution Width 14.3 % Platelet Count 287 x10^3/uL Neutrophils (%) (Auto) 55 % Lymphocytes (%) (Auto) 35 % Monocytes (%) (Auto) 8 % Eosinophils (%) (Auto) 2 % Basophils (%) (Auto) 1 % Neutrophils # (Auto) 3.4 x10^3uL Lymphocytes # (Auto) 2.2 x10^3/uL Monocytes # (Auto) 0.5 x10^3/uL Eosinophils # (Auto) 0.1 x10^3/uL Basophils # (Auto) 0.0 x10^3/uL Sodium Level 140 mmol/L Potassium Level 4.4 mmol/L Chloride Level 103 mmol/L Carbon Dioxide Level 30 mmol/L Anion Gap 7 Blood Urea Nitrogen 21 mg/dL Creatinine 1.2 mg/dL Estimated GFR (Cockcroft-Gault) 56.0 BUN/Creatinine Ratio 18 Glucose Level 90 mg/dL Calcium Level 9.4 mg/dL Total Bilirubin 1.4 mg/dL Aspartate Amino Transf (AST/SGOT) 13 U/L Alanine Aminotransferase (ALT/SGPT) 16 U/L Alkaline Phosphatase 161 U/L Total Protein 7.5 g/dL Albumin 3.8 g/dL Albumin/Globulin Ratio 1.0 Lipase 47 U/L Current Medications Medications (Trade) Dose Ordered Sig/Bhavik Route PRN Reason Start Time Stop Time Status Last Admin Dose Admin Dicyclomine HCl (Bentyl) 20 mg 1X ONCE IM 05/06/20 11:00 05/06/20 11:01 DC 05/06/20 11:19 Vital Signs: Vital Signs Date Time Temp Pulse Resp B/P (MAP) Pulse Ox O2 Delivery O2 Flow Rate FiO2 05/06/20 11:34 85 20 118/73 (88) 98 Room Air 05/06/20 10:40 97.7 EKG: EKG: [] Radiology/Procedures: Radiology/Procedures: [][place] [address] IMAGING REPORT Signed PATIENT: HERNAN ANGEL I ACCOUNT: [id number] : 1960 LOCATION: ER AGE: 59 SEX: F EXAM STATUS: REG ER ORD. PHYSICIAN: RICO RENDON MD REASON: CONSTIPATION PROCEDURE: ACUTE ABDOMEN SERIES Three-view acute abdominal series. HISTORY: Constipation 3 views were taken for an acute abdominal series. Heart is normal in size. There is no pleural effusion. Lungs are free of confluent infiltrates. There is no free air on the upright chest x-ray. There are no abnormal air-fluid levels on the upright view the abdomen. Patient previous lumbar fusion. Bowel pattern is normal without bowel obstruction. There is only mild stool in the colon. There is not evidence of a fecal impaction. There is lucency about the pedicle screws in the sacrum which can be seen with loosening or motion or less likely infection. IMPRESSION: 1. No acute chest disease. 2. No bowel obstruction or acute finding in the abdomen. 3. There is not an abnormal amount of stool in the colon. 4. Lucency about the pedicle screws in this sacrum. Electronically signed by: Rodrigo Farrar MD (05/06/2020 12:22 PM) [id number] DICTATED AND SIGNED BY: RODRIGO FARRAR MD DATE: 05/06/20 1222 CC: RICO RENDON MD; PCP,NO ~ Heart Score: Risk Factors: Risk Factors: DM, Current or recent (<one month) smoker, HTN, HLP, family histo ry of CAD, obesity. Risk Scores: Score 0 - 3: 2.5% MACE over next 6 weeks - Discharge Home Score 4 - 6: 20.3% MACE over next 6 weeks - Admit for Clinical Observation Score 7 - 10: 72.7% MACE over next 6 weeks - Early Invasive Strategies Course & Med Decision Making: Course & Med Decision Making Pertinent Labs and Imaging studies reviewed. (See chart for details) [] 59-year-old female presents with recurrent abdominal pain. Patient had multiple visits for the same in the past week. Patient had a abdominal CT which was unremarkable within the last 10 days. Patient's abdominal exam is soft and nonsurgical. Work-up is reassuring. Patient had no evidence of bowel obstruction. Labs reassuring. Doubt surgical emergency. Patient will give prescription for Levsin and Zofran and lactulose and referral to GI doctor. Christopher Disclaimer: Dragon Disclaimer: This electronic medical record was generated, in whole or in part, using a voice recognition dictation system. Departure Departure: Impression: Primary Impression: Abdominal pain Additional Impression: Constipation Disposition: 01 DC HOME SELF CARE/HOMELESS Condition: STABLE Referrals: PCP,NO (PCP) RICO SALAZAR MD 2-3 DAYS Patient Instructions: Constipation, Adult Additional Instructions: EMERGENCY DEPARTMENT GENERAL DISCHARGE INSTRUCTIONS THANK YOU for coming to [facility] Emergency Department (ED) today and trusting us with your care. We trust that you had a positive experience in our Emergency Department. If you wish to speak to the department Management you can contact the supervisor denture department at . YOUR FOLLOW UP INSTRUCTIONS ARE FOLLOWS: Do you have a private doctor? If you do not have a private doctor, please ask for a resource list of physicians or clinics that may be able to assist you with follow up care. The Emergency Physician has interpreted your x-rays. The X-ray specialist will also review them. If there is a change in the findings you will be notified in 48 hours when at all possible. A lab test or lab culture may have been done, your results will be reviewed and you will be notified if you need a change in treatment. ADDITIONAL INSTRUCTIONS AND INFORMATION Your care today has been supervised by a physician who is specially trained in emergency care. Many problems require more than one evaluation for a complete diagnosis an d treatment. We recommend that you schedule your follow up appointment as recommended to ensure complete treatment of your illness or injury. If you are unable to obtain follow up care and continue to have a problem, or if your condition worsens we recommend that you return to the ED. We are not able to safely determine your condition over the phone nor are we able to give sound medical advice over the phone. For these safety reasons, if you call for medical advice we will ask you to come to the ED for further evaluation If you have any questions regarding these discharge instructions please call the ED at . SAFETY INFORMATION In the interest of safety, wellness, and injury prevention; we encourage you to wear your seatbelt, if you smoke; quit smoking, and we encourage your family to use protective helmet for bicycling and other sporting events that present an increased risk for head injury. IF YOUR SYMPTOMS WORSEN OR NEW SYMPTOMS DEVELOP, OR YOU HAVE CONCERNS ABOUT YOUR CONDITION; OR IF YOUR CONDITION WORSENS WHILE YOU ARE WAITING FOR YOUR FOLLOW UP APPOINTMENT; EITHER CONTACT YOUR PRIMARY CARE DOCTOR, THE PHYSICIAN WHOSE NAME AND NUMBER YOU WERE GIVEN, OR RETURN TO THE ED IMMEDIATELY. Scripts Ondansetron (ONDANSETRON ODT) 4 Mg Tab.rapdis 1 TAB PO PRN Q6-8HRS PRN for NAUSEA, #12 TAB Prov: RICO RENDON MD 05/06/20 Hyoscyamine Sulfate (LEVSIN-SL) 0.125 Mg Tab.subl 0.125 MG SL Q4-6HRS PRN for ABDOMINAL PAIN for 5 Days, #20 TAB Prov: RICO RENDON MD 05/06/20 Lactulose (LACTULOSE) 10 Gm/15 Ml Solution 30 ML PO [id number] for CONSTIPATION, #900 ML 10 Refills Prov: RICO RENDON MD 05/06/20 RICO RENDON MD May 06, 2020 10:55
[2020-05-06] MEDS ORDERED: DICYCLOMINE 20 MG/2 ML VIAL. IM ONE (11:00)
[2020-05-06 12:17] LABS: BASO % 1 % (0-3); EOS # 0.1 x10^3/uL (0.0-0.7); EOS % 2 % (0-3); HEMATOCRIT 38.9 % (36.0-47.0); HEMOGLOBIN 12.6 g/dL (12.0-15.5); LYMPH # 2.2 x10^3/uL (1.0-4.8); LYMPH % 35 % (24-48); MEAN CORPUSCULAR HEMOGLOBIN 29 pg (25-35); MEAN CORPUSCULAR HGB CONC 32 g/dL (31-37); MEAN CORPUSCULAR VOLUME 90 fL (79-100); MONO # 0.5 x10^3/uL (0.0-1.1); MONO % 8 % (0-9); NEUT # 3.4 x10^3uL (1.8-7.7); NEUT % 55 % (31-73); PLATELET COUNT 287 x10^3/uL (140-400); RED BLOOD COUNT 4.31 x10^6/uL (3.50-5.40); RED CELL DISTRIBUTION WIDTH 14.3 % (11.5-14.5); WHITE BLOOD COUNT 6.2 x10^3/uL (4.0-11.0)
[2020-05-06 12:22] LABS: BACTERIA,URINE FEW /HPF (0-FEW); BILIRUBIN,URINE NEG (NEG); CLARITY,URINE CLEAR; COLOR,URINE YELLOW; GLUCOSE,URINE NEG (NEG); NITRITE,URINE NEG (NEG); SQUAMOUS EPITHELIAL CELL,UR FEW /LPF; UROBILINOGEN,URINE 0.2 mg/dL (0.2 mg/dL)
[2020-05-06 12:25] LABS: CALCIUM 9.4 mg/dL (8.5-10.1); CREATININE 1.2 mg/dL (0.6-1.0); POTASSIUM 4.4 mmol/L (3.5-5.1)
--- NOTE | 2020-05-06 12:25 | RAD ---
Three-view acute abdominal series. HISTORY: Constipation 3 views were taken for an acute abdominal series. Heart is normal in size. There is no pleural effusion. Lungs are free of confluent infiltrates. There is no free air on the upright chest x-ray. There are no abnormal air-fluid levels on the upright view the abdomen. Patient previous lumbar fusion. Bowel pattern is normal without bowel obstruction. There is only mild stool in the colon. There is not evidence of a fecal impaction. There is lucency about the pedicle screws in the sacrum which can be seen with loosening or motion or less likely infection. IMPRESSION: 1. No acute chest disease. 2. No bowel obstruction or acute finding in the abdomen. 3. There is not an abnormal amount of stool in the colon. 4. Lucency about the pedicle screws in this sacrum. Electronically signed by: Rodrigo Farrar MD (05/06/2020 12:22 PM) [id number]
[2020-05-06 12:30] LABS: ALBUMIN 3.8 g/dL (3.4-5.0); TOTAL BILIRUBIN 1.4 mg/dL (0.2-1.0); TOTAL PROTEIN 7.5 g/dL (6.4-8.2)
[2020-05-06] MEDS ORDERED: ONDA4TAB12 PO (12:41)
[2020-05-06] MEDS ORDERED: LACT10SO PO (12:41)
[2020-05-06] MEDS ORDERED: HYOS0.1265 SL (12:41)
[2020-05-06 12:57] VITALS: BP 108/55
== END 2020-05-06 12:57 | disposition home or self-care (01) ==
LOC: ER 10:38
DX: K59.00 Constipation, unspecified (principal); R10.84 Generalized abdominal pain; E11.9 Type 2 diabetes mellitus without complications; Z88.1 Allergy status to other antibiotic agents; Z88.6 Allergy status to analgesic agent; Z88.8 Allergy status to other drugs, medicaments and biological substances
CPT/HCPCS: 36415; 74022; 80053; 81001; 83690; 85025; 96372; 99284; J0500

== ENCOUNTER → 2020-05-08 | Outpatient (CLI) | payer MEDICARE, OTHER ==
[2020-05-06 12:57] VITALS: BP 108/55
[~2020-05-08] MED LIST changes: +HYOS0.1265 SL; +LACT10SO PO; +ONDA4TAB12 PO
--- NOTE | 2020-05-08 15:05 | RAD ---
AP and Lateral Views of the Chest 05/08/2020 12:00 AM Indication: Reason: DYSPNEA FOR AWHILE / Spl. Instructions: / History: Comparison: Abdominal series May 06, 2020 Findings: There is no acute focal consolidation or infiltrate identified. The cardiomediastinal silhouette is within normal limits. There is no evidence of pneumothorax or pleural effusion. No acute osseous abnormalities are identified. Impression: No evidence of acute cardiopulmonary process. Electronically signed by: Cayden Wallace MD (05/08/2020 3:02 PM) [id number]
== END ==
LOC: RAD 14:27
PROVIDERS: ATTEND Physician Assistant
DX: R06.00 Dyspnea, unspecified (principal)
CPT/HCPCS: 71046

== ENCOUNTER 2020-05-11 21:42 | Emergency (ER) | payer MEDICARE, OTHER ==
[~2020-05-11] VITALS: Ht 167.6 cm; Wt 113.2 kg
--- NOTE | 2020-05-11 21:50 | PHYS DOC ---
Past History Past Medical History: Diabetes, HIV, Seizure, Other Additional Past Medical Histor: back pain, abd pain. Past Surgical History: Appendectomy, Other Additional Past Surgical Histo: BACK AND LEFT ACHILLES Smoking: Non-smoker Alcohol Use: None Drug Use: None Adult General HPI HPI Patient is a 59-year-old female who presents via EMS for seizure like activity. Patient was home when she reportedly started having seizure-like activity that was observed by patient's uncle. This activity lasted for approximately 10 minutes and described as generalized bilateral upper extremity and lower extremity body jerking until EMS was called. Total activity length was approximately 20 minutes and resolved by time EMS got to scene. On arrival, patient postictal but alert awake and oriented x3, hemodynamically stable, and complaining of mild headache only. She has known seizure disorder and has been taking Keppra as scheduled without any compliance issues, reports last seizure was approximately 5 months ago. There was no trauma, no recent infection or febrile illness, no changes in medication, no loss of bladder or bowel function or tongue biting during episode. Patient reports not losing consciousness and remembers entire event Review of Systems Review of Systems Fourteen body systems of review of systems have been reviewed. See HPI for pertinent positives and negative responses, other silver all other systems are negative, non-pertinent or non-contributory Allergies Allergies Allergies Coded Allergies Type Severity Reaction Last Updated Verified levofloxacin Allergy Severe seizure 06/29/19 Yes aspirin Allergy Mild 06/29/19 Yes naproxen Allergy Mild RASH 06/29/19 Yes tramadol Allergy Mild RASH 06/29/19 Yes I S O L A T I O N *CONTACT* Allergy Unknown 06/29/19 Yes ibuprofen Allergy Unknown 06/29/19 Yes Physical Exam Physical Exam Constitutional: Pt is oriented to person, place, and time. Pt appears well- developed and well-nourished. HENT: Head: Normocephalic and atraumatic. Mouth/Throat: Oropharynx is clear and moist. No hematomas or lacerations or abrasions to face or scalp OP clear, no blood, no malocclusion, dentition intact Nares clear, no nasal septal hematoma TMs clear, no hemotympanum Midface stable Eyes: Conjunctivae and EOM are normal. Pupils are equal, round, and reactive to light. Neck: C-spine midline nontender, no step-offs Cardiovascular: Normal rate, regular rhythm and normal heart sounds. Pulmonary/Chest: Effort normal and breath sounds normal. No respiratory distress. No wheezes. CTA bilaterally Abdominal: Soft. Bowel sounds are normal. Pt exhibits no distension. There is no tenderness. Musculoskeletal: No bony tenderness to extremities, no deformities, full ROM extremities Chest wall stable Pelvis stable and non-tender No vertebral TTP and spine without stepoffs Neurological: Pt is alert and oriented to person, place, and time. Moving all extremities willfully, able to wiggle all fingers and toes Alert and oriented x 3 Sensation grossly intact Skin: Skin is warm and dry. No abrasions, no lacerations Psychiatric: Behavior is appropriate for situation Nursing note and vitals reviewed. Current Patient Data Vital Signs Vital Signs Date Time Temp Pulse Resp B/P (MAP) Pulse Ox O2 Delivery O2 Flow Rate FiO2 05/11/20 21:52 98.2 81 18 126/84 (98) 98 Room Air Lab Results Laboratory Tests Test 05/11/20 22:15 05/11/20 22:19 White Blood Count 8.5 x10^3/uL (4.0-11.0) Red Blood Count 3.99 x10^6/uL (3.50-5.40) Hemoglobin 11.6 g/dL (12.0-15.5) Hematocrit 36.3 % (36.0-47.0) Mean Corpuscular Volume 91 fL (79-100) Mean Corpuscular Hemoglobin 29 pg (25-35) Mean Corpuscular Hemoglobin Concent 32 g/dL (31-37) Red Cell Distribution Width 14.0 % (11.5-14.5) Platelet Count 259 x10^3/uL (140-400) Neutrophils (%) (Auto) 57 % (31-73) Lymphocytes (%) (Auto) 34 % (24-48) Monocytes (%) (Auto) 7 % (0-9) Eosinophils (%) (Auto) 1 % (0-3) Basophils (%) (Auto) 1 % (0-3) Neutrophils # (Auto) 4.9 x10^3uL (1.8-7.7) Lymphocytes # (Auto) 2.9 x10^3/uL (1.0-4.8) Monocytes # (Auto) 0.6 x10^3/uL (0.0-1.1) Eosinophils # (Auto) 0.1 x10^3/uL (0.0-0.7) Basophils # (Auto) 0.0 x10^3/uL (0.0-0.2) Sodium Level 138 mmol/L (136-145) Potassium Level 3.0 mmol/L (3.5-5.1) Chloride Level 102 mmol/L (98-107) Carbon Dioxide Level 27 mmol/L (21-32) Anion Gap 9 (6-14) Blood Urea Nitrogen 16 mg/dL (7-20) Creatinine 1.2 mg/dL (0.6-1.0) Estimated GFR (Cockcroft-Gault) 56.0 BUN/Creatinine Ratio 13 (6-20) Glucose Level 116 mg/dL (70-99) Lactic Acid Level 1.5 mmol/L (0.4-2.0) Calcium Level 9.1 mg/dL (8.5-10.1) Total Bilirubin 1.5 mg/dL (0.2-1.0) Aspartate Amino Transf (AST/SGOT) 12 U/L (15-37) Alanine Aminotransferase (ALT/SGPT) 19 U/L (14-59) Alkaline Phosphatase 146 U/L (46-116) Total Protein 7.2 g/dL (6.4-8.2) Albumin 3.4 g/dL (3.4-5.0) Albumin/Globulin Ratio 0.9 (1.0-1.7) Glucose (Fingerstick) 111 mg/dL (70-99) EKG EKG EKG ordered and interpreted by myself at 2201 hrs. as sinus rhythm at 79 bpm, prolonged ID interval at 220 otherwise unremarkable intervals, no axis deviation, no ischemic findings, no STEMI Radiology/Procedures Radiology/Procedures [] Heart Score HEART Score for Chest Pain: HEART Score for Chest Pain Response (Comments) Value History Slighlty/Non-Suspicious 0 ECG Normal 0 Age >45 - < 65 1 Risk Factors >3 Risk Factors or Hx CAD 2 Troponin < Normal Limit 0 Total 3 Risk Factors: Risk Factors: DM, Current or recent (<one month) smoker, HTN, HLP, family history of CAD, obesity. Risk Scores: Risk Factors: DM, Current or recent (<one month) smoker, HTN, HLP, family history of CAD, obesity. Course & Med Decision Making Course & Med Decision Making Pertinent Labs and Imaging studies reviewed. (See chart for details) Discussed most likely diagnosis of seizure-like activity and hypokalemia for which she was administered 40 mEq KDur. Patient observed in ER after comprehensive work-up that was nonconcerning for any acute/emergent/surgical pathology. Patient has no findings consistent with seizure on physical exam such as loss of bladder control and/or tongue trauma. In addition, patient repo rts having full consciousness and remembering entire event which is suspect for genuine seizure. Nonetheless, patient hemodynamically stable, well-appearing without any signs of clinical deterioration while in ER setting, she will be returning home with family members to watch and care for her which I feel is appropriate. She is recently established with PCP whom she can follow-up with this week to monitor drawn Keppra levels today. I advised her to increase consumption of potassium rich foods at home. Strict return precautions were discussed with good understanding by patient, all questions and concerns addressed prior to ER departure in stable condition Dragon Disclaimer Dragon Disclaimer This electronic medical record was generated, in whole or in part, using a voice recognition dictation system. Departure Departure: Impression: Primary Impression: Seizure-like activity Additional Impression: Hypokalemia Disposition: 01 DC HOME SELF CARE/HOMELESS Condition: STABLE Referrals: PCP,NO (PCP) Patient Instructions: Hypokalemia, Seizure, Adult Problem Qualifiers TROY COLLINS DO May 11, 2020 21:50
[2020-05-11 21:52] VITALS: BP 126/84
--- NOTE | 2020-05-11 22:01 | EKG ---
[address] [address] Test Date: 2020-05-11 Test Time: 21:54:18 Pat Name: HERNAN ANGEL Department: Room: Gender: F Tobacco [employer]zer: : 1960 Requested By: TROY COLLINS Order Number: [id number] Reading MD: Measurements Intervals Brush Rate: 79 P: 5 UT: 220 QRS: 26 QRSD: 76 T: 20 QT: 386 QTc: 444 Interpretive Statements SINUS RHYTHM PROLONGED UT INTERVAL ABNORMAL ECG RI6.02 No previous ECG available for comparison
[2020-05-11 22:35] LABS: BASO % 1 % (0-3); EOS # 0.1 x10^3/uL (0.0-0.7); EOS % 1 % (0-3); HEMATOCRIT 36.3 % (36.0-47.0); HEMOGLOBIN 11.6 g/dL (12.0-15.5); LYMPH # 2.9 x10^3/uL (1.0-4.8); LYMPH % 34 % (24-48); MEAN CORPUSCULAR HEMOGLOBIN 29 pg (25-35); MEAN CORPUSCULAR HGB CONC 32 g/dL (31-37); MEAN CORPUSCULAR VOLUME 91 fL (79-100); MONO # 0.6 x10^3/uL (0.0-1.1); MONO % 7 % (0-9); NEUT # 4.9 x10^3uL (1.8-7.7); NEUT % 57 % (31-73); PLATELET COUNT 259 x10^3/uL (140-400); RED BLOOD COUNT 3.99 x10^6/uL (3.50-5.40); WHITE BLOOD COUNT 8.5 x10^3/uL (4.0-11.0)
[2020-05-11 22:49] LABS: ALBUMIN 3.4 g/dL (3.4-5.0); ALBUMIN/GLOBULIN RATIO 0.9 (1.0-1.7); CALCIUM 9.1 mg/dL (8.5-10.1); CREATININE 1.2 mg/dL (0.6-1.0); TOTAL BILIRUBIN 1.5 mg/dL (0.2-1.0); TOTAL PROTEIN 7.2 g/dL (6.4-8.2)
[2020-05-11] MEDS ORDERED: POTASSIUM CHLORIDE 20 MEQ TABLET.ER. PO ONE ×2 (23:03→23:30)
== END 2020-05-11 23:15 | disposition home or self-care (01) ==
LOC: ER 21:42
DX: G40.909 Epilepsy, unspecified, not intractable, without status epilepticus (principal); E87.6 Hypokalemia; R51.9 Headache, unspecified; E11.9 Type 2 diabetes mellitus without complications; Z90.89 Acquired absence of other organs; Z98.890 Other specified postprocedural states; Z88.1 Allergy status to other antibiotic agents; Z88.6 Allergy status to analgesic agent; Z88.8 Allergy status to other drugs, medicaments and biological substances
CPT/HCPCS: 36415; 80053; 82947; 83605; 84146; 85025; 93005; 99284

== ENCOUNTER 2020-05-28 10:08 | Emergency (ER) | payer MEDICARE, OTHER ==
[~2020-05-28] VITALS: Ht 167.6 cm; Wt 113.2 kg
[2020-05-28 10:17] VITALS: BP 115/60
[2020-05-28] MEDS ORDERED: OXYC1TAB15 PO (10:45)
[2020-05-28] MEDS: oxyCODONE/APAP 5/325 1 TAB TABLET PO ONE (10:45)
--- NOTE | 2020-05-28 10:45 | PHYS DOC ---
Past History Past Medical History: Diabetes, HIV, Seizure, Other Additional Past Medical Histor: back pain, abd pain. Past Surgical History: Appendectomy, Other Additional Past Surgical Histo: BACK AND LEFT ACHILLES Smoking: Non-smoker Alcohol Use: None Drug Use: None General Adult EDM: Chief Complaint: OTHER COMPLAINTS HPI: HPI: 59 yo female with cc of R wrist pain and low back pain R >L. These are chronic problems managed by other physicians that patient has had for "years". In previous Ed visit, patient present the same symptoms. Patient denied any fall, injury, or procedure since last ED visit. R wrist constant pain radiated up to R shoulder. hx of prior back surgery. She reported ED previously prescribed her oxycodone and fentanyl which had previously alleviated her pain. Denies swelling. Denies fever/chills. Review of Systems: Review of Systems: Constitutional: Denies fever or chills Eyes: Denies redness or eye pain HENT: Denies nasal congestion or sore throat Respiratory: Denies cough or shortness of breath Cardiovascular: Denies chest pain or palpitations GI: Denies abdominal pain, nausea, or vomiting : Denies dysuria or hematuria Musculoskeletal: Reports back pain and right wrist pain Integument: Denies rash or skin lesions Neurologic: Denies headache, focal weakness or sensory changes Complete systems were reviewed and found to be within normal limits, except as documented in this note. Family History: Family History: non-contributory Allergies: Allergies: Allergies Coded Allergies Type Severity Reaction Last Updated Verified levofloxacin Allergy Severe seizure 06/29/19 Yes aspirin Allergy Mild 06/29/19 Yes naproxen Allergy Mild RASH 06/29/19 Yes tramadol Allergy Mild RASH 06/29/19 Yes I S O L A T I O N *CONTACT* Allergy Unknown 06/29/19 Yes ibuprofen Allergy Unknown 06/29/19 Yes Physical Exam: PE: Constitutional: Well developed, well nourished, no acute distress HENT: Normocephalic, atraumatic Eyes: PERRL, EOMI, conjunctiva normal, no discharge Neck: Normal range of motion, no tenderness, supple Lungs & Thorax: No respiratory distress, equal chest rise and fall Abdomen: Soft, no tenderness Skin: Warm, dry, no erythema, no rash Back: Bilateral paraspinal tenderness, no CVA tenderness Extremities: Right wrist held in splint, ROM intact, no edema Neurologic: Alert and oriented X 3, normal motor function, normal sensory function, no focal deficits noted Psychologic: Affect flat, judgment normal Current Patient Data: Vital Signs: Vital Signs Date Time Temp Pulse Resp B/P (MAP) Pulse Ox O2 Delivery O2 Flow Rate FiO2 05/28/20 10:17 97.8 86 16 115/60 (78) 98 Room Air Course & Med Decision Making: Course & Med Decision Making 59 yo female with cc of R wrist pain, L back pain R >L. These are chronic problems managed by other physicians. Patient denied any fall, injury, or procedure since last ED visit. Patient requesting pain control. KTRACs with last narcotic meds last prescribed in Feb 2020. Pain addressed. Patient stable for discharge with outpatient follow-up with PCP/pain management/orthopedics. Pain management and orthopedic referrals provided. Discussed findings and plan with patient, who acknowledges understanding and agreement. Dragon Disclaimer: Dragon Disclaimer: This electronic medical record was generated, in whole or in part, using a voice recognition dictation system. Departure Departure: Impression: Primary Impression: Acute exacerbation of chronic low back pain Additional Impression: Chronic pain of right wrist Disposition: 01 DC HOME SELF CARE/HOMELESS Condition: STABLE Referrals: JESSICA ROTHMAN (PCP) XIOMARA WEBB MD Patient Instructions: Chronic Back Pain, Chronic Pain Management Additional Instructions: Call and make an appointment with pain management: Dr. Jose Cardoza Address: [address] [place] [address] Scripts Oxycodone Hcl/Acetaminophen (PERCOCET 5-325 MG TABLET ) 1 Each Tablet 0.5-1 TAB PO Q6HRS PRN for PAIN MDD 12 Tablet(s), #10 TAB 0 Refills Prov: SHANTHI BENAVIDES DO 05/28/20 SHANTHI BENAVIDES DO May 28, 2020 10:45
== END 2020-05-28 10:47 | disposition home or self-care (01) ==
LOC: ER 10:08
DX: G89.29 Other chronic pain (principal); M54.5 Low back pain; M25.531 Pain in right wrist; E11.9 Type 2 diabetes mellitus without complications; Z90.89 Acquired absence of other organs; Z88.1 Allergy status to other antibiotic agents; Z88.5 Allergy status to narcotic agent; Z88.6 Allergy status to analgesic agent; Z91.041 Radiographic dye allergy status; Z88.8 Allergy status to other drugs, medicaments and biological substances
CPT/HCPCS: 99283

== ENCOUNTER 2020-06-15 12:11 | Emergency (ER) | payer MEDICARE, OTHER ==
[~2020-06-15] VITALS: Ht 167.6 cm; Wt 121.0 kg
[2020-06-15] MEDS ORDERED: IV NORMAL SALINE 1,000ML 1,000 ML IV SCH (12:30)
[2020-06-15] MEDS ORDERED: HYDROmorphone PF 2 MG/ML VIAL IVP ONE (12:30)
--- NOTE | 2020-06-15 12:49 | PHYS DOC ---
Past History Past Medical History: Diabetes, HIV, Seizure, Other Additional Past Medical Histor: back pain, abd pain. Past Surgical History: Appendectomy, Other Additional Past Surgical Histo: BACK AND LEFT ACHILLES Smoking: Non-smoker Alcohol Use: None Drug Use: None Adult General Chief Complaint Chief Complaint: ABDOMINAL PAIN HPI HPI Patient is a 59F with a complicated past medical history which includes HIV as well as reported appendectomy, hysterectomy and exploratory laparotomy for which she is not sure what was done that presents emergency department complaint of new onset right lower quadrant abdominal pain. Patient states her last year she is having worsening severe right lower quadrant abdominal pain which is stabbing in nature. Denies any associated fever, chills, nausea, vomiting, dizziness, lightheadedness, diarrhea, back pain. Denies any vaginal bleeding or dysuria. States that she is been compliant with her medications including her HIV medication. Review of Systems Review of Systems Constitutional: Denies fever or chills [] Eyes: Denies change in visual acuity, redness, or eye pain [] HENT: Denies nasal congestion or sore throat [] Respiratory: Denies cough or shortness of breath [] Cardiovascular: No additional information not addressed in HPI [] GI: Denies abdominal pain, nausea, vomiting, bloody stools or diarrhea [] : Denies dysuria or hematuria [] Musculoskeletal: Denies back pain or joint pain [] Integument: Denies rash or skin lesions [] Neurologic: Denies headache, focal weakness or sensory changes [] Endocrine: Denies polyuria or polydipsia [] All other systems were reviewed and found to be within normal limits, except as documented in this note. Current Medications Current Medications Current Medications Medications (Trade) Dose Ordered Sig/Bhavik Start Time Stop Time Status Last Admin Dose Admin Hydromorphone HCl (Dilaudid) 2 mg 1X ONCE 06/15/20 12:30 06/15/20 12:31 DC Sodium Chloride 1,000 ml @ 100 mls/hr Q10H 06/15/20 12:30 06/15/20 22:29 Allergies Allergies Allergies Coded Allergies Type Severity Reaction Last Updated Verified levofloxacin Allergy Severe seizure 06/29/19 Yes aspirin Allergy Mild 06/29/19 Yes naproxen Allergy Mild RASH 06/29/19 Yes tramadol Allergy Mild RASH 06/29/19 Yes I S O L A T I O N *CONTACT* Allergy Unknown 1/9/20 Yes ibuprofen Allergy Unknown 06/29/19 Yes Physical Exam Physical Exam Constitutional: Well developed, well nourished, no acute distress, non-toxic ap pearance. [] HENT: Normocephalic, atraumatic, bilateral external ears normal, oropharynx moist, no oral exudates, nose normal. [] Eyes: PERRLA, EOMI, conjunctiva normal, no discharge. [] Neck: Normal range of motion, no tenderness, supple, no stridor. [] Cardiovascular:Heart rate regular rhythm, no murmur [] Lungs & Thorax: Bilateral breath sounds clear to auscultation [] Abdomen: Bowel sounds normal, soft,no masses, no pulsatile masses. Severe right lower quadrant tenderness and guarding. Skin: Warm, dry, no erythema, no rash. [] Back: No tenderness, no CVA tenderness. [] Extremities: No tenderness, no cyanosis, no clubbing, ROM intact, no edema. [] Neurologic: Alert and oriented X 3, normal motor function, normal sensory function, no focal deficits noted. [] Psychologic: Affect normal, judgement normal, mood normal. [] Radiology/Procedures Radiology/Procedures Exam performed: CT scan of the abdomen and pelvis with contrast Indication: Right lower quadrant abdominal pain, status post appendectomy and hysterectomy Date of Service: 06/15/2020. Comparison: None available Technique: Contiguous helical acquisitions are obtained through the abdomen and pelvis during intravenous administration of20 cc of Omnipaque 300. In addition sagittal and coronal reformatted images are obtained and reviewed. CT scan abdomen and pelvis findings: The lung bases are clear. Visualized heart is normal. The liver, spleen and pancreas appear normal. Gallbladder is distended. Both adrenal glands and bilateral kidneys appear normal with symmetric excretion of contrast via both kidneys. There is no hydronephrosis or nephrolithiasis The a ortais normal in course and caliber. No retroperitoneal lymphadenopathy is identified. The small bowel loops are nondilated and unremarkable . Scattered stool throughout the colon. No bowel related stranding or mesenteric lymphadenopathy seen. The pelvic small bowel loops are nondilated and unremarkable .The urinary bladder is well distended and unremarkable. No pelvic side wall lymphadenopathy or free fluid seen. Postoperative changes are seen in the lumbar spine. Impression CT Abdomen and pelvis: 1. No acute findings seen in the abdomen and pelvis. PQRS Compliance Statement: One or more of the following individualized dose reduction techniques were utilized for this examination: 1. Automated exposure control 2. Adjustment of the mA and/or kV according to patient size 3. Use of iterative reconstruction technique Electronically signed by: Tiffani Harman MD (06/15/2020 1:48 PM) [id number] Heart Score Risk Factors: Risk Factors: DM, Current or recent (<one month) smoker, HTN, HLP, family history of CAD, obesity. Risk Scores: Risk Factors: DM, Current or recent (<one month) smoker, HTN, HLP, family history of CAD, obesity. Course & Med Decision Making Course & Med Decision Making Pertinent Labs and Imaging studies reviewed. (See chart for details) 59F presenting emergency department new onset of right lower quadrant abdominal pain and severe right lower quadrant tenderness which was raised concern for acute infection in the urine. Patient had an appendectomy but there is still possibility of acute right-sided diverticulitis, colitis or stump appendicitis. Because of the severity of the patient's tenderness, the presence of HIV presents with guarding we will obtain basic labs and a CT scan of the abdomen pelvis with IV contrast to ensure there is no severe acute intra-abdominal infec tion. 14:07 -CT scan of the abdomen pelvis with IV contrast was performed without any significant intra-abdominal normality. Patient does states that her symptoms have improved. Labs reviewed and unremarkable. No significant changes patient does have noted chronic liver disease. At this time we will plan to discharge patient home with routine follow Dragon Disclaimer Dragon Disclaimer This electronic medical record was generated, in whole or in part, using a voice recognition dictation system. Departure Departure: Impression: Primary Impression: Abdominal pain Disposition: 01 DC HOME SELF CARE/HOMELESS Condition: GOOD Referrals: JESSICA ROTHMAN (PCP) Patient Instructions: Abdominal Pain (Nonspecific) Additional Instructions: Thank you for presenting to emergency department today. You were seen today for your abdominal pain. I have obtained did not demonstrate any obvious explanation of your symptoms here today. In addition a CT scan was done and read by radiologist who did not find any abnormalities to explain your symptoms. We recommend that you use [id number] medications for your pain as well as hot and cold baths this is is likely a muscular injury. Please return the emergency department if any sudden worsening of your symptoms, nausea vomiting or fever greater than 101 degrees. MARIA DEL ROSARIO FLEMING MD Jun 15, 2020 12:49
[2020-06-15] MEDS ORDERED: ONDANSETRON PF 4 MG/2 ML VIAL. ONE (12:53)
[2020-06-15] MEDS ORDERED: IOHEXOL 300 MG/ML 75 ML VIAL. IV ONE (13:00)
[2020-06-15 13:08] LABS: CALCIUM 9.2 mg/dL (8.5-10.1); CREATININE 1.3 mg/dL (0.6-1.0); GFR 51.1; POTASSIUM 3.8 mmol/L (3.5-5.1)
[2020-06-15 13:09] LABS: BASO # 0.1 x10^3/uL (0.0-0.2); BASO % 1 % (0-3); EOS # 0.1 x10^3/uL (0.0-0.7); EOS % 1 % (0-3); HEMATOCRIT 40.6 % (36.0-47.0); HEMOGLOBIN 12.9 g/dL (12.0-15.5); LYMPH # 2.3 x10^3/uL (1.0-4.8); LYMPH % 35 % (24-48); MEAN CORPUSCULAR HEMOGLOBIN 29 pg (25-35); MEAN CORPUSCULAR HGB CONC 32 g/dL (31-37); MEAN CORPUSCULAR VOLUME 91 fL (79-100); MONO # 0.5 x10^3/uL (0.0-1.1); MONO % 8 % (0-9); NEUT # 3.6 x10^3uL (1.8-7.7); NEUT % 55 % (31-73); PLATELET COUNT 262 x10^3/uL (140-400); RED BLOOD COUNT 4.48 x10^6/uL (3.50-5.40); RED CELL DISTRIBUTION WIDTH 13.8 % (11.5-14.5); WHITE BLOOD COUNT 6.6 x10^3/uL (4.0-11.0)
[2020-06-15 13:15] LABS: ALBUMIN 3.4 g/dL (3.4-5.0); ALBUMIN/GLOBULIN RATIO 0.8 (1.0-1.7); TOTAL BILIRUBIN 1.7 mg/dL (0.2-1.0); TOTAL PROTEIN 7.5 g/dL (6.4-8.2)
--- NOTE | 2020-06-15 13:50 | RAD ---
Exam performed: CT scan of the abdomen and pelvis with contrast Indication: Right lower quadrant abdominal pain, status post appendectomy and hysterectomy Date of Service: 06/15/2020. Comparison: None available Technique: Contiguous helical acquisitions are obtained through the abdomen and pelvis during intra venous administration of20 cc of Omnipaque 300. In addition sagittal and coronal reformatted images a re obtained and reviewed. CT scan abdomen and pelvis findings: The lung bases are clear. Visualized heart is normal. The liver, spleen and pancreas appear normal. Gallbladder is distended. Both adrenal glands and bila teral kidneys appear normal with symmetric excretion of contrast via both kidneys. There is no hydron ephrosis or nephrolithiasis The aortais normal in course and caliber. No retroperitoneal lymphadenopa thy is identified. The small bowel loops are nondilated and unremarkable . Scattered stool throughout the colon. No bowel related stranding or mesenteric lymphadenopathy seen. The pelvic small bowel loops are nondilated and unremarkable .The urinary bladder is well distended a nd unremarkable. No pelvic side wall lymphadenopathy or free fluid seen. Postoperative changes are se en in the lumbar spine. Impression CT Abdomen and pelvis: 1. No acute findings seen in the abdomen and pelvis. PQRS Compliance Statement: One or more of the following individualized dose reduction techniques were utilized for this examinat ion: 1. Automated exposure control 2. Adjustment of the mA and/or kV according to patient size 3. Use of iterative reconstruction technique Electronically signed by: Tiffani Harman MD (06/15/2020 1:48 PM) [id number]
[2020-06-15 14:15] VITALS: BP 138/88
== END 2020-06-15 14:15 | disposition home or self-care (01) ==
LOC: ER 12:11
DX: R10.31 Right lower quadrant pain (principal); E11.9 Type 2 diabetes mellitus without complications; Z90.89 Acquired absence of other organs; Z88.1 Allergy status to other antibiotic agents; Z88.6 Allergy status to analgesic agent; Z88.8 Allergy status to other drugs, medicaments and biological substances
CPT/HCPCS: 36415; 74177; 80053; 85025; 96361; 96374; 99285; J1170; J7030

== ENCOUNTER 2020-06-18 11:30 | Emergency (ER) | payer MEDICARE, OTHER ==
[~2020-06-18] VITALS: Ht 167.6 cm; Wt 121.0 kg
[2020-06-18 11:39] VITALS: BP 136/74
[2020-06-18] MEDS ORDERED: ACETAMINOPHEN 500 MG TABLET PO ONE (12:00)
[2020-06-18] MEDS ORDERED: ORPHENADRINE CITRATE 60 MG/2 ML VIAL. IM ONE (12:00)
[2020-06-18] MEDS ORDERED: CYCL-331 PO (12:14)
[2020-06-18] MEDS ORDERED: ACET325T9 PO (12:14)
--- NOTE | 2020-06-18 12:14 | PHYS DOC ---
Past History Past Medical History: HIV, Hypertension Additional Past Medical Histor: back pain, abd pain. Past Surgical History: Appendectomy, Other Additional Past Surgical Histo: BACK AND LEFT ACHILLES Smoking: Non-smoker Alcohol Use: None Drug Use: None General Adult EDM: Chief Complaint: HIP PAIN HPI: HPI: Patient is a 59-year-old female coming in for acute on chronic right low back pain with sciatica. Patient states she had a fall 3 days ago, and was seen in the emergency department and was worked up for right lower quadrant pain. Patient is able to ambulate denies any recent fevers, vomiting, diarrhea, urinary changes, shortness of breath or cough. Denies any falls since last evaluation. Has not taken Tylenol for 2 to 3 days has taken nothing for the pain today. Has been using a heating pad but has not been doing any stretches. She has a follow-up with her "spine doctor" in 2 days Review of Systems: Review of Systems: Negative other than stated in HPI Current Medications: Current Meds: Current Medications Medications (Trade) Dose Ordered Sig/Bhavik Start Time Stop Time Status Last Admin Dose Admin Acetaminophen (Tylenol) 1,000 mg 1X ONCE 06/18/20 12:00 06/18/20 12:01 UNV Orphenadrine Citrate (Norflex) 60 mg 1X ONCE 06/18/20 12:00 06/18/20 12:01 UNV Allergies: Allergies: Allergies Coded Allergies Type Severity Reaction Last Updated Verified levofloxacin Allergy Severe seizure 06/15/20 Yes aspirin Allergy Mild 06/15/20 Yes naproxen Allergy Mild RASH 06/15/20 Yes tramadol Allergy Mild RASH 06/15/20 Yes I S O L A T I O N *CONTACT* Allergy Unknown 06/15/20 Yes ibuprofen Allergy Unknown 06/15/20 Yes Physical Exam: PE: Constitutional: Well developed, well nourished, no acute distress, non-toxic appearance. [] HENT: Normocephalic, atraumatic, bilateral external ears normal, oropharynx moist, no oral exudates, nose normal. [] Eyes: PERRLA, EOMI, conjunctiva normal, no discharge. [] Neck: Normal range of motion, no tenderness, supple, no stridor. [] Cardiovascular:Heart rate regular rhythm, no murmur [] Lungs & Thorax: No respiratory Skin: Faint papular rash on left forearm Back: right lumbar paraspinal tenderness and tightness Extremities: No tenderness, no cyanosis, no clubbing, ROM intact, no edema. [] Neurologic: Alert and oriented X 3, normal motor function, normal sensory function, no focal deficits noted. [] Psychologic: Affect normal, judgement normal, mood normal. [] Current Patient Data: Vital Signs: Vital Signs Date Time Temp Pulse Resp B/P (MAP) Pulse Ox O2 Delivery O2 Flow Rate FiO2 06/18/20 11:39 97.9 88 16 136/74 (94) 98 Room Air EKG: EKG: [] Radiology/Procedures: Radiology/Procedures: [] Heart Score: Risk Factors: Risk Factors: DM, Current or recent (<one month) smoker, HTN, HLP, family history of CAD, obesity. Risk Scores: Score 0 - 3: 2.5% MACE over next 6 weeks - Discharge Home Score 4 - 6: 20.3% MACE over next 6 weeks - Admit for Clinical Observation Score 7 - 10: 72.7% MACE over next 6 weeks - Early Invasive Strategies Course & Med Decision Making: Course & Med Decision Making Pertinent Labs and Imaging studies reviewed from previous visit. Unremarkable work-up at that time. Discussed pain management options and encouraged her to follow-up with her primary care. She is ambulating with a steady gait without any red flag signs or symptoms, with a negative straight leg raise test [] Dragon Disclaimer: Dragon Disclaimer: This electronic medical record was generated, in whole or in part, using a voice recognition dictation system. Departure Departure: Impression: Primary Impression: Sciatica of right side associated with disorder of lumbar spine Disposition: 01 DC HOME SELF CARE/HOMELESS Condition: STABLE Referrals: JESSICA ROTHMAN (PCP) Patient Instructions: Back Exercises, [id number] Scripts Acetaminophen (TYLENOL) 325 Mg Tablet 2 TAB PO PRN Q6-8HRS for pain for 10 Days, #30 TAB Prov: DIDI LOGAN MD 06/18/20 Cyclobenzaprine Hcl (CYCLOBENZAPRINE HCL) 10 Mg Tablet 1 TAB PO TID for back spasm for 5 Days, #15 TAB Prov: DIDI LOGAN MD 06/18/20 DIDI LOGAN MD Jun 18, 2020 12:14
== END 2020-06-18 12:18 | disposition home or self-care (01) ==
LOC: ER 11:30
DX: M54.41 Lumbago with sciatica, right side (principal); I10 Essential (primary) hypertension; Z90.49 Acquired absence of other specified parts of digestive tract; Z88.1 Allergy status to other antibiotic agents; Z88.6 Allergy status to analgesic agent; Z88.8 Allergy status to other drugs, medicaments and biological substances
CPT/HCPCS: 96372; 99283; J2360

== ENCOUNTER 2020-07-24 11:33 | Emergency (ER) | payer MEDICARE, OTHER ==
[~2020-07-24] VITALS: Ht 167.6 cm; Wt 121.0 kg
[~2020-07-24 11:33] MED LIST changes: +ACET325T9 PO; -LACT10SO PO; +LACT10SO2 PO
[2020-07-24] MEDS ORDERED: IV NORMAL SALINE 1,000ML 1,000 ML IV ONE (11:45)
[2020-07-24] MEDS ORDERED: ONDANSETRON PF 4 MG/2 ML VIAL. IVP ONE (12:15)
--- NOTE | 2020-07-24 12:48 | PHYS DOC ---
Past History Past Medical History: Diabetes, HIV, Hypertension Additional Past Medical Histor: back pain, abd pain. Past Surgical History: Appendectomy, Other Additional Past Surgical Histo: BACK AND LEFT ACHILLES Smoking: Non-smoker Alcohol Use: None Drug Use: None General Adult EDM: Chief Complaint: SEIZURE HPI: HPI: Patient is a 59 year old female with a history of HIV, type 2 diabetes, and seizures who presents via EMS after a seizure at home. She states she was sitting at the table eating when she felt "an episode coming on". She remembers the event and states she is unable to talk during them but can move all her body and was able to hit her walking stick on the table to get her uncles attention who called 911. She says this episode lasted about 30 mins and she did not feel confused or postictal afterwards besides a mild headache. She did not have any full body shaking or abnormal movements. She states this felt similar to her seizures in the past, the most recent which was last month, after which she saw a neurologist who did not add or change anything to her current keppra dose. She is unsure what her CD4 count or viral load is and does not remember the last time she had these checked. Review of Systems: Review of Systems: Constitutional: Denies fever or chills Eyes: Denies redness or eye pain HENT: Denies nasal congestion or sore throat Respiratory: Denies cough or shortness of breath Cardiovascular: Denies chest pain or palpitations GI: Denies abdominal pain, nausea, or vomiting : Denies dysuria or hematuria Musculoskeletal: Denies back pain or joint pain Integument: Denies rash or skin lesions Neurologic: Denies headache, focal weakness or sensory changes. States she feels slightly more lethargic/foggy more so than normal. Complete systems were reviewed and found to be within normal limits, except as documented in this note. Current Medications: Current Meds: Current Medications Medications (Trade) Dose Ordered Sig/Bhavik Start Time Stop Time Status Last Admin Dose Admin Lorazepam (Ativan Inj) 0.5 mg 1X ONCE 07/24/20 12:15 07/24/20 12:23 DC Ondansetron HCl (Zofran) 4 mg 1X ONCE 07/24/20 12:15 07/24/20 12:23 DC Sodium Chloride 1,000 ml @ 1,000 mls/hr 1X ONCE 07/24/20 11:45 07/24/20 12:44 Allergies: Allergies: Allergies Coded Allergies Type Severity Reaction Last Updated Verified levofloxacin Allergy Severe seizure 06/15/20 Yes aspirin Allergy Mild 06/15/20 Yes naproxen Allergy Mild RASH 06/15/20 Yes tramadol Allergy Mild RASH 06/15/20 Yes I S O L A T I O N *CONTACT* Allergy Unknown 06/15/20 Yes ibuprofen Allergy Unknown 06/15/20 Yes Physical Exam: PE: Constitutional: Well developed, well nourished, no acute distress, non-toxic appearance HENT: Normocephalic, atraumatic Eyes: PERRL, EOMI, conjunctiva normal, no discharge Neck: Normal range of motion, no tenderness, supple Lungs & Thorax: No respiratory distress, equal chest rise and fall Abdomen: Soft, no tenderness Skin: Warm, dry, no erythema, no rash Back: No tenderness, no CVA tenderness, no midline tenderness to palpation. Extremities: No tenderness, ROM intact, no edema, Neurologic: Alert and oriented X 3, normal motor function, normal sensory function, no focal deficits noted. CN 2-12 intact. Psychologic: Affect normal, judgment normal EKG: EKG: [] Radiology/Procedures: Radiology/Procedures: [] Course & Med Decision Making: Course & Med Decision Making Pertinent Labs and Imaging studies reviewed. (See chart for details) Matthew Han is a 59 yo female with a PMH of HIV, Seizures and diabetes presents today after a witnessed "seizure episode". Her labs showed a slightly increased creatinine, alk phos, and total bilirubin, but no increase in WBC or lactic acid. She was given ativan, zofran, and fluids and felt comfortable for discharge and follow up with her neurologist as an outpatient. We discussed also the importance of follow up with her PCP or HIV specific doctor to measure her CD4 count and viral load to assess her HIV disease burden. Return precautions were discussed and all questions were answered. Patient stable for discharge with outpatient follow-up with PCP/neurologist. Discussed findings and plan with patient, who acknowledges understanding and agreement. Christopher Disclaimer: Christopher Disclaimer: This electronic medical record was generated, in whole or in part, using a voice recognition dictation system. Departure Departure: Impression: Primary Impression: Seizure Disposition: 01 DC HOME SELF CARE/HOMELESS Condition: STABLE Referrals: JESSICA ROTHMAN (PCP) RUDOLPH GR MD Patient Instructions: Seizure, Adult, [id number] Additional Instructions: You must be "seizure free" for next 6 months to operate a motor vehicle or until you have been cleared by a neurologist. SHANTHI BENAVIDES DO Jul 24, 2020 12:48
[2020-07-24 13:12] LABS: BASO % 1 % (0-3); CREATININE 1.2 mg/dL (0.6-1.0); EOS # 0.1 x10^3/uL (0.0-0.7); EOS % 2 % (0-3); HEMATOCRIT 40.8 % (36.0-47.0); HEMOGLOBIN 12.9 g/dL (12.0-15.5); LYMPH # 2.2 x10^3/uL (1.0-4.8); LYMPH % 31 % (24-48); MEAN CORPUSCULAR HEMOGLOBIN 29 pg (25-35); MEAN CORPUSCULAR HGB CONC 32 g/dL (31-37); MEAN CORPUSCULAR VOLUME 91 fL (79-100); MONO # 0.5 x10^3/uL (0.0-1.1); MONO % 7 % (0-9); NEUT # 4.2 x10^3uL (1.8-7.7); NEUT % 60 % (31-73); PLATELET COUNT 276 x10^3/uL (140-400); POTASSIUM 3.6 mmol/L (3.5-5.1); RED BLOOD COUNT 4.46 x10^6/uL (3.50-5.40); RED CELL DISTRIBUTION WIDTH 13.6 % (11.5-14.5)
[2020-07-24 13:20] LABS: ALBUMIN 3.6 g/dL (3.4-5.0); ALBUMIN/GLOBULIN RATIO 0.9 (1.0-1.7); TOTAL BILIRUBIN 1.9 mg/dL (0.2-1.0); TOTAL PROTEIN 7.8 g/dL (6.4-8.2)
[2020-07-24 13:33] LABS: BACTERIA,URINE 0 /HPF (0-FEW); BILIRUBIN,URINE NEG (NEG); CLARITY,URINE HAZY; COLOR,URINE YELLOW; GLUCOSE,URINE NEG (NEG); NITRITE,URINE NEG (NEG); RBC,URINE OCC /HPF (0-2); SQUAMOUS EPITHELIAL CELL,UR FEW /LPF; UROBILINOGEN,URINE 0.2 mg/dL (0.2 mg/dL)
[2020-07-24 14:26] VITALS: BP 111/66
== END 2020-07-24 14:26 | disposition home or self-care (01) ==
LOC: ER 11:33
DX: R56.9 Unspecified convulsions (principal); R51.9 Headache, unspecified; R53.83 Other fatigue; E11.9 Type 2 diabetes mellitus without complications; I10 Essential (primary) hypertension; Z88.1 Allergy status to other antibiotic agents; Z88.6 Allergy status to analgesic agent; Z88.8 Allergy status to other drugs, medicaments and biological substances
CPT/HCPCS: 36415; 80053; 81001; 82550; 83605; 83735; 85025; 96361; 96374; 99284; J2060; J7030

== ENCOUNTER 2020-09-09 14:59 | Emergency (ER) | payer MEDICARE, OTHER ==
[~2020-09-09] VITALS: Ht 167.6 cm; Wt 121.0 kg
--- NOTE | 2020-09-09 15:16 | PHYS DOC ---
Past History Past Medical History: Diabetes, Heart Disease, HIV, Seizure Additional Past Medical Histor: back pain, abd pain. Past Surgical History: No Surgical History Additional Past Surgical Histo: BACK AND LEFT ACHILLES Smoking: Non-smoker Alcohol Use: None Drug Use: None General Adult EDM: Chief Complaint: CHEST PAIN HPI: HPI: Patient is a 59-year-old female who presents with chest pain that started at 9 AM this morning. Patient states that she was sitting at home when the pain started. Patient describes the pain as dull, intermittent, epigastric. Patient states that she took Tylenol this morning with no relief. Pain is reproducible when she pushes on her chest and with movement. Patient denies shortness of breath, radiation of pain, dizziness, nausea/vomiting. She has history of diabetes, seizures, hypertension. Review of Systems: Review of Systems: Constitutional: Denies fever or chills Eyes: Denies change in visual acuity HENT: Denies nasal congestion or sore throat Respiratory: Denies cough or shortness of breath Cardiovascular: Reports chest pain, denies edema GI: Denies abdominal pain, nausea, vomiting, bloody stools or diarrhea : Denies dysuria Musculoskeletal: Denies back pain or joint pain Integument: Denies rash Neurologic: Denies headache, focal weakness or sensory changes Endocrine: Denies polyuria or polydipsia Lymphatic: Denies swollen glands Psychiatric: Denies depression or anxiety Allergies: Allergies: Allergies Coded Allergies Type Severity Reaction Last Updated Verified levofloxacin Allergy Severe seizure 06/15/20 Yes aspirin Allergy Mild 06/15/20 Yes naproxen Allergy Mild RASH 06/15/20 Yes tramadol Allergy Mild RASH 06/15/20 Yes I S O L A T I O N *CONTACT* Allergy Unknown 06/15/20 Yes ibuprofen Allergy Unknown 06/15/20 Yes Physical Exam: PE: Constitutional: Well developed, well nourished, no acute distress, non-toxic appearance. [] HENT: Normocephalic, atraumatic, bilateral external ears normal, oropharynx moist, no oral exudates, nose normal. [] Eyes: PERRLA, EOMI, conjunctiva normal, no discharge. [] Neck: Normal range of motion, no tenderness, supple, no stridor. [] Cardiovascular:Heart rate regular rhythm, no murmur [] Lungs & Thorax: Bilateral breath sounds clear to auscultation [] Abdomen: Bowel sounds normal, soft, no tenderness, no masses, no pulsatile masses. [] Skin: Warm, dry, no erythema, no rash. [] Back: No tenderness, no CVA tenderness. [] Extremities: No tenderness, no cyanosis, no clubbing, ROM intact, no edema. [] Neurologic: Alert and oriented X 3, normal motor function, normal sensory function, no focal deficits noted. [] Psychologic: Affect normal, judgement normal, mood normal. [] Current Patient Data: Vital Signs: Vital Signs Date Time Temp Pulse Resp B/P (MAP) Pulse Ox O2 Delivery O2 Flow Rate FiO2 09/09/20 15:00 97.8 79 20 128/51 (76) 99 EKG: EKG: []NSR. HR 80 BPM. Radiology/Procedures: Radiology/Procedures: [] Heart Score: C/O Chest Pain: Yes HEART Score for Chest Pain: HEART Score for Chest Pain Response (Comments) Value History Moderately Suspicious 1 ECG Normal 0 Age >45 - < 65 1 Risk Factors >3 Risk Factors or Hx CAD 2 Troponin < Normal Limit 0 Total 4 Risk Factors: Risk Factors: DM, Current or recent (<one month) smoker, HTN, HLP, family history of CAD, obesity. Risk Scores: Score 0 - 3: 2.5% MACE over next 6 weeks - Discharge Home Score 4 - 6: 20.3% MACE over next 6 weeks - Admit for Clinical Observation Score 7 - 10: 72.7% MACE over next 6 weeks - Early Invasive Strategies Course & Med Decision Making: Course & Med Decision Making Pertinent Labs and Imaging studies reviewed. (See chart for details) [] Patient refusing aspirin due to allergy. Hydrocodone given for pain. Troponin is negative. Labs unremarkable. Chest x-ray negative for any acute abnormalities. EKG normal sinus rhythm. Heart score of 4. Patient states that her pain has improved after hydrocodone. Patient is currently living with her uncle. Patient states "if I get 3 inpatient overnight stays then I can qualify for a fci". I have explained to patient all of her labs, EKG are all unremarkable. Patient is hemodynamically stable and able to ambulate on her own. Patient's given pamphlet on local resources to help . Christopher Disclaimer: Christopher Disclaimer: This electronic medical record was generated, in whole or in part, using a voice recognition dictation system. Departure Departure: Impression: Primary Impression: Epigastric pain Disposition: 01 DC HOME SELF CARE/HOMELESS Condition: STABLE Referrals: JESSICA ROTHMAN (PCP) Patient Instructions: Chest Pain (Nonspecific), [id number] Additional Instructions: You were seen in the emergency room today for epigastric pain. All of the testing was negative for any acute abnormalities. Please call your PCP tomorrow for follow-up. If you have worsening symptoms or concerns please return to the emergency room. EMERGENCY DEPARTMENT GENERAL DISCHARGE INSTRUCTIONS Thank you for coming to [facility] (ED) today and trusting us with you care. We trust that you had a positivie experience in our Emergency Department. If you wish to speak to the department management, you may call the director at [phone]. YOUR FOLLOW UP INSTRUCTIONS ARE FOLLOWS: 1. Do you have a private Doctor? If you do not have a private doctor, please ask for a resource list of physicians or clinics that may be able to assist you with follow up care. 2. The Emergency Physician has interpreted your x-rays. The X-Ray specialist will also review them. If there is a change in the findings, you will be notified in 48 hours when at all possible. 3. A lab test or culture has been done, your results will be reviewed and you will be notified if you need a change in treatment. ADDITIONAL INSTRUCTIONS AND INFORMATION: 1. Your care today has been supervised by a physician who is specially trained in emergency care. Many problems require more than one evaluation for a complete diagnosis and treatment. We recommend that you schedule your follow up appointment as recommended to ensure complete treatment of you illness or injury. If you are unable to obtain follow up care and continue to have a problem, or if your condition worsens, we recommend that you return to the ED. 2. We are not able to safely determine your condition over the phone nor are we able to give sound medical advice over the phone. For these safety reasons, if you call for medical advice we will ask you to come to the ED for further evaluation. 3. If you have any questions regarding these discharge instructions please call the ED at [phone]. SAFETY INFORMATION: In the interest of safety, wellness, and injury prevention; we encourage you to wear your sealbelt, if you smoke; quite smoking, and we encourage family to use a protective helmet for bicycling and other sporting events that present an increased risk for head injury. IF YOUR SYMPTOMS WORSEN OR NEW SYMPTOMS DEVELOP, OR YOU HAVE CONCERNS ABOUT YOUR CONDITION; OR IF YOUR CONDITION WORSENS WHILE YOU ARE WAITING FOR YOUR FOLLOW UP APPOINTMENT; EITHER CONTACT YOUR PRIMARY CARE DOCTOR, THE PHYSICIAN WHOSE NAME AND NUMBER YOU WERE GIVEN, OR RETURN TO THE ED IMMEDIATELY. NANCY FAY APRN Sep 09, 2020 15:16
--- NOTE | 2020-09-09 15:34 | RAD ---
AP chest. HISTORY: Chest pain AP view was taken of the chest. Lungs are free of infiltrates. Heart is normal in size. There is no e ffusion. IMPRESSION: 1. No acute chest disease. Electronically signed by: Rodrigo Farrar MD (09/09/2020 3:32 PM) [facility]
--- NOTE | 2020-09-09 15:35 | EKG ---
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
[2020-09-09 15:55] LABS: CALCIUM 9.3 mg/dL (8.5-10.1); CREATININE 1.3 mg/dL (0.6-1.0); GFR 51.1; POTASSIUM 3.5 mmol/L (3.5-5.1)
[2020-09-09] MEDS ORDERED: HYDROcodone/APAP 7.5/325MG 1 TAB TABLET ONE (15:59)
[2020-09-09 16:00] LABS: BASO % 1 % (0-3); EOS # 0.1 x10^3/uL (0.0-0.7); EOS % 1 % (0-3); HEMATOCRIT 36.1 % (36.0-47.0); HEMOGLOBIN 11.7 g/dL (12.0-15.5); LYMPH # 2.5 x10^3/uL (1.0-4.8); LYMPH % 41 % (24-48); MEAN CORPUSCULAR HEMOGLOBIN 29 pg (25-35); MEAN CORPUSCULAR HGB CONC 33 g/dL (31-37); MEAN CORPUSCULAR VOLUME 90 fL (79-100); MONO # 0.6 x10^3/uL (0.0-1.1); MONO % 9 % (0-9); NEUT % 48 % (31-73); PLATELET COUNT 274 x10^3/uL (140-400); RED BLOOD COUNT 4.01 x10^6/uL (3.50-5.40); RED CELL DISTRIBUTION WIDTH 13.7 % (11.5-14.5); WHITE BLOOD COUNT 6.2 x10^3/uL (4.0-11.0)
[2020-09-09] MEDS ORDERED: HYDROcodone/APAP 7.5/325MG 1 TAB TABLET PO ONE (16:00)
[2020-09-09 16:07] LABS: ALBUMIN 3.4 g/dL (3.4-5.0); ALBUMIN/GLOBULIN RATIO 0.9 (1.0-1.7); TOTAL BILIRUBIN 1.3 mg/dL (0.2-1.0); TOTAL PROTEIN 7.3 g/dL (6.4-8.2)
[2020-09-09 17:03] LABS: BILIRUBIN,URINE NEG (NEG); CLARITY,URINE CLEAR; COLOR,URINE YELLOW; GLUCOSE,URINE NEG (NEG); NITRITE,URINE NEG (NEG); UROBILINOGEN,URINE 0.2 mg/dL (0.2 mg/dL)
[2020-09-09 17:04] LABS: BACTERIA,URINE 0 /HPF (0-FEW); RBC,URINE RARE /HPF (0-2); SQUAMOUS EPITHELIAL CELL,UR MOD /LPF; WBC,URINE OCC /HPF (0-4)
[2020-09-09 17:30] VITALS: BP 114/68
== END 2020-09-09 17:44 | disposition home or self-care (01) ==
LOC: ER 14:59
DX: R10.13 Epigastric pain (principal); R07.89 Other chest pain; E11.9 Type 2 diabetes mellitus without complications; Z88.1 Allergy status to other antibiotic agents; Z88.6 Allergy status to analgesic agent
CPT/HCPCS: 36415; 71045; 80053; 81001; 84484; 85025; 93005; 99285

== ENCOUNTER 2020-09-13 11:35 | Emergency (ER) | payer MEDICARE, OTHER ==
[~2020-09-13] VITALS: Ht 167.6 cm; Wt 118.9 kg
--- NOTE | 2020-09-13 12:21 | PHYS DOC ---
Past History Past Medical History: Diabetes, Heart Disease, HIV, Seizure Additional Past Medical Histor: back pain, abd pain. Past Surgical History: Appendectomy, Hysterectomy, Oophorectomy, Other Additional Past Surgical Histo: BACK AND LEFT ACHILLES Smoking: Non-smoker Alcohol Use: None Drug Use: None General Adult EDM: Chief Complaint: DEPRESSION HPI: HPI: 59-year-old female past medical history significant for epilepsy, HIV on HAART (cd4 900s), viral load undetectable), diabetes, anxiety/depression and CAD, presents the ED requesting help with "stress," stating she was in [place] from August 03 until Wednesday (09/08), visiting a friend, currently lives with her uncle in [place] and, was notified by her daughter that her niece took out a quick loan in her name and SSN, she now owes close to 2 thousand dollars. States her niece lives in [place] and this is the second time her neice has bor rowed money in her name. Patient reports "I could kill her," no specific homicidal plan. Pt denies any suicidal thoughts or ideations, hallucinations, or drug use. Review of Systems: Review of Systems: Constitutional: Denies fever or chills Eyes: Denies change in visual acuity HENT: Denies nasal congestion or sore throat Respiratory: Denies cough or shortness of breath Cardiovascular: Denies chest pain or edema GI: Denies abdominal pain, nausea, vomiting, bloody stools or diarrhea : Denies dysuria Musculoskeletal: Denies back pain or joint pain Integument: Denies rash Neurologic: Denies headache, focal weakness or sensory changes Endocrine: Denies polyuria or polydipsia Lymphatic: Denies swollen glands Psychiatric: Denies hallucinations or homicidal ideations Allergies: Allergies: Allergies Coded Allergies Type Severity Reaction Last Updated Verified levofloxacin Allergy Severe seizure 09/13/20 Yes aspirin Allergy Mild 09/13/20 Yes naproxen Allergy Mild RASH 09/13/20 Yes tramadol Allergy Mild RASH 09/13/20 Yes I S O L A T I O N *CONTACT* Allergy Unknown 06/15/20 Yes ibuprofen Allergy Unknown 09/13/20 Yes Physical Exam: PE: Constitutional: Well developed, well nourished, no acute distress, non-toxic appearance, suitcase present in ed room HENT: Normocephalic, atraumatic, Eyes: EOMI, conjunctiva normal, no discharge. Neck: Normal range of motion, supple, Cardiovascular: S1/2 present, regular rhythm Lungs & Thorax: Speaking in full sentences, bilateral equal chest rise, no tachypnea or increased work of breathing Abdomen: soft, no tenderness, Skin: Warm, dry, no erythema, no rash. [] Back: No tenderness, no CVA tenderness. [] Extremities: No tenderness, no cyanosis, no lower extremity edema Neurologic: Alert and oriented X 3, normal motor function, normal sensory function, no focal deficits noted. [] Psychologic: Affect-flat, judgement normal, mood normal. [] Current Patient Data: Vital Signs: Vital Signs Date Time Temp Pulse Resp B/P (MAP) Pulse Ox O2 Delivery O2 Flow Rate FiO2 09/13/20 11:47 98.0 102 18 129/74 (92) 97 Room Air EKG: EKG: [] Radiology/Procedures: Radiology/Procedures: [] Heart Score: C/O Chest Pain: No Risk Factors: Risk Factors: DM, Current or recent (<one month) smoker, HTN, HLP, family history of CAD, obesity. Risk Scores: Score 0 - 3: 2.5% MACE over next 6 weeks - Discharge Home Score 4 - 6: 20.3% MACE over next 6 weeks - Admit for Clinical Observation Score 7 - 10: 72.7% MACE over next 6 weeks - Early Invasive Strategies Course & Med Decision Making: Course & Med Decision Making Pertinent Labs and Imaging studies reviewed. (See chart for details) Concern for worsening depression with no significant suicidal ideations, no true homicidal intentions towards her niece who lives in another state. States "I get mad and think about it, I have no intention to hurt her." Patient is voluntary and agrees with EMS transfer to [facility] for further evaluation of psychiatry. Will discharge home with strict ED return precautions were given for homicidal ideations with plan, suicidal ideations, hallucinations or severe depression. Encouraged urgent outpatient follow-up with PMD and psychiatry/RSI and nephrology. Life-threatening processes were considered but are low suspicion at this time, given history, physical exam and ED workup. Pt was educated on all prescription medications and adverse effects. All patient's questions were answered and pt was stable at time of discharge. Life/limb-threatening differential includes but is not limited to, end organ damage/sepsis, trauma/abuse/neglect, neurologic deficit, alcohol/drug ingestion, toxidrome, suicidal/homicidal ideations plans or attempts, psychosis or mental illness resulting in self neglect and inability to care for self. I spoken with the patient and her caregivers. I explained the patient's condition, diagnoses and treatment plan based on the information available to me at this time. I have answered the patient and her caregiver's questions and addressed any concerns. The patient and her caregivers have a good understanding of patient's diagnosis, condition and treatment plan as can be expected at this point. Vital signs have been stable. Patient's condition is stable and appropriate for discharge from the emergency department. Patient will pursue further outpatient evaluation with primary care physician or other designated or consulting physician as outlined in the discharge instructions. The patient and/or caregivers are agreeable to this plan of care and follow-up instructions have been explained in detail. The patient and/or caregivers have received these instructions in written form and have expressed an understanding of the discharge instructions. The patient and/or caregivers are aware that any significant change of condition or worsening of symptoms should prompt immediate return to this or the closest emergency department or call to 911. Datamars Disclaimer: Datamars Disclaimer: This electronic medical record was generated, in whole or in part, using a voice recognition dictation system. Departure Departure: Impression: Primary Impression: Depression Additional Impression: CKD (chronic kidney disease) Disposition: 05 DC/TRF OTHER TYPE INSTITUTI (transfer per ems to [facility]) Condition: STABLE Referrals: JESSICA ROTHMAN (PCP) in 1-2 days Patient Instructions: Chronic Renal Insufficiency, Depression, Adult Additional Instructions: FOLLOW UP WITH PSYCHIATRY: [facility] [address] , [facility] [email or web address] [address] [place] [address] [facility] [address] [place] [address] Lisa HIGUERA [address], [address] [place] [address] [employer], [facility] 11/01 crisis stabilization services [address] [place] [address] FOLLOW UP WITH NEPHROLOGY: [facility] Address: [address] [place] [id number] EMERGENCY DEPARTMENT GENERAL DISCHARGE INSTRUCTIONS Thank you for coming to [facility] (ED) today and trusting us with you care. We trust that you had a positivie experience in our Emergency Department. If you wish to speak to the department management, you may call the director at [phone]. YOUR FOLLOW UP INSTRUCTIONS ARE FOLLOWS: 1. Do you have a private Doctor? If you do not have a private doctor, please ask for a resource list of physicians or clinics that may be able to assist you with follow up care. 2. The Emergency Physician has interpreted your x-rays. The X-Ray specialist will also review them. If there is a change in the findings, you will be notified in 48 hours when at all possible. 3. A lab test or culture has been done, your results will be reviewed and you will be notified if you need a change in treatment. ADDITIONAL INSTRUCTIONS AND INFORMATION: 1. Your care today has been supervised by a physician who is specially trained in emergency care. Many problems require more than one evaluation for a complete diagnosis and treatment. We recommend that you schedule your follow up appointment as recommended to ensure complete treatment of you illness or injury. If you are unable to obtain follow up care and continue to have a problem, or if your condition worsens, we recommend that you return to the ED. 2. We are not able to safely determine your condition over the phone nor are we able to give sound medical advice over the phone. For these safety reasons, if you call for medical advice we will ask you to come to the ED for further evaluation. 3. If you have any questions regarding these discharge instructions please call the ED at [phone]. SAFETY INFORMATION: In the interest of safety, wellness, and injury prevention; we encourage you to wear your sealbelt, if you smoke; quite smoking, and we encourage family to use a protective helmet for bicycling and other sporting events that present an increased risk for head injury. IF YOUR SYMPTOMS WORSEN OR NEW SYMPTOMS DEVELOP, OR YOU HAVE CONCERNS ABOUT YOUR CONDITION; OR IF YOUR CONDITION WORSENS WHILE YOU ARE WAITING FOR YOUR FOLLOW UP APPOINTMENT; EITHER CONTACT YOUR PRIMARY CARE DOCTOR, THE PHYSICIAN WHOSE NAME AND NUMBER YOU WERE GIVEN, OR RETURN TO THE ED IMMEDIATELY. VODANIEL MCKEE DO Sep 13, 2020 12:21
[2020-09-13 12:44] LABS: BASO % 1 % (0-3); EOS # 0.1 x10^3/uL (0.0-0.7); EOS % 1 % (0-3); HEMATOCRIT 39.8 % (36.0-47.0); LYMPH # 2.2 x10^3/uL (1.0-4.8); LYMPH % 35 % (24-48); MEAN CORPUSCULAR HEMOGLOBIN 30 pg (25-35); MEAN CORPUSCULAR HGB CONC 33 g/dL (31-37); MEAN CORPUSCULAR VOLUME 91 fL (79-100); MONO # 0.5 x10^3/uL (0.0-1.1); MONO % 8 % (0-9); NEUT # 3.5 x10^3uL (1.8-7.7); NEUT % 55 % (31-73); PLATELET COUNT 285 x10^3/uL (140-400); RED BLOOD COUNT 4.39 x10^6/uL (3.50-5.40); RED CELL DISTRIBUTION WIDTH 13.7 % (11.5-14.5); WHITE BLOOD COUNT 6.3 x10^3/uL (4.0-11.0)
[2020-09-13 13:01] LABS: BARBITURATES NEG (NEG); BENZODIAZEPINES POS (NEG); CALCIUM 9.5 mg/dL (8.5-10.1); CANNABINOIDS NEG (NEG); COCAINE NEG (NEG); CREATININE 1.2 mg/dL (0.6-1.0); METHADONE NEG (NEG); OPIATES NEG (NEG); PHENCYCLIDINE NEG (NEG); POTASSIUM 3.6 mmol/L (3.5-5.1)
[2020-09-13 13:04] LABS: AMPHETAMINE/METHAMPHETAMINE NEG (NEG)
[2020-09-13 13:10] LABS: ALBUMIN 3.6 g/dL (3.4-5.0); ALBUMIN/GLOBULIN RATIO 0.9 (1.0-1.7); TOTAL BILIRUBIN 1.5 mg/dL (0.2-1.0); TOTAL PROTEIN 7.7 g/dL (6.4-8.2)
[2020-09-13 16:03] VITALS: BP 96/53
[2020-09-13] MEDS ORDERED: clonazePAM 0.5 MG TABLET PO PRN (16:30)
[2020-09-13] MEDS ORDERED: clonazePAM 1 MG TABLET ONE (16:31)
[2020-09-13] MEDS ORDERED: clonazePAM 1 MG TABLET PO PRN (16:45)
== END 2020-09-13 16:03 | disposition short-term general hospital (02) ==
LOC: ER 11:35
DX: F32.9 Major depressive disorder, single episode, unspecified (principal); I13.10 Hypertensive heart and chronic kidney disease without heart failure, with stage 1 through stage 4 chronic kidney disease, or unspecified chronic kidney disease; E11.22 Type 2 diabetes mellitus with diabetic chronic kidney disease; N18.9 Chronic kidney disease, unspecified; G40.909 Epilepsy, unspecified, not intractable, without status epilepticus; Z90.89 Acquired absence of other organs; Z90.710 Acquired absence of both cervix and uterus; Z90.722 Acquired absence of ovaries, bilateral; Z88.1 Allergy status to other antibiotic agents; Z88.6 Allergy status to analgesic agent; Z88.8 Allergy status to other drugs, medicaments and biological substances; Z79.899 Other long term (current) drug therapy
CPT/HCPCS: 36415; 80053; 80307; 85025; 99285-25

== ENCOUNTER 2020-09-22 17:07 | Emergency (ER) | payer MEDICARE, OTHER ==
[~2020-09-22] VITALS: Ht 167.6 cm; Wt 118.9 kg
--- NOTE | 2020-09-22 17:47 | EKG ---
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
[2020-09-22 18:28] LABS: BASO # 0.1 x10^3/uL (0.0-0.2); BASO % 1 % (0-3); EOS # 0.1 x10^3/uL (0.0-0.7); EOS % 1 % (0-3); HEMATOCRIT 36.3 % (36.0-47.0); HEMOGLOBIN 11.8 g/dL (12.0-15.5); LYMPH # 2.4 x10^3/uL (1.0-4.8); LYMPH % 34 % (24-48); MEAN CORPUSCULAR HEMOGLOBIN 29 pg (25-35); MEAN CORPUSCULAR HGB CONC 32 g/dL (31-37); MEAN CORPUSCULAR VOLUME 90 fL (79-100); MONO # 0.5 x10^3/uL (0.0-1.1); MONO % 8 % (0-9); NEUT # 4.1 x10^3uL (1.8-7.7); NEUT % 56 % (31-73); PLATELET COUNT 297 x10^3/uL (140-400); RED BLOOD COUNT 4.02 x10^6/uL (3.50-5.40); RED CELL DISTRIBUTION WIDTH 13.4 % (11.5-14.5); WHITE BLOOD COUNT 7.2 x10^3/uL (4.0-11.0)
[2020-09-22 18:34] LABS: CALCIUM 9.4 mg/dL (8.5-10.1); CREATININE 1.1 mg/dL (0.6-1.0); GFR 61.9
[2020-09-22 18:40] LABS: ALBUMIN 3.4 g/dL (3.4-5.0); ALBUMIN/GLOBULIN RATIO 0.9 (1.0-1.7); TOTAL BILIRUBIN 1.5 mg/dL (0.2-1.0); TOTAL PROTEIN 7.3 g/dL (6.4-8.2)
[2020-09-22 18:51] LABS: BILIRUBIN,URINE NEG (NEG); CLARITY,URINE CLEAR; COLOR,URINE YELLOW; GLUCOSE,URINE NEG (NEG); NITRITE,URINE NEG (NEG); UROBILINOGEN,URINE 0.2 mg/dL (0.2 mg/dL)
[2020-09-22 18:52] LABS: BACTERIA,URINE 0 /HPF (0-FEW); RBC,URINE 0 /HPF (0-2); SQUAMOUS EPITHELIAL CELL,UR OCC /LPF; WBC,URINE 0 /HPF (0-4)
--- NOTE | 2020-09-22 18:57 | PHYS DOC ---
Past History Past Medical History: Depression, Diabetes, Heart Disease, HIV, Seizure Additional Past Medical Histor: back pain, abd pain. Past Surgical History: Appendectomy, Hysterectomy, Oophorectomy, Other Additional Past Surgical Histo: BACK AND ACHILLES Smoking: Non-smoker Alcohol Use: None Drug Use: None General Adult EDM: Chief Complaint: SEIZURE HPI: HPI: Patient is a 59-year-old female who presents after seizure. Patient states "I was laying in bed when I started shaking and realize side had a seizure". "I also bit my lip is how I knew I had a seizure". Patient has a history of seizures and takes Keppra. Patient states that she has been taking her medication as directed. Patient denies any other injuries. Patient was lying in bed when the incident occurred. Denies any other symptoms. Patient is alert and oriented x4. Review of Systems: Review of Systems: Constitutional: Denies fever or chills Eyes: Denies change in visual acuity HENT: Denies nasal congestion or sore throat Respiratory: Denies cough or shortness of breath Cardiovascular: Denies chest pain or edema GI: Denies abdominal pain, nausea, vomiting, bloody stools or diarrhea : Denies dysuria Musculoskeletal: Denies back pain or joint pain Integument: Reports biting bottom lip Neurologic: Denies headache, focal weakness or sensory changes Endocrine: Denies polyuria or polydipsia Lymphatic: Denies swollen glands Psychiatric: Denies depression or anxiety Allergies: Allergies: Allergies Coded Allergies Type Severity Reaction Last Updated Verified levofloxacin Allergy Severe seizure 09/13/20 Yes aspirin Allergy Mild 09/13/20 Yes naproxen Allergy Mild RASH 09/13/20 Yes tramadol Allergy Mild RASH 09/13/20 Yes I S O L A T I O N *CONTACT* Allergy Unknown 06/15/20 Yes ibuprofen Allergy Unknown 09/13/20 Yes Physical Exam: PE: Constitutional: Well developed, well nourished, no acute distress, non-toxic appearance. [] HENT: Normocephalic, atraumatic, bilateral external ears normal, oropharynx moist, no oral exudates, nose normal. [] Eyes: PERRLA, EOMI, conjunctiva normal, no discharge. [] Neck: Normal range of motion, no tenderness, supple, no stridor. [] Cardiovascular:Heart rate regular rhythm, no murmur [] Lungs & Thorax: Bilateral breath sounds clear to auscultation [] Abdomen: Bowel sounds normal, soft, no tenderness, no masses, no pulsatile masses. [] Skin: Warm, dry, no bleeding, no laceration Back: No tenderness, no CVA tenderness. [] Extremities: No tenderness, no cyanosis, no clubbing, ROM intact, no edema. [] Neurologic: Alert and oriented X 3, normal motor function, normal sensory function, no focal deficits noted. [] Psychologic: Affect normal, judgement normal, mood normal. [] Current Patient Data: Labs: Laboratory Tests Test 09/22/20 17:55 09/22/20 18:27 White Blood Count 7.2 x10^3/uL (4.0-11.0) Red Blood Count 4.02 x10^6/uL (3.50-5.40) Hemoglobin 11.8 g/dL (12.0-15.5) L Hematocrit 36.3 % (36.0-47.0) Mean Corpuscular Volume 90 fL (79-100) Mean Corpuscular Hemoglobin 29 pg (25-35) Mean Corpuscular Hemoglobin Concent 32 g/dL (31-37) Red Cell Distribution Width 13.4 % (11.5-14.5) Platelet Count 297 x10^3/uL (140-400) Neutrophils (%) (Auto) 56 % (31-73) Lymphocytes (%) (Auto) 34 % (24-48) Monocytes (%) (Auto) 8 % (0-9) Eosinophils (%) (Auto) 1 % (0-3) Basophils (%) (Auto) 1 % (0-3) Neutrophils # (Auto) 4.1 x10^3uL (1.8-7.7) Lymphocytes # (Auto) 2.4 x10^3/uL (1.0-4.8) Monocytes # (Auto) 0.5 x10^3/uL (0.0-1.1) Eosinophils # (Auto) 0.1 x10^3/uL (0.0-0.7) Basophils # (Auto) 0.1 x10^3/uL (0.0-0.2) Sodium Level 141 mmol/L (136-145) Potassium Level 4.0 mmol/L (3.5-5.1) Chloride Level 106 mmol/L (98-107) Carbon Dioxide Level 30 mmol/L (21-32) Anion Gap 5 (6-14) L Blood Urea Nitrogen 17 mg/dL (7-20) Creatinine 1.1 mg/dL (0.6-1.0) H Estimated GFR (Cockcroft-Gault) 61.9 BUN/Creatinine Ratio 15 (6-20) Glucose Level 101 mg/dL (70-99) H Calcium Level 9.4 mg/dL (8.5-10.1) Total Bilirubin 1.5 mg/dL (0.2-1.0) H Aspartate Amino Transferase (AST) 14 U/L (15-37) L Alanine Aminotransferase (ALT) 20 U/L (14-59) Alkaline Phosphatase 157 U/L (46-116) H Total Protein 7.3 g/dL (6.4-8.2) Albumin 3.4 g/dL (3.4-5.0) Albumin/Globulin Ratio 0.9 (1.0-1.7) L Glucose (Fingerstick) 86 mg/dL (70-99) Vital Signs: Vital Signs Date Time Temp Pulse Resp B/P (MAP) Pulse Ox O2 Delivery O2 Flow Rate FiO2 09/22/20 17:10 98.6 88 20 117/79 (92) 96 Room Air EKG: EKG: [] Normal sinus rhythm, heart rate 76 bpm. Intervals normal, axis normal. Radiology/Procedures: Radiology/Procedures: [] Heart Score: C/O Chest Pain: No Risk Factors: Risk Factors: DM, Current or recent (<one month) smoker, HTN, HLP, family history of CAD, obesity. Risk Scores: Score 0 - 3: 2.5% MACE over next 6 weeks - Discharge Home Score 4 - 6: 20.3% MACE over next 6 weeks - Admit for Clinical Observation Score 7 - 10: 72.7% MACE over next 6 weeks - Early Invasive Strategies Course & Med Decision Making: Course & Med Decision Making Pertinent Labs and Imaging studies reviewed. (See chart for details) [] Patient is being seen in the emergency room after a seizure today. Patient does have a history of seizures and takes Keppra. Patient reports that she has been taking her medications as directed. Patient states that she bit her bottom lip during the seizure. No laceration, bleeding or abrasion to lip seen on physical exam. Patient is alert and orientated x4. Patient states "I just feel really tired". All labs are unremarkable. UA is negative for infection. EKG shows sinus rhythm. Heart rate 76 bpm. Patient most likely had a seizure. I am discharging patient home and instructing patient to follow-up with her PCP. She is hemodynamically stable, alert and orientated x4. Dragon Disclaimer: Dragon Disclaimer: This electronic medical record was generated, in whole or in part, using a voice recognition dictation system. Departure Departure: Impression: Primary Impression: Seizure Disposition: 01 DC HOME SELF CARE/HOMELESS Condition: STABLE Referrals: JESSICA ROTHMAN (PCP) Patient Instructions: Seizure, Adult Additional Instructions: You were seen in the emergency room today after having a seizure at home. All of your lab work was unremarkable. Please call your PCP on Wednesday to follow-up. You may return to the emergency room with worsening symptoms or concerns. EMERGENCY DEPARTMENT GENERAL DISCHARGE INSTRUCTIONS Thank you for coming to [facility] (ED) today and trusting us with you care. We trust that you had a positivie experience in our Emergency Department. If you wish to speak to the department management, you may call the director at . YOUR FOLLOW UP INSTRUCTIONS ARE FOLLOWS: 1. Do you have a private Doctor? If you do not have a private doctor, please ask for a resource list of physicians or clinics that may be able to assist you with follow up care. 2. The Emergency Physician has interpreted your x-rays. The X-Ray specialist will also review them. If there is a change in the findings, you will be notified in 48 hours when at all possible. 3. A lab test or culture has been done, your results will be reviewed and you will be notified if you need a change in treatment. ADDITIONAL INSTRUCTIONS AND INFORMATION: 1. Your care today has been supervised by a physician who is specially trained in emergency care. Many problems require more than one evaluation for a complete diagnosis and treatment. We recommend that you schedule your follow up appointment as recommended to ensure complete treatment of you illness or injury. If you are unable to obtain follow up care and continue to have a problem, or if your condition worsens, we recommend that you return to the ED. 2. We are not able to safely determine your condition over the phone nor are we able to give sound medical advice over the phone. For these safety reasons, if you call for medical advice we will ask you to come to the ED for further evaluation. 3. If you have any questions regarding these discharge instructions please call the ED at [phone]. SAFETY INFORMATION: In the interest of safety, wellness, and injury prevention; we encourage you to wear your sealbelt, if you smoke; quite smoking, and we encourage family to use a protective helmet for bicycling and other sporting events that present an increased risk for head injury. IF YOUR SYMPTOMS WORSEN OR NEW SYMPTOMS DEVELOP, OR YOU HAVE CONCERNS ABOUT YOUR CONDITION; OR IF YOUR CONDITION WORSENS WHILE YOU ARE WAITING FOR YOUR FOLLOW UP APPOINTMENT; EITHER CONTACT YOUR PRIMARY CARE DOCTOR, THE PHYSICIAN WHOSE NAME AND NUMBER YOU WERE GIVEN, OR RETURN TO THE ED IMMEDIATELY. NANCY FAY APRN Sep 22, 2020 18:56
[2020-09-22 19:11] VITALS: BP 124/49
== END 2020-09-22 19:30 | disposition home or self-care (01) ==
LOC: ER 17:07
DX: R56.9 Unspecified convulsions (principal); F32.9 Major depressive disorder, single episode, unspecified; E11.9 Type 2 diabetes mellitus without complications; Z88.1 Allergy status to other antibiotic agents; Z88.6 Allergy status to analgesic agent; Z88.8 Allergy status to other drugs, medicaments and biological substances
CPT/HCPCS: 36415; 80053; 81001; 82947; 85025; 93005; 99285

== ENCOUNTER 2020-10-02 13:58 | Emergency (ER) | payer MEDICARE, OTHER ==
[~2020-10-02] VITALS: Ht 167.6 cm; Wt 118.9 kg
[2020-10-02 14:15] VITALS: BP 119/66
--- NOTE | 2020-10-02 15:17 | RAD ---
INDICATION: Reason: PAIN AND SWELLING WITHOUT INJURY RT CALF AREA / Spl. Instructions: / History: COMPARISON: None. TECHNIQUE: Grayscale, color and doppler ultrasound images were obtained of the right lower extremity venous vasculature. RIGHT: No thrombus identified in the common femoral vein, femoral vein, popliteal vein or visualized calf ve ins. IMPRESSION: * No thrombus identified in deep venous system of right lower extremity. Electronically signed by: Janusz Jacobo MD (10/02/2020 3:15 PM) [id number]
--- NOTE | 2020-10-02 15:24 | PHYS DOC ---
Past History Past Medical History: Depression, Diabetes, Heart Disease, HIV, Seizure Additional Past Medical Histor: back pain, abd pain. Past Surgical History: Appendectomy, Hysterectomy, Oophorectomy, Other Additional Past Surgical Histo: BACK AND ACHILLES Smoking: Non-smoker Alcohol Use: None Drug Use: None Adult General Chief Complaint Chief Complaint: KNEE INJURY HPI HPI Patient is a 60-year-old female who presents to the emergency department with complaints of right knee area pain for the past 3 weeks. Patient states it is worse when she stands from a sitting position, feels better when she wears a compression garment such as an Toñito wrap. Patient states she has been treating with Tylenol [id number] at home without relief. Patient states that her cousin told her it might be a blood clot she should come to the emergency department and get a sonogram right away. Patient denies any traumatic injury to her right lower extremity. Patient denies any recent fever chills, chest pains, shortness of breath, cough or chest congestion, abdominal pain, nausea, vomiting, or diarrhea or constipation. Patient denies any other physical complaints or physical concerns. Patient is not sure of her home medications however states she takes medications for her HIV, chronic infection of her back, and seizure medications. Patient reports a 8/10 pain on a 1-10 pain scale. Review of Systems Review of Systems 14 body systems of review of systems have been reviewed. See HPI for pertinent positives and negative responses, otherwise all other systems are negative, nonpertinent or noncontributory. Allergies Allergies Allergies Coded Allergies Type Severity Reaction Last Updated Verified levofloxacin Allergy Severe seizure 09/13/20 Yes aspirin Allergy Mild 09/13/20 Yes naproxen Allergy Mild RASH 09/13/20 Yes tramadol Allergy Mild RASH 09/13/20 Yes I S O L A T I O N *CONTACT* Allergy Unknown 06/15/20 Yes ibuprofen Allergy Unknown 09/13/20 Yes Physical Exam Physical Exam Constitutional: Well developed, well nourished, no acute distress, non-toxic appearance. 60-year-old female in no apparent distress. HENT: Normocephalic, atraumatic, bilateral external ears normal, oropharynx moist, no oral exudates, nose normal. Eyes: PERRLA, EOMI, conjunctiva normal, no discharge. Neck: Normal range of motion, no tenderness, supple, no stridor. Cardiovascular:Heart rate regular rhythm, no murmur, heart sounds S1-S2 no auscultation. Lungs & Thorax: Bilateral breath sounds clear to auscultation no adventitious lung sounds appreciated. Abdomen: Bowel sounds normal, soft, no tenderness, no masses, no pulsatile m asses. Skin: Warm, dry, no erythema, no rash. Back: No tenderness, no CVA tenderness. Extremities: No tenderness, no cyanosis, no clubbing, ROM intact, no edema. Except for right knee, patient complains of pain with palpation, passive range of motion, pain elicited to right calf with Homans maneuver. No deformity appreciated, distal cap refill less than 2 seconds, +2 dorsalis pedis/posterior tibial pulse. No swelling appreciated of the right or left lower extremity. Neurologic: Alert and oriented X 3, normal motor function, normal sensory fu nction, no focal deficits noted. Psychologic: Affect normal, judgement normal, mood normal. Current Patient Data Vital Signs Vital Signs Date Time Temp Pulse Resp B/P (MAP) Pulse Ox O2 Delivery O2 Flow Rate FiO2 10/02/20 14:15 97.6 80 16 119/66 (83) 98 Room Air EKG EKG [] Radiology/Procedures Radiology/Procedures PATIENT: HERNAN ANGEL I ACCOUNT: [id number] : 1960 LOCATION: ER AGE: 60 SEX: F EXAM STATUS: REG ER ORD. PHYSICIAN: SHANTHI DEVRIES APRN REASON: PAIN AND SWELLING WITHOUT INJURY RT CALF AREA PROCEDURE: VENOUS LOWER EXTREMITY RIGHT INDICATION: Reason: PAIN AND SWELLING WITHOUT INJURY RT CALF AREA / Spl. Instructions: / History: COMPARISON: None. TECHNIQUE: Grayscale, color and doppler ultrasound images were obtained of the right lower extremity venous vasculature. RIGHT: No thrombus identified in the common femoral vein, femoral vein, popliteal vein or visualized calf veins. IMPRESSION: * No thrombus identified in deep venous system of right lower extremity. Electronically signed by: Trent Olmos MD (10/02/2020 3:15 PM) [id number] DICTATED AND SIGNED BY: TRENT OLMOS MD DATE: 10/02/20 1512 CC: SHANTHI DEVRIES APRN; JESSICA ROTHMAN ~MTH0 0 Heart Score C/O Chest Pain: No Risk Factors: Risk Factors: DM, Current or recent (<one month) smoker, HTN, HLP, family history of CAD, obesity. Risk Scores: Risk Factors: DM, Current or recent (<one month) smoker, HTN, HLP, family history of CAD, obesity. Course & Med Decision Making Course & Med Decision Making Pertinent Labs and Imaging studies reviewed. (See chart for details) 60-year-old female, vital signs reviewed, presents emergency department concerning of right knee area pain and fear of having a blood clot in her leg. Physical examination was concerning for possible DVT, a venous Doppler study was ordered. Venous Doppler study for DVT of the right lower extremity was negative for DVT, interpreted by house radiologist. Discussed findings with patient, discussed Toñito wrap use, discussed continuing Tylenol for aches and pains, discussed with patient follow-up with her primary care physician KALEN Padilla this week for ongoing aches and pains and pain management. Will give patient 1 5 Nor co in ED prior to discharge. Patient gave verbal understanding of discharge home instructions, follow-up with her primary care, return to ER precautions or concerns, patient had no further questions or concerns and indicates she is ready to go home at this time, patient discharged home without incident. Dragon Disclaimer Dragon Disclaimer This electronic medical record was generated, in whole or in part, using a voice recognition dictation system. Departure Departure: Impression: Primary Impression: Right knee pain Disposition: HOME / SELF CARE / HOMELESS Condition: GOOD Referrals: JESSICA ROTHMAN (PCP) Additional Instructions: Your evaluated for a blood clot of your right leg, there were no concerning findings of a blood clot or any infectious process. I have recommended you wear an Toñito wrap or compression garment to help with your right knee pain. Please keep your appointments KALEN Rothman. Return to the emergency department for worsening symptoms or other concerns. You may use [id number] Tylenol for pain. Please see your primary care provider for ongoing management of this pain. EMERGENCY DEPARTMENT GENERAL DISCHARGE INSTRUCTIONS Thank you for coming to [facility] (ED) today and trusting us with you care. We trust that you had a positivie experience in our Emergency Department. If you wish to speak to the department management, you may call the director at [phone]. YOUR FOLLOW UP INSTRUCTIONS ARE FOLLOWS: 1. Do you have a private Doctor? If you do not have a private doctor, please ask for a resource list of physicians or clinics that may be able to assist you with follow up care. 2. The Emergency Physician has interpreted your x-rays. The X-Ray specialist will also review them. If there is a change in the findings, you will be notified in 48 hours when at all possible. 3. A lab test or culture has been done, your results will be reviewed and you will be notified if you need a change in treatment. ADDITIONAL INSTRUCTIONS AND INFORMATION: 1. Your care today has been supervised by a physician who is specially trained in emergency care. Many problems require more than one evaluation for a complete diagnosis and treatment. We recommend that you schedule your follow up appointment as recommended to ensure complete treatment of you illness or injury. If you are unable to obtain follow up care and continue to have a problem, or if your condition worsens, we recommend that you return to the ED. 2. We are not able to safely determine your condition over the phone nor are we able to give sound medical advice over the phone. For these safety reasons, if you call for medical advice we will ask you to come to the ED for further evaluation. 3. If you have any questions regarding these discharge instructions please call the ED at [phone]. SAFETY INFORMATION: In the interest of safety, wellness, and injury prevention; we encourage you to wear your sealbelt, if you smoke; quite smoking, and we encourage family to use a protective helmet for bicycling and other sporting events that present an increased risk for head injury. IF YOUR SYMPTOMS WORSEN OR NEW SYMPTOMS DEVELOP, OR YOU HAVE CONCERNS ABOUT YOUR CONDITION; OR IF YOUR CONDITION WORSENS WHILE YOU ARE WAITING FOR YOUR FOLLOW UP APPOINTMENT; EITHER CONTACT YOUR PRIMARY CARE DOCTOR, THE PHYSICIAN WHOSE NAME AND NUMBER YOU WERE GIVEN, OR RETURN TO THE ED IMMEDIATELY. Problem Qualifiers Primary Impression: Right knee pain Chronicity: chronic Qualified Codes: M25.561 - Pain in right knee; G89.29 - Other chronic pain SHANTHI DEVRIES APRN Oct 02, 2020 15:24
[2020-10-02] MEDS ORDERED: HYDROcodone/APAP 5/325MG 1 TAB TABLET ONE (15:36)
[2020-10-02] MEDS ORDERED: HYDROcodone/APAP 5/325MG 1 TAB TABLET PO ONE (15:45)
== END 2020-10-02 15:41 | disposition home or self-care (01) ==
LOC: ER 13:58
DX: M25.561 Pain in right knee (principal); R22.41 Localized swelling, mass and lump, right lower limb; G89.29 Other chronic pain; E11.9 Type 2 diabetes mellitus without complications; Z88.1 Allergy status to other antibiotic agents; Z88.6 Allergy status to analgesic agent; Z88.8 Allergy status to other drugs, medicaments and biological substances
CPT/HCPCS: 93971; 99284

== ENCOUNTER → 2020-10-03 | Outpatient (CLI) | payer MEDICARE, OTHER ==
[2020-10-02 14:15] VITALS: BP 119/66
--- NOTE | 2020-10-04 11:55 | RAD ---
EXAM: XR KNEE_RT 1-2 VIEWS, XR LUMBAR SPINE 4+V 10/03/2020 3:45 PM CLINICAL INDICATION: Low back pain, right knee pain COMPARISON: None TECHNIQUE: 5 views of the lumbar spine, 2 views of the right knee FINDINGS: Lumbar spine: There are 5 nonrib-bearing lumbar vertebral bodies. There are surgical changes of poste rior fusion at L3-S1 with bilateral pedicle screws and connecting rods. There is no evidence of hardw are loosening or failure. There is an interbody graft at L3-L4. There is an interspinous spacer at L2 -L3. Severe disc space narrowing with partial fusion across the disc space at L2-L3 is unchanged. No acute fracture. Alignment is normal. There are surgical clips in the abdomen. Right knee: No acute fracture. Alignment is normal. Mild medial compartment narrowing. Tiny tricompar tmental osteophytes. Small joint effusion. IMPRESSION: 1. Surgical changes of L3-S1 posterior fusion and L3-L4 interbody fusion. Interspinous spacer at L2-L 3. No evidence of complication. 2. Severe degenerative disc disease with partial osseous fusion anteriorly at and L2-L3. 3. Mild degenerative joint disease of the right knee. Electronically signed by: Cydney Holliday MD (10/04/2020 11:53 AM) [id number]
== END ==
LOC: RAD 15:33
PROVIDERS: ATTEND Physician Assistant
DX: M17.11 Unilateral primary osteoarthritis, right knee (principal); M51.16 Intervertebral disc disorders with radiculopathy, lumbar region; M48.061 Spinal stenosis, lumbar region without neurogenic claudication
CPT/HCPCS: 72110; 73560

== ENCOUNTER 2020-10-07 14:12 | Emergency (ER) | payer MEDICARE, OTHER ==
[~2020-10-07] VITALS: Ht 167.6 cm; Wt 118.9 kg
[2020-10-07 14:23] VITALS: BP 119/66
--- NOTE | 2020-10-07 14:32 | PHYS DOC ---
Past History Past Medical History: Depression, Diabetes, Heart Disease, HIV, Seizure Additional Past Medical Histor: back pain, abd pain. Past Surgical History: Appendectomy, Hysterectomy, Oophorectomy, Other Additional Past Surgical Histo: BACK AND ACHILLES Smoking: Non-smoker Alcohol Use: None Drug Use: None General Adult EDM: Chief Complaint: KNEE INJURY HPI: HPI: 60-year-old female presents with right knee pain. The patient had an intra- articular injection last week in this knee, but did not significantly improve her baseline pain. She presents today because she has an increase in the discomfort in this knee especially located posterior to the knee joint radiating to the medial aspect. She denies any overuse, twisting, falls, or trauma. "It just started hurting more". She denies any other injuries or complaints at this time. Denies fever or chills. The patient is not on any antiplatelets or intake coagulant medications. She denies any long plane train or car rides. Review of Systems: Review of Systems: Constitutional: Denies fever or chills Eyes: Denies change in visual acuity HENT: Denies nasal congestion or sore throat Respiratory: Denies cough or shortness of breath Cardiovascular: Denies chest pain or edema GI: Denies abdominal pain, nausea, vomiting, bloody stools or diarrhea : Denies dysuria Musculoskeletal: Right knee pain Integument: Denies rash Neurologic: Denies headache, focal weakness or sensory changes Endocrine: Denies polyuria or polydipsia Lymphatic: Denies swollen glands Psychiatric: Denies depression or anxiety Allergies: Allergies: Allergies Coded Allergies Type Severity Reaction Last Updated Verified levofloxacin Allergy Severe seizure 09/13/20 Yes aspirin Allergy Mild 09/13/20 Yes naproxen Allergy Mild RASH 09/13/20 Yes tramadol Allergy Mild RASH 09/13/20 Yes I S O L A T I O N *CONTACT* Allergy Unknown 06/15/20 Yes ibuprofen Allergy Unknown 09/13/20 Yes Physical Exam: PE: Constitutional: Well developed, well nourished, morbidly obese, no acute distress, non-toxic appearance. [] HENT: Normocephalic, atraumatic, bilateral external ears normal, oropharynx moist, no oral exudates, nose normal. [] Eyes: PERRLA, EOMI, conjunctiva normal, no discharge. [] Neck: Normal range of motion, no tenderness, supple, no stridor. [] Cardiovascular: Heart rate regular rhythm, no murmur [] Lungs & Thorax: Bilateral breath sounds clear to auscultation [] Abdomen: Bowel sounds normal, soft, no tenderness, no masses, no pulsatile masses. [] Skin: Warm, dry, no erythema, no rash. [] Back: No tenderness, no CVA tenderness. [] Extremities: Right knee with small area of ecchymosis anteriorly consistent with joint injection. Tenderness of the right popliteal fossa. No obvious calf swelling compared to left. [] Neurologic: Alert and oriented X 3, normal motor function, normal sensory function, no focal deficits noted. [] Psychologic: Affect normal, judgement normal, mood normal. [] Current Patient Data: Vital Signs: Vital Signs Date Time Temp Pulse Resp B/P (MAP) Pulse Ox O2 Delivery O2 Flow Rate FiO2 10/07/20 14:23 97.9 90 16 119/66 (83) 100 Room Air EKG: EKG: [] Radiology/Procedures: Radiology/Procedures: [] Impressions: EXAM: Right lower extremity venous Doppler. HISTORY: Right lower extremity pain/swelling. COMPARISON: None. FINDINGS: Grayscale and Doppler analysis of the right lower extremity deep venous system was performed with graded compression and augmentation. The common femoral, greater saphenous, superficial femoral, popliteal and calf veins were assessed. There is no evidence of deep venous thrombosis. IMPRESSION: 1. No evidence of deep venous thrombosis. Electronically signed by: Thalia Parsons MD (10/07/2020 3:07 PM) [id number] DICTATED AND SIGNED BY: DELLA PARSONS MD DATE: 10/07/20 1506 CC: GAGE MOON DO; JESSICA ROTHMAN PA ~MTH0 0 Heart Score: C/O Chest Pain: No Risk Factors: Risk Factors: DM, Current or recent (<one month) smoker, HTN, HLP, family history of CAD, obesity. Risk Scores: Score 0 - 3: 2.5% MACE over next 6 weeks - Discharge Home Score 4 - 6: 20.3% MACE over next 6 weeks - Admit for Clinical Observation Score 7 - 10: 72.7% MACE over next 6 weeks - Early Invasive Strategies Course & Med Decision Making: Course & Med Decision Making Pertinent Labs and Imaging studies reviewed. (See chart for details) The patient's ultrasound was negative for DVT. I have advised that she follow- up with orthopedics for further evaluation and management of her knee pain. She has plans to do this anyway. She is stable for discharge at this time. [] Dragon Disclaimer: Dragon Disclaimer: This electronic medical record was generated, in whole or in part, using a voice recognition dictation system. Departure Departure: Impression: Primary Impression: Right knee pain Qualified Codes: M25.561 - Pain in right knee; G89.29 - Other chronic pain Disposition: HOME / SELF CARE / HOMELESS Condition: STABLE Referrals: JESSICA ROTHMAN (PCP) Patient Instructions: Knee Pain, [id number] GAGE MOON DO Oct 07, 2020 14:32
--- NOTE | 2020-10-07 15:09 | RAD ---
EXAM: Right lower extremity venous Doppler. HISTORY: Right lower extremity pain/swelling. COMPARISON: None. FINDINGS: Grayscale and Doppler analysis of the right lower extremity deep venous system was performe d with graded compression and augmentation. The common femoral, greater saphenous, superficial femora l, popliteal and calf veins were assessed. There is no evidence of deep venous thrombosis. IMPRESSION: 1. No evidence of deep venous thrombosis. Electronically signed by: Thalia Parsons MD (10/07/2020 3:07 PM) [id number]
== END 2020-10-07 15:37 | disposition home or self-care (01) ==
LOC: ER 14:12
DX: M25.561 Pain in right knee (principal); E11.9 Type 2 diabetes mellitus without complications; G89.29 Other chronic pain; Z86.79 Personal history of other diseases of the circulatory system; Z88.1 Allergy status to other antibiotic agents; Z88.5 Allergy status to narcotic agent; Z88.6 Allergy status to analgesic agent; Z91.041 Radiographic dye allergy status; Z88.8 Allergy status to other drugs, medicaments and biological substances
CPT/HCPCS: 93971; 99283; 99284

== ENCOUNTER 2020-10-18 14:00 | Emergency (ER) | payer MEDICARE, OTHER ==
[~2020-10-18] VITALS: Ht 167.6 cm; Wt 118.9 kg
--- NOTE | 2020-10-18 14:39 | EKG ---
[address] [address] Test Date: 2020-10-18 Test Time: 14:32:28 Pat Name: HERNAN ANGEL Department: Room: Gender: F Group Home Manager: CLARIBEL : 1960 Requested By: DIDI LOGAN Order Number: [id number] Reading MD: Measurements Intervals [place] Rate: 69 P: 20 [place]: 190 QRS: 13 QRSD: 70 T: 20 QT: 360 QTc: 391 Interpretive Statements SINUS RHYTHM NORMAL ECG RI6.02 No previous ECG available for comparison
--- NOTE | 2020-10-18 14:53 | PHYS DOC ---
Past History Past Medical History: Depression, Diabetes, Heart Disease, HIV, Seizure Additional Past Medical Histor: back pain, abd pain. (DIDI LOGAN MD) Past Surgical History: Appendectomy, Hysterectomy, Oophorectomy, Other Additional Past Surgical Histo: BACK AND ACHILLES (DIDI LOGAN MD) Smoking: Non-smoker Alcohol Use: None Drug Use: None (DIDI LOGAN MD) General Adult EDM: Chief Complaint: PSYCH EVALUATION HPI: HPI: Patient is a 60-year-old female coming in for psych evaluation. Patient has a history of depression that has been managed by her primary care provider. Patient states she has had some of her depression medications increased a few months ago but has not helped. Patient denies any suicidal homicidal ideation, denies any hallucinations. Denies any recent illness. States she has been having stressors of not having enough money and not able to afford her own place, is currently living with her uncle. States relationship is good with her uncle however he is not supposed to be having anybody else stay at his place. (DIDI LOGAN MD) Review of Systems: Review of Systems: All other systems within normal limits except for as noted in the HPI (DIDI LOGAN MD) Allergies: Allergies: Allergies Coded Allergies Type Severity Reaction Last Updated Verified levofloxacin Allergy Severe seizure 09/13/20 Yes aspirin Allergy Mild 09/13/20 Yes naproxen Allergy Mild RASH 09/13/20 Yes tramadol Allergy Mild RASH 09/13/20 Yes I S O L A T I O N *CONTACT* Allergy Unknown 06/15/20 Yes ibuprofen Allergy Unknown 09/13/20 Yes (DIDI LOGAN MD) Physical Exam: PE: Constitutional: Well developed, well nourished, no acute distress, non-toxic appearance. [] HENT: Normocephalic, atraumatic, bilateral external ears normal, nose normal. [] Eyes: PERRLA, conjunctiva normal, no discharge. [] Neck: No rigidity, supple, no stridor. [] Cardiovascular: Regular rate and rhythm, brisk cap refill [] Lungs & Thorax: Non labored symmetric respirations, no tachypnea or respiratory distress [] Abdomen: Soft, nondistended. Skin: Warm, dry, no erythema, no rash. [] Back: Unremarkable Extremities: No deformities, range of motion grossly intact, no lower extremity edema [] Neurologic: Alert and oriented X 3, no focal deficits noted. [] Psychologic: Flat normal, judgement normal, depressed mood [] (DIDI LOGAN MD) Current Patient Data: Vital Signs: Vital Signs Date Time Temp Pulse Resp B/P (MAP) Pulse Ox O2 Delivery O2 Flow Rate FiO2 10/18/ 14:18 98.1 82 18 165/105 (125) 97 Room Air (DIDI LOGAN MD) EKG: EKG: Sinus rhythm, heart rate 69 bpm, normal axis, no ectopy, normal intervals. [] (DIDI LOGAN MD) Radiology/Procedures: Radiology/Procedures: [] (DIDI LOGAN MD) Heart Score: C/O Chest Pain: No Risk Factors: Risk Factors: DM, Current or recent (<one month) smoker, HTN, HLP, family history of CAD, obesity. Risk Scores: Score 0 - 3: 2.5% MACE over next 6 weeks - Discharge Home Score 4 - 6: 20.3% MACE over next 6 weeks - Admit for Clinical Observation Score 7 - 10: 72.7% MACE over next 6 weeks - Early Invasive Strategies (DIDI LOGAN MD) Course & Med Decision Making: Course & Med Decision Making Pertinent Labs and Imaging studies reviewed. (See chart for details) Patient undergoing PAT evaluation, is trying to get placement at [facility]. Rapid Covid and definitive placement pending at shift change, care transition to Dr. Hernadez. Given IV fluids for mild dehydration and hyperglycemia [] (DIDI LOGAN MD) Course & Med Decision Making I assumed care of patient after off going physician gave me comprehensive signout. I personally saw patient and repeated certain aspects of history and physical exam. PAT member still present, I reviewed case with her. Patient voluntarily wanting admission and does not have HI/SI and pending admission after being turned down due to not meeting criteria at several places Patient uncomplicated throughout entirety of my shift. Voiced she wanted to leave. At this time, safety plan was created for patient. I feel and so does behavioral health team here that patient is safe for discharge home with adequate resources and following safety plan given Strict return precautions discussed with good understanding, all questions and concerns addressed prior to ER departure (TROY HERNADEZ DO) Christopher Disclaimer: Christopher Disclaimer: This electronic medical record was generated, in whole or in part, using a voice recognition dictation system. (DIDI LOGAN MD) Departure Departure: Impression: Primary Impression: Hyperglycemia due to diabetes mellitus Additional Impression: Depression Disposition: 01 HOME / SELF CARE / HOMELESS Condition: STABLE Referrals: JESSICA ROTHMAN (PCP) DIDI LOGAN MD Oct 18, 2020 14:53 TROY HERNADEZ DO Oct 18, 2020 19:23
[2020-10-18 15:06] LABS: BASO % 0 % (0-3); EOS % 0 % (0-3); HEMATOCRIT 40.4 % (36.0-47.0); HEMOGLOBIN 13.1 g/dL (12.0-15.5); LYMPH # 2.3 x10^3/uL (1.0-4.8); LYMPH % 17 % (24-48); MEAN CORPUSCULAR HEMOGLOBIN 29 pg (25-35); MEAN CORPUSCULAR HGB CONC 32 g/dL (31-37); MEAN CORPUSCULAR VOLUME 91 fL (79-100); MONO # 0.7 x10^3/uL (0.0-1.1); MONO % 5 % (0-9); NEUT # 10.9 x10^3uL (1.8-7.7); NEUT % 78 % (31-73); PLATELET COUNT 311 x10^3/uL (140-400); RED BLOOD COUNT 4.46 x10^6/uL (3.50-5.40); RED CELL DISTRIBUTION WIDTH 13.5 % (11.5-14.5); WHITE BLOOD COUNT 13.9 x10^3/uL (4.0-11.0)
[2020-10-18 15:12] LABS: CREATININE 1.5 mg/dL (0.6-1.0); GFR 43.2; POTASSIUM 3.9 mmol/L (3.5-5.1)
[2020-10-18 15:19] LABS: ACETAMIN < 2 mcg/mL (10-30); SALIC < 2.8 mg/dL (2.8-20.0)
[2020-10-18 15:20] LABS: ETHANOL < 10 mg/dL (0-10)
[2020-10-18 15:24] LABS: BILIRUBIN,URINE NEG (NEG); CLARITY,URINE CLEAR; COLOR,URINE YELLOW; GLUCOSE,URINE 100 mg/dL (NEG)
[2020-10-18 15:25] LABS: ALBUMIN 3.4 g/dL (3.4-5.0); ALBUMIN/GLOBULIN RATIO 0.9 (1.0-1.7); MAGNESIUM 1.8 mg/dL (1.8-2.4); TOTAL BILIRUBIN 1.7 mg/dL (0.2-1.0)
[2020-10-18 15:25] LABS: BACTERIA,URINE 0 /HPF (0-FEW); NITRITE,URINE NEG (NEG); RBC,URINE RARE /HPF (0-2); SQUAMOUS EPITHELIAL CELL,UR OCC /LPF; UROBILINOGEN,URINE 0.2 mg/dL (0.2 mg/dL); WBC,URINE OCC /HPF (0-4)
[2020-10-18 15:26] LABS: YEAST,URINE PRESENT /HPF
[2020-10-18] MEDS: IV NORMAL SALINE 1,000ML 1,000 ML IV ONE (15:37)
[2020-10-18 15:45] LABS: BARBITURATES NEG (NEG); BENZODIAZEPINES POS (NEG); CANNABINOIDS NEG (NEG); COCAINE NEG (NEG); METHADONE NEG (NEG); OPIATES NEG (NEG); PHENCYCLIDINE NEG (NEG)
[2020-10-18 15:46] LABS: AMPHETAMINE/METHAMPHETAMINE NEG (NEG)
[2020-10-18 18:29] VITALS: BP 138/85
== END 2020-10-18 19:18 | disposition home or self-care (01) ==
LOC: ER 14:00
DX: E11.65 Type 2 diabetes mellitus with hyperglycemia (principal); F32.9 Major depressive disorder, single episode, unspecified; Z20.822 Contact with and (suspected) exposure to COVID-19; Z90.89 Acquired absence of other organs; Z90.710 Acquired absence of both cervix and uterus; Z90.722 Acquired absence of ovaries, bilateral; Z88.1 Allergy status to other antibiotic agents; Z88.6 Allergy status to analgesic agent; Z88.8 Allergy status to other drugs, medicaments and biological substances; Z79.899 Other long term (current) drug therapy
CPT/HCPCS: 36415; 80053; 80307; 80329; 81001; 83605; 83735; 85025; 87426; 93005; 96360; 99284; C9803; G0480; J7030; U0003

== ENCOUNTER 2020-10-20 12:35 | Emergency (ER) | payer MEDICARE, OTHER ==
[~2020-10-20] VITALS: Ht 167.6 cm; Wt 118.9 kg
--- NOTE | 2020-10-20 13:17 | PHYS DOC ---
Past History Past Medical History: Depression, Diabetes, Heart Disease, HIV, Seizure Additional Past Medical Histor: back pain, abd pain. Past Surgical History: Appendectomy, Hysterectomy, Oophorectomy, Other Additional Past Surgical Histo: BACK AND ACHILLES Smoking: Non-smoker Alcohol Use: None Drug Use: None Adult General Chief Complaint Chief Complaint: PSYCH EVALUATION [facility] HPI Patient is a 60-year-old female patient with history of diabetes type 2, depression, seizures, heart disease, HIV, presenting today from the [facility] house where she lives. She states she has depression and thoughts of harming other people. She states this people are annoying her, denies any plan on how she will harm this people. She states she has also been hallucinating. She states she has been talking to herself for months and seeing things. She states today she was hallucinating and found herself having a baby. Patient denies any suicidal ideations. Patient states she was seen in the ED on Wednesday with similar symptoms but she did not like the places she was supposed to go to for psych so she left Review of Systems Review of Systems Constitutional: Denies fever or chills [] Eyes: Denies change in visual acuity, redness, or eye pain [] HENT: Denies nasal congestion or sore throat [] Respiratory: Denies cough or shortness of breath [] Cardiovascular: No additional information not addressed in HPI [] GI: Denies abdominal pain, nausea, vomiting, bloody stools or diarrhea [] : Denies dysuria or hematuria [] Musculoskeletal: Denies back pain or joint pain [] Integument: Denies rash or skin lesions [] Neurologic: Denies headache, focal weakness or sensory changes [] Psych: Reports homicidal ideation, hallucination All other systems were reviewed and found to be within normal limits, except as documented in this note. Allergies Allergies Allergies Coded Allergies Type Severity Reaction Last Updated Verified levofloxacin Allergy Severe seizure 09/13/20 Yes aspirin Allergy Mild 09/13/20 Yes naproxen Allergy Mild RASH 09/13/20 Yes tramadol Allergy Mild RASH 09/13/20 Yes I S O L A T I O N *CONTACT* Allergy Unknown 06/15/20 Yes ibuprofen Allergy Unknown 09/13/20 Yes Physical Exam Physical Exam Constitutional: Well developed, well nourished, no acute distress, non-toxic appearance. [] HENT: Normocephalic, atraumatic, bilateral external ears normal, oropharynx moist, no oral exudates, nose normal. [] Eyes: PERRLA, EOMI, conjunctiva normal, no discharge. [] Neck: Normal range of motion, no tenderness, supple, no stridor. [] Cardiovascular:Heart rate regular rhythm, no murmur [] Lungs & Thorax: Bilateral breath sounds clear to auscultation [] Abdomen: Bowel sounds normal, soft, no tenderness, no masses, no pulsatile masses. [] Skin: Warm, dry, no erythema, no rash. [] Back: No tenderness, no CVA tenderness. [] Extremities: No tenderness, no cyanosis, no clubbing, ROM intact, no edema. [] Neurologic: Alert and oriented X 3, normal motor function, normal sensory function, no focal deficits noted. [] Psychologic: Flat affect, sad Current Patient Data Vital Signs Vital Signs Date Time Temp Pulse Resp B/P (MAP) Pulse Ox O2 Delivery O2 Flow Rate FiO2 10/20/20 12:54 98.0 87 16 141/91 (108) 98 Room Air EKG EKG [] Radiology/Procedures Radiology/Procedures [] Heart Score C/O Chest Pain: N/A Risk Factors: Risk Factors: DM, Current or recent (<one month) smoker, HTN, HLP, family history of CAD, obesity. Risk Scores: Risk Factors: DM, Current or recent (<one month) smoker, HTN, HLP, family history of CAD, obesity. Course & Med Decision Making Course & Med Decision Making Pertinent Labs and Imaging studies reviewed. (See chart for details) This is a 60-year-old female patient presented to the ED today complaining of hallucinations and homicidal ideations. See HPI Labs are negative for any acute findings. Yulia from the PAT team came and evaluated patient, she was discharged to [facility] Disclaimer Drag Disclaimer This electronic medical record was generated, in whole or in part, using a voice recognition dictation system. Departure Departure: Impression: Primary Impression: Homicidal ideation Additional Impression: Hallucinations Disposition: 01 HOME / SELF CARE / HOMELESS Condition: STABLE Referrals: JESSICA ROTHMAN (PCP) please head to [facility] Patient Instructions: Hallucinations and Delusions Additional Instructions: Please head to [facility] Problem Qualifiers FARSHAD CLARK PIZZAMAKER October 20, 2020 13:17
[2020-10-20 13:54] LABS: BASO # 0.2 x10^3/uL (0.0-0.2); BASO % 1 % (0-3); EOS % 0 % (0-3); HEMATOCRIT 40.8 % (36.0-47.0); HEMOGLOBIN 13.3 g/dL (12.0-15.5); LYMPH # 2.5 x10^3/uL (1.0-4.8); LYMPH % 18 % (24-48); MEAN CORPUSCULAR HEMOGLOBIN 29 pg (25-35); MEAN CORPUSCULAR HGB CONC 33 g/dL (31-37); MEAN CORPUSCULAR VOLUME 89 fL (79-100); MONO # 0.7 x10^3/uL (0.0-1.1); MONO % 5 % (0-9); NEUT # 10.6 x10^3uL (1.8-7.7); NEUT % 76 % (31-73); PLATELET COUNT 287 x10^3/uL (140-400); RED BLOOD COUNT 4.58 x10^6/uL (3.50-5.40); RED CELL DISTRIBUTION WIDTH 13.4 % (11.5-14.5)
[2020-10-20 13:57] LABS: CALCIUM 8.8 mg/dL (8.5-10.1); CREATININE 1.1 mg/dL (0.6-1.0); GFR 61.7; POTASSIUM 4.2 mmol/L (3.5-5.1)
[2020-10-20 14:02] LABS: ACETAMIN < 2.0 mcg/mL (10-30); ETHANOL < 10 mg/dL (0-10); SALIC < 2.8 mg/dL (2.8-20.0)
[2020-10-20 14:03] LABS: ALBUMIN 3.3 g/dL (3.4-5.0); ALBUMIN/GLOBULIN RATIO 0.9 (1.0-1.7); TOTAL BILIRUBIN 1.3 mg/dL (0.2-1.0); TOTAL PROTEIN 7.1 g/dL (6.4-8.2)
[2020-10-20 14:25] LABS: BARBITURATES NEG (NEG); BENZODIAZEPINES POS (NEG); CANNABINOIDS NEG (NEG); COCAINE NEG (NEG); METHADONE NEG (NEG); OPIATES NEG (NEG); PHENCYCLIDINE NEG (NEG)
[2020-10-20 14:26] LABS: AMPHETAMINE/METHAMPHETAMINE NEG (NEG)
[2020-10-20 14:48] LABS: BILIRUBIN,URINE NEG (NEG); CLARITY,URINE CLEAR; COLOR,URINE YELLOW; GLUCOSE,URINE NEG (NEG); NITRITE,URINE NEG (NEG); RBC,URINE 0 /HPF (0-2); UROBILINOGEN,URINE 0.2 mg/dL (0.2 mg/dL)
[2020-10-20 14:49] LABS: BACTERIA,URINE FEW /HPF (0-FEW); SQUAMOUS EPITHELIAL CELL,UR FEW /LPF
[2020-10-20 15:24] VITALS: BP 138/87
== END 2020-10-20 15:27 | disposition home or self-care (01) ==
LOC: ER 12:35
DX: R45.850 Homicidal ideations (principal); R44.3 Hallucinations, unspecified; F32.9 Major depressive disorder, single episode, unspecified; E11.9 Type 2 diabetes mellitus without complications; Z88.1 Allergy status to other antibiotic agents; Z88.6 Allergy status to analgesic agent; Z88.8 Allergy status to other drugs, medicaments and biological substances; Z79.899 Other long term (current) drug therapy
CPT/HCPCS: 36415; 80053; 80307; 81001; 83690; 85025; 99283; G0480; 80329

== ENCOUNTER 2020-11-05 15:59 | Emergency (ER) | payer MEDICARE, OTHER ==
[~2020-11-05] VITALS: Ht 167.6 cm; Wt 118.9 kg
[2020-11-05 16:11] VITALS: BP 134/96
[2020-11-05] MEDS ORDERED: oxyCODONE/APAP 5/325 1 TAB TABLET PO ONE (16:30)
[2020-11-05] MEDS ORDERED: OXYC1TAB15 PO (16:42)
--- NOTE | 2020-11-05 16:42 | PHYS DOC ---
Past History Past Medical History: Depression, Diabetes, Heart Disease, HIV, Seizure Additional Past Medical Histor: back pain, abd pain. Past Surgical History: Appendectomy, Hysterectomy, Oophorectomy, Other Additional Past Surgical Histo: BACK AND ACHILLES Smoking: Non-smoker Alcohol Use: None Drug Use: None General Adult EDM: Chief Complaint: UPPER EXTREMITY PAIN HPI: HPI: Patient is a [age] year old [sex] who presents with [] Review of Systems: Review of Systems: Constitutional: Denies fever or chills Eyes: Denies change in visual acuity HENT: Denies nasal congestion or sore throat Respiratory: Denies cough or shortness of breath Cardiovascular: Denies chest pain or edema GI: Denies abdominal pain, nausea, vomiting, bloody stools or diarrhea : Denies dysuria Musculoskeletal: Denies back pain or joint pain Integument: Denies rash Neurologic: Denies headache, focal weakness or sensory changes Endocrine: Denies polyuria or polydipsia Lymphatic: Denies swollen glands Psychiatric: Denies depression or anxiety Current Medications: Current Meds: Current Medications Medications (Trade) Dose Ordered Sig/Bhavik Start Time Stop Time Status Last Admin Dose Admin Oxycodone/ Acetaminophen (Percocet 5/325) 1 tab 1X ONCE 11/05/20 16:30 11/05/20 16:31 DC Allergies: Allergies: Allergies Coded Allergies Type Severity Reaction Last Updated Verified levofloxacin Allergy Severe seizure 09/13/20 Yes aspirin Allergy Mild 09/13/20 Yes naproxen Allergy Mild RASH 09/13/20 Yes tramadol Allergy Mild RASH 09/13/20 Yes I S O L A T I O N *CONTACT* Allergy Unknown 06/15/20 Yes ibuprofen Allergy Unknown 09/13/20 Yes Physical Exam: PE: Constitutional: Well developed, well nourished, no acute distress, non-toxic appearance. [] HENT: Normocephalic, atraumatic, bilateral external ears normal, oropharynx moist, no oral exudates, nose normal. [] Eyes: PERRLA, EOMI, conjunctiva normal, no discharge. [] Neck: Normal range of motion, no tenderness, supple, no stridor. [] Cardiovascular:Heart rate regular rhythm, no murmur [] Lungs & Thorax: Bilateral breath sounds clear to auscultation [] Abdomen: Bowel sounds normal, soft, no tenderness, no masses, no pulsatile masses. [] Skin: Warm, dry, no erythema, no rash. [] Back: No tenderness, no CVA tenderness. [] Extremities: No tenderness, no cyanosis, no clubbing, ROM intact, no edema. [] Neurologic: Alert and oriented X 3, normal motor function, normal sensory function, no focal deficits noted. [] Psychologic: Affect normal, judgement normal, mood normal. [] Current Patient Data: Vital Signs: Vital Signs Date Time Temp Pulse Resp B/P (MAP) Pulse Ox O2 Delivery O2 Flow Rate FiO2 11/05/20 16:11 82 18 134/96 (109) 95 EKG: EKG: [] Radiology/Procedures: Radiology/Procedures: [] Heart Score: C/O Chest Pain: N/A Course & Med Decision Making: Course & Med Decision Making Pertinent Imaging studies reviewed. (See chart for details) [employer] Disclaimer: [employer] Disclaimer: This electronic medical record was generated, in whole or in part, using a voice recognition dictation system. Departure Departure: Impression: Primary Impression: Contusion of right chest wall Qualified Codes: S20.211A - Contusion of right front wall of thorax, initial encounter Disposition: HOME / SELF CARE / HOMELESS Condition: STABLE Referrals: JESSICA ROTHMAN (PCP) Patient Instructions: Chest Contusion, [id number], Incentive Spirometer Additional Instructions: ICE area of pain 20 min on then leave off next 20 mins. Repeat several times daily as needed for next few days. Scripts Oxycodone Hcl/Acetaminophen (PERCOCET 5-325 MG TABLET ) 1 Each Tablet 0.5-1 TAB PO Q6HRS PRN for PAIN MDD 2 Tablet(s), #10 TAB 0 Refills Prov: SHANTHI BENAVIDES DO 11/05/20 SHANTHI BENAVIDES DO November 05, 2020 16:42
--- NOTE | 2020-11-05 16:51 | RAD ---
EXAM: Chest and right ribs, 4 views. HISTORY: Pain. Fall. COMPARISON: None. FINDINGS: A frontal view of the chest and 3 views the right ribs are obtained. There is no infiltrate , pleural effusion or pneumothorax. The heart is normal in size. There is suspected bilateral infrahi lar atelectasis or scarring. There is instrumented fusion and decompression surgery involving the lum bar spine, partially included on the [id number]. IMPRESSION: No acute pulmonary or osseous finding. Electronically signed by: Ninoska Gomez MD (11/05/2020 4:49 PM) [id number]
== END 2020-11-05 16:48 | disposition home or self-care (01) ==
LOC: ER 15:59
DX: S20.211A Contusion of right front wall of thorax, initial encounter (principal); F32.9 Major depressive disorder, single episode, unspecified; E11.9 Type 2 diabetes mellitus without complications; Z88.1 Allergy status to other antibiotic agents; Z88.6 Allergy status to analgesic agent; Z88.8 Allergy status to other drugs, medicaments and biological substances; W18.39XA Other fall on same level, initial encounter; Y93.89 Activity, other specified; Y92.89 Other specified places as the place of occurrence of the external cause; Y99.8 Other external cause status
CPT/HCPCS: 71101; 99283

== ENCOUNTER 2021-03-31 11:49 | Emergency (ER) | payer MEDICARE, OTHER ==
[~2021-03-31] VITALS: Ht 167.6 cm; Wt 103.0 kg
[~2021-03-31 11:49] MED LIST changes: -DOXY100C2 PO; +DOXY100C3 PO
[2021-03-31 11:53] VITALS: BP 150/95
--- NOTE | 2021-03-31 12:31 | RAD ---
EXAMINATION: XR CHEST 1V CLINICAL HISTORY: Chest pain EXAM DATE/TIME: 03/31/2021 12:15 PM COMPARISON: Right rib radiographs 11/05/2020 FINDINGS: Lines, Tubes, and Devices: None. Cardiomediastinal Silhouette: Normal heart size. Lungs and Pleura: No evidence of focal airspace consolidation or pleural effusion. Pulmonary vasculat ure unremarkable. Bones and Soft Tissues: Degenerative changes in the thoracic spine. IMPRESSION: No evidence of acute cardiopulmonary abnormality or significant interval change. Electronically signed by: Aubrey Lopez DO (03/31/2021 12:29 PM) MICHAEL
[2021-03-31 13:01] LABS: BASO % 1 % (0-3); EOS % 0 % (0-3); HEMATOCRIT 36.1 % (36.0-47.0); HEMOGLOBIN 11.7 g/dL (12.0-15.5); LYMPH # 1.6 x10^3/uL (1.0-4.8); LYMPH % 25 % (24-48); MEAN CORPUSCULAR HEMOGLOBIN 30 pg (25-35); MEAN CORPUSCULAR HGB CONC 32 g/dL (31-37); MEAN CORPUSCULAR VOLUME 93 fL (79-100); MONO # 0.6 x10^3/uL (0.0-1.1); MONO % 10 % (0-9); NEUT # 4.2 x10^3uL (1.8-7.7); NEUT % 65 % (31-73); PLATELET COUNT 215 x10^3/uL (140-400); RED BLOOD COUNT 3.88 x10^6/uL (3.50-5.40); RED CELL DISTRIBUTION WIDTH 17.1 % (11.5-14.5); WHITE BLOOD COUNT 6.4 x10^3/uL (4.0-11.0)
[2021-03-31 13:07] LABS: CALCIUM 9.4 mg/dL (8.5-10.1); CREATININE 0.8 mg/dL (0.6-1.0); GFR 89.1; POTASSIUM 3.8 mmol/L (3.5-5.1)
--- NOTE | 2021-03-31 13:10 | PHYS DOC ---
Past History Past Medical History: Depression, Diabetes, Heart Disease, HIV, Seizure Additional Past Medical Histor: back pain, abd pain. Past Surgical History: Appendectomy, Hysterectomy, Oophorectomy, Other Additional Past Surgical Histo: BACK AND ACHILLES Smoking: Non-smoker Alcohol Use: None Drug Use: None General Adult EDM: Chief Complaint: CHEST WALL PAIN HPI: HPI: Patient is a 60 year old female who presents with chest pain for greater than 24 hours. Started while in a seated position. Described as chest pressure that is substernal. Does not radiate. Worse with deep inspiration, associated with shortness of breath, worse with laying down flat. She is unsure if it is exertional in nature. Denies similar pain in the past. Is fully vaccinated against COVID-19. Denies fever, cough, congestion, sick contacts. Review of Systems: Review of Systems: Constitutional: Denies fever or chills Eyes: Denies change in visual acuity HENT: Denies nasal congestion or sore throat Respiratory: Denies cough or shortness of breath Cardiovascular: Denies chest pain or edema GI: Denies abdominal pain, nausea, vomiting, bloody stools or diarrhea : Denies dysuria Musculoskeletal: Denies back pain or joint pain. There is reproducible chest pain over the chest wall bilaterally Integument: Denies rash Neurologic: Denies headache, focal weakness or sensory changes Endocrine: Denies polyuria or polydipsia Lymphatic: Denies swollen glands Psychiatric: Denies depression or anxiety Allergies: Allergies: Allergies Coded Allergies Type Severity Reaction Last Updated Verified levofloxacin Allergy Severe seizure 09/13/20 Yes aspirin Allergy Mild 09/13/20 Yes naproxen Allergy Mild RASH 09/13/20 Yes tramadol Allergy Mild RASH 09/13/20 Yes I S O L A T I O N *CONTACT* Allergy Unknown 06/15/20 Yes ibuprofen Allergy Unknown 09/13/20 Yes Physical Exam: PE: Constitutional: Well developed, well nourished, no acute distress, non-toxic appearance. [] HENT: Normocephalic, atraumatic, bilateral external ears normal, oropharynx moist, no oral exudates, nose normal. [] Eyes: PERRLA, EOMI, conjunctiva normal, no discharge. [] Neck: Normal range of motion, no tenderness, supple, no stridor. [] Cardiovascular:Heart rate regular rhythm, no murmur [] Lungs & Thorax: Bilateral breath sounds clear to auscultation [] Abdomen: Bowel sounds normal, soft, no tenderness, no masses, no pulsatile masses. [] Skin: Warm, dry, no erythema, no rash. [] Back: No tenderness, no CVA tenderness. [] Extremities: No tenderness, no cyanosis, no clubbing, ROM intact, no edema. [] Neurologic: Alert and oriented X 3, normal motor function, normal sensory function, no focal deficits noted. [] Psychologic: Affect normal, judgement normal, mood normal. [] Current Patient Data: Labs: Laboratory Tests Test 03/31/21 12:41 White Blood Count 6.4 x10^3/uL (4.0-11.0) Red Blood Count 3.88 x10^6/uL (3.50-5.40) Hemoglobin 11.7 g/dL (12.0-15.5) L Hematocrit 36.1 % (36.0-47.0) Mean Corpuscular Volume 93 fL (79-100) Mean Corpuscular Hemoglobin 30 pg (25-35) Mean Corpuscular Hemoglobin Concent 32 g/dL (31-37) Red Cell Distribution Width 17.1 % (11.5-14.5) H Platelet Count 215 x10^3/uL (140-400) Neutrophils (%) (Auto) 65 % (31-73) Lymphocytes (%) (Auto) 25 % (24-48) Monocytes (%) (Auto) 10 % (0-9) H Eosinophils (%) (Auto) 0 % (0-3) Basophils (%) (Auto) 1 % (0-3) Neutrophils # (Auto) 4.2 x10^3uL (1.8-7.7) Lymphocytes # (Auto) 1.6 x10^3/uL (1.0-4.8) Monocytes # (Auto) 0.6 x10^3/uL (0.0-1.1) Eosinophils # (Auto) 0.0 x10^3/uL (0.0-0.7) Basophils # (Auto) 0.0 x10^3/uL (0.0-0.2) Vital Signs: Vital Signs Date Time Temp Pulse Resp B/P (MAP) Pulse Ox O2 Delivery O2 Flow Rate FiO2 03/31/21 11:53 97.9 78 18 150/95 (113) 96 Room Air EKG: EKG: Sinus rhythm. Rate 82. Left axis deviation. Normal intervals. QTc 431. No ischemic changes. [] Radiology/Procedures: Radiology/Procedures: [] Impressions: [address] [address] IMAGING REPORT Signed PATIENT: HERNAN ANGEL I ACCOUNT: [id number] : 1960 LOCATION: ER AGE: 60 SEX: F EXAM STATUS: REG ER ORD. PHYSICIAN: DELLA SCOTT MD REASON: chest pain PROCEDURE: CHEST AP ONLY EXAMINATION: XR CHEST 1V CLINICAL HISTORY: Chest pain EXAM DATE/TIME: 03/31/2021 12:15 PM COMPARISON: Right rib radiographs 11/05/2020 FINDINGS: Lines, Tubes, and Devices: None. Cardiomediastinal Silhouette: Normal heart size. Lungs and Pleura: No evidence of focal airspace consolidation or pleural effusion. Pulmonary vasculature unremarkable. Bones and Soft Tissues: Degenerative changes in the thoracic spine. IMPRESSION: No evidence of acute cardiopulmonary abnormality or significant interval change. Electronically signed by: Josefina Fang DO (03/31/2021 12:29 PM) [facility] DICTATED AND SIGNED BY: JOSEFINA FANG DO DATE: 03/31/21 1227 CC: DELLA SCOTT MD; JESSICA ROTHMAN MS ~MTH0 [address] [address] IMAGING REPORT Signed PATIENT: HERNAN ANGEL I ACCOUNT: [id number] : 1960 LOCATION: ER AGE: 60 SEX: F EXAM STATUS: REG ER ORD. PHYSICIAN: DELLA SCOTT MD REASON: SHORTNESS OF BREATH PROCEDURE: CT ANGIOGRAPHY CHEST Exam: CT of chest with contrast INDICATION: Shortness of breath TECHNIQUE: Sequential axial images through the chest obtained following the administration of 82 mL of Isovue-370 IV contrast. Sagittal and coronal reformatted images were reconstructed from the axial data and reviewed. 3-D reformatted images were reconstructed from the axial data and reviewed. Exposure: One or more of the following in the visualized dose reduction techniques were utilized for this examination: 1. Automated exposure control 2. Adjustment of the MA and/or KV according to patient size 3. Use of iterative of reconstructive technique Comparisons: Chest x-ray same day FINDINGS: Visualized portions of the thyroid are unremarkable. No enlarged mediastinal lymph nodes are identified. Heart size is normal. No pericardial effusion. Thoracic aorta has a normal course and caliber. Pulmonary artery is not enlarged. There is a subsegmental pulmonary embolus noted within the right upper lobe seen on series 4 image 61. Additionally there is probably a subsegmental pulmonary embolus in the right lower lobe Airways are patent. Strandy opacities the dependent portion lungs likely representing atelectasis. No suspicious lung nodules are identified. No pleural effusion or thickening. Visualized upper abdomen is unremarkable. No suspicious osseous lesions or acute fractures. IMPRESSION: Subsegmental pulmonary emboli in the right lung is described above. No evidence for right heart strain. FOR INTERNAL CODING PURPOSES Critical result: Findings discussed with Macario at 03/31/2021 3:19 PM. RESULT CODE: (C) Electronically signed by: Raine Stiles MD (03/31/2021 3:20 PM) [facility] DICTATED AND SIGNED BY: RAINE STILES MD DATE: 03/31/21 1507 CC: DELLA SCOTT MD; JESSICA ROTHMAN ~MTH0 0 Heart Score: C/O Chest Pain: Yes HEART Score for Chest Pain: HEART Score for Chest Pain Response (Comments) Value History Slighlty/Non-Suspicious 0 ECG Normal 0 Age >45 - < 65 1 Risk Factors 1 or 2 Risk Factors 1 Troponin < Normal Limit 0 Total 2 Risk Factors: Risk Factors: DM, Current or recent (<one month) smoker, HTN, HLP, family history of CAD, obesity. Risk Scores: Score 0 - 3: 2.5% MACE over next 6 weeks - Discharge Home Score 4 - 6: 20.3% MACE over next 6 weeks - Admit for Clinical Observation Score 7 - 10: 72.7% MACE over next 6 weeks - Early Invasive Strategies Course & Med Decision Making: Course & Med Decision Making Pertinent Labs and Imaging studies reviewed. (See chart for details) Patient 60-year-old female presents with pleuritic chest pain and shortness of breath since yesterday. On arrival is afebrile, hemodynamically stable. Normal respiratory exam and normal work of breathing. Satting well on room air. EKG is nonischemic. Troponin negative. Lower concern for ACS given history. HEART Score 2. Consider PE given her history of DVT, no longer on anticoagulation. Dimer positive. CTA confirmed right-sided subsegmental pulmonary emboli without evidence of right heart strain. No evidence of heart strain on troponin or BNP testing. Simplified PESI = 0 Feel she could be a candidate for outpatient management with eliquis, which she has previously tolerated. Reviewed return precautions for worsening pain, shortness of breath, dizziness, syncope. Dragon Disclaimer: Dragon Disclaimer: This electronic medical record was generated, in whole or in part, using a voice recognition dictation system. Departure Departure: Impression: Primary Impression: Multiple subsegmental pulmonary emboli without acute cor pulmonale Disposition: HOME / SELF CARE / HOMELESS Condition: STABLE Referrals: JESSICA ROTHMAN (PCP) Please schedule follow-up appointment with your outpatient provider this week. Patient Instructions: Pulmonary Embolus Additional Instructions: You have a blood clot in your lung. At this time it is not affecting your ability to get oxygen into your blood, or for your heart to pump effectively. You will need to start on a blood thinner called Eliquis to prevent further clot from forming. You will likely need to take this long-term, so please schedule follow-up appointment with your outpatient provider this week. They will need to prescribe this medication going forward. I have given you a 1 month supply. This medication does put you at higher risk for bleeding so if you notice blood in your stool, vomit, or black/tarry stools this is a medical emergency that needs to be evaluated. Likewise, if you hit your head that is emergent, and you need to go to an emergency department. If you develop worsening shortness of breath, chest pain, lightheadedness or feeling like you might pass out please also return to emergency department immediately. Scripts Apixaban (ELIQUIS) 5 Mg Tablet 5 MG PO BID for pulmonary embolism for 30 Days, #60 TAB 0 Refills Prov: DELLA SCOTT MD 03/31/21 DELLA SCOTT MD Mar 31, 2021 13:09
[2021-03-31 13:15] LABS: ALBUMIN 3.3 g/dL (3.4-5.0); ALBUMIN/GLOBULIN RATIO 1.1 (1.0-1.7); TOTAL PROTEIN 6.4 g/dL (6.4-8.2)
[2021-03-31] MEDS ORDERED: IOHEXOL 350 MG/ML 100 ML VIAL. IV ONE (14:15)
[2021-03-31] MEDS ORDERED: CONTRAST GIVEN. MC PRN (14:30)
--- NOTE | 2021-03-31 15:23 | RAD ---
Exam: CT of chest with contrast INDICATION: Shortness of breath TECHNIQUE: Sequential axial images through the chest obtained following the administration of 82 mL o f Isovue-370 IV contrast. Sagittal and coronal reformatted images were reconstructed from the axial d gideon and reviewed. 3-D reformatted images were reconstructed from the axial data and reviewed. Exposure: One or more of the following in the visualized dose reduction techniques were utilized for this examination: 1. Automated exposure control 2. Adjustment of the MA and/or KV according to patient size 3. Use of iterative of reconstructive technique Comparisons: Chest x-ray same day FINDINGS: Visualized portions of the thyroid are unremarkable. No enlarged mediastinal lymph nodes are identifi ed. Heart size is normal. No pericardial effusion. Thoracic aorta has a normal course and caliber. Pulmon stephen artery is not enlarged. There is a subsegmental pulmonary embolus noted within the right upper lo be seen on series 4 image 61. Additionally there is probably a subsegmental pulmonary embolus in the right lower lobe Airways are patent. Strandy opacities the dependent portion lungs likely representing atelectasis. No suspicious lung nodules are identified. No pleural effusion or thickening. Visualized upper abdomen is unremarkable. No suspicious osseous lesions or acute fractures. IMPRESSION: Subsegmental pulmonary emboli in the right lung is described above. No evidence for right heart strai n. FOR INTERNAL CODING PURPOSES Critical result: Findings discussed with Macario at 03/31/2021 3:19 PM. RESULT CODE: (C) Electronically signed by: Raine Senior MD (03/31/2021 3:20 PM) [facility]
--- NOTE | 2021-03-31 16:02 | EKG ---
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
[2021-03-31] MEDS ORDERED: APIX5TAB3 PO (16:17)
[2021-03-31] MEDS ORDERED: APIXABAN 5 MG TABLET. PO ONE (16:45)
[2021-03-31] MEDS ORDERED: APIXABAN 5 MG TABLET. ONE (16:50)
== END 2021-03-31 16:41 | disposition home or self-care (01) ==
LOC: ER 11:49
DX: I26.94 Multiple subsegmental thrombotic pulmonary emboli without acute cor pulmonale (principal); E11.9 Type 2 diabetes mellitus without complications; Z88.1 Allergy status to other antibiotic agents; Z88.6 Allergy status to analgesic agent; Z88.8 Allergy status to other drugs, medicaments and biological substances
CPT/HCPCS: 36415; 71045; 71275; 80053; 83880; 84484; 85025; 85379; 93005; 99285; Q9967

== ENCOUNTER → 2021-04-02 | Emergency (ER) | payer MEDICARE, OTHER ==
[~2021-04-02] VITALS: Ht 167.6 cm; Wt 103.0 kg
[~2021-04-02] MED LIST changes: +APIX5TAB3 PO
[2021-04-02 12:19] VITALS: BP 137/83
--- NOTE | 2021-04-02 12:23 | PHYS DOC ---
Past History Past Medical History: Depression, Diabetes, Heart Disease, HIV, Seizure Additional Past Medical Histor: back pain, abd pain. Past Surgical History: Appendectomy, Hysterectomy, Oophorectomy, Other Additional Past Surgical Histo: BACK AND ACHILLES Smoking: Non-smoker Alcohol Use: None Drug Use: None Adult General Chief Complaint Chief Complaint: CHEST PAIN [facility] HPI Patient is a 60-year-old female complaining of chest pain. Reports its right- sided in nature and consistent with chest pain that brought her in 48 hours ago where she was subsequently diagnosed with subsegmental pulmonary embolism without RV strain. States this chest pain has been constant since onset and actually started 4 days prior. There has been no change. She states she has been taking prescribed Eliquis as written and has not taken anything else for pain but is requesting pain control today. Denies any fever, lightheadedness, dizziness, shortness of breath, ripping or tearing sensation in chest, motor or sensory or neuro function deficits/changes Review of Systems Review of Systems Fourteen body systems of review of systems have been reviewed. See HPI for pertinent positives and negative responses, other silver all other systems are negative, non-pertinent or non-contributory Allergies Allergies Allergies Coded Allergies Type Severity Reaction Last Updated Verified levofloxacin Allergy Severe seizure 09/13/20 Yes aspirin Allergy Mild 09/13/20 Yes naproxen Allergy Mild RASH 09/13/20 Yes tramadol Allergy Mild RASH 09/13/20 Yes I S O L A T I O N *CONTACT* Allergy Unknown 06/15/20 Yes ibuprofen Allergy Unknown 09/13/20 Yes Physical Exam Physical Exam Constitutional: Well developed, well nourished, no acute distress, non-toxic appearance. HENT: Normocephalic, atraumatic, bilateral external ears normal, oropharynx moist, no oral exudates, nose normal. Eyes: PERRLA, EOMI, conjunctiva normal, no discharge. Neck: Normal range of motion, no tenderness, supple, no stridor. Cardiovascular: Heart rate regular, sinus rhythm, no murmurs rubs or gallops Lungs & Thorax: Bilateral breath sounds clear to auscultation Abdomen: Bowel sounds normal, soft, no tenderness, no masses, no pulsatile masses. Nonsurgical abdomen, no peritoneal signs Skin: Warm, dry, no erythema, no rash. Back: No tenderness, no CVA tenderness. Extremities: No tenderness, no cyanosis, no clubbing, ROM intact, no edema. Neurologic: Alert and oriented X 3, grossly normal motor & sensory function, no focal deficits noted. Psychologic: Affect normal, judgement normal, mood normal. Current Patient Data Vital Signs Vital Signs Date Time Temp Pulse Resp B/P (MAP) Pulse Ox O2 Delivery O2 Flow Rate FiO2 04/02/21 12:19 98.3 85 16 137/83 (101) 98 Room Air Vital Signs Date Time Temp Pulse Resp B/P (MAP) Pulse Ox O2 Delivery O2 Flow Rate FiO2 04/02/21 12:19 98.3 85 16 137/83 (101) 98 Room Air EKG EKG EKG ordered and interpreted by myself at 1215 hrs. as sinus rhythm at 87 bpm, unremarkable intervals, no axis deviation, no acute ischemic findings, no evidence of RV strain, no STEMI Radiology/Procedures Radiology/Procedures [] Heart Score C/O Chest Pain: No HEART Score for Chest Pain: HEART Score for Chest Pain Response (Comments) Value History Slighlty/Non-Suspicious 0 ECG Normal 0 Age >45 - < 65 1 Risk Factors 1 or 2 Risk Factors 1 Total 2 Risk Factors: Risk Factors: DM, Current or recent (<one month) smoker, HTN, HLP, family history of CAD, obesity. Risk Scores: Risk Factors: DM, Current or recent (<one month) smoker, HTN, HLP, family history of CAD, obesity. Course & Med Decision Making Course & Med Decision Making ABCs unremarkable HPI and physical exam nonconcerning for any emergent or surgical issues. EKG nonconcerning I reviewed entirety of previous ER work-up less than 48 hours ago and agree with work-up and plan of care. I confirmed patient was taking appropriate 10 mg twice daily dosing of Eliquis for pulmonary embolism treatment I discussed with patient limited need for repeat extensive evaluation in ER setting if symptoms had not changed since onset 4 days prior. I did review reobtaining lab work and checking BMP to further evaluate RV strain but patient deferred any lab work, states she did not want to be poked again. She is asking for pain control today only. KTracs reviewed showing patient takes clorazepate sedative. I am not comfortable giving her narcotic pain medication. She has not been taking anything such as Tylenol for her subjective pain. I discussed best treatment of pulmonary embolism is Eliquis and would not cause pain she is describing today Ultimately, joint decision between myself, patient and friend at bedside to discharge with close PCP and pulmonology follow-up. She was again educated on return precautions that should prompt immediate medical repeat evaluation. All questions and concerns addressed prior to departure Christopher Disclaimer Dragon Disclaimer This electronic medical record was generated, in whole or in part, using a voice recognition dictation system. Departure Departure: Impression: Primary Impression: Multiple subsegmental pulmonary emboli without acute cor pulmonale Disposition: HOME / SELF CARE / HOMELESS Condition: STABLE Referrals: JESSICA ROTHMAN (PCP) SIRIA KLINE MD Additional Instructions: You have a blood clot in your lung that was diagnosed less than 48 hours prior to arrival. At that time it was not affecting your ability to get oxygen into your blood, or for your heart to pump effectively. Your vitals and EKG today were unremarkable You will need to continue your blood thinner called Eliquis to prevent further clot from forming. You will likely need to take this long-term, so please schedule follow-up appointment with your outpatient primary care provider this week. They will need to prescribe this medication going forward. You were given 1 month which as discussed should be taken: 10 mg once in the morning and once at night for 10 days followed by 5 mg once in the morning and once at night going forward Dr Kline is the lung doctor that I advise you follow-up with an outpatient setting going forward to review your blood clot today and need for next steps in care This medication does put you at higher risk for bleeding so if you notice blood in your stool, vomit, or black/tarry stools this is a medical emergency that needs to be evaluated. Likewise, if you hit your head that is emergent, and you need to go to an emergency department. If you develop worsening shortness of breath, chest pain, lightheadedness or feeling like you might pass out please also return to emergency department immediately. TROY COLLINS DO Apr 02, 2021 12:23
--- NOTE | 2021-04-02 13:08 | EKG ---
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
== END | disposition home or self-care (01) ==
LOC: ER 12:02
DX: I26.94 Multiple subsegmental thrombotic pulmonary emboli without acute cor pulmonale (principal); E11.9 Type 2 diabetes mellitus without complications; Z88.1 Allergy status to other antibiotic agents; Z88.6 Allergy status to analgesic agent; Z88.8 Allergy status to other drugs, medicaments and biological substances
CPT/HCPCS: 93005; 99283

== ENCOUNTER 2021-05-03 15:02 | Emergency (ER) | payer MEDICARE, OTHER ==
[~2021-05-03] VITALS: Ht 167.6 cm; Wt 103.0 kg
[~2021-05-03 15:02] MED LIST changes: -CYCL-331 PO; +CYCL10TA19 PO
--- NOTE | 2021-05-03 15:05 | PHYS DOC ---
Past History Past Medical History: Depression, Diabetes, Heart Disease, HIV, Seizure Additional Past Medical Histor: back pain, abd pain. PE Past Surgical History: Appendectomy, Hysterectomy, Oophorectomy, Other Additional Past Surgical Histo: BACK AND ACHILLES Smoking: Non-smoker Alcohol Use: None Drug Use: None Adult General HPI HPI Patient is a 60-year-old female presenting via EMS for shortness of breath. This is an acute on chronic issue. She was diagnosed with a mild pulmonary embolism of the right lung that was not large enough to cause any RV strain or other concerning findings. She has been home and followed up with outpatient primary care physician and has been taking her Eliquis as prescribed. She states she has been at baseline health but reports approximately 9 hours ago while walking she had a sudden onset of generalized chest pressure and shortness of breath that exacerbated with movement and deep breaths in. Rest is the only thing which makes better. Timing of symptoms has been constant since onset which concerned her prompting her to call EMS for transport to our facility. On arrival, EMS report that patient was hemodynamically stable but was slightly ta chycardic at 105 bpm. She was saturating greater than 90% on room air and in no acute distress when she was transported to our facility. On arrival, she complains of ongoing generalized chest pressure and shortness of breath Review of Systems Review of Systems Fourteen body systems of review of systems have been reviewed. See HPI for pertinent positives and negative responses, other silvre all other systems are negative, non-pertinent or non-contributory Allergies Allergies Allergies Coded Allergies Type Severity Reaction Last Updated Verified levofloxacin Allergy Severe seizure 09/13/20 Yes aspirin Allergy Mild 09/13/20 Yes naproxen Allergy Mild RASH 09/13/20 Yes tramadol Allergy Mild RASH 09/13/20 Yes I S O L A T I O N *CONTACT* Allergy Unknown 06/15/20 Yes ibuprofen Allergy Unknown 09/13/20 Yes Physical Exam Physical Exam Constitutional: Well developed, well nourished, no acute distress, non-toxic appearance. HENT: Normocephalic, atraumatic, bilateral external ears normal, oropharynx mo ist, no oral exudates, nose normal. Eyes: PERRLA, EOMI, conjunctiva normal, no discharge. Neck: Normal range of motion, no tenderness, supple, no stridor. Cardiovascular: Heart rate regular, sinus rhythm, no murmurs rubs or gallops Lungs & Thorax: Bilateral breath sounds clear to auscultation Abdomen: Bowel sounds normal, soft, no tenderness, no masses, no pulsatile masses. Nonsurgical abdomen, no peritoneal signs Skin: Warm, dry, no erythema, no rash. Back: No tenderness, no CVA tenderness. Extremities: No tenderness, no cyanosis, no clubbing, ROM intact, no edema. Neurologic: Alert and oriented X 3, grossly normal motor & sensory function, no focal deficits noted. Psychologic: Affect normal, judgement normal, mood normal. Current Patient Data Vital Signs Vital Signs Date Time Temp Pulse Resp B/P (MAP) Pulse Ox O2 Delivery O2 Flow Rate FiO2 05/03/21 15:11 97.0 101 20 130/90 (103) 99 Vital Signs Date Time Temp Pulse Resp B/P (MAP) Pulse Ox O2 Delivery O2 Flow Rate FiO2 05/03/21 15:11 97.0 101 20 130/90 (103) 99 Lab Results Laboratory Tests Test 05/03/21 16:07 White Blood Count 7.9 x10^3/uL Red Blood Count 4.09 x10^6/uL Hemoglobin 12.0 g/dL Hematocrit 37.9 % Mean Corpuscular Volume 93 fL Mean Corpuscular Hemoglobin 29 pg Mean Corpuscular Hemoglobin Concent 32 g/dL Red Cell Distribution Width 17.4 % Platelet Count 246 x10^3/uL Neutrophils (%) (Auto) 65 % Lymphocytes (%) (Auto) 27 % Monocytes (%) (Auto) 8 % Eosinophils (%) (Auto) 0 % Basophils (%) (Auto) 0 % Neutrophils # (Auto) 5.1 x10^3uL Lymphocytes # (Auto) 2.1 x10^3/uL Monocytes # (Auto) 0.6 x10^3/uL Eosinophils # (Auto) 0.0 x10^3/uL Basophils # (Auto) 0.0 x10^3/uL Prothrombin Time 11.2 SEC Prothromb Time International Ratio 1.1 Activated Partial Thromboplast Time 24 SEC Sodium Level 137 mmol/L Potassium Level 3.6 mmol/L Chloride Level 101 mmol/L Carbon Dioxide Level 30 mmol/L Anion Gap 6 Blood Urea Nitrogen 21 mg/dL Creatinine 1.0 mg/dL Estimated GFR (Cockcroft-Gault) 68.9 BUN/Creatinine Ratio 21 Glucose Level 86 mg/dL Calcium Level 8.8 mg/dL Total Bilirubin 1.5 mg/dL Aspartate Amino Transf (AST/SGOT) 11 U/L Alanine Aminotransferase (ALT/SGPT) 29 U/L Alkaline Phosphatase 97 U/L Troponin I High Sensitivity 6 ng/L JO-Eqa-W-Type Natriuretic Peptide 87 pg/mL Total Protein 6.2 g/dL Albumin 3.2 g/dL Albumin/Globulin Ratio 1.1 Current Medications Medications (Trade) Dose Ordered Sig/Bhavik Route PRN Reason Start Time Stop Time Status Last Admin Dose Admin Iohexol (Omnipaque 350 Mg/ml) 100 ml 1X ONCE IV 05/03/21 16:00 05/03/21 16:01 DC 05/03/21 16:03 EKG EKG EKG ordered and interpreted by myself at 1658 hrs. is sinus rhythm at 94 bpm, unremarkable intervals, no axis deviation, no acute ischemic findings, no STEMI Radiology/Procedures Radiology/Procedures EXAMINATION: XR CHEST 1V CLINICAL HISTORY: Shortness of breath EXAM DATE/TIME: 05/03/2021 3:50 PM COMPARISON: 08/01/2020 FINDINGS: Lines, Tubes, and Devices: None. Cardiomediastinal Silhouette: Normal heart size. Lungs and Pleura: No evidence of focal airspace consolidation or pleural eff usion. Minimal bibasilar subsegmental atelectasis and/or scarring. Pulmonary vasculature unremarkable. Bones and Soft Tissues: Degenerative changes in the thoracic spine. IMPRESSION: No evidence of acute cardiopulmonary abnormality or significant interval change. Electronically signed by: Aubrey Lopez DO (05/03/2021 4:15 PM) [id number] ////////////////// CTA CHEST dated 05/03/2021 3:50 PM Indication:Reason: Short of breath. KNOWN RT SIDED PE / Spl. Instructions: / History: Comparison: CTA chest 03/31/2021. Technique: Helical thin section images were made through the chest using an infusion of 75 mL Omnipaque 300. MIP reconstructions were performed. One or more of the following individualized dose reduction techniques were utilized for this examination: 1. Automated exposure control 2. Adjustment of the mA and/or kV according to patient size 3. Use of iterative reconstruction technique Findings: Mild dependent atelectasis is again seen in the lungs. No new infiltrate or effusion is evident. The central airways show no obstruction. No enlarged lymph nodes are seen. The thoracic aorta is normal in caliber without evidence of dissection. Evaluation of the pulmonary arterial tree shows moderate vessel opacification. Emboli described previously in the right upper lobe and right lower lobe are no longer seen, and no new filling defects are identified. Images through the upper abdomen show no new abnormality. IMPRESSION: No evidence of pulmonary embolism. Previous small emboli described on the prior CT are no longer evident. Electronically signed by: Aryan Montenegro Jr., MD (05/03/2021 4:15 PM) [id number] Heart Score C/O Chest Pain: Yes HEART Score for Chest Pain: HEART Score for Chest Pain Response (Comments) Value History Slighlty/Non-Suspicious 0 ECG Normal 0 Age >45 - < 65 1 Risk Factors >3 Risk Factors or Hx CAD 2 Troponin < Normal Limit 0 Total 3 Risk Factors: Risk Factors: DM, Current or recent (<one month) smoker, HTN, HLP, family history of CAD, obesity. Risk Scores: Risk Factors: DM, Current or recent (<one month) smoker, HTN, HLP, family history of CAD, obesity. Course & Med Decision Making Course & Med Decision Making ABCs unremarkable History physical exam and comprehensive ER work-up unremarkable. Patient with recent pulmonary embolism nondetectable on repeat CT angio today. EKG and troponin unremarkable I discussed little indication for further diagnostic work-up and/or hospitalization. Patient reported onset of chest pain was approximately 9 hours prior to arrival, if significant infarction occurred we should be seeing an elevated troponin or other findings which we are not Patient visits our ER frequently. I have low suspicion for any emergent or surgical process occurring or in early stages at present. As such, hemodynamically stable and ambulatory and well-appearing patient discharged with close primary care follow-up advised Christopher Disclaimer Christopher Disclaimer This electronic medical record was generated, in whole or in part, using a voice recognition dictation system. Departure Departure: Impression: Primary Impression: Atypical chest pain Disposition: HOME / SELF CARE / HOMELESS Condition: STABLE Referrals: JESSICA ROTHMAN (PCP) Additional Instructions: You were seen for shortness of breath. Your workup did not show any acute abnormalities today. Your repeat imaging of lungs actually show improvement and resolution of previously detected blood clot. With that said, it is imperative you continue taking your blood thinning medication called Eliquis as prescribed. You do need to follow up with your primary doctor regarding your visit today and frequent visits to ER. You should return to the ED if you develop worsening chest pain, shortness of breath, fever, abnormal sweating, leg swelling, or any other new or concerning symptoms. TROY COLLINS DO May 03, 2021 15:05
[2021-05-03 15:11] VITALS: BP 130/90
[2021-05-03] MEDS ORDERED: IOHEXOL 350 MG/ML 100 ML VIAL. IV ONE (16:00)
--- NOTE | 2021-05-03 16:17 | RAD ---
CTA CHEST dated 05/03/2021 3:50 PM Indication:Reason: Short of breath. KNOWN RT SIDED PE / Spl. Instructions: / History: Comparison: CTA chest 03/31/2021. Technique: Helical thin section images were made through the chest using an infusion of 75 mL Omnipaq ue 300. MIP reconstructions were performed. One or more of the following individualized dose reduction techniques were utilized for this examinat ion: 1. Automated exposure control 2. Adjustment of the mA and/or kV according to patient size 3. Use of iterative reconstruction technique Findings: Mild dependent atelectasis is again seen in the lungs. No new infiltrate or effusion is evident. The central airways show no obstruction. No enlarged lymph nodes are seen. The thoracic aorta is normal i n caliber without evidence of dissection. Evaluation of the pulmonary arterial tree shows moderate vessel opacification. Emboli described previ ously in the right upper lobe and right lower lobe are no longer seen, and no new filling defects are identified. Images through the upper abdomen show no new abnormality. IMPRESSION: No evidence of pulmonary embolism. Previous small emboli described on the prior CT are no longer evid ent. Electronically signed by: Aryan Montenegro Jr., MD (05/03/2021 4:15 PM) [id number]
--- NOTE | 2021-05-03 16:17 | RAD ---
EXAMINATION: XR CHEST 1V CLINICAL HISTORY: Shortness of breath EXAM DATE/TIME: 05/03/2021 3:50 PM COMPARISON: 08/01/2020 FINDINGS: Lines, Tubes, and Devices: None. Cardiomediastinal Silhouette: Normal heart size. Lungs and Pleura: No evidence of focal airspace consolidation or pleural effusion. Minimal bibasilar subsegmental atelectasis and/or scarring. Pulmonary vasculature unremarkable. Bones and Soft Tissues: Degenerative changes in the thoracic spine. IMPRESSION: No evidence of acute cardiopulmonary abnormality or significant interval change. Electronically signed by: Aubrey Lopez DO (05/03/2021 4:15 PM) [id number]
[2021-05-03 16:33] LABS: BASO % 0 % (0-3); EOS % 0 % (0-3); HEMATOCRIT 37.9 % (36.0-47.0); LYMPH # 2.1 x10^3/uL (1.0-4.8); LYMPH % 27 % (24-48); MEAN CORPUSCULAR HEMOGLOBIN 29 pg (25-35); MEAN CORPUSCULAR HGB CONC 32 g/dL (31-37); MEAN CORPUSCULAR VOLUME 93 fL (79-100); MONO # 0.6 x10^3/uL (0.0-1.1); MONO % 8 % (0-9); NEUT # 5.1 x10^3uL (1.8-7.7); NEUT % 65 % (31-73); PLATELET COUNT 246 x10^3/uL (140-400); RED BLOOD COUNT 4.09 x10^6/uL (3.50-5.40); RED CELL DISTRIBUTION WIDTH 17.4 % (11.5-14.5); WHITE BLOOD COUNT 7.9 x10^3/uL (4.0-11.0)
[2021-05-03 16:38] LABS: CALCIUM 8.8 mg/dL (8.5-10.1); GFR 68.9; POTASSIUM 3.6 mmol/L (3.5-5.1)
[2021-05-03 16:51] LABS: ALBUMIN 3.2 g/dL (3.4-5.0); ALBUMIN/GLOBULIN RATIO 1.1 (1.0-1.7); TOTAL BILIRUBIN 1.5 mg/dL (0.2-1.0); TOTAL PROTEIN 6.2 g/dL (6.4-8.2)
--- NOTE | 2021-05-03 16:58 | EKG ---
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
== END 2021-05-03 17:08 | disposition home or self-care (01) ==
LOC: ER 15:02
DX: R07.89 Other chest pain (principal); R06.02 Shortness of breath; E11.9 Type 2 diabetes mellitus without complications; F32.9 Major depressive disorder, single episode, unspecified; Z86.711 Personal history of pulmonary embolism; Z88.1 Allergy status to other antibiotic agents; Z88.6 Allergy status to analgesic agent; Z88.8 Allergy status to other drugs, medicaments and biological substances
CPT/HCPCS: 71045; 71275; 80053; 83880; 84484; 85025; 85610; 85730; 93005; 99285; Q9967

== ENCOUNTER 2021-05-09 12:16 | Emergency (ER) | payer MEDICARE, OTHER ==
[~2021-05-09] VITALS: Ht 167.6 cm; Wt 103.0 kg
--- NOTE | 2021-05-09 12:46 | PHYS DOC ---
Past History Past Medical History: Depression, Diabetes, Heart Disease, HIV, Seizure Additional Past Medical Histor: back pain, abd pain. PE (TATYANA RAHMAN APRN) Past Surgical History: Appendectomy, Hysterectomy, Oophorectomy, Other Additional Past Surgical Histo: BACK AND ACHILLES (TATYANA RAHMAN APRN) Smoking: Non-smoker Alcohol Use: None Drug Use: None (TATYANA RAHMAN APRN) General Adult EDM: Chief Complaint: BLOOD SUGAR PROBLEM HPI: HPI: Patient is a 60-year-old female that presents via [facility] today with not feeling well. Patient states she woke up this morning she checked her blood sugar it was was 68, patient states she ate a bowl of cereal and continue to not feel well, rechecked her blood sugar it was then 81 she called multiple family members that gave her advice, she then decided to call 911, [facility] checked her blood sugar was 74. Patient currently is lying in bed in no acute distress no complaint of chest pain, shortness of air, sweats, or headache. (TATYANA RAHMAN APRN) Review of Systems: Review of Systems: Constitutional: Denies fever or chills Eyes: Denies change in visual acuity HENT: Denies nasal congestion or sore throat Respiratory: Denies cough or shortness of breath Cardiovascular: Denies chest pain or edema GI: Denies abdominal pain, nausea, vomiting, bloody stools or diarrhea : Denies dysuria Musculoskeletal: Denies back pain or joint pain Integument: Denies rash Neurologic: Denies headache, focal weakness or sensory changes Endocrine: Low blood sugar Lymphatic: Denies swollen glands Psychiatric: Denies depression or anxiety (TATYANA RAHMAN APRN) Current Medications: Current Meds: Lantus 35 units at hs Actos daily (TTAYANA RAHMAN APRN) Allergies: Allergies: Allergies Coded Allergies Type Severity Reaction Last Updated Verified levofloxacin Allergy Severe seizure 09/13/20 Yes aspirin Allergy Mild 09/13/20 Yes naproxen Allergy Mild RASH 09/13/20 Yes tramadol Allergy Mild RASH 09/13/20 Yes I S O L A T I O N *CONTACT* Allergy Unknown 06/15/20 Yes ibuprofen Allergy Unknown 09/13/20 Yes (TATYANA RAHMAN APRN) Physical Exam: PE: Constitutional: Well developed, well nourished, no acute distress, non-toxic appearance. [] HENT: Normocephalic, atraumatic, bilateral external ears normal, oropharynx moist, no oral exudates, nose normal. [] Eyes: PERRLA, EOMI, conjunctiva normal, no discharge. [] Neck: Normal range of motion, no tenderness, supple, no stridor. [] Cardiovascular:Heart rate regular rhythm, no murmur [] Lungs & Thorax: Bilateral breath sounds clear to auscultation [] Abdomen: Bowel sounds normal, soft, no tenderness, no masses, no pulsatile masses. [] Skin: Warm, dry, no erythema, no rash. [] Back: No tenderness, no CVA tenderness. [] Extremities: No tenderness, no cyanosis, no clubbing, ROM intact, no edema. [] Neurologic: Alert and oriented X 3, normal motor function, normal sensory function, no focal deficits noted. [] Psychologic: Affect normal, judgement normal, mood normal. [] (TATYANA RAHMAN APRN) Current Patient Data: Labs: Laboratory Tests Test 05/09/21 13:46 Glucose (Fingerstick) 80 mg/dL Vital Signs: Vital Signs Date Time Temp Pulse Resp B/P (MAP) Pulse Ox O2 Delivery O2 Flow Rate FiO2 05/09/21 14:09 88 16 127/82 (97) 05/09/21 13:16 90 129/77 (94) 05/09/21 12:46 88 138/83 (101) 05/09/21 12:21 98.7 95 18 144/81 (102) 97 Room Air Vital Signs Date Time Temp Pulse Resp B/P (MAP) Pulse Ox O2 Delivery O2 Flow Rate FiO2 05/09/21 12:21 98.7 95 18 144/81 (102) 97 Room Air (TATYANA RAHMAN APRN) EKG: EKG: [] (TATYANA RAHMAN APRN) Radiology/Procedures: Radiology/Procedures: [] (TATYANA RAHMAN APRN) Heart Score: C/O Chest Pain: N/A Risk Factors: Risk Factors: DM, Current or recent (<one month) smoker, HTN, HLP, family history of CAD, obesity. Risk Scores: Score 0 - 3: 2.5% MACE over next 6 weeks - Discharge Home Score 4 - 6: 20.3% MACE over next 6 weeks - Admit for Clinical Observation Score 7 - 10: 72.7% MACE over next 6 weeks - Early Invasive Strategies (TATYANA RAHMAN APRN) Course & Med Decision Making: Course & Med Decision Making Pertinent Labs and Imaging studies reviewed. (See chart for details) Patient states she has not had any protein today she only had a bowl of cereal with some milk patient will be given a meal here of a turkey sandwich, chips, and a Gatorade. Patient will be reevaluated after eating] 1335 patient reassessed patient ate about a third of her sandwich, all of her chips, all of her juice, and about 100 mL of Gatorade. Patient states she continues to feel not right, she states she has not felt right since her PE after speaking with her at length, she states that she has been on the Lantus since November. Patient states she talked with her primary care physician last week she said she did not mention at that she has not been feeling well since her PE, will call her primary care physician to come for 1350 spoke to Usama HIGUERA patient's primary care physician, after speaking with him reporting all the findings from her last visit on May 03 and today's findings of her assessment we have included we will drop her Lantus units down to 30 units and have her follow-up next week by phone or in person with the doctor's office. Accu-Chek is 80 (TATYANA RAHMAN APRN) Dragon Disclaimer: Dragcarrillo Disclaimer: This electronic medical record was generated, in whole or in part, using a voice recognition dictation system. (TATYANA RAHMAN APRN) Attending Co-Sign The patient was seen and interviewed as well as examined at the bedside. The chart was reviewed. The case was discussed. Agree with the plan of care. (GAGE MOON DO) Departure Departure: Impression: Primary Impression: Low blood sugar Disposition: HOME / SELF CARE / HOMELESS Condition: STABLE Referrals: JESSICA ROTHMAN (PCP) Patient Instructions: 1800 Calorie Diet for Diabetes Meal Planning, Hypoglycemia (Low Blood Sugar) Additional Instructions: Decrease Lantus to 30 units at night Continue all other medications Make sure you are eating 3 meals a day with protein in each meal Follow-up with your primary care physician on Wednesday by phone with record of your blood sugars Return to the emergency department if you have any nausea vomiting, increased chest pain, sweats or low blood sugar. TATYANA RAHMAN APRN May 09, 2021 12:46 GAGE MOON DO May 10, 2021 06:53
[2021-05-09 14:09] VITALS: BP 127/82
== END 2021-05-09 14:09 | disposition home or self-care (01) ==
LOC: ER 12:16
DX: E11.65 Type 2 diabetes mellitus with hyperglycemia (principal); Z90.710 Acquired absence of both cervix and uterus
CPT/HCPCS: 82947; 99283-25

== ENCOUNTER 2021-05-19 09:23 | Emergency (ER) | payer MEDICARE, OTHER ==
[~2021-05-19] VITALS: Ht 167.6 cm; Wt 105.8 kg
[2021-05-19 09:55] VITALS: BP 138/100
[2021-05-19 10:26] LABS: BASO % 1 % (0-3); EOS % 1 % (0-3); HEMATOCRIT 35.6 % (36.0-47.0); HEMOGLOBIN 11.6 g/dL (12.0-15.5); LYMPH % 27 % (24-48); MEAN CORPUSCULAR HEMOGLOBIN 30 pg (25-35); MEAN CORPUSCULAR HGB CONC 33 g/dL (31-37); MEAN CORPUSCULAR VOLUME 93 fL (79-100); MONO # 0.6 x10^3/uL (0.0-1.1); MONO % 7 % (0-9); NEUT # 4.8 x10^3uL (1.8-7.7); NEUT % 65 % (31-73); PLATELET COUNT 237 x10^3/uL (140-400); RED BLOOD COUNT 3.83 x10^6/uL (3.50-5.40); RED CELL DISTRIBUTION WIDTH 16.9 % (11.5-14.5); WHITE BLOOD COUNT 7.5 x10^3/uL (4.0-11.0)
[2021-05-19 10:36] LABS: CALCIUM 9.1 mg/dL (8.5-10.1); CREATININE 1.1 mg/dL (0.6-1.0); GFR 61.7; POTASSIUM 3.8 mmol/L (3.5-5.1)
[2021-05-19 10:42] LABS: ALBUMIN 3.2 g/dL (3.4-5.0); TOTAL BILIRUBIN 1.5 mg/dL (0.2-1.0); TOTAL PROTEIN 6.5 g/dL (6.4-8.2)
--- NOTE | 2021-05-19 11:30 | PHYS DOC ---
Past History Past Medical History: Depression, Diabetes, Heart Disease, HIV, Seizure Additional Past Medical Histor: back pain, abd pain. PE (SCOTT AQUINO) Past Surgical History: No Surgical History Additional Past Surgical Histo: BACK AND ACHILLES (SCOTT AQUINO) Smoking: Non-smoker Alcohol Use: None Drug Use: None (SCOTT AQUINO) General Adult EDM: Chief Complaint: SEIZURE HPI: HPI: Patient is a 60 year old female with history of absence seizures and HIV+ who presents with complaint of a seizure prior to arrival. She denies head trauma, disorientation, vision changes, nausea, vomiting or any other complaints. (SCOTT AQUINO) Review of Systems: Review of Systems: Constitutional: Denies fever or chills Eyes: Denies change in visual acuity HENT: Denies nasal congestion or sore throat Respiratory: Denies cough or shortness of breath Cardiovascular: Denies chest pain or edema GI: Denies abdominal pain, nausea, vomiting, bloody stools or diarrhea : Denies dysuria or hematuria Musculoskeletal: Denies new onset back pain or joint pain Integument: Denies rash or other skin lesions Neurologic: See HPI (SCOTT AQUINO) Allergies: Allergies: Allergies Coded Allergies Type Severity Reaction Last Updated Verified levofloxacin Allergy Severe seizure 09/13/20 Yes aspirin Allergy Mild 09/13/20 Yes naproxen Allergy Mild RASH 09/13/20 Yes tramadol Allergy Mild RASH 09/13/20 Yes I S O L A T I O N *CONTACT* Allergy Unknown 06/15/20 Yes ibuprofen Allergy Unknown 09/13/20 Yes (SCOTT AQUINO) Physical Exam: PE: Constitutional: Well developed, well nourished, no acute distress, non-toxic appearance. HENT: Normocephalic, atraumatic, bilateral external ears normal, oropharynx moist, no oral exudates, nose normal. Eyes: PERRLA, EOMI, conjunctiva normal, no discharge. Neck: Normal range of motion, no midline tenderness, supple. Cardiovascular: Heart rate regular rhythm, no murmur. Lungs & Thorax: Bilateral breath sounds clear to auscultation. Abdomen: Bowel sounds normal, soft, no tenderness, no masses, no pulsatile masses. Skin: Warm, dry, no erythema, no rash. Back: No midline tenderness, no CVA tenderness. Extremities: No tenderness, no cyanosis, no clubbing, ROM intact, no edema. Neurologic: Alert and oriented x4, normal motor function, normal sensory function, no focal deficits noted. (SCOTT AQUINO) Current Patient Data: Labs: Laboratory Tests Test 05/19/21 10:10 White Blood Count 7.5 x10^3/uL (4.0-11.0) Red Blood Count 3.83 x10^6/uL (3.50-5.40) Hemoglobin 11.6 g/dL (12.0-15.5) L Hematocrit 35.6 % (36.0-47.0) L Mean Corpuscular Volume 93 fL (79-100) Mean Corpuscular Hemoglobin 30 pg (25-35) Mean Corpuscular Hemoglobin Concent 33 g/dL (31-37) Red Cell Distribution Width 16.9 % (11.5-14.5) H Platelet Count 237 x10^3/uL (140-400) Neutrophils (%) (Auto) 65 % (31-73) Lymphocytes (%) (Auto) 27 % (24-48) Monocytes (%) (Auto) 7 % (0-9) Eosinophils (%) (Auto) 1 % (0-3) Basophils (%) (Auto) 1 % (0-3) Neutrophils # (Auto) 4.8 x10^3uL (1.8-7.7) Lymphocytes # (Auto) 2.0 x10^3/uL (1.0-4.8) Monocytes # (Auto) 0.6 x10^3/uL (0.0-1.1) Eosinophils # (Auto) 0.0 x10^3/uL (0.0-0.7) Basophils # (Auto) 0.0 x10^3/uL (0.0-0.2) Sodium Level 141 mmol/L (136-145) Potassium Level 3.8 mmol/L (3.5-5.1) Chloride Level 105 mmol/L (98-107) Carbon Dioxide Level 28 mmol/L (21-32) Anion Gap 8 (6-14) Blood Urea Nitrogen 18 mg/dL (7-20) Creatinine 1.1 mg/dL (0.6-1.0) H Estimated GFR (Cockcroft-Gault) 61.7 BUN/Creatinine Ratio 16 (6-20) Glucose Level 96 mg/dL (70-99) Calcium Level 9.1 mg/dL (8.5-10.1) Total Bilirubin 1.5 mg/dL (0.2-1.0) H Aspartate Amino Transferase (AST) 16 U/L (15-37) Alanine Aminotransferase (ALT) 31 U/L (14-59) Alkaline Phosphatase 100 U/L (46-116) Total Protein 6.5 g/dL (6.4-8.2) Albumin 3.2 g/dL (3.4-5.0) L Albumin/Globulin Ratio 1.0 (1.0-1.7) Vital Signs: Vital Signs Date Time Temp Pulse Resp B/P (MAP) Pulse Ox O2 Delivery O2 Flow Rate FiO2 05/19/21 09:55 98.0 108 18 138/100 (113) 96 (SCOTT AQUINO) Heart Score: C/O Chest Pain: No (SCOTT AQUINO) Course & Med Decision Making: Course & Med Decision Making Pertinent Labs and Imaging studies reviewed. (See chart for details) Patient presents to emergency department status post absence seizure. Patient has history of seizures and takes Keppra twice per day. She reports she had a prior seizure approximately 2 months ago. Keppra level be checked in the department today. Patient advised to follow-up with her neurologist, Dr. Rosado, this week regarding increased frequency of seizures. Patient advised not to drive for period of 6-month after today. Patient understands and is agreeable to discharge plan. (SCOTT AQUINO) Course & Med Decision Making I was the Attending physician on the above date of service of this patient. This patient was evaluated, examined, treated, and dispositioned from the emergency department by the mid-level practitioner. Although I was working at the time , no assistance was requested. Electronically signed, Troy Collins DO (TROY COLLINS DO) Christopher Disclaimer: Christopher Disclaimer: This electronic medical record was generated, in whole or in part, using a voice recognition dictation system. (SCOTT AQUINO) Departure Departure: Impression: Primary Impression: History of absence seizures Disposition: HOME / SELF CARE / HOMELESS Condition: STABLE Referrals: JESSICA ROTHMAN (PCP) Patient Instructions: Seizure Disorder, Child, Absence Epilepsy, Seizure, Adult, [id number] Additional Instructions: Please make an appointment and follow-up with Dr. Rosado this week. Return to the emergency department for recurrence of symptoms or development of new ones. SCOTT AQUINO May 19, 2021 11:30 TROY COLLINS DO May 19, 2021 15:54
== END 2021-05-19 12:09 | disposition home or self-care (01) ==
LOC: ER 09:23
DX: G40.A09 Absence epileptic syndrome, not intractable, without status epilepticus (principal); E11.9 Type 2 diabetes mellitus without complications; F32.9 Major depressive disorder, single episode, unspecified; Z88.1 Allergy status to other antibiotic agents; Z88.8 Allergy status to other drugs, medicaments and biological substances
CPT/HCPCS: 80053; 85025; 99283

== ENCOUNTER → 2021-05-22 | Day surgery (SDC) | payer MEDICARE, OTHER ==
[~2021-05-22] MED LIST changes: +FLUC200T PO
[2021-05-22 14:50] VITALS: BP 127/77
== END | disposition home or self-care (01) ==
LOC: SURG 14:38
PROVIDERS: ATTEND Anesthesiology
DX: M54.16 Radiculopathy, lumbar region (principal); M48.061 Spinal stenosis, lumbar region without neurogenic claudication; M96.1 Postlaminectomy syndrome, not elsewhere classified; G40.909 Epilepsy, unspecified, not intractable, without status epilepticus; Z98.890 Other specified postprocedural states; Z79.899 Other long term (current) drug therapy; Z88.8 Allergy status to other drugs, medicaments and biological substances
CPT/HCPCS: 99214; G0463

== ENCOUNTER 2021-05-26 10:08 | Emergency (ER) | payer MEDICARE, OTHER ==
[~2021-05-26] VITALS: Ht 167.6 cm; Wt 105.8 kg
[~2021-05-26 10:08] MED LIST changes: -FLUC200T PO
[2021-05-26 11:19] LABS: BASO % 0 % (0-3); EOS # 0.1 x10^3/uL (0.0-0.7); EOS % 1 % (0-3); HEMATOCRIT 36.3 % (36.0-47.0); HEMOGLOBIN 11.8 g/dL (12.0-15.5); LYMPH # 2.4 x10^3/uL (1.0-4.8); LYMPH % 28 % (24-48); MEAN CORPUSCULAR HEMOGLOBIN 30 pg (25-35); MEAN CORPUSCULAR HGB CONC 33 g/dL (31-37); MEAN CORPUSCULAR VOLUME 93 fL (79-100); MONO # 0.6 x10^3/uL (0.0-1.1); MONO % 7 % (0-9); NEUT # 5.5 x10^3uL (1.8-7.7); NEUT % 64 % (31-73); PLATELET COUNT 220 x10^3/uL (140-400); RED BLOOD COUNT 3.89 x10^6/uL (3.50-5.40); RED CELL DISTRIBUTION WIDTH 16.5 % (11.5-14.5); WHITE BLOOD COUNT 8.5 x10^3/uL (4.0-11.0)
[2021-05-26 11:39] LABS: CALCIUM 9.3 mg/dL (8.5-10.1); CREATININE 1.1 mg/dL (0.6-1.0); GFR 61.7; POTASSIUM 3.6 mmol/L (3.5-5.1)
[2021-05-26 11:43] LABS: BACTERIA,URINE MOD /HPF (0-FEW); BILIRUBIN,URINE NEG (NEG); CLARITY,URINE HAZY; COLOR,URINE YELLOW; GLUCOSE,URINE NEG (NEG); NITRITE,URINE NEG (NEG); SQUAMOUS EPITHELIAL CELL,UR MANY /LPF; UROBILINOGEN,URINE 0.2 mg/dL (0.2 mg/dL); YEAST,URINE PRESENT /HPF
[2021-05-26 11:44] LABS: ALBUMIN 3.4 g/dL (3.4-5.0); ALBUMIN/GLOBULIN RATIO 0.9 (1.0-1.7); PHOSPHORUS 2.7 mg/dL (2.6-4.7); TOTAL BILIRUBIN 1.6 mg/dL (0.2-1.0); TOTAL PROTEIN 7.1 g/dL (6.4-8.2)
--- NOTE | 2021-05-26 11:45 | PHYS DOC ---
Past History Past Medical History: Depression, Diabetes, Heart Disease, HIV, Seizure Additional Past Medical Histor: back pain, abd pain. PE (SHANTHI DEVRIES APRN) Past Surgical History: No Surgical History Additional Past Surgical Histo: BACK AND ACHILLES (SHANTHI DEVRIES APRN) Smoking: Non-smoker Alcohol Use: None Drug Use: None (SHANTHI DEVRIES APRN) Adult General Chief Complaint Chief Complaint: BLOOD SUGAR PROBLEM HPI HPI Patient is a 60-year-old female who presents to the emergency department complaining of feeling shaky and off. Patient reports she is a type II diabetic and feels this way when her blood sugars are out of control. Patient reports a home blood sugar of 220, called 911 for msw transport to the emergency department, transporting EMS msw reported blood sugar of 103 in route. Patient denies nausea, vomiting, diarrhea, chest pains or shortness of breath, denies recent fever or chills, denies increased thirst or increased urination, denies urinary pressure, increased urinary frequency, or urinary burning. Patient reports she is HIV positive, has a seizure history, reports her insulin recently changed to a once a week called [employer], patient reports she received an injection each Wednesday. Patient denies other physical complaints or physical concerns. (SHANTHI DEVRIES APRN) Review of Systems Review of Systems 14 body systems of review of systems have been reviewed. See HPI for pertinent positives and negative responses, otherwise all other systems are negative, nonpertinent or noncontributory. Constitutional: Negative except as outlined in HPI above. Skin: Negative except as outlined in HPI above. Eyes: Negative except as outlined in HPI above. HENT: Negative except as outlined in HPI above. Respiratory: Negative except as outlined in HPI above. Cardiovascular: Negative except as outlined in HPI above. GI: Negative except as outlined in HPI above. : Negative except as outlined in HPI above. Musculoskeletal: Negative except as outlined in HPI above. Integument: Negative except as outlined in HPI above. Neurologic: Negative except as outlined in HPI above. Endocrine: Negative except as outlined in HPI above. Lymphatic: Negative except as outlined in HPI above. Psychiatric: Negative except as outlined in HPI above. (SHANTHI DEVRIES APRN) Allergies Allergies Allergies Coded Allergies Type Severity Reaction Last Updated Verified levofloxacin Allergy Severe seizure 05/26/21 Yes aspirin Allergy Mild 05/26/21 Yes naproxen Allergy Mild RASH 05/26/21 Yes tramadol Allergy Mild RASH 05/26/21 Yes I S O L A T I O N *CONTACT* Allergy Unknown 06/15/20 Yes ibuprofen Allergy Unknown 05/26/21 Yes (SHANTHI DEVRIES APRN) Physical Exam Physical Exam Constitutional: Well developed, well nourished, no acute distress, non-toxic appearance. 60-year-old female in no apparent distress. HENT: Normocephalic, atraumatic. Eyes: Conjunctiva normal, no discharge. Neck: Normal range of motion, no stridor. Cardiovascular: No cyanosis appreciated, distal cap refill less than 2 seconds. Lungs & Thorax: Patient is in no respiratory distress, no audible adventitious lung sounds appreciated. Abdomen: Nontender, no abnormalities noted. Skin: Warm, dry, no erythema, no rash. Back: No tenderness, no deformities. Extremities: No tenderness, no cyanosis, no clubbing, ROM intact, no edema. Neurologic: Alert and oriented X 3, normal motor function, normal sensory function, no focal deficits noted. Bedside blood glucose performed by ED nursing staff during physical examination equals 80. Psychologic: Affect normal, judgement normal, mood normal. (SHANTHI DEVRIES APRN) Current Patient Data Vital Signs Vital Signs Date Time Temp Pulse Resp B/P (MAP) Pulse Ox O2 Delivery O2 Flow Rate FiO2 05/26/21 11:35 98.2 103 18 124/80 (95) 96 05/26/21 10:10 Room Air Lab Results Laboratory Tests Test 05/26/21 10:27 05/26/21 10:54 Glucose (Fingerstick) 80 mg/dL (70-99) White Blood Count 8.5 x10^3/uL (4.0-11.0) Red Blood Count 3.89 x10^6/uL (3.50-5.40) Hemoglobin 11.8 g/dL (12.0-15.5) L Hematocrit 36.3 % (36.0-47.0) Mean Corpuscular Volume 93 fL (79-100) Mean Corpuscular Hemoglobin 30 pg (25-35) Mean Corpuscular Hemoglobin Concent 33 g/dL (31-37) Red Cell Distribution Width 16.5 % (11.5-14.5) H Platelet Count 220 x10^3/uL (140-400) Neutrophils (%) (Auto) 64 % (31-73) Lymphocytes (%) (Auto) 28 % (24-48) Monocytes (%) (Auto) 7 % (0-9) Eosinophils (%) (Auto) 1 % (0-3) Basophils (%) (Auto) 0 % (0-3) Neutrophils # (Auto) 5.5 x10^3uL (1.8-7.7) Lymphocytes # (Auto) 2.4 x10^3/uL (1.0-4.8) Monocytes # (Auto) 0.6 x10^3/uL (0.0-1.1) Eosinophils # (Auto) 0.1 x10^3/uL (0.0-0.7) Basophils # (Auto) 0.0 x10^3/uL (0.0-0.2) (SHANTHI DEVRIES APRN) EKG EKG [] (SHANTHI DEVRIES APRN) Radiology/Procedures Radiology/Procedures [] (SHANTHI DEVRIES APRN) Heart Score C/O Chest Pain: No Risk Factors: Risk Factors: DM, Current or recent (<one month) smoker, HTN, HLP, family history of CAD, obesity. Risk Scores: Risk Factors: DM, Current or recent (<one month) smoker, HTN, HLP, family history of CAD, obesity. (SHANTHI DEVRIES APRN) Course & Med Decision Making Course & Med Decision Making Pertinent Labs and Imaging studies reviewed. (See chart for details) 60-year-old female, vital signs reviewed, resents emerged from concerning feeling shaky and off, concerned she is having a blood sugar problem. Physical examination is unremarkable, patient does have history of type 2 diabetes with a recent medication change to Ozempic once a week. Will order urinalysis assay, bedside blood glucose monitoring, CBC, CMP. Patient bedside glucose 80, will give patient meal tray and reevaluate after period of time. Other labs pending at this time. Patient with urine shows yeast, all other serum labs nonconcerning. Discussed findings with patient, discharge time repeat bedside blood sugar equals 105 , will start on Diflucan 200 mg daily for 2 weeks, strict follow-up with primary care this week for reevaluation of yeast in urine. Patient reports she still feels a little shaky. This is most likely related to urinary tract infection with yeast. Discussed return to ER precautions and concerns, patient gave verbal understanding and is amenable to ED discharge planning. Discussed with the patient all findings and diagnostic testing as well as the need to follow-up with their primary care provider for further evaluation and treatment or return to the ED if any new or worsening symptoms. Strict return precautions were also discussed at length, the patient voiced understanding and agreement with the discharge planning. The patient was nontoxic in appearance, in no apparent distress, and hemodynamically stable at the time of disposition. (SHANTHI DEVRIES APRN) Dragon Disclaimer Dragon Disclaimer This electronic medical record was generated, in whole or in part, using a voice recognition dictation system. (SHANTHI DEVRIES APRN) Attending Co-Sign The patient was seen and interviewed as well as examined at the bedside. The chart was reviewed. The case was discussed. Agree with the plan of care. (GAGE MOON DO) Departure Departure: Impression: Primary Impression: Yeast UTI Disposition: HOME / SELF CARE / HOMELESS Condition: GOOD Referrals: JESSICA ROTHMAN (PCP) Additional Instructions: You were seen today in the emergency department for shakiness feelings at home. Lab work drawn today in the emergency department did not show any concerning findings. Your urine however had yeast. As we discussed I am starting you on a medication called Diflucan that you will take once a day for the next 2 weeks. During this time please make an appointment to follow-up with your primary care provider for reevaluation of this yeast in urine. Return to the emergency department for worsening symptoms or other concerns. Thank you for visiting our Emergency Department. It was a pleasure taking care of you today in the emergency department and we appreciate you trusting us with your care. If any additional problems come up don't hesitate to return to visit us. Please follow up with your primary care provider so they can plan additional care if needed and know about the problem that you had. If symptoms worsen come back to the Emergency Department. Any concerning symptoms that start such as chest pain, shortness of air, weakness or numbness on one side of the body, running high fevers or any other concerning symptoms return to the ER. EMERGENCY DEPARTMENT GENERAL DISCHARGE INSTRUCTIONS Thank you for coming to [facility] (ED) today and trusting us with you care. We trust that you had a positivie experience in our Emergency Department. If you wish to speak to the department management, you may call the director at [phone]. YOUR FOLLOW UP INSTRUCTIONS ARE FOLLOWS: 1. Do you have a private Doctor? If you do not have a private doctor, please ask for a resource list of physicians or clinics that may be able to assist you with follow up care. 2. The Emergency Physician has interpreted your x-rays. The X-Ray specialist will also review them. If there is a change in the findings, you will be notified in 48 hours when at all possible. 3. A lab test or culture has been done, your results will be reviewed and you will be notified if you need a change in treatment. ADDITIONAL INSTRUCTIONS AND INFORMATION: 1. Your care today has been supervised by a physician who is specially trained in emergency care. Many problems require more than one evaluation for a complete diagnosis and treatment. We recommend that you schedule your follow up appointment as recommended to ensure complete treatment of you illness or injury. If you are unable to obtain follow up care and continue to have a problem, or if your condition worsens, we recommend that you return to the ED. 2. We are not able to safely determine your condition over the phone nor are we able to give sound medical advice over the phone. For these safety reasons, if you call for medical advice we will ask you to come to the ED for further evaluation. 3. If you have any questions regarding these discharge instructions please call the ED at [phone]. SAFETY INFORMATION: In the interest of safety, wellness, and injury prevention; we encourage you to wear your sealbelt, if you smoke; quite smoking, and we encourage family to use a protective helmet for bicycling and other sporting events that present an increased risk for head injury. IF YOUR SYMPTOMS WORSEN OR NEW SYMPTOMS DEVELOP, OR YOU HAVE CONCERNS ABOUT YOUR CONDITION; OR IF YOUR CONDITION WORSENS WHILE YOU ARE WAITING FOR YOUR FOLLOW UP APPOINTMENT; EITHER CONTACT YOUR PRIMARY CARE DOCTOR, THE PHYSICIAN WHOSE NAME AND NUMBER YOU WERE GIVEN, OR RETURN TO THE ED IMMEDIATELY. Scripts Fluconazole (DIFLUCAN) 200 Mg Tablet 1 TAB PO DAILY for yeast in urine, #14 TAB 0 Refills Prov: SHANTHI DEVRIES APRN 05/26/21 SHANTHI DEVRIES APRN May 26, 2021 11:45 GAGE MOON DO May 28, 2021 10:52
[2021-05-26 12:10] VITALS: BP 129/77
[2021-05-26] MEDS ORDERED: FLUC200T PO (12:11)
== END 2021-05-26 12:22 | disposition home or self-care (01) ==
LOC: ER 10:08
DX: B37.49 Other urogenital candidiasis (principal); E11.9 Type 2 diabetes mellitus without complications; Z86.711 Personal history of pulmonary embolism; Z88.1 Allergy status to other antibiotic agents; Z88.6 Allergy status to analgesic agent; Z88.8 Allergy status to other drugs, medicaments and biological substances
CPT/HCPCS: 36415; 80053; 81001; 82947; 83735; 84100; 85025; 87086; 99283

== ENCOUNTER → 2021-06-12 | Emergency (ER) | payer MEDICARE, OTHER ==
[~2021-06-12] VITALS: Ht 167.6 cm; Wt 105.8 kg
[~2021-06-12] MED LIST changes: +DEXAMETHASONE SOD PHOS 10 MG/ML VIAL. IM ONE; +FLUC200T PO; +ORPH-16 PO; +diazePAM 5 MG TABLET. PO ONE
[2021-06-12 11:03] VITALS: BP 134/86
--- NOTE | 2021-06-12 11:16 | PHYS DOC ---
Past History Past Medical History: Depression, Diabetes, Heart Disease, HIV, Seizure Additional Past Medical Histor: back pain, abd pain. PE Past Surgical History: No Surgical History Additional Past Surgical Histo: BACK AND ACHILLES Smoking: Non-smoker Alcohol Use: None Drug Use: None Adult General Chief Complaint Chief Complaint: LOWER BACK PAIN OR INJURY [facility] HPI Patient is a 60-year-old female patient presenting to the ED today complaining of 7 out of 10 chronic left low back pain, symptoms have been going on since yesterday. Patient denies any injuries. Denies any pain radiating to bilateral lower extremities, denies any loss of bowel/bladder function. Denies any numbness or tingling to bilateral lower extremities. She states she used to follow-up with a research support specialist at [facility] but currently does not have transportation to [facility]. She states she has an appointment with her PCP today at 2 PM but told she though she should come to the ED fast and see if we can admit her. Review of Systems Review of Systems Constitutional: Denies fever or chills [] Eyes: Denies change in visual acuity, redness, or eye pain [] HENT: Denies nasal congestion or sore throat [] Respiratory: Denies cough or shortness of breath [] Cardiovascular: No additional information not addressed in HPI [] GI: Denies abdominal pain, nausea, vomiting, bloody stools or diarrhea [] : Denies dysuria or hematuria [] Musculoskeletal: Reports left low back pain Integument: Denies rash or skin lesions [] Neurologic: Denies headache, focal weakness or sensory changes [] All other systems were reviewed and found to be within normal limits, except as documented in this note. Allergies Allergies Allergies Coded Allergies Type Severity Reaction Last Updated Verified levofloxacin Allergy Severe seizure 05/26/21 Yes aspirin Allergy Mild 05/26/21 Yes naproxen Allergy Mild RASH 05/26/21 Yes tramadol Allergy Mild RASH 05/26/21 Yes I S O L A T I O N *CONTACT* Allergy Unknown 06/15/20 Yes ibuprofen Allergy Unknown 05/26/21 Yes Physical Exam Physical Exam Constitutional: Well developed, well nourished, no acute distress, non-toxic appearance. [] Abdomen: Bowel sounds normal, soft, no tenderness, no masses, no pulsatile masses. [] Skin: Warm, dry, no erythema, no rash. [] Back: Overweight patient. Old healed surgical incision noted mid to lower spine. Diffuse paraspinal muscle tenderness to the left lower back, no midline lumbar spine tenderness, no CVA tenderness. [] Extremities: No tenderness, no cyanosis, no clubbing, ROM intact, no edema. [] Neurologic: Alert and oriented X 3, normal motor function, normal sensory function, no focal deficits noted. [] Psychologic: Affect normal, judgement normal, mood normal. [] EKG EKG [] Radiology/Procedures Radiology/Procedures [] Heart Score C/O Chest Pain: N/A Risk Factors: Risk Factors: DM, Current or recent (<one month) smoker, HTN, HLP, family history of CAD, obesity. Risk Scores: Risk Factors: DM, Current or recent (<one month) smoker, HTN, HLP, family history of CAD, obesity. Course & Med Decision Making Course & Med Decision Making Pertinent Labs and Imaging studies reviewed. (See chart for details) This is a 60-year-old female patient well-known to this ED presenting today complaining of chronic low back pain, no injuries, no cauda equina syndrome symptoms. Patient has an appointment with her PCP today at 2 PM. She it is currently 11 AM. She was given a Decadron injection and valium discharged to follow-up with her PCP today Christopher Disclaimer Christopher Disclaimer This electronic medical record was generated, in whole or in part, using a voice recognition dictation system. Departure Departure: Impression: Primary Impression: Low back pain Disposition: HOME / SELF CARE / HOMELESS Condition: STABLE Referrals: JESSICA ROTHMAN (PCP) follow up with your doctor in today Patient Instructions: Back Pain, Adult Additional Instructions: You were evaluated in the emergency room for chronic low back pain. Please follow-up with your own doctor today. Problem Qualifiers Primary Impression: Low back pain Chronicity: acute Back pain laterality: left Sciatica presence: without sciatica Qualified Codes: M54.50 - Low back pain, unspecified FARSHAD CLARK ACCOUNTS PAYABLE ANALYST Jun 12, 2021 11:16
== END | disposition home or self-care (01) ==
LOC: ER 10:34
DX: M54.50 Low back pain, unspecified (principal); E11.9 Type 2 diabetes mellitus without complications; Z88.6 Allergy status to analgesic agent; Z88.5 Allergy status to narcotic agent
CPT/HCPCS: 96372; 99283; J1100

== ENCOUNTER 2021-06-13 10:03 | Emergency (ER) | payer MEDICARE, OTHER ==
[~2021-06-13] VITALS: Ht 167.6 cm; Wt 105.8 kg
[~2021-06-13 10:03] MED LIST changes: -DEXAMETHASONE SOD PHOS 10 MG/ML VIAL. IM ONE; -ORPH-16 PO; -diazePAM 5 MG TABLET. PO ONE
--- NOTE | 2021-06-13 11:44 | PHYS DOC ---
Past History Past Medical History: Depression, Diabetes, Heart Disease, HIV, Seizure Additional Past Medical Histor: back pain, abd pain. PE Past Surgical History: No Surgical History Additional Past Surgical Histo: BACK AND ACHILLES Smoking: Non-smoker Alcohol Use: None Drug Use: None Adult General Chief Complaint Chief Complaint: BACK PAIN OR INJURY HPI HPI Patient is a 60-year-old female patient with history of chronic low back pain presenting today complaining of 10 out of 10 low back pain, symptoms are chronic and got worse this morning. Patient states she took Tylenol 3 with no relief. Patient denies any injury. Denies any pain radiating to bilateral lower extremities. Denies any loss of bowel/bladder function. Requesting to be admitted to the hospital stating she does better in the hospital setting because they can give her medicine [id number]. Also requesting to be given mo rphine so that she can get "knocked out". She was in the ED yesterday, she states she did not see the PCP as scheduled because she went home from the ED and slept. Review of Systems Review of Systems Constitutional: Denies fever or chills [] GI: Denies abdominal pain, nausea, vomiting, bloody stools or diarrhea [] : Denies dysuria or hematuria [] Musculoskeletal: Reports chronic low back pain Integument: Denies rash or skin lesions [] Neurologic: Denies headache, focal weakness or sensory changes [] All other systems were reviewed and found to be within normal limits, except as documented in this note. Allergies Allergies Allergies Coded Allergies Type Severity Reaction Last Updated Verified levofloxacin Allergy Severe seizure 05/26/21 Yes aspirin Allergy Mild 05/26/21 Yes naproxen Allergy Mild RASH 05/26/21 Yes tramadol Allergy Mild RASH 05/26/21 Yes I S O L A T I O N *CONTACT* Allergy Unknown 06/15/20 Yes ibuprofen Allergy Unknown 05/26/21 Yes Physical Exam Physical Exam Constitutional: Well developed, well nourished, no acute distress, non-toxic appearance. [] Abdomen: Bowel sounds normal, soft, no tenderness, no masses, no pulsatile masses. [] Skin: Warm, dry, no erythema, no rash. [] Back: Old healed surgical incision noted to the lumbar spine paraspinal muscle tenderness diffusely throughout lumbar spine, no midline lumbar spine tenderness, no CVA tenderness. [] Extremities: No tenderness, no cyanosis, no clubbing, ROM intact, no edema. [] Neurologic: Alert and oriented X 3, normal motor function, normal sensory function, no focal deficits noted. [] Psychologic: Affect normal, judgement normal, mood normal. [] Current Patient Data Vital Signs Vital Signs Date Time Temp Pulse Resp B/P (MAP) Pulse Ox O2 Delivery O2 Flow Rate FiO2 06/13/21 11:15 97.5 103 20 131/93 (106) 99 EKG EKG [] Radiology/Procedures Radiology/Procedures [] Heart Score C/O Chest Pain: N/A Risk Factors: Risk Factors: DM, Current or recent (<one month) smoker, HTN, HLP, family history of CAD, obesity. Risk Scores: Risk Factors: DM, Current or recent (<one month) smoker, HTN, HLP, family history of CAD, obesity. Course & Med Decision Making Course & Med Decision Making Pertinent Labs and Imaging studies reviewed. (See chart for details) This is a 60-year-old female patient presenting to the ED today with chronic low back pain. No injury, no cauda equina syndrome symptoms. Patient initially requesting to be admitted to the hospital stating she will get pain medicine [id number]. Informed her there is no indication for her to be admitted in the hospital. She has a PCP and can follow up as an outpatient. She was seen in the ED yesterday but never followed up at 2 PM with her PCP. Instructed to consider calling the PCP today for a f/u appointment. She states she cannot call because the office could be closed and she has no ride to the PCPs office but states she can use an ambulance to come to the ED. Given Decadron and Norflex and discharged Dragon Disclaimer Dragon Disclaimer This electronic medical record was generated, in whole or in part, using a voice recognition dictation system. Departure Departure: Impression: Primary Impression: Low back pain Disposition: HOME / SELF CARE / HOMELESS Condition: STABLE Referrals: JESSICA ROTHMAN (PCP) follow up next week Patient Instructions: Chronic Back Pain Additional Instructions: You were seen for chronic low back pain. Please follow-up with your primary care doctor next week. Problem Qualifiers Primary Impression: Low back pain Chronicity: acute Back pain laterality: bilateral Sciatica presence: without sciatica Qualified Codes: M54.50 - Low back pain, unspecified MUTUNGA,FARSHAD Salazar APRN Jun 13, 2021 11:44
[2021-06-13] MEDS ORDERED: DEXAMETHASONE SOD PHOS 10 MG/ML VIAL. IM ONE (11:45)
[2021-06-13] MEDS ORDERED: ORPHENADRINE CITRATE 60 MG/2 ML VIAL. IM ONE (11:45)
[2021-06-13 12:15] VITALS: BP 131/88
[2021-06-14] MEDS ORDERED: ORPH-16 PO (12:20)
== END 2021-06-13 12:18 | disposition home or self-care (01) ==
LOC: ER 10:03
DX: M54.50 Low back pain, unspecified (principal); E11.9 Type 2 diabetes mellitus without complications; Z88.1 Allergy status to other antibiotic agents; Z88.6 Allergy status to analgesic agent
CPT/HCPCS: 96372; 99284; J1100; J2360

== ENCOUNTER 2021-06-14 11:00 | Emergency (ER) | payer MEDICARE, OTHER ==
[~2021-06-14] VITALS: Ht 167.6 cm; Wt 105.8 kg
[2021-06-14 11:05] VITALS: BP 136/87
[2021-06-14] MEDS ORDERED: ACETAMINOPHEN 325 MG TABLET PO ONE (12:15)
[2021-06-14] MEDS ORDERED: ORPHENADRINE CITRATE 60 MG/2 ML VIAL. IM ONE (12:15)
[2021-06-14] MEDS ORDERED: CYCLOBENZAPRINE 10MG 4TABLET STARTPACK PO ONE (12:15)
[2021-06-14] MEDS ORDERED: ORPH-16 PO (12:20)
--- NOTE | 2021-06-14 12:21 | PHYS DOC ---
Past History Past Medical History: Depression, Diabetes, Heart Disease, HIV, Seizure Additional Past Medical Histor: back pain, abd pain, PE (SCOTT AQUINO) Additional Past Surgical Histo: BACK AND ACHILLES (SCOTT AQUINO) Smoking: Non-smoker Alcohol Use: None Drug Use: None (SCOTT AQUINO) General Adult EDM: Chief Complaint: BACK PAIN - NO INJURY HPI: HPI: Patient is a 60 year old female well-known to the department who presents for the third day in a row with acute exacerbation of chronic low back pain. Yesterday and the day before yesterday, patient presented to emergency department with exacerbation of chronic low back pain. She was scheduled to see her primary care provider day before yesterday in the afternoon, but did not attend her appointment. She presented again yesterday for more medication. On both prior visits, she requested to be admitted to the hospital. She makes the same request again today stating that she is "tired of going back and forth," presumably between the emergency department and home. She reports low back pain on the left side greater than the right without radiation. She denies fever, weakness, saddle anesthesia, bowel or bladder incontinence, paresthesias in bilateral lower extremities, injury or other inciting exacerbation. Patient denies any changes in her symptoms. (SCOTT AQUINO) Review of Systems: Review of Systems: ROS negative except as mentioned in HPI. (SCOTT AQUINO) Allergies: Allergies: Allergies Coded Allergies Type Severity Reaction Last Updated Verified levofloxacin Allergy Severe seizure 05/26/21 Yes aspirin Allergy Mild 05/26/21 Yes naproxen Allergy Mild RASH 05/26/21 Yes tramadol Allergy Mild RASH 05/26/21 Yes I S O L A T I O N *CONTACT* Allergy Unknown 06/15/20 Yes ibuprofen Allergy Unknown 05/26/21 Yes (SCOTT AQUINO) Physical Exam: PE: Constitutional: Well developed, well nourished, non-toxic appearance. Neck: Normal range of motion, no tenderness, supple, no stridor. Cardiovascular: Heart rate regular rhythm, no obvious murmur. Lungs & Thorax: Bilateral breath sounds clear to auscultation. Skin: Warm, dry, no erythema, no rash, no abrasion, no laceration. Back: No step-offs, no midline tenderness, paraspinal tenderness noted bilaterally L>R. Extremities: No tenderness, no cyanosis, no clubbing, ROM intact, no edema. Neurologic: Alert and oriented x4, motor function grossly intact including great toe dorsiflexion, sensory function grossly intact, no focal deficits noted. (SCOTT AQUINO) Current Patient Data: Vital Signs: Vital Signs Date Time Temp Pulse Resp B/P (MAP) Pulse Ox O2 Delivery O2 Flow Rate FiO2 06/14/21 11:05 96.4 97 18 136/87 (103) 98 (SCOTT AQUINO) Heart Score: C/O Chest Pain: No (SCOTT AQUINO) Course & Med Decision Making: Course & Med Decision Making Pertinent Labs and Imaging studies reviewed. (See chart for details) Patient returns to the emergency department with same complaints as the past 2 days. She states she did not keep her appointment with her primary care provider, as when she left the department here she went home and napped. At this point, the office has been closed and she was not able to see her primary care provider before the holiday. She again requests admission to the hospital. I explained to her once more that we do not have a clinical indication to keep her in the hospital and also that there is a marked shortage of available beds for inpatient treatment. Patient will be given another dose of Norflex here in the department and provided with a starter pack of Flexeril, as all the phar macies are closed today. I will provide her with a prescription for muscle relaxer that she may picker tender helper and begin taking tomorrow. I advised her very strongly to contact her primary care provider soon as possible. Patient understands and is agreeable to discharge plan. (SCOTT AQUINO) Course & Med Decision Making I was the Attending physician on the above date of service of this patient. This patient was evaluated, examined, treated, and dispositioned from the emergency department by the mid-level practitioner. Although I was working at the time , no assistance was requested. Electronically signed, Troy Collins DO (TROY COLLINS DO) Christopher Disclaimer: Christopher Disclaimer: This electronic medical record was generated, in whole or in part, using a voice recognition dictation system. (SCOTT AQUINO) Departure Departure: Impression: Primary Impression: Acute exacerbation of chronic low back pain Additional Impression: Diabetes mellitus Qualified Codes: E11.69 - Type 2 diabetes mellitus with other specified complication Disposition: 01 HOME / SELF CARE / HOMELESS Condition: STABLE Referrals: JESSICA ROTHMAN (PCP) ROMULO JETT MD Patient Instructions: Back Exercises, Hyiv-wn-Lrom, Back Pain, Adult, Easy -to-Read, Chronic Back Pain Scripts Orphenadrine Citrate (ORPHENADRINE CITRATE) 100 Mg Tablet.er 1 TAB PO PRN Q12HR PRN for MUSCLE PAIN, #10 TAB 1 Refill Prov: SCOTT AQUINO 06/14/21 SCOTT AQUINO Jun 14, 2021 12:21 TROY COLLINS DO Jun 14, 2021 14:22
== END 2021-06-14 12:35 | disposition home or self-care (01) ==
LOC: ER 11:00
DX: G89.29 Other chronic pain (principal); M54.59 Other low back pain; E11.69 Type 2 diabetes mellitus with other specified complication; Z88.1 Allergy status to other antibiotic agents; Z88.6 Allergy status to analgesic agent; Z88.8 Allergy status to other drugs, medicaments and biological substances
CPT/HCPCS: 96372; 99283; J2360

== ENCOUNTER 2021-06-16 14:30 | Emergency (ER) | payer MEDICARE, OTHER ==
[~2021-06-16] VITALS: Ht 167.6 cm; Wt 105.8 kg
[~2021-06-16 14:30] MED LIST changes: +ORPH-16 PO
[2021-06-16 14:39] VITALS: BP 136/87
== END 2021-06-16 15:18 | disposition left against medical advice (07) ==
LOC: ER 14:37
DX: G89.29 Other chronic pain (principal); M54.89 Other dorsalgia; Z53.21 Procedure and treatment not carried out due to patient leaving prior to being seen by health care provider

== ENCOUNTER 2021-06-17 14:31 | Emergency (ER) | payer MEDICARE, OTHER ==
[~2021-06-17] VITALS: Ht 167.6 cm; Wt 105.8 kg
[2021-06-17] MEDS ORDERED: oxyCODONE/APAP 5/325 1 TAB TABLET PO ONE (16:45)
[2021-06-17] MEDS ORDERED: ORPHENADRINE CITRATE 60 MG/2 ML VIAL. IM ONE (16:45)
[2021-06-17 16:50] VITALS: BP 101/73
--- NOTE | 2021-06-17 16:50 | PHYS DOC ---
Past History Past Medical History: Depression, Diabetes, Heart Disease, HIV, Seizure Additional Past Medical Histor: back pain, abd pain, PE (NURYS WEIR APRN) Past Surgical History: No Surgical History Additional Past Surgical Histo: BACK AND ACHILLES (NURYS WEIR APRN) Smoking: Non-smoker Alcohol Use: None Drug Use: None (NURYS WEIR APRN) General Adult EDM: Chief Complaint: BACK PAIN OR INJURY HPI: HPI: Patient is a 60-year-old female who presents to the emergency department for chronic low back pain. Patient has been seen in this emergency department multiple times for the same symptoms. She reports left lower back pain that radiates into her buttock and down her leg that started 5 days ago. She denies any injuries, falls or heavy lifting. She rates her pain 10 out of 10. No treatment prior to arrival. Patient reports that she followed up with her primary care provider and got discharged home with a prescription for Percocet but did not fill it because she could not find a ride up to the pharmacy. Patient denies any saddle anesthesias, loss of bowel or bladder. Patient is reporting an episode of diarrhea that started today. (NURYS WEIR APRN) Review of Systems: Review of Systems: GI: See HPI : See HPI Musculoskeletal: See HPI Neurologic: See HPI (NURYS WEIR APRN) Allergies: Allergies: Allergies Coded Allergies Type Severity Reaction Last Updated Verified levofloxacin Allergy Severe seizure 05/26/21 Yes aspirin Allergy Mild 05/26/21 Yes naproxen Allergy Mild RASH 05/26/21 Yes tramadol Allergy Mild RASH 05/26/21 Yes I S O L A T I O N *CONTACT* Allergy Unknown 06/15/20 Yes ibuprofen Allergy Unknown 05/26/21 Yes (NURYS WEIR APRN) Physical Exam: PE: Constitutional: Well developed, well nourished, no acute distress, non-toxic appearance. [] HENT: Normocephalic, atraumatic, bilateral external ears normal, oropharynx moist, no oral exudates, nose normal. [] Eyes: PERRL, EOMI, conjunctiva normal, no discharge. [] Neck: Normal range of motion, no tenderness, supple, no stridor. [] Cardiovascular normal peripheral perfusion Lungs & Thorax: No work of breathing, no tachypnea Abdomen: Bowel sounds normal, soft, no tenderness, no masses, no pulsatile masses. [] Skin: Warm, dry, no erythema, no rash. [] Back: No left lumbar paraspinal pain with palpation, normal range of motion Extremities: No tenderness, no cyanosis, no clubbing, ROM intact, no edema. [] Neurologic: Alert and oriented X 3, normal motor function, normal sensory function, no focal deficits noted. [] Psychologic: Affect normal, judgement normal, mood normal. [] (NURYS WEIR APRN) EKG: EKG: [] (NURYS WEIR APRN) Radiology/Procedures: Radiology/Procedures: [] (NURYS WEIR APRN) Heart Score: C/O Chest Pain: N/A Risk Factors: Risk Factors: DM, Current or recent (<one month) smoker, HTN, HLP, family history of CAD, obesity. Risk Scores: Score 0 - 3: 2.5% MACE over next 6 weeks - Discharge Home Score 4 - 6: 20.3% MACE over next 6 weeks - Admit for Clinical Observation Score 7 - 10: 72.7% MACE over next 6 weeks - Early Invasive Strategies (NURYS WEIR APRN) Course & Med Decision Making: Course & Med Decision Making Pertinent Labs and Imaging studies reviewed. (See chart for details) Patient presents to the emergency department for chronic left lower back pain that radiates into her buttock and down her leg. Patient has been seen multiple times for these complaints. Patient has a prescription for Percocet which she received from her primary care provider for this pain but has not filled it. Patient denies any injuries. Patient has been imaged previously in this facility and degenerative changes were found. She does not have any cauda equina syndrome symptoms. Patient will be treated with pain medication and muscle relaxer. Patient advised to fill the prescription that she received by her primary care provider. She will be tested for COVID-19 due to her one episode of diarrhea. Patient's vital signs are stable she is in no acute distress. I discussed with patient all findings and diagnostic testing as well as the need to follow-up with PCP for further evaluation and treatment or return to the ER if any new or worsening symptoms. Strict return precautions were also discussed at length. Patient voiced understanding and agreement with the plan. Patient is hemodynamically stable at the time of disposition. (NURYS WEIR APRN) Dragon Disclaimer: Dragon Disclaimer: This electronic medical record was generated, in whole or in part, using a voice recognition dictation system. (NURYS WEIR APRN) Attending Co-Sign The patient was seen and interviewed as well as examined at the bedside. The chart was reviewed. The case was discussed. Agree with the plan of care. (GAGE MOON DO) Departure Departure: Impression: Primary Impression: Low back pain Qualified Codes: M54.42 - Lumbago with sciatica, left side Disposition: HOME / SELF CARE / HOMELESS Condition: GOOD Referrals: JESSICA ROTHMAN (PCP) Patient Instructions: Back Pain, Adult Additional Instructions: You were seen in the emergency department today for low back pain. You were treated with pain medication and a muscle relaxer in the emergency department. You also reported an episode of diarrhea. You were tested for COVID-19 you will be notified of your results when they become available in approximately 1 to 2 days. Please self isolate until you receive these results. You stated that you had a prescription for Percocet filled by your primary care provider. Please fill this prescription and take it as directed. Please follow-up with your primary care provider tomorrow regarding your ER visit. Please return to the emergency department if you develop any injuries, worsening of your pain, loss of bowel or bladder, numbness or tingling in your groin or down your extremities or any new or worsening concerns. NURYS WEIR APRN Jun 17, 2021 16:50 GAGE MOON DO Jun 18, 2021 07:15
== END 2021-06-17 17:58 | disposition home or self-care (01) ==
LOC: ER 14:31
DX: M54.42 Lumbago with sciatica, left side (principal); G89.29 Other chronic pain; E11.9 Type 2 diabetes mellitus without complications; Z20.822 Contact with and (suspected) exposure to COVID-19; Z88.1 Allergy status to other antibiotic agents; Z88.6 Allergy status to analgesic agent; Z88.8 Allergy status to other drugs, medicaments and biological substances
CPT/HCPCS: 96372; 99283; C9803; J2360; U0003

== ENCOUNTER 2021-06-24 06:02 | Emergency (ER) | payer MEDICARE, OTHER ==
[~2021-06-24] VITALS: Ht 167.6 cm; Wt 105.8 kg
[2021-06-24 06:02] VITALS: BP 136/89
--- NOTE | 2021-06-24 07:18 | PHYS DOC ---
Past History Past Medical History: Depression, Diabetes, Heart Disease, HIV, Seizure Additional Past Medical Histor: back pain, abd pain, PE Past Surgical History: No Surgical History Additional Past Surgical Histo: BACK AND ACHILLES Smoking: Non-smoker Alcohol Use: None Drug Use: None General Adult EDM: Chief Complaint: SEIZURE HPI: HPI: Patient is a 60-year-old female coming in via EMS for seizures. There is no witnessed seizures and no postictal state by EMS. Patient is a frequent visitor of the emergency department. She says that she has a prescription for her epileptics that she has not picked up but they are ready at the pharmacy today. Vital signs are stable, patient has not had any seizures in the emergency department. Review of Systems: Review of Systems: All other systems within normal limits except for as noted in the HPI Allergies: Allergies: Allergies Coded Allergies Type Severity Reaction Last Updated Verified levofloxacin Allergy Severe seizure 05/26/21 Yes aspirin Allergy Mild 05/26/21 Yes naproxen Allergy Mild RASH 05/26/21 Yes tramadol Allergy Mild RASH 05/26/21 Yes I S O L A T I O N *CONTACT* Allergy Unknown 06/15/20 Yes ibuprofen Allergy Unknown 05/26/21 Yes Physical Exam: PE: Constitutional: Well developed, well nourished, no acute distress, non-toxic appearance. [] HENT: Normocephalic, atraumatic, bilateral external ears normal, nose normal. [] Eyes: PERRLA, conjunctiva normal, no discharge. [] Neck: No rigidity, supple, no stridor. [] Cardiovascular: Regular rate and rhythm, brisk cap refill [] Lungs & Thorax: Non labored symmetric respirations, no tachypnea or respiratory distress [] Abdomen: Soft, nondistended. Skin: Warm, dry, no erythema, no rash. [] Back: Unremarkable Extremities: No deformities, range of motion grossly intact, no lower extremity edema [] Neurologic: Alert and oriented X 3, no focal deficits noted. [] Psychologic: Affect normal, judgement normal, mood normal. [] EKG: EKG: [] Radiology/Procedures: Radiology/Procedures: [] Heart Score: C/O Chest Pain: No Risk Factors: Risk Factors: DM, Current or recent (<one month) smoker, HTN, HLP, family history of CAD, obesity. Risk Scores: Score 0 - 3: 2.5% MACE over next 6 weeks - Discharge Home Score 4 - 6: 20.3% MACE over next 6 weeks - Admit for Clinical Observation Score 7 - 10: 72.7% MACE over next 6 weeks - Early Invasive Strategies Course & Med Decision Making: Course & Med Decision Making Pertinent Labs and Imaging studies reviewed. (See chart for details) [] Dragon Disclaimer: Dragon Disclaimer: This electronic medical record was generated, in whole or in part, using a voice recognition dictation system. Departure Departure: Impression: Primary Impression: Nonadherence to medication Disposition: HOME / SELF CARE / HOMELESS Condition: STABLE Referrals: JESSICA ROTHMAN (PCP) Patient Instructions: Basics of Medication Management DIDI LOGAN MD Jun 24, 2021 07:18
== END 2021-06-24 07:30 | disposition home or self-care (01) ==
LOC: ER 06:02
DX: Z91.14 Patient's other noncompliance with medication regimen (principal); R56.9 Unspecified convulsions; F32.9 Major depressive disorder, single episode, unspecified; E11.9 Type 2 diabetes mellitus without complications; Z88.1 Allergy status to other antibiotic agents; Z88.6 Allergy status to analgesic agent
CPT/HCPCS: 99283

== ENCOUNTER → 2021-06-25 | Day surgery (SDC) | payer MEDICARE, OTHER ==
[~2021-06-25] MED LIST changes: +0.9 % SODIUM CHLORIDE 10 ML VIAL. ONE; +DEXAMETHASONE SOD PHOS 10 MG/ML VIAL. ONE; +IOHEXOL 300 MG/ML 50 ML VIAL. ONE; +LIDOCAINE 1% PF 30 ML VIAL. ONE
[2021-06-25 14:32] VITALS: BP 134/90
== END | disposition home or self-care (01) ==
LOC: SURG 13:35
PROVIDERS: ATTEND Anesthesiology
DX: M54.16 Radiculopathy, lumbar region (principal); I50.9 Heart failure, unspecified; F32.9 Major depressive disorder, single episode, unspecified; Z79.899 Other long term (current) drug therapy; Z88.8 Allergy status to other drugs, medicaments and biological substances; Z88.1 Allergy status to other antibiotic agents
CPT/HCPCS: 62323; A4209; A4657; A4930; J1100; Q9967

== ENCOUNTER 2021-07-15 11:20 | Emergency (ER) | payer MEDICARE, OTHER ==
[~2021-07-15] VITALS: Ht 167.6 cm; Wt 105.8 kg
[~2021-07-15 11:20] MED LIST changes: -0.9 % SODIUM CHLORIDE 10 ML VIAL. ONE; -DEXAMETHASONE SOD PHOS 10 MG/ML VIAL. ONE; -IOHEXOL 300 MG/ML 50 ML VIAL. ONE; -LIDOCAINE 1% PF 30 ML VIAL. ONE
[2021-07-15 12:00] VITALS: BP 119/81
--- NOTE | 2021-07-15 13:15 | RAD ---
EXAM: Chest, single view. HISTORY: Soft tissue swelling. COMPARISON: 05/03/2021 FINDINGS: A frontal view of the chest is obtained. There is no infiltrate, pleural effusion or pneumo thorax. There is stable linear scarring within the right mid thorax. There is also stable suspected s carring or atelectasis within the lingula and left lower lobe. The heart is normal in size. IMPRESSION: No acute pulmonary finding. Electronically signed by: Ninoska Gomez MD (07/15/2021 1:12 PM) [id number]
--- NOTE | 2021-07-15 13:27 | PHYS DOC ---
Past History Past Medical History: Depression, Diabetes, Heart Disease, HIV, Seizure Additional Past Medical Histor: back pain, abd pain, PE (SHANTHI DEVRIES APRN) Past Surgical History: No Surgical History Additional Past Surgical Histo: BACK AND ACHILLES (SHANTHI DEVRIES APRN) Smoking: Non-smoker Alcohol Use: None Drug Use: None (SHANTHI DEVRIES APRN) Adult General Chief Complaint Chief Complaint: Neck Pain HPI HPI Patient is a 60-year-old female who presents emergency department complaining of swelling to her right upper chest for the past 3 days. Patient denies pain to her swelling area, denies chest pains or shortness of breath, denies recent fever or chills, denies pain or discomfort to her upper extremities. Denies neck pain. Denies dizziness, syncopal or near syncopal episodes. Patient denies trauma to the area of swelling. Patient denies other physical complaints physical concerns. (SHANTHI DEVRIES APRN) Review of Systems Review of Systems 14 body systems of review of systems have been reviewed. See HPI for pertinent positives and negative responses, otherwise all other systems are negative, nonpertinent or noncontributory. Constitutional: Negative except as outlined in HPI above. Skin: Negative except as outlined in HPI above. Eyes: Negative except as outlined in HPI above. HENT: Negative except as outlined in HPI above. Respiratory: Negative except as outlined in HPI above. Cardiovascular: Negative except as outlined in HPI above. GI: Negative except as outlined in HPI above. : Negative except as outlined in HPI above. Musculoskeletal: Negative except as outlined in HPI above. Integument: Negative except as outlined in HPI above. Neurologic: Negative except as outlined in HPI above. Endocrine: Negative except as outlined in HPI above. Lymphatic: Negative except as outlined in HPI above. Psychiatric: Negative except as outlined in HPI above. (SHANTHI DEVRIES APRN) Allergies Allergies Allergies Coded Allergies Type Severity Reaction Last Updated Verified levofloxacin Allergy Severe seizure 05/26/21 Yes aspirin Allergy Mild 05/26/21 Yes naproxen Allergy Mild RASH 05/26/21 Yes tramadol Allergy Mild RASH 05/26/21 Yes I S O L A T I O N *CONTACT* Allergy Unknown 06/15/20 Yes ibuprofen Allergy Unknown 05/26/21 Yes (SHANTHI DEVRIES APRN) Physical Exam Physical Exam Constitutional: Well developed, well nourished, no acute distress, non-toxic appearance. 60-year-old female in no apparent distress. HENT: Normocephalic, atraumatic. Eyes: Conjunctiva normal, no discharge. Neck: Normal range of motion, no stridor. Cardiovascular: No cyanosis appreciated, distal cap refill less than 2 seconds. Regular rate and rhythm, heart sounds S1-S2 this patient. Lungs & Thorax: Patient is in no respiratory distress, no audible adventitious lung sounds appreciated. Normal work of breathing, lung sounds clear to auscultate all lung brand, soft tissue subcutaneous swelling just superior to clavicle on right side of chest, soft and fluctuant to touch, no erythema, nonpainful to touch. No change in skin color. Measures 4 cm in diameter of induration. No change in skin temperature over swelling site. Abdomen: Nontender, no abnormalities noted. Skin: Warm, dry, no erythema, no rash. Back: No tenderness, no deformities. Extremities: No tenderness, no cyanosis, no clubbing, ROM intact, no edema. Neurologic: Alert and oriented X 3, normal motor function, normal sensory function, no focal deficits noted. Psychologic: Affect normal, judgement normal, mood normal. (SHANTHI DEVRIES APRN) Current Patient Data Vital Signs Vital Signs Date Time Temp Pulse Resp B/P (MAP) Pulse Ox O2 Delivery O2 Flow Rate FiO2 07/15/21 12:00 98.0 98 16 119/81 (94) 100 Room Air Lab Results Laboratory Tests Test 07/15/21 13:25 White Blood Count 8.3 x10^3/uL Red Blood Count 3.69 x10^6/uL Hemoglobin 11.5 g/dL Hematocrit 35.5 % Mean Corpuscular Volume 96 fL Mean Corpuscular Hemoglobin 31 pg Mean Corpuscular Hemoglobin Concent 32 g/dL Red Cell Distribution Width 15.3 % Platelet Count 241 x10^3/uL Neutrophils (%) (Auto) 60 % Lymphocytes (%) (Auto) 32 % Monocytes (%) (Auto) 6 % Eosinophils (%) (Auto) 1 % Basophils (%) (Auto) 0 % Neutrophils # (Auto) 5.0 x10^3uL Lymphocytes # (Auto) 2.7 x10^3/uL Monocytes # (Auto) 0.5 x10^3/uL Eosinophils # (Auto) 0.1 x10^3/uL Basophils # (Auto) 0.0 x10^3/uL Sodium Level 139 mmol/L Potassium Level 3.8 mmol/L Chloride Level 104 mmol/L Carbon Dioxide Level 27 mmol/L Anion Gap 8 Blood Urea Nitrogen 23 mg/dL Creatinine 1.0 mg/dL Estimated GFR (Cockcroft-Gault) 68.9 Glucose Level 72 mg/dL Calcium Level 9.3 mg/dL (SHANTHI DEVRIES APRN) EKG EKG [] (SHANTHI DEVRIES APRN) Radiology/Procedures Radiology/Procedures STATUS: REG ER ORD. PHYSICIAN: SHANTHI DEVRIES APRN REASON: Soft tissue swelling bruise right upper chest s/p iv started ther PROCEDURE: CHEST AP ONLY EXAM: Chest, single view. HISTORY: Soft tissue swelling. COMPARISON: 05/03/2021 FINDINGS: A frontal view of the chest is obtained. There is no infiltrate, pleural effusion or pneumothorax. There is stable linear scarring within the right mid thorax. There is also stable suspected scarring or atelectasis within the lingula and left lower lobe. The heart is normal in size. IMPRESSION: No acute pulmonary finding. Electronically signed by: Ninoska Gomez MD (07/15/2021 1:12 PM) [id number] (SHANTHI DEVRIES APRN) Heart Score C/O Chest Pain: No Risk Factors: Risk Factors: DM, Current or recent (<one month) smoker, HTN, HLP, family history of CAD, obesity. Risk Scores: Risk Factors: DM, Current or recent (<one month) smoker, HTN, HLP, family history of CAD, obesity. (SHANTHI DEVRIES APRN) Course & Med Decision Making Course & Med Decision Making Pertinent Labs and Imaging studies reviewed. (See chart for details) 60-year-old female, vital signs reviewed, presents emerged from concerning swelling to the right upper side of her chest. Physical examination concerning for soft tissue swelling, unlikely an abscess, the borders are not clearly demarcated, there is no erythema or pain, suspicious for underlying lipoma. Will order chest x-ray, CBC, BMP. Chest x-ray nonconcerning, CBC and BMP results nonconcerning. Discussed with patient application of warm compresses over area, strict follow-up with primary care this week, return ER precautions and concerns were reviewed, patient gave verbal understanding of and is amenable to ED discharge planning. Discussed with the patient all findings and diagnostic testing as well as the need to follow-up with their primary care provider for further evaluation and treatment or return to the ED if any new or worsening symptoms. Strict return precautions were also discussed at length, the patient voiced understanding and agreement with the discharge planning. The patient was nontoxic in appearance, in no apparent distress, and hemodynamically stable at the time of disposition. (SHANTHI DEVRIES APRN) Course & Med Decision Making I was the Attending physician on the above date of service of this patient. This patient was evaluated, examined, treated, and dispositioned from the emergency department by the mid-level practitioner. Although I was working at the time , no assistance was requested. Electronically signed, Troy Collins DO (TROY COLLINS DO) Christopher Disclaimer Dragon Disclaimer This electronic medical record was generated, in whole or in part, using a voice recognition dictation system. (SHANTHI DEVRIES APRN) Departure Departure: Impression: Primary Impression: Localized skin mass, lump, or swelling Disposition: 01 HOME / SELF CARE / HOMELESS Condition: GOOD Referrals: JESSICA ROTHMAN (PCP) Additional Instructions: You were seen today in the emergency department for a lump to your right upper chest. Your chest x-ray and lab work did not show any concerning findings. This does not appear to be a infection that would require antibiotics. As we discussed I suspect this is a swelling of your soft tissue of your skin, please apply warm compresses 3-4 times a day, please call today for an appointment to see your primary care provider for ongoing evaluation and treatment. Thank you for visiting our Emergency Department. It was a pleasure taking care of you today in the emergency department and we appreciate you trusting us with your care. If any additional problems come up don't hesitate to return to visit us. Please follow up with your primary care provider so they can plan additional care if needed and know about the problem that you had. If symptoms worsen come back to the Emergency Department. Any concerning symptoms that start such as chest pain, shortness of air, weakness or numbness on one side of the body, running high fevers or any other concerning symptoms return to the ER. EMERGENCY DEPARTMENT GENERAL DISCHARGE INSTRUCTIONS Thank you for coming to [facility] (ED) today and trusting us with you care. We trust that you had a positivie experience in our Emergency Department. If you wish to speak to the department management, you may call the director at [phone]. YOUR FOLLOW UP INSTRUCTIONS ARE FOLLOWS: 1. Do you have a private Doctor? If you do not have a private doctor, please ask for a resource list of physicians or clinics that may be able to assist you with follow up care. 2. The Emergency Physician has interpreted your x-rays. The X-Ray specialist will also review them. If there is a change in the findings, you will be notified in 48 hours when at all possible. 3. A lab test or culture has been done, your results will be reviewed and you will be notified if you need a change in treatment. ADDITIONAL INSTRUCTIONS AND INFORMATION: 1. Your care today has been supervised by a physician who is specially trained in emergency care. Many problems require more than one evaluation for a complete diagnosis and treatment. We recommend that you schedule your follow up appointment as recommended to ensure complete treatment of you illness or injury. If you are unable to obtain follow up care and continue to have a problem, or if your condition worsens, we recommend that you return to the ED. 2. We are not able to safely determine your condition over the phone nor are we able to give sound medical advice over the phone. For these safety reasons, if you call for medical advice we will ask you to come to the ED for further evaluation. 3. If you have any questions regarding these discharge instructions please call the ED at [phone]. SAFETY INFORMATION: In the interest of safety, wellness, and injury prevention; we encourage you to wear your sealbelt, if you smoke; quite smoking, and we encourage family to use a protective helmet for bicycling and other sporting events that present an increased risk for head injury. IF YOUR SYMPTOMS WORSEN OR NEW SYMPTOMS DEVELOP, OR YOU HAVE CONCERNS ABOUT YOUR CONDITION; OR IF YOUR CONDITION WORSENS WHILE YOU ARE WAITING FOR YOUR FOLLOW UP APPOINTMENT; EITHER CONTACT YOUR PRIMARY CARE DOCTOR, THE PHYSICIAN WHOSE NAME AND NUMBER YOU WERE GIVEN, OR RETURN TO THE ED IMMEDIATELY. SHANTHI DEVRIES APRN Jul 15, 2021 13:27 TROY COLLINS DO Jul 16, 2021 08:01
[2021-07-15 13:38] LABS: BASO % 0 % (0-3); EOS # 0.1 x10^3/uL (0.0-0.7); EOS % 1 % (0-3); HEMATOCRIT 35.5 % (36.0-47.0); HEMOGLOBIN 11.5 g/dL (12.0-15.5); LYMPH # 2.7 x10^3/uL (1.0-4.8); LYMPH % 32 % (24-48); MEAN CORPUSCULAR HEMOGLOBIN 31 pg (25-35); MEAN CORPUSCULAR HGB CONC 32 g/dL (31-37); MEAN CORPUSCULAR VOLUME 96 fL (79-100); MONO # 0.5 x10^3/uL (0.0-1.1); MONO % 6 % (0-9); NEUT % 60 % (31-73); PLATELET COUNT 241 x10^3/uL (140-400); RED BLOOD COUNT 3.69 x10^6/uL (3.50-5.40); RED CELL DISTRIBUTION WIDTH 15.3 % (11.5-14.5); WHITE BLOOD COUNT 8.3 x10^3/uL (4.0-11.0)
[2021-07-15 13:45] LABS: CALCIUM 9.3 mg/dL (8.5-10.1); GFR 68.9; POTASSIUM 3.8 mmol/L (3.5-5.1)
== END 2021-07-15 14:17 | disposition home or self-care (01) ==
LOC: ER 11:20
DX: R22.2 Localized swelling, mass and lump, trunk (principal); E11.9 Type 2 diabetes mellitus without complications; F32.9 Major depressive disorder, single episode, unspecified; Z88.1 Allergy status to other antibiotic agents; Z88.6 Allergy status to analgesic agent; Z88.8 Allergy status to other drugs, medicaments and biological substances
CPT/HCPCS: 36415; 71045; 80048; 85025; 99284

== ENCOUNTER 2021-08-25 16:55 | Observation (INO) | payer MEDICARE, OTHER ==
[~2021-08-25] VITALS: Ht 167.6 cm; Wt 98.3 kg
[2021-08-25] MEDS ORDERED: NITROGLYCERIN SUBLINGUAL 0.4 MG BOTTLE OF 25. SL PRN (17:15)
--- NOTE | 2021-08-25 17:30 | PHYS DOC ---
Past History Past Medical History: Depression, Diabetes, Heart Disease, HIV, Seizure Additional Past Medical Histor: back pain, abd pain, PE (NURYS WEIR APRN) Past Surgical History: No Surgical History Additional Past Surgical Histo: BACK AND ACHILLES (NURYS WEIR APRN) Smoking: Non-smoker Alcohol Use: None Drug Use: None (NURYS WEIR APRN) General Adult HPI: HPI: Patient is a 60-year-old female who presents to the emergency department today for chest pain. Patient is reporting midsternal chest pain that radiates to her left side and under her left breast. She rates her pain 10 out of 10. It is worse with palpation and movement. She describes the pain as an ache. No treatment prior to arrival. Patient denies any alleviating factors. She is reporting mild shortness of breath. She denies any cough, fevers, nausea, vomiting. Patient has a history of diabetes, obesity, seizures, hyperlipidemia, hypertension, DVT, HIV. She is currently on Eliquis. (NURYS WEIR APRN) Review of Systems: Review of Systems: Constitutional: See HPI Respiratory: See HPI Cardiovascular: See HPI GI: See HPI Musculoskeletal: See HPI (NURYS WEIR APRN) Allergies: Allergies: Allergies Coded Allergies Type Severity Reaction Last Updated Verified levofloxacin Allergy Severe seizure 05/26/21 Yes aspirin Allergy Mild 05/26/21 Yes naproxen Allergy Mild RASH 05/26/21 Yes tramadol Allergy Mild RASH 05/26/21 Yes I S O L A T I O N *CONTACT* Allergy Unknown 06/15/20 Yes ibuprofen Allergy Unknown 05/26/21 Yes (NURYS WEIR APRN) Physical Exam: PE: Constitutional: Well developed, well nourished, no acute distress, non-toxic appearance. [] HENT: Normocephalic, atraumatic, bilateral external ears normal, oropharynx m oist, no oral exudates, nose normal. [] Eyes: PERRL, EOMI, conjunctiva normal, no discharge. [] Neck: Normal range of motion, no tenderness, supple, no stridor. [] Cardiovascular:Heart rate regular rhythm, no murmur, midsternal left-sided chest wall tenderness with palpation [] Lungs & Thorax: Bilateral breath sounds clear to auscultation [] Abdomen: Bowel sounds normal, soft, no tenderness, obese, no masses, no pulsatile masses. [] Skin: Warm, dry, no erythema, no rash. [] Back: Normal range of motion Extremities: No tenderness, no cyanosis, no clubbing, ROM intact, no edema. [] Neurologic: Alert and oriented X 3, normal motor function, normal sensory function, no focal deficits noted. [] Psychologic: Affect normal, judgement normal, mood normal. [] (NURYS WEIR APRN) Current Patient Data: Labs: Laboratory Tests Test 08/25/21 17:15 White Blood Count 12.2 x10^3/uL Red Blood Count 3.72 x10^6/uL Hemoglobin 11.3 g/dL Hematocrit 34.7 % Mean Corpuscular Volume 93 fL Mean Corpuscular Hemoglobin 30 pg Mean Corpuscular Hemoglobin Concent 33 g/dL Red Cell Distribution Width 13.6 % Platelet Count 287 x10^3/uL Neutrophils (%) (Auto) 76 % Lymphocytes (%) (Auto) 17 % Monocytes (%) (Auto) 6 % Eosinophils (%) (Auto) 1 % Basophils (%) (Auto) 1 % Neutrophils # (Auto) 9.3 x10^3uL Lymphocytes # (Auto) 2.1 x10^3/uL Monocytes # (Auto) 0.7 x10^3/uL Eosinophils # (Auto) 0.1 x10^3/uL Basophils # (Auto) 0.1 x10^3/uL Sodium Level 139 mmol/L Potassium Level 3.6 mmol/L Chloride Level 101 mmol/L Carbon Dioxide Level 28 mmol/L Anion Gap 10 Blood Urea Nitrogen 12 mg/dL Creatinine 0.9 mg/dL Estimated GFR (Cockcroft-Gault) 77.8 BUN/Creatinine Ratio 13 Glucose Level 79 mg/dL Calcium Level 9.2 mg/dL Total Bilirubin 1.3 mg/dL Aspartate Amino Transf (AST/SGOT) 18 U/L Alanine Aminotransferase (ALT/SGPT) 34 U/L Alkaline Phosphatase 108 U/L Troponin I High Sensitivity 6 ng/L Total Protein 6.6 g/dL Albumin 3.4 g/dL Albumin/Globulin Ratio 1.1 Current Medications Medications (Trade) Dose Ordered Sig/Bhavik Route PRN Reason Start Time Stop Time Status Last Admin Dose Admin Nitroglycerin (Nitrostat) 0.4 mg PRN Q5MIN PRN SL CP RATING > 1/10 08/25/21 17:15 08/26/21 17:14 08/25/21 17:30 (NURYS WEIR APRN) EKG: EKG: EKG performed by ER staff at 1708 shows sinus rhythm with a rate of 99, QTc is 517, no STEMI read by Dr. Villar at 1709 [] (NURYS WEIR APRN) Radiology/Procedures: Radiology/Procedures: []PROCEDURE: PORTABLE CHEST 1V EXAM: AP View of the chest DATE: 08/25/2021 5:28 PM INDICATION: Reason: chest pain / Spl. Instructions: / History: COMPARISON: 07/15/2021 05/03/2021 FINDINGS: Heart is not enlarged. Aorta is mildly tortuous. Minimal patchy left greater than right lung base airspace opacities likely atelectasis. No pleural effusion or pneumothorax. IMPRESSION: Minimal patchy left greater than right lung base airspace opacities likely atelectasis. Electronically signed by: Da Quinn MD (08/25/2021 6:08 PM) [facility] DICTATED AND SIGNED BY: DA QUINN MD DATE: 08/25/21 180 CC: JESSICA ROTHMAN; NURYS WEIR APRN ~MTH0 0 (NURYS WEIR APRN) Heart Score: C/O Chest Pain: Yes HEART Score for Chest Pain: HEART Score for Chest Pain Response (Comments) Value History Slighlty/Non-Suspicious 0 ECG Nonspecific Repolarizatio 1 Age >45 - < 65 1 Risk Factors >3 Risk Factors or Hx CAD 2 Troponin < Normal Limit 0 Total 4 Risk Factors: Risk Factors: DM, Current or recent (<one month) smoker, HTN, HLP, family history of CAD, obesity. Risk Scores: Score 0 - 3: 2.5% MACE over next 6 weeks - Discharge Home Score 4 - 6: 20.3% MACE over next 6 weeks - Admit for Clinical Observation Score 7 - 10: 72.7% MACE over next 6 weeks - Early Invasive Strategies (NURYS WEIR APRN) Course & Med Decision Making: Course & Med Decision Making Pertinent Labs and Imaging studies reviewed. (See chart for details) Patient presents to the emergency department for midsternal chest pain that wraps around under her left breast that started 30 to 45 minutes prior to ER arrival. Chest pain is reproducible with palpation is worse with movement. Work-up in the ER consisted of blood work, EKG, chest x-ray. Patient treated with nitroglycerin.Mild leukocytosis noted with a wbc of 12.2. cmp unremarkable, negative troponin. Patchy bibasilar atelectasis. Patients heart score is 4. Patient will need to be admitted for cardiac observation with serial troponin and ekgs. I discussed patients case with Dr. Ruth and he will accept the patient under his services for chest pain. Ddimer ordered and is pending at this time. I discussed patients findings with her and she is agreeable to admission and care plan. ER bridge orders placed at 183. HENRIQUE Srivastava to assume patient care until patient gets transported to inpatient unit due to shift change 1852. (NURYS WERI APRN) Dragon Disclaimer: Dragon Disclaimer: This electronic medical record was generated, in whole or in part, using a voice recognition dictation system. (NURYS WEIR APRN) Departure Departure: Impression: Primary Impression: Chest pain Qualified Codes: R07.9 - Chest pain, unspecified Disposition: ADMITTED INPATIENT Admitting Physician: Gera Ruth (NURYS WEIR APRN) Condition: STABLE Referrals: JESSICA ROTHMAN (PCP) Scripts Oxycodone Hcl/Acetaminophen (PERCOCET 10-325 MG TABLET ) 1 Each Tablet 1 TAB PO PRN Q4HRS PRN for MODERATE PAIN 4-6, #30 TAB Prov: GERA RUTH MD 08/26/21 Attending Signature Attending Signature I have participated in the care of this patient and I have reviewed and agree with all pertinent clinical information above including history, exam, and recommendations. (CASEY CANNON MD) Dragon Disclaimer This chart was dictated in whole or in part using Voice Recognition software in a busy, high-work load, and often noisy Emergency Department environment. It may contain unintended and wholly unrecognized errors or omissions. (CASEY CANNON MD) NURYS WEIR APRN Aug 25, 2021 17:30 CASEY CANNON MD Aug 26, 2021 20:32
[2021-08-25 17:54] LABS: BASO # 0.1 x10^3/uL (0.0-0.2); BASO % 1 % (0-3); EOS # 0.1 x10^3/uL (0.0-0.7); EOS % 1 % (0-3); HEMATOCRIT 34.7 % (36.0-47.0); HEMOGLOBIN 11.3 g/dL (12.0-15.5); LYMPH # 2.1 x10^3/uL (1.0-4.8); LYMPH % 17 % (24-48); MEAN CORPUSCULAR HEMOGLOBIN 30 pg (25-35); MEAN CORPUSCULAR HGB CONC 33 g/dL (31-37); MEAN CORPUSCULAR VOLUME 93 fL (79-100); MONO # 0.7 x10^3/uL (0.0-1.1); MONO % 6 % (0-9); NEUT # 9.3 x10^3uL (1.8-7.7); NEUT % 76 % (31-73); PLATELET COUNT 287 x10^3/uL (140-400); RED BLOOD COUNT 3.72 x10^6/uL (3.50-5.40); RED CELL DISTRIBUTION WIDTH 13.6 % (11.5-14.5); WHITE BLOOD COUNT 12.2 x10^3/uL (4.0-11.0)
[2021-08-25 18:10] LABS: CALCIUM 9.2 mg/dL (8.5-10.1); CREATININE 0.9 mg/dL (0.6-1.0); GFR 77.8; POTASSIUM 3.6 mmol/L (3.5-5.1)
--- NOTE | 2021-08-25 18:11 | RAD ---
EXAM: AP View of the chest DATE: 08/25/2021 5:28 PM INDICATION: Reason: chest pain / Spl. Instructions: / History: COMPARISON: 07/15/2021 05/03/2021 FINDINGS: Heart is not enlarged. Aorta is mildly tortuous. Minimal patchy left greater than right lung base air space opacities likely atelectasis. No pleural effusion or pneumothorax. IMPRESSION: Minimal patchy left greater than right lung base airspace opacities likely atelectasis. Electronically signed by: Da Zamora MD (08/25/2021 6:08 PM) OWEN
[2021-08-25 18:15] LABS: ALBUMIN 3.4 g/dL (3.4-5.0); ALBUMIN/GLOBULIN RATIO 1.1 (1.0-1.7); TOTAL BILIRUBIN 1.3 mg/dL (0.2-1.0); TOTAL PROTEIN 6.6 g/dL (6.4-8.2)
[2021-08-25 19:26] LABS: BACTERIA,URINE 0 /HPF (0-FEW); CLARITY,URINE CLEAR; COLOR,URINE YELLOW; GLUCOSE,URINE NEG (NEG); NITRITE,URINE NEG (NEG); RBC,URINE 0 /HPF (0-2); SQUAMOUS EPITHELIAL CELL,UR FEW /LPF; WBC,URINE 0 /HPF (0-4)
[2021-08-25 21:26] VITALS: BP 135/90
--- NOTE | 2021-08-25 21:35 | NUR ---
The patient, HERNAN ANGEL I, 60 y/o, F admitted by GERA RUTH MD, was given written information regarding hospital policies, unit procedures and contact persons. Valuables were checked and logged. Call light at bedside.
[2021-08-25] MEDS ORDERED: LEVE750T23 PO (22:06)
[2021-08-25] MEDS ORDERED: ATOR20TA58 PO (22:06)
[2021-08-25] MEDS ORDERED: LISI2.5T12 PO (22:06)
[2021-08-25] MEDS ORDERED: INSU100I13 SQ (22:10)
[2021-08-25] MEDS ORDERED: oxyCODONE/APAP 10/325 1 TAB TABLET PO PRN (22:30)
[2021-08-25 23:00] VITALS: BP 99/67
[2021-08-25] MEDS ORDERED: ATORVASTATIN CALCIUM 20 MG TABLET PO SCH (23:00)
[2021-08-25] MEDS ORDERED: LORazepam 1 MG TABLET PO SCH (23:00)
[2021-08-25] MEDS: levETIRAcetam 250 MG TABLET PO SCH (23:04)
[2021-08-25] MEDS: levETIRAcetam 500 MG TABLET PO SCH (23:04)
[2021-08-25] MEDS: DOXYCYCLINE HYCLATE 100 MG TABLET PO SCH (23:04)
[2021-08-25] MEDS: APIXABAN 5 MG TABLET. PO SCH (23:04)
[2021-08-26 05:00] VITALS: BP 116/78
--- NOTE | 2021-08-26 07:15 | EKG ---
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
--- NOTE | 2021-08-26 08:24 | PDOC2 ---
CARDIAC CONSULT FAMILY HISTORY Family History: Diabetes CURRENT MEDICATIONS Current Medications Current Medications Nitroglycerin (Nitrostat) 0.4 mg PRN Q5MIN PRN SL CP RATING > 1/10 Last administered on 08/25/21 17:30; Start 08/25/21 at 17:15; Stop 08/26/21 at 17:14 Apixaban (Eliquis) 5 mg BID PO Last administered on 08/25/21 23:04; Start 08/25/21 at 23:00 Atorvastatin Calcium (Lipitor) 20 mg QHS PO Last administered on 08/25/21 23:04; Start 08/25/21 at 23:00 Lorazepam (Ativan) 1 mg HS PO Last administered on 08/25/21 23:04; Start at 23:00 Doxycycline Hyclate (Vibra-Tab) 100 mg BID PO Last administered on 08/25/21 23:04; Start 08/25/21 at 23:00 Levetiracetam (Keppra) 2,000 mg BID PO Last administered on 08/25/21 23:04; Start 08/25/21 at 23:00 Oxycodone/ Acetaminophen (Percocet 10/325) 1 tab PRN Q6HRS PRN PO PAIN Last administered on 08/25/21 23:04; Start 08/25/21 at 22:30 Levetiracetam (Keppra) 250 mg BID PO Last administered on 08/25/21 23:04; Start 08/25/21 at 23:00 Active Scripts Active Eliquis (Apixaban) 5 Mg Tablet 5 Mg PO BID 30 Days Reported Lantus Solostar (Insulin Glargine,Hum.rec.anlog) 100 Unit/1 Ml Insuln.pen 20 Unit SQ QHS Lisinopril 2.5 Mg Tablet 2.5 Mg PO DAILY Atorvastatin Calcium 20 Mg Tablet 20 Mg PO QHS Levetiracetam 750 Mg Tab.er.24h 3 Tab PO BID 30 Days Tranxene T-Tab (Clorazepate Dipotassium) 7.5 Mg Tablet 1 Tab PO HS NOT GIVEN IN THE HOSPITAL NEXT DOSE DUE: DATE: TODAY TIME: AT BEDTIME Doxycycline Hyclate 100 Mg Capsule 100 Mg PO BID LAST DOSE GIVEN: DATE: TODAY TIME: AM NEXT DOSE DUE: DATE: TODAY TIME: PM Zoloft (Sertraline Hcl) 100 Mg Tablet 100 Mg PO DAILY LAST DOSE GIVEN: DATE: TODAY TIME: AM NEXT DOSE DUE: DATE: TOMORROW TIME: AM Reyataz (Atazanavir Sulfate) 300 Mg Capsule 1 Cap PO DAILY LAST DOSE GIVEN: DATE: TIME: AM NEXT DOSE DUE: DATE: TOMORROW TIME: AM Descovy 200-25 mg Tablet (Emtricitabine/Tenofov Alafenam) 1 Each Tablet 1 Each PO DAILY LAST DOSE GIVEN: DATE: TODAY TIME: AM NEXT DOSE DUE: DATE: TOMORROW TIME: AM Norvir (Ritonavir) 100 Mg Tablet 1 Tab PO DAILY LAST DOSE GIVEN: DATE: TODAY TIME: AM NEXT DOSE DUE: DATE: TOMORR TIME: AM ALLERGIES Allergies: Coded Allergies: levofloxacin (Verified Allergy, Severe, seizure, 05/26/21) aspirin (Verified Allergy, Mild, 05/26/21) RASH naproxen (Verified Allergy, Mild, RASH, 05/26/21) tramadol (Verified Allergy, Mild, RASH, 05/26/21) I S O L A T I O N *CONTACT* (Verified Allergy, Unknown, 06/15/20) +MRSA blood 03/06/16 ibuprofen (Verified Allergy, Unknown, 05/26/21) VITALS Vital Signs Vital Signs Date Time Temp Pulse Resp B/P (MAP) Pulse Ox O2 Delivery O2 Flow Rate FiO2 08/26/21 05:00 97.5 89 18 116/78 (91) 93 Room Air LABS LABS Laboratory Tests Test 08/25/21 17:15 08/25/21 18:25 08/25/21 18:35 08/25/21 20:50 White Blood Count 12.2 x10^3/uL (4.0-11.0) Red Blood Count 3.72 x10^6/uL (3.50-5.40) Hemoglobin 11.3 g/dL (12.0-15.5) Hematocrit 34.7 % (36.0-47.0) Mean Corpuscular Volume 93 fL (79-100) Mean Corpuscular Hemoglobin 30 pg (25-35) Mean Corpuscular Hemoglobin Concent 33 g/dL (31-37) Red Cell Distribution Width 13.6 % (11.5-14.5) Platelet Count 287 x10^3/uL (140-400) Neutrophils (%) (Auto) 76 % (31-73) Lymphocytes (%) (Auto) 17 % (24-48) Monocytes (%) (Auto) 6 % (0-9) Eosinophils (%) (Auto) 1 % (0-3) Basophils (%) (Auto) 1 % (0-3) Neutrophils # (Auto) 9.3 x10^3uL (1.8-7.7) Lymphocytes # (Auto) 2.1 x10^3/uL (1.0-4.8) Monocytes # (Auto) 0.7 x10^3/uL (0.0-1.1) Eosinophils # (Auto) 0.1 x10^3/uL (0.0-0.7) Basophils # (Auto) 0.1 x10^3/uL (0.0-0.2) D-Dimer (Mary) 0.34 mg/L (0.00-0.50) Sodium Level 139 mmol/L (136-145) Potassium Level 3.6 mmol/L (3.5-5.1) Chloride Level 101 mmol/L (98-107) Carbon Dioxide Level 28 mmol/L (21-32) Anion Gap 10 (6-14) Blood Urea Nitrogen 12 mg/dL (7-20) Creatinine 0.9 mg/dL (0.6-1.0) Estimated GFR (Cockcroft-Gault) 77.8 BUN/Creatinine Ratio 13 (6-20) Glucose Level 79 mg/dL (70-99) Calcium Level 9.2 mg/dL (8.5-10.1) Total Bilirubin 1.3 mg/dL (0.2-1.0) Aspartate Amino Transf (AST/SGOT) 18 U/L (15-37) Alanine Aminotransferase (ALT/SGPT) 34 U/L (14-59) Alkaline Phosphatase 108 U/L (46-116) Troponin I High Sensitivity 6 ng/L (4-50) 7 ng/L (4-50) Total Protein 6.6 g/dL (6.4-8.2) Albumin 3.4 g/dL (3.4-5.0) Albumin/Globulin Ratio 1.1 (1.0-1.7) Urine Collection Type Unknown Urine Color Yellow Urine Clarity Clear Urine pH 7.0 Urine Specific [place] 1.020 Urine Protein Neg (NEG-TRACE) Urine Glucose (UA) Neg mg/dL (NEG) Urine Ketones (Stick) Neg mg/dL (NEG) Urine Blood Neg (NEG) Urine Nitrite Neg (NEG) Urine Bilirubin Neg (NEG) Urine Urobilinogen Dipstick 1.0 mg/dL (0.2 mg/dL) Urine Leukocyte Esterase Neg (NEG) Urine RBC 0 /HPF (0-2) Urine WBC 0 /HPF (0-4) Urine Squamous Epithelial Cells Few /LPF Urine Bacteria 0 /HPF (0-FEW) SARS-CoV-2 Antigen (Rapid) Negative (NEGATIVE) Test 08/25/21 21:26 08/25/21 22:11 08/26/21 01:07 08/26/21 07:28 Glucose (Fingerstick) 61 mg/dL (70-99) 140 mg/dL (70-99) 82 mg/dL (70-99) Troponin I High Sensitivity 6 ng/L (4-50) MATTHEW MCGILL APRN Aug 26, 2021 08:24
[2021-08-26 08:51] VITALS: BP 110/80
[2021-08-26] MEDS ORDERED: oxyCODONE/APAP 10/325 1 TAB TABLET PO PRN (09:00)
[2021-08-26] MEDS ORDERED: OXYC1TAB22 PO (09:01)
[2021-08-26] MEDS: DOXYCYCLINE HYCLATE 100 MG TABLET PO SCH (09:08)
[2021-08-26] MEDS: APIXABAN 5 MG TABLET. PO SCH (09:08)
[2021-08-26] MEDS: levETIRAcetam 250 MG TABLET PO SCH (09:08)
[2021-08-26] MEDS: levETIRAcetam 500 MG TABLET PO SCH (09:11)
--- NOTE | 2021-08-26 09:27 | DS ---
DATE OF DISCHARGE: 08/26/2021 ATTENDING PHYSICIAN: Dr. Montemayor. FINAL DISCHARGE DIAGNOSES: 1. Atypical chest pain, noncardiac. 2. Type 2 diabetes. 3. Human immunodeficiency virus infection, longstanding greater than 25 years. 4. Underlying depression with anxiety. 5. Musculoskeletal chest pain. HISTORY AND PHYSICAL: The patient is a 60-year-old female admitted through the ED with atypical chest pain, noncardiac in nature. She was admitted overnight for serial enzymes and rule out. EKGs were nondiagnostic. PHYSICAL EXAMINATION: Please see the dictated note. PERTINENT LABORATORY AND X-RAY STUDIES: Three sets of cardiac enzymes negative for coronary ischemia. Her nonfasting blood sugar was 82 mg/dL. Hemoglobin maintained at 11.3 grams, white count was 12,200. COURSE IN THE HOSPITAL: She was admitted, overnight observed, monitored and no arrhythmias. Serial enzymes were negative for coronary ischemia, reassurance. I suggest a Percocet, which has been prescribed. There is significant anxiety and depression component with lot of stress at home. She was discharged home with reassurance. She will continue her retroviral cocktail Eliquis daily, Reyataz, Lipitor, Tranxene, Zoloft, Norvir, lisinopril, Keppra and insulin doses along with her Descovy and doxycycline doses unchanged. I also wrote a script for Percocet 10/325 one every 6 hours p.r.n. pain, #30. She will follow up with Nino Pardo. She was discharged then from our hospital in stable condition with explicit drug and followup care. CHAD DR: MARION/justin TID: [id number] CC: KALEN LEMUS
--- NOTE | 2021-08-26 09:28 | HP ---
DATE OF SERVICE: 08/26/2021 ADMIT DATE: 08/25/2021 ATTENDING PHYSICIAN: Dr. Montemayor. CHIEF COMPLAINT: Atypical chest pain. HISTORY OF PRESENT ILLNESS: The patient is a 60-year-old female with several medical issues. She reported midsternal chest pain, radiates to left side under her breasts. Pain is very severe. She has a fairly low threshold. She denied any recent exposure, cough, congestion, or trauma. Workup was unremarkable. EKG nondiagnostic. First set of cardiac enzymes negative. With some risk factors, she is admitted then for rule out with serial enzymes. Her blood pressure and rhythm were quite stable. PAST MEDICAL HISTORY: Significant for diabetes. She has HIV infection, currently on multidrug treatment since 1997. Her at that time of full-blown AIDS. She has underlying depression, anxiety, heart disease, and idiopathic seizure disorder. ALLERGIES: SHE HAS SEVERAL ALLERGIES INCLUDE ASPIRIN, IBUPROFEN, LEVAQUIN, NAPROSYN, AND TRAMADOL. CURRENT MEDICATIONS: Include the following: She was on scheduled apixaban, 5 retroviral drugs in the form of Descovy, Norvir, lisinopril, Keppra, insulin, doxycycline, Tranxene, Lipitor, and Zoloft. SOCIAL HISTORY: She is a nonsmoker and nondrinker. She is single. She lives with an uncle. She has several grandkids. PAST SURGICAL HISTORY: Back surgery and Achilles heel surgery. REVIEW OF SYSTEMS: Unremarkable for any fevers, chills, COVID exposure. All other systems reviewed and turned out to be negative. She is very anxious. PHYSICAL EXAMINATION: GENERAL: When I saw her, this is a pleasant, middle-aged female. VITAL SIGNS: Initial vital signs showed a blood pressure of 116/78, pulse was 80 and regular. She was afebrile, oxygen saturation 93% on room air. HEENT: Head is without trauma. Pupils are reactive. Sclerae nonicteric. Oropharynx clear. NECK: Supple, no bruits. LUNGS: Otherwise clear. CARDIOVASCULAR: Regular heart tones. No gallops. ABDOMEN: Soft. EXTREMITIES: Without edema. NEUROLOGIC: Function focally intact. Speech is fluent. PERTINENT LABORATORY STUDIES: EKG is nondiagnostic. Hemoglobin 11.3 grams, white count 12,000. The first cardiac enzymes were negative for coronary ischemia. Admission electrolytes were within normal range. Creatinine 0.9 mg%. ASSESSMENT: 1. A 60-year-old female with atypical chest pain, noncardiac in nature. 2. History of longstanding human immunodeficiency virus. 3. ____ diabetes. 4. Underlying depression with anxiety. PLAN: 1. Observation status. 2. Serial cardiac enzymes. 3. Home meds continued. MARION/EVAN/JOHN DR: Julia TID: [id number] CC: KALEN LOWERY
[2021-08-26] MEDS ORDERED: FLU VACC QUAD 21-22 (6MOS+) PF 0.5 ML SYRINGE. VAX IM ONE (10:00)
[2021-08-26 11:14] VITALS: BP 100/82
== END 2021-08-26 11:40 | disposition home or self-care (01) ==
LOC: ER 16:55 → ER HOLD 18:34 → INTOOBSV 18:34 → 1 SOUTH 18:35
PROVIDERS: ADMIT Hospitalist; ATTEND Hospitalist
DX: R07.89 Other chest pain (principal); Z20.822 Contact with and (suspected) exposure to COVID-19; E11.9 Type 2 diabetes mellitus without complications; F41.8 Other specified anxiety disorders; G40.909 Epilepsy, unspecified, not intractable, without status epilepticus; I10 Essential (primary) hypertension; E78.5 Hyperlipidemia, unspecified; Z21 Asymptomatic human immunodeficiency virus [HIV] infection status; Z79.899 Other long term (current) drug therapy; Z98.890 Other specified postprocedural states; Z79.4 Long term (current) use of insulin; Z23 Encounter for immunization; Z71.85 Encounter for immunization safety counseling; Z79.01 Long term (current) use of anticoagulants; Z86.718 Personal history of other venous thrombosis and embolism
CPT/HCPCS: 36415; 71045; 80053; 81001; 82947; 84484; 85025; 85379; 87426; 90471; 90686; 93005; 99285; G0378; U0003; G0379

== ENCOUNTER 2021-09-03 13:24 | Emergency (ER) | payer MEDICARE, OTHER ==
[~2021-09-03] VITALS: Ht 167.6 cm; Wt 98.3 kg
[~2021-09-03 13:24] MED LIST changes: +ATOR20TA58 PO; +INSU100I13 SQ; +LEVE750T23 PO; +LISI2.5T12 PO; +OXYC1TAB22 PO; +PIOG30TA41 PO
[2021-09-03 13:26] VITALS: BP 143/89
--- NOTE | 2021-09-03 13:33 | PHYS DOC ---
Past History Past Medical History: CAD, Depression, Diabetes, Heart Disease, HIV, Seizure Additional Past Medical Histor: back pain, abd pain, PE Past Surgical History: Other Additional Past Surgical Histo: BACK AND ACHILLES Smoking: Non-smoker Alcohol Use: None Drug Use: None Adult General Chief Complaint Chief Complaint: CHEST PAIN [facility] Patient is a 60 year old female who presents with chest pain. Patient complains of sternal chest pain which has been present for about 10 to 14 days. She reports the pain to be constant. She has not identified any aggravating or alleviating factors. No shortness of breath. Denies prior history of coronary artery disease. She was just discharged from this hospital 4 days earlier when she was admitted for the same complaint. During that time, she had serial troponins which were not elevated. She was evaluated by cardiology and decision was made to work up her chest pain as outpatient. Her EKGs were normal. Today, she states her pain never improved. She was discharged home with some Percocet which she has been using and states this does help the pain but does not entirely make it go away. No new symptoms since discharge. She also had history of pulmonary embolus but underwent CT angiography during her discharge. She is anticoagulated. Review of Systems Review of Systems Constitutional: Denies fever or chills Eyes: Denies change in visual acuity HENT: Denies nasal congestion or sore throat Respiratory: Denies cough or shortness of breath Cardiovascular: as documented in HPI GI: Denies abdominal pain, nausea, vomiting, bloody stools or diarrhea : Denies dysuria or hematuria Musculoskeletal: Denies back pain Integument: Denies rash or skin lesions Neurologic: Denies headache All other systems were reviewed and found to be within normal limits, except as documented in this note. Allergies Allergies Allergies Coded Allergies Type Severity Reaction Last Updated Verified levofloxacin Allergy Severe seizure 05/26/21 Yes aspirin Allergy Mild 05/26/21 Yes naproxen Allergy Mild RASH 05/26/21 Yes tramadol Allergy Mild RASH 05/26/21 Yes I S O L A T I O N *CONTACT* Allergy Unknown 06/15/20 Yes ibuprofen Allergy Unknown 05/26/21 Yes Physical Exam Physical Exam Constitutional: Well developed, well nourished, no acute distress, non-toxic appearance HENT: Normocephalic, atraumatic, bilateral external ears normal, oropharynx moist Eyes: PERRLA, EOMI, conjunctiva normal, no discharge Neck: Normal range of motion Cardiovascular:Heart rate regular rhythm, no murmur Lungs & Thorax: Bilateral breath sounds clear to auscultation Skin: Warm, dry, no erythema, no rash Back: Normal ROM Extremities: Normal ROM, no edema Neurologic: Alert and oriented X 3 Psychologic: Affect normal Current Patient Data Vital Signs Vital Signs Date Time Temp Pulse Resp B/P (MAP) Pulse Ox O2 Delivery O2 Flow Rate FiO2 09/03/21 13:26 97.9 97 16 143/89 (107) 97 Room Air EKG EKG 01:45: EKG is normal sinus rhythm. No ST changes to suggest NE or ischemia. Interpreted by ER physician. Radiology/Procedures Radiology/Procedures Chest x-ray with no acute findings. Initially interpreted by ER physician. Heart Score C/O Chest Pain: Yes HEART Score for Chest Pain: HEART Score for Chest Pain Response (Comments) Value History Slighlty/Non-Suspicious 0 ECG Normal 0 Age < 45 0 Risk Factors No Risk Factors 0 Troponin < Normal Limit 0 Total 0 Risk Factors: Risk Factors: DM, Current or recent (<one month) smoker, HTN, HLP, family history of CAD, obesity. Risk Scores: Risk Factors: DM, Current or recent (<one month) smoker, HTN, HLP, family history of CAD, obesity. Course & Med Decision Making Course & Med Decision Making Pertinent Labs and Imaging studies reviewed. (See chart for details) Seen and examined on arrival to her room. Patient has ongoing chest pain that is the same reason she was just admitted to the hospital. Today, we will check EKG and single troponin. There have been no new complaints or changes since her discharge. She has pending outpatient evaluation with cardiology. 14:50: EKG unchanged. High-sensitivity troponin is not elevated. Patient is stable for discharge today and does not meet any admission criteria. Recommend that she follow the plan of care that is already established and pursue outpatient stress testing. Dragon Disclaimer Dragon Disclaimer This electronic medical record was generated, in whole or in part, using a voice recognition dictation system. Departure Departure: Impression: Primary Impression: Atypical chest pain Disposition: HOME / SELF CARE / HOMELESS Condition: GOOD Referrals: JESSICA ROTHMAN (PCP) Patient Instructions: Chest Pain (Nonspecific) COLTEN BAER DO Sep 03, 2021 13:33
[2021-09-03] MEDS ORDERED: oxyCODONE/APAP 5/325 1 TAB TABLET PO ONE (13:45)
== END 2021-09-03 15:05 | disposition home or self-care (01) ==
LOC: ER 13:24
DX: R07.2 Precordial pain (principal); I25.10 Atherosclerotic heart disease of native coronary artery without angina pectoris; E11.9 Type 2 diabetes mellitus without complications; Z88.1 Allergy status to other antibiotic agents; Z88.6 Allergy status to analgesic agent; Z88.8 Allergy status to other drugs, medicaments and biological substances
CPT/HCPCS: 36415; 84484; 93005; 99284

== ENCOUNTER 2021-09-17 12:25 | Emergency (ER) | payer MEDICARE, OTHER ==
[~2021-09-17] VITALS: Ht 167.6 cm; Wt 98.3 kg
[2021-09-17 12:29] VITALS: BP 110/77
--- NOTE | 2021-09-17 12:44 | PHYS DOC ---
Past History Past Medical History: CAD, Depression, Diabetes, Heart Disease, HIV, Seizure Additional Past Medical Histor: back pain, abd pain, PE Past Surgical History: Other Additional Past Surgical Histo: BACK AND ACHILLES Smoking: Non-smoker Alcohol Use: None Drug Use: None General Adult EDM: Chief Complaint: CHEST PAIN HPI: HPI: Patient is a 60 yo female with a PMH signficant for CAD, HIV, and DM that presents with chest pain that started at an unspecified time this morning when she was eating. Describes pain as achy, non-radiating and not worsened with activity. Denies chest tightness or pressure. The pain is similar to her episode that occurred approximately two weeks ago where she was hospitalized over night. Also reports pain with deep inspiration and some shortness of breath. The pain is reportedly reproducible with palpation. Denies syncope, diaphoresis, and lightheadedness. Covid vaccinated x 3. Reportedly takes all medicine, including elliquis as directed. States that she has had difficulty obtaining appropriate outpatient follow-up due to transportation difficulty. Of note, she lives with her uncle and is reportedly working toward assisted living placement due to difficulties with managing her medical conditions. Review of Systems: Review of Systems: Constitutional: Denies fever or chills Eyes: Denies redness or eye pain HENT: Denies nasal congestion or sore throat Respiratory: Denies cough or shortness of breath Cardiovascular: Denies palpitations; reports chest pain GI: Denies abdominal pain, nausea, or vomiting : Denies dysuria or hematuria Musculoskeletal: Denies back pain or joint pain Integument: Denies rash or skin lesions Neurologic: Denies headache, focal weakness or sensory changes Complete systems were reviewed and found to be within normal limits, except as documented in this note. Allergies: Allergies: Allergies Coded Allergies Type Severity Reaction Last Updated Verified levofloxacin Allergy Severe seizure 05/26/21 Yes aspirin Allergy Mild 05/26/21 Yes naproxen Allergy Mild RASH 05/26/21 Yes tramadol Allergy Mild RASH 05/26/21 Yes I S O L A T I O N *CONTACT* Allergy Unknown 06/15/20 Yes ibuprofen Allergy Unknown 05/26/21 Yes Physical Exam: PE: Constitutional: Well developed, well nourished, no acute distress, non-toxic appearance HENT: Normocephalic, atraumatic Eyes: PERRL, EOMI, conjunctiva normal, no discharge Neck: Normal range of motion, no tenderness, supple Lungs & Thorax: No respiratory distress, equal chest rise and fall Abdomen: Soft, no tenderness Skin: Warm, dry, no erythema, no rash Back: No tenderness, no CVA tenderness Extremities: No tenderness, ROM intact, no edema Neurologic: Alert and oriented X 3, normal motor function, normal sensory function, no focal deficits noted Psychologic: Affect normal, judgment normal Current Patient Data: Vital Signs: Vital Signs Date Time Temp Pulse Resp B/P (MAP) Pulse Ox O2 Delivery O2 Flow Rate FiO2 09/17/21 12:29 98.1 89 18 110/77 (88) 99 Room Air EKG: EKG: @1233 NSR at 83bpm, NO ST elevation, QRS 70ms, QT/QTc 364/428ms Radiology/Procedures: Radiology/Procedures: PROCEDURE: PORTABLE CHEST 1V INDICATION: Reason: chest pain / Spl. Instructions: / History: COMPARISON: August 30, 2019 FINDINGS: Single view of chest obtained. Left lung base is obscured by the overlying cardiac silhouette. No definite consolidation elsewhere in the lungs. Cardiac silhouette similar to prior. IMPRESSION: * Left lung base is obscured by the cardiac silhouette but no definite consolidation elsewhere in the lungs. Electronically signed by: Janusz Jacobo MD (09/17/2021 12:47 PM) [id number] Heart Score: C/O Chest Pain: Yes HEART Score for Chest Pain: HEART Score for Chest Pain Response (Comments) Value History Slighlty/Non-Suspicious 0 ECG Normal 0 Age >45 - < 65 1 Risk Factors >3 Risk Factors or Hx CAD 2 Troponin < Normal Limit 0 Total 3 Risk Factors: Risk Factors: DM, Current or recent (<one month) smoker, HTN, HLP, family history of CAD, obesity. Risk Scores: Score 0 - 3: 2.5% MACE over next 6 weeks - Discharge Home Score 4 - 6: 20.3% MACE over next 6 weeks - Admit for Clinical Observation Score 7 - 10: 72.7% MACE over next 6 weeks - Early Invasive Strategies Course & Med Decision Making: Course & Med Decision Making Patient presents with atypical chest pain. Aspirin not provided as patient reports allergy. EKG stable. Labs obtained and posted to chart. Troponin within normal limits. Chest x-ray without acute finding. HEART score 3. Patient stable for discharge with outpatient follow-up with PCP. Discussed findings and plan with patient, who acknowledges understanding and agreement. Christopher Disclaimer: Christopher Disclaimer: This electronic medical record was generated, in whole or in part, using a voice recognition dictation system. Departure Departure: Impression: Primary Impression: Atypical chest pain Disposition: HOME / SELF CARE / HOMELESS Condition: STABLE Referrals: JESSICA ROTHMAN (PCP) Patient Instructions: Chest Pain (Nonspecific), [id number], Chest Wall Pain, [id number] Additional Instructions: Ice area of discomfort 20 minutes on then leave off her next 20 minutes. Repeat several times daily for the next 2 days. Scripts Oxycodone Hcl/Acetaminophen (PERCOCET 5-325 MG TABLET ) 1 Each Tablet 0.5-1 TAB PO Q6HRS PRN for PAIN MDD 12 Tablet(s), #10 TAB 0 Refills Prov: SHANTHI BENAVIDES DO 09/17/21 SHANTHI BENAVIDES DO Sep 17, 2021 12:44
[2021-09-17] MEDS: IV NORMAL SALINE 1,000ML 1,000 ML IV ONE (12:58)
[2021-09-17 13:11] LABS: BASO # 0.1 x10^3/uL (0.0-0.2); BASO % 1 % (0-3); EOS % 0 % (0-3); HEMATOCRIT 34.7 % (36.0-47.0); HEMOGLOBIN 11.3 g/dL (12.0-15.5); LYMPH # 2.3 x10^3/uL (1.0-4.8); LYMPH % 29 % (24-48); MEAN CORPUSCULAR HEMOGLOBIN 30 pg (25-35); MEAN CORPUSCULAR HGB CONC 32 g/dL (31-37); MEAN CORPUSCULAR VOLUME 94 fL (79-100); MONO # 0.5 x10^3/uL (0.0-1.1); MONO % 7 % (0-9); NEUT % 63 % (31-73); PLATELET COUNT 271 x10^3/uL (140-400); RED BLOOD COUNT 3.71 x10^6/uL (3.50-5.40); RED CELL DISTRIBUTION WIDTH 14.3 % (11.5-14.5)
[2021-09-17] MEDS: ORPHENADRINE CITRATE 60 MG/2 ML VIAL. IV ONE (13:52)
[2021-09-17 13:53] LABS: ANION GAP 6 (6-14); BLOOD UREA NITROGEN 19 mg/dL (7-20); BUN/CREATININE RATIO 19 (6-20); CARBON DIOXIDE 28 mmol/L (21-32); CHLORIDE 103 mmol/L (98-107); GFR 68.9; GLUCOSE 74 mg/dL (70-99); POTASSIUM 3.5 mmol/L (3.5-5.1); SODIUM 137 mmol/L (136-145)
[2021-09-17 14:08] LABS: ALBUMIN 2.8 g/dL (3.4-5.0); ALBUMIN/GLOBULIN RATIO 0.8 (1.0-1.7); ALK PHOS 91 U/L (46-116); ALT (SGPT) 17 U/L (14-59); AST (SGOT) 11 U/L (15-37); LIPASE 51 U/L (73-393); MAGNESIUM 1.8 mg/dL (1.8-2.4); TOTAL BILIRUBIN 0.8 mg/dL (0.2-1.0); TOTAL PROTEIN 6.5 g/dL (6.4-8.2)
[2021-09-17] MEDS ORDERED: OXYC1TAB15 PO (15:11)
[2021-09-17] MEDS: oxyCODONE/APAP 5/325 1 TAB TABLET PO ONE (15:20)
--- NOTE | 2021-09-18 11:42 | EKG ---
[address] [address] Test Date: 2021-09-17 Test Time: 12:33:35 Pat Name: HERNAN ANGEL Department: Room: Gender: F [employer]: ARMEN : 1960 Requested By: SHANTHI BENAVIDES Order Number: [id number] Reading MD: Remi Goncalves Measurements Intervals [place] Rate: 83 P: 26 SD: 216 QRS: 11 QRSD: 70 T: 16 QT: 364 QTc: 428 Interpretive Statements SINUS RHYTHM PROLONGED SD INTERVAL Electronically Signed On 09-20-2021 21:37:04 CDT by Remi Goncalves
--- NOTE | 2021-09-18 11:43 | RAD ---
INDICATION: Reason: chest pain / Spl. Instructions: / History: COMPARISON: August 30, 2019 FINDINGS: Single view of chest obtained. Left lung base is obscured by the overlying cardiac silhouette. No definite consolidation elsewhere i n the lungs. Cardiac silhouette similar to prior. IMPRESSION: * Left lung base is obscured by the cardiac silhouette but no definite consolidation elsewhere in th e lungs. Electronically signed by: Janusz Jacobo MD (09/17/2021 12:47 PM) [id number]
== END 2021-09-17 15:22 | disposition home or self-care (01) ==
LOC: ER 12:25
DX: R07.89 Other chest pain (principal); R06.02 Shortness of breath; I25.10 Atherosclerotic heart disease of native coronary artery without angina pectoris; E11.9 Type 2 diabetes mellitus without complications; Z88.1 Allergy status to other antibiotic agents; Z88.6 Allergy status to analgesic agent; Z88.8 Allergy status to other drugs, medicaments and biological substances
CPT/HCPCS: 36415; 71045; 80053; 82553; 83690; 83735; 83880; 84484; 85025; 96361; 96374; 99284; 99285; J2360; J7030

== ENCOUNTER 2021-09-26 12:48 | Emergency (ER) | payer MEDICARE, OTHER ==
[~2021-09-26] VITALS: Ht 167.6 cm; Wt 98.3 kg
--- NOTE | 2021-09-26 13:26 | PHYS DOC ---
Past History Past Medical History: CAD, Depression, Diabetes, Heart Disease, HIV, Seizure Additional Past Medical Histor: back pain, abd pain, PE Past Surgical History: Appendectomy, Hysterectomy, Oophorectomy, Other Additional Past Surgical Histo: BACK AND ACHILLES Smoking: Non-smoker Alcohol Use: None Drug Use: None General Adult EDM: Chief Complaint: CHEST PAIN HPI: HPI: 60-year-old female presents via EMS with chest pain for at least a month. The patient has been seen several times for this. She states that nothing is really different she just has a central chest aching. Patient has a history of PE for which she is on Eliquis. She also has HIV which she states she is taking her depression medications. She has not had her viral load tested recently. She denies fever or chills. Review of Systems: Review of Systems: Constitutional: Denies fever or chills Eyes: Denies change in visual acuity HENT: Denies nasal congestion or sore throat Respiratory: Denies cough or shortness of breath Cardiovascular: Chest pain GI: Denies abdominal pain, nausea, vomiting, bloody stools or diarrhea : Denies dysuria Musculoskeletal: Denies back pain or joint pain Integument: Denies rash Neurologic: Denies headache, focal weakness or sensory changes Endocrine: Denies polyuria or polydipsia Lymphatic: Denies swollen glands Psychiatric: Denies depression or anxiety Allergies: Allergies: Allergies Coded Allergies Type Severity Reaction Last Updated Verified levofloxacin Allergy Severe seizure 09/26/21 Yes aspirin Allergy Mild 09/26/21 Yes naproxen Allergy Mild RASH 09/26/21 Yes tramadol Allergy Mild RASH 09/26/21 Yes I S O L A T I O N *CONTACT* Allergy Unknown 09/26/21 Yes ibuprofen Allergy Unknown 09/26/21 Yes Physical Exam: PE: Constitutional: Well developed, well nourished, obese, no acute distress, non- toxic appearance. [] HENT: Normocephalic, atraumatic, bilateral external ears normal, oropharynx moist, no oral exudates, nose normal. [] Eyes: PERRLA, EOMI, conjunctiva normal, no discharge. [] Neck: Normal range of motion, no tenderness, supple, no stridor. [] Cardiovascular: Heart rate regular rhythm, no murmur [] Lungs & Thorax: Bilateral breath sounds clear to auscultation [] Abdomen: Bowel sounds normal, soft, no tenderness, no masses, no pulsatile masses. [] Skin: Warm, dry, no erythema, no rash. [] Back: No tenderness, no CVA tenderness. [] Extremities: No tenderness, no cyanosis, no clubbing, ROM intact, no edema. [] Neurologic: Alert and oriented X 3, normal motor function, normal sensory function, no focal deficits noted. [] Psychologic: Affect normal, judgement normal, mood anxious. [] Current Patient Data: Vital Signs: Vital Signs Date Time Temp Pulse Resp B/P (MAP) Pulse Ox O2 Delivery O2 Flow Rate FiO2 09/26/21 12:56 98.2 84 18 123/66 (85) 99 Room Air EKG: EKG: [] Radiology/Procedures: Radiology/Procedures: [] Impressions: Single view of the chest. 09/26/2021 1:09 PM Indication: Chest pain Comparison: Chest radiograph September 17, 2021 Findings: No acute focal consolidation, pneumothorax, or effusion is identified. Heart size is top normal and stable. No acute osseous abnormalities are seen. Impression: No evidence of acute cardiopulmonary process. Electronically signed by: Cayden Monk MD (09/26/2021 1:29 PM) [id number] DICTATED AND SIGNED BY: CAYDEN MONK MD DATE: 09/26/21 1321 CC: GAGE MOON DO; JESSICA ROTHMAN PA ~ Heart Score: C/O Chest Pain: Yes HEART Score for Chest Pain: HEART Score for Chest Pain Response (Comments) Value History Slighlty/Non-Suspicious 0 ECG Normal 0 Age >45 - < 65 1 Risk Factors 1 or 2 Risk Factors 1 Troponin < Normal Limit 0 Total 2 Risk Factors: Risk Factors: DM, Current or recent (<one month) smoker, HTN, HLP, family history of CAD, obesity. Risk Scores: Score 0 - 3: 2.5% MACE over next 6 weeks - Discharge Home Score 4 - 6: 20.3% MACE over next 6 weeks - Admit for Clinical Observation Score 7 - 10: 72.7% MACE over next 6 weeks - Early Invasive Strategies Course & Med Decision Making: Course & Med Decision Making Pertinent Labs and Imaging studies reviewed. (See chart for details) The patient's EKG is unremarkable. Her labs are unremarkable. Her troponin is negative. Her chest x-ray is negative for acute findings. I once again advised the patient to follow-up with her primary care physician to discuss cardiology consult and further evaluation as an outpatient. She does not meet any inpatient criteria. She is stable for discharge at this time. [] Dragon Disclaimer: Dragon Disclaimer: This electronic medical record was generated, in whole or in part, using a voice recognition dictation system. Departure Departure: Impression: Primary Impression: Chest pain Disposition: HOME / SELF CARE / HOMELESS Condition: STABLE Referrals: JESSICA ROTHMAN (PCP) Patient Instructions: Chest Pain (Nonspecific), [id number] GAGE MOON DO Sep 26, 2021 13:26
--- NOTE | 2021-09-26 13:32 | RAD ---
Single view of the chest. 09/26/2021 1:09 PM Indication: Chest pain Comparison: Chest radiograph September 17, 2021 Findings: No acute focal consolidation, pneumothorax, or effusion is identified. Heart size is top no rmal and stable. No acute osseous abnormalities are seen. Impression: No evidence of acute cardiopulmonary process. Electronically signed by: Cayden Wallace MD (09/26/2021 1:29 PM) [id number]
[2021-09-26 13:47] LABS: BASO # 0.1 x10^3/uL (0.0-0.2); BASO % 2 % (0-3); EOS % 0 % (0-3); HEMATOCRIT 36.8 % (36.0-47.0); HEMOGLOBIN 11.7 g/dL (12.0-15.5); LYMPH # 2.6 x10^3/uL (1.0-4.8); LYMPH % 30 % (24-48); MEAN CORPUSCULAR HEMOGLOBIN 30 pg (25-35); MEAN CORPUSCULAR HGB CONC 32 g/dL (31-37); MEAN CORPUSCULAR VOLUME 93 fL (79-100); MONO # 0.5 x10^3/uL (0.0-1.1); MONO % 6 % (0-9); NEUT # 5.4 x10^3uL (1.8-7.7); NEUT % 62 % (31-73); PLATELET COUNT 289 x10^3/uL (140-400); RED BLOOD COUNT 3.94 x10^6/uL (3.50-5.40); RED CELL DISTRIBUTION WIDTH 14.8 % (11.5-14.5); WHITE BLOOD COUNT 8.7 x10^3/uL (4.0-11.0)
[2021-09-26 14:03] LABS: CALCIUM 9.4 mg/dL (8.5-10.1); CREATININE 1.1 mg/dL (0.6-1.0); GFR 61.7; POTASSIUM 3.6 mmol/L (3.5-5.1)
[2021-09-26 14:05] LABS: ALBUMIN 3.1 g/dL (3.4-5.0); ALBUMIN/GLOBULIN RATIO 0.8 (1.0-1.7); TOTAL BILIRUBIN 1.2 mg/dL (0.2-1.0); TOTAL PROTEIN 6.9 g/dL (6.4-8.2)
[2021-09-26] MEDS ORDERED: ONDANSETRON PF 4 MG/2 ML VIAL. IVP ONE (14:15)
[2021-09-26] MEDS ORDERED: MORPHINE SULFATE 4 MG/ML DISP.SYRIN. IV ONE (14:15)
[2021-09-26 14:48] VITALS: BP 120/75
--- NOTE | 2021-09-26 19:02 | EKG ---
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
== END 2021-09-26 14:51 | disposition home or self-care (01) ==
LOC: ER 12:48
DX: R07.89 Other chest pain (principal); I25.10 Atherosclerotic heart disease of native coronary artery without angina pectoris; F32.9 Major depressive disorder, single episode, unspecified; E11.9 Type 2 diabetes mellitus without complications; Z86.711 Personal history of pulmonary embolism; Z88.1 Allergy status to other antibiotic agents; Z88.6 Allergy status to analgesic agent; Z88.8 Allergy status to other drugs, medicaments and biological substances
CPT/HCPCS: 36415; 71045; 80053; 84484; 85025; 93005; 96374; 96375; 99285; J2270; J2405

== ENCOUNTER 2021-10-02 13:50 | Emergency (ER) | payer MEDICARE, OTHER ==
[~2021-10-02] VITALS: Ht 167.6 cm; Wt 98.3 kg
--- NOTE | 2021-10-02 13:53 | PHYS DOC ---
Past History Past Medical History: CAD, Depression, Diabetes, Heart Disease, HIV, Seizure Additional Past Medical Histor: back pain, abd pain, PE Past Surgical History: Appendectomy, Hysterectomy, Oophorectomy, Other Additional Past Surgical Histo: BACK AND ACHILLES Smoking: Non-smoker Alcohol Use: None Drug Use: None General Adult HPI: HPI: Patient is a 61-year-old female brought in by EMS for reported chest pain. She has had the same chest pain for many months. The pain is midsternal, sharp, nonradiating. The pain is worse with position and movement changes. She denies any dyspnea, dizziness, diaphoresis, denies abdominal pain, nausea or vomiting. Denies syncope or near syncope. She denies lower extremity pain or swelling. She has a history of PE, she has been compliant with Eliquis. She reports compliance with all other medications. She denies recent travel, surgery, hospitalization. She denies exertional chest pain, exertional dyspnea. She denies syncope or near syncope. She denies cough or hemoptysis. She has been seen multiple times for similar issues. She has been seen by cardiology as well. She has a scheduled outpatient with cardiology soon. Review of Systems: Review of Systems: Constitutional: Denies fever or chills HENT: Denies nasal congestion or sore throat Respiratory: Denies cough or shortness of breath Cardiovascular: Chest pain. Denies palpitations or syncope. GI: Denies abdominal pain, nausea, vomiting : Denies urinary symptoms Musculoskeletal: Denies back pain or joint pain Integument: Denies rash Neurologic: Denies headache, focal weakness or sensory changes Psychiatric: Chronic depression and anxiety, no acute changes reported today. Denies SI or HI symptoms Allergies: Allergies: Allergies Coded Allergies Type Severity Reaction Last Updated Verified levofloxacin Allergy Severe seizure 09/26/21 Yes aspirin Allergy Mild 09/26/21 Yes naproxen Allergy Mild RASH 09/26/21 Yes tramadol Allergy Mild RASH 09/26/21 Yes I S O L A T I O N *CONTACT* Allergy Unknown 09/26/21 Yes ibuprofen Allergy Unknown 09/26/21 Yes Physical Exam: PE: Constitutional: Well developed, well nourished, no acute distress, non-toxic appearance. [] HENT: Normocephalic, atraumatic Eyes: Sclera are anicteric, conjunctive are normal Neck: Normal range of motion, no tenderness, supple, no stridor. Trachea is midline. No JVD. Cardiovascular:Heart rate regular rhythm, 2 radial and +2 posterior tibial pulses bilaterally. Lungs & Thorax: Clear to auscultation bilaterally without rales, rhonchi or wheezes. Palpation of the lower chest wall reproduces her pain. No crepitus, subcutaneous emphysema or step-offs. No chest wall deformity noted. Abdomen: Abdomen is soft, nondistended, nontender to palpation. No palpable masses organomegaly. No palpable pulsatile mass. No CVA tenderness. No flank abdominal ecchymoses. Skin: Warm, dry, no erythema, no rash. [] Back: No tenderness, no CVA tenderness. [] Extremities: No tenderness, no cyanosis, no clubbing, ROM intact, no edema. No calf tenderness. Neurologic: Alert and oriented X 3, normal motor function, normal sensory function, no focal deficits noted. [] Psychologic: Active somewhat flat, she is pleasant and cooperative. EKG: EKG: EKG is interpreted at 1358 Rhythm is sinus Rate is 85 bpm AXis is normal No STEMI No acute ischemia Radiology/Procedures: Radiology/Procedures: IMAGING REPORT Signed PATIENT: HERNAN ANGEL I ACCOUNT: [id number] : 1960 LOCATION: ER AGE: 61 SEX: F EXAM STATUS: PRE ER ORD. PHYSICIAN: CHAU DEGROOT DO REASON: chest pain PROCEDURE: PORTABLE CHEST 1V XR CHEST 1V History: Chest pain Comparison: 09/26/2021 Technique: AP radiograph of the chest. Findings: The lungs are adequately and symmetrically inflated. No airspace consolidation, pleural effusion or pneumothorax. The cardiomediastinal silhouette and pulmonary vasculature are within normal limits. No acute osseous abnormality. Soft tissues are unremarkable. Impression: 1. No acute cardiopulmonary process. Electronically signed by: Thiago Lee MD (10/02/2021 2:31 PM) [id number] DICTATED AND SIGNED BY: THIAGO LEE MD DATE: 10/02/21 1430 CC: CHAU DEGROOT DO; JESSICA ROTHMAN PA ~ Heart Score: C/O Chest Pain: Yes HEART Score for Chest Pain: HEART Score for Chest Pain Response (Comments) Value History Slighlty/Non-Suspicious 0 ECG Normal 0 Age >45 - < 65 1 Risk Factors 1 or 2 Risk Factors 1 Troponin < Normal Limit 0 Total 2 Risk Factors: Risk Factors: DM, Current or recent (<one month) smoker, HTN, HLP, family history of CAD, obesity. Risk Scores: Score 0 - 3: 2.5% MACE over next 6 weeks - Discharge Home Score 4 - 6: 20.3% MACE over next 6 weeks - Admit for Clinical Observation Score 7 - 10: 72.7% MACE over next 6 weeks - Early Invasive Strategies Course & Med Decision Making: Course & Med Decision Making Pertinent Labs and Imaging studies reviewed. (See chart for details) The patient is given IV Toradol. She reports no further pain at this time. Troponin is negative. EKG demonstrates no ischemia. She notes that this pain is chronic. She has been seen multiple times for previous similar symptoms. No indication for further invasive exams, imaging or admission at this time based on current clinical presentation. I told her to keep her scheduled appoint with cardiology as well as with her PCP. Strict return precautions are given. She verbalizes understanding is comfortable with the plan of care. Christopher Disclaimer: Christopher Disclaimer: This electronic medical record was generated, in whole or in part, using a voice recognition dictation system. Departure Departure: Impression: Primary Impression: Atypical chest pain Disposition: HOME / SELF CARE / HOMELESS Condition: STABLE Referrals: JESSICA ROTHMAN (PCP) Patient Instructions: Chest Pain (Nonspecific) Additional Instructions: Please contact your primary care doctor for further evaluation and treatment of your symptoms. Keep your scheduled appointment with the senior formulation scientist on 20 October. Return for any acute changes in symptoms, such as more severe pain, coughing up blood, wheezing, severe abdominal pain, uncontrolled vomiting or any other concerns. CHAU DEGROOT DO Oct 02, 2021 13:52
[2021-10-02] MEDS ORDERED: KETOROLAC 15 MG/ML VIAL. IVP ONE (14:15)
--- NOTE | 2021-10-02 14:33 | RAD ---
XR CHEST 1V History: Chest pain Comparison: 09/26/2021 Technique: AP radiograph of the chest. Findings: The lungs are adequately and symmetrically inflated. No airspace consolidation, pleural effusion or p neumothorax. The cardiomediastinal silhouette and pulmonary vasculature are within normal limits. No acute osseous abnormality. Soft tissues are unremarkable. Impression: 1. No acute cardiopulmonary process. Electronically signed by: Thiago Slade MD (10/02/2021 2:31 PM) [id number]
[2021-10-02 14:37] LABS: BASO # 0.1 x10^3/uL (0.0-0.2); BASO % 1 % (0-3); CALCIUM 9.1 mg/dL (8.5-10.1); CREATININE 1.2 mg/dL (0.6-1.0); EOS % 0 % (0-3); GFR 55.6; HEMATOCRIT 32.5 % (36.0-47.0); HEMOGLOBIN 10.5 g/dL (12.0-15.5); LYMPH # 1.1 x10^3/uL (1.0-4.8); LYMPH % 10 % (24-48); MEAN CORPUSCULAR HEMOGLOBIN 30 pg (25-35); MEAN CORPUSCULAR HGB CONC 32 g/dL (31-37); MEAN CORPUSCULAR VOLUME 93 fL (79-100); MONO # 0.2 x10^3/uL (0.0-1.1); MONO % 2 % (0-9); NEUT # 9.6 x10^3uL (1.8-7.7); NEUT % 88 % (31-73); PLATELET COUNT 248 x10^3/uL (140-400); POTASSIUM 4.2 mmol/L (3.5-5.1); RED BLOOD COUNT 3.51 x10^6/uL (3.50-5.40); RED CELL DISTRIBUTION WIDTH 14.3 % (11.5-14.5); WHITE BLOOD COUNT 10.9 x10^3/uL (4.0-11.0)
[2021-10-02 14:55] LABS: MAGNESIUM 1.9 mg/dL (1.8-2.4); TOTAL BILIRUBIN 0.8 mg/dL (0.2-1.0); TOTAL PROTEIN 6.1 g/dL (6.4-8.2)
[2021-10-02 15:00] VITALS: BP 119/74
--- NOTE | 2021-10-02 15:02 | EKG ---
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
== END 2021-10-02 15:23 | disposition home or self-care (01) ==
LOC: ER 13:50
DX: R07.2 Precordial pain (principal); I25.10 Atherosclerotic heart disease of native coronary artery without angina pectoris; E11.9 Type 2 diabetes mellitus without complications; F32.9 Major depressive disorder, single episode, unspecified; Z88.1 Allergy status to other antibiotic agents; Z88.6 Allergy status to analgesic agent; Z88.8 Allergy status to other drugs, medicaments and biological substances
CPT/HCPCS: 36415; 71045; 80053; 82550; 83690; 83735; 83880; 84484; 85025; 85610; 85730; 93005; 96374; 99285; J1885

== ENCOUNTER 2021-11-06 10:24 | Emergency (ER) | payer MEDICARE, OTHER ==
[~2021-11-06] VITALS: Ht 167.6 cm; Wt 98.3 kg
[2021-11-06 10:33] VITALS: BP 121/77
--- NOTE | 2021-11-06 10:44 | PHYS DOC ---
Past History Past Medical History: CAD, Depression, Diabetes, Heart Disease, HIV, Seizure Additional Past Medical Histor: back pain, abd pain, PE Past Surgical History: Appendectomy, Hysterectomy, Oophorectomy, Other Additional Past Surgical Histo: BACK AND ACHILLES Smoking: Non-smoker Alcohol Use: None Drug Use: None General Adult EDM: Chief Complaint: UPPER EXTREMITY PAIN HPI: HPI: Patient is a 61-year-old female who presents this emergency department for right upper extremity pain. She is reporting swelling to her wrist x2 months. Patient reports that 3 to 4 days ago she was in her wheelchair when the wheel got stuck on the ledge of the sidewalk and she fell out of the wheelchair onto her right side. She rates her pain 9 out of 10. No treatment prior to arrival. She denies hitting her head or loss of consciousness. She denies any decreased range of motion of her extremity or decrease sensation in her extremity. Review of Systems: Review of Systems: HENT:see HPI Musculoskeletal: see HPI Integument: see HPI Neurologic: see HPI Allergies: Allergies: Allergies Coded Allergies Type Severity Reaction Last Updated Verified levofloxacin Allergy Severe seizure 09/26/21 Yes acetaminophen Allergy Mild itching 10/02/21 Yes aspirin Allergy Mild 09/26/21 Yes naproxen Allergy Mild RASH 09/26/21 Yes tramadol Allergy Mild RASH 09/26/21 Yes I S O L A T I O N *CONTACT* Allergy Unknown 09/26/21 Yes ibuprofen Allergy Unknown 09/26/21 Yes Physical Exam: PE: Constitutional: Well developed, well nourished, no acute distress, non-toxic appearance. [] HENT: Normocephalic, atraumatic, bilateral external ears normal, oropharynx moist, no oral exudates, nose normal. [] Eyes: PERRL,4mm bilaterally, EOMI, conjunctiva normal, no discharge. [] Neck: Normal range of motion, no stridor Cardiovascular:Heart rate regular rhythm, no murmur [] Lungs & Thorax: Bilateral breath sounds clear to auscultation [] Abdomen:obese and soft Skin: Warm, dry, no erythema, no rash. [] Back: No tenderness, normal ROM Extremities: No tenderness, no cyanosis, no clubbing, ROM intact, no edema. 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 [] Psychologic: Affect normal, judgement normal, mood normal. [] Current Patient Data: Vital Signs: Vital Signs Date Time Temp Pulse Resp B/P (MAP) Pulse Ox O2 Delivery O2 Flow Rate FiO2 11/06/21 10:33 98.2 88 16 121/77 (92) 98 Room Air EKG: EKG: [] Radiology/Procedures: Radiology/Procedures: []REASON: hand pain and swelling after falling out of wheelchair PROCEDURE: HAND RIGHT 3V Exam: XR HUMERUS_RT 2 VIEWS, XR HAND_RIGHT 3 VIEWS, XR FOREARM_RIGHT 2 VIEWS History: Hand pain and swelling after falling out of wheelchair. Comparison: Hand radiographs 02/22/2020 Findings: Osseous mineralization is normal. No acute fracture or dislocation. Mild degenerative changes of the interphalangeal joints and metacarpal phalangeal joints. No aggressive osseous erosive process. Small osteophyte at the coronoid process. No focal soft tissue swelling. Impression: 1. No acute osseous abnormality of the right humerus, forearm and hand. Electronically signed by: Thiago Slade MD (11/06/2021 10:56 AM) [id number] DICTATED AND SIGNED BY: THIAGO SLADE MD DATE: 11/06/21 1054 CC: JESSICA ROTHMAN PA; NURYS WEIR PHARMACEUTICAL DEVELOPMENT TECHNICIAN ~ Heart Score: C/O Chest Pain: N/A Risk Factors: Risk Factors: DM, Current or recent (<one month) smoker, HTN, HLP, family history of CAD, obesity. Risk Scores: Score 0 - 3: 2.5% MACE over next 6 weeks - Discharge Home Score 4 - 6: 20.3% MACE over next 6 weeks - Admit for Clinical Observation Score 7 - 10: 72.7% MACE over next 6 weeks - Early Invasive Strategies Course & Med Decision Making: Course & Med Decision Making Pertinent Labs and Imaging studies reviewed. (See chart for details) Patient presents to the emergency department for right arm pain that occurred after she fell out of her wheelchair 3 to 4 days ago. Patient is reporting swelling to the dorsal aspect of her wrist which she reports has been there for 2 months. Patient will have x-ray of her hand, forearm and humerus as she is reporting pain to these areas. Patient had a normal neuro exam. 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 ROM and neuro is intact. X-ray does not show any acute fractures or patient does have degenerative changes. Patient advised to use ice and elevation to help with swelling. Patient vies follow-up with her primary care provider. I discussed with patient all findings and diagnostic ira ting as well as the need to follow-up with PCP for further evaluation and treatment or return to the ER if any new or worsening symptoms. Strict return precautions were also discussed at length. Patient voiced understanding and agreement with the plan. Patient is hemodynamically stable at the time of disposition. Dragon Disclaimer: Dragon Disclaimer: This electronic medical record was generated, in whole or in part, using a voice recognition dictation system. Departure Departure: Impression: Primary Impression: Upper extremity pain Qualified Codes: M79.601 - Pain in right arm Disposition: HOME / SELF CARE / HOMELESS Condition: GOOD Referrals: JESSICA ROTHMAN (PCP) Patient Instructions: Wrist Pain Additional Instructions: You are seen in the emergency department for upper extremity pain and swelling. X-rays performed did not show any acute findings however you do have arthritis in your arm. Please use ice and elevation to help with swelling. Follow-up with your primary care provider tomorrow regarding your ER visit. Return to the emergency department if you have any increased pain, new injuries, decreased range of motion, decreased sensation in your extremity. NURYS WEIR PHARMACEUTICAL DEVELOPMENT TECHNICIAN November 06, 2021 10:44
--- NOTE | 2021-11-06 10:59 | RAD ---
Exam: XR HUMERUS_RT 2 VIEWS, XR HAND_RIGHT 3 VIEWS, XR FOREARM_RIGHT 2 VIEWS History: Hand pain and swelling after falling out of wheelchair. Comparison: Hand radiographs 02/22/2020 Findings: Osseous mineralization is normal. No acute fracture or dislocation. Mild degenerative changes of the interphalangeal joints and metacarpal phalangeal joints. No aggressive osseous erosive process. Small osteophyte at the coronoid process. No focal soft tissue swelling. Impression: 1. No acute osseous abnormality of the right humerus, forearm and hand. Electronically signed by: Thiago Slade MD (11/06/2021 10:56 AM) [id number]
== END 2021-11-06 11:13 | disposition home or self-care (01) ==
LOC: ER 10:24
DX: M79.601 Pain in right arm (principal); R22.31 Localized swelling, mass and lump, right upper limb; I25.10 Atherosclerotic heart disease of native coronary artery without angina pectoris; E11.9 Type 2 diabetes mellitus without complications; Z88.1 Allergy status to other antibiotic agents; Z88.6 Allergy status to analgesic agent; Z88.8 Allergy status to other drugs, medicaments and biological substances; W05.0XXA Fall from non-moving wheelchair, initial encounter; Y93.89 Activity, other specified; Y92.89 Other specified places as the place of occurrence of the external cause; Y99.8 Other external cause status
CPT/HCPCS: 73060; 73090; 73130; 99284

== ENCOUNTER 2021-11-10 17:34 | Emergency (ER) | payer MEDICARE, OTHER ==
[~2021-11-10] VITALS: Ht 167.6 cm; Wt 98.3 kg
--- NOTE | 2021-11-10 18:14 | PHYS DOC ---
Past History Past Medical History: CAD, Depression, Diabetes, Heart Disease, HIV, Seizure Additional Past Medical Histor: back pain, abd pain, PE Past Surgical History: Appendectomy, Hysterectomy, Oophorectomy, Other Additional Past Surgical Histo: BACK AND ACHILLES Smoking: Non-smoker Alcohol Use: None Drug Use: None General Adult EDM: Chief Complaint: SEIZURE HPI: HPI: "... .... I guess.... I had..... A seizure...... I am on Keppra.... But I still have breakthrough..... Seizures...." Patient is a 61 year old female who presents with hx pf seizure. Patient states she is currently on Keppra for seizures. States she has been taking her antiseizure meds as directed. Patient notes Elizabeth hernandez has breakthrough seizures despite being compliant with her meds. Patient normally follows with Dr. Rosado for neurology. Follows with Char for maintenance health issues. Patient only current complaint is that her right arm is somewhat sore. Patient has history of atypical chest pain, acute myocardial infarction, ac celerated hypertension, hyperlipidemia, diabetes type 2, pulmonary embolism, HIV, and seizure disorder. Elevated cholesterol,. Patient last admitted on 08/29 for chest pain and cardiac rule out. Patient currently states she is feeling back to normal and no longer very postictal. Review of Systems: Review of Systems: Constitutional: Denies fever or chills Eyes: Denies change in visual acuity HENT: Denies nasal congestion or sore throat Respiratory: Denies cough or shortness of breath Cardiovascular: Denies chest pain or edema GI: Denies abdominal pain, nausea, vomiting, bloody stools or diarrhea : Denies dysuria Musculoskeletal: Denies back pain or joint pain Integument: Denies rash Neurologic: Denies headache, focal weakness or sensory changes. Complaints of seizure Endocrine: Denies polyuria or polydipsia Lymphatic: Denies swollen glands Psychiatric: Denies depression or anxiety Family History: Family History: Noncontributory to presentation Current Medications: Current Meds: Severe nursing for home meds Allergies: Allergies: Allergies Coded Allergies Type Severity Reaction Last Updated Verified levofloxacin Allergy Severe seizure 09/26/21 Yes acetaminophen Allergy Mild itching 10/02/21 Yes aspirin Allergy Mild 09/26/21 Yes naproxen Allergy Mild RASH 09/26/21 Yes tramadol Allergy Mild RASH 09/26/21 Yes I S O L A T I O N *CONTACT* Allergy Unknown 09/26/21 Yes ibuprofen Allergy Unknown 09/26/21 Yes Physical Exam: PE: Constitutional: Moderate o acute distress, non-toxic appearance. [] HENT: Normocephalic, atraumatic, bilateral external ears normal, oropharynx moist, no oral exudates, nose normal. [] Eyes: PERRLA, EOMI, conjunctiva normal, no discharge. [] Neck: Normal range of motion, no tenderness, supple, no stridor. [] Cardiovascular:Heart rate regular rhythm, no murmur [] Lungs & Thorax: Bilateral breath sounds clear to auscultation [] Abdomen: Bowel sounds normal, soft, no tenderness, no masses, no pulsatile masses. [] Skin: Warm, dry, no erythema, no rash. [] Back: No tenderness, no CVA tenderness. [] Extremities: No tenderness, no cyanosis, no clubbing, ROM intact, no edema. [] Neurologic: Alert and oriented X 3, moves all extremities on request, does have distal sensory,, no focal deficits noted. Farrah Coma Scale 15. DTRs +2. No drift. Line Maintenance equal. Ambulatory Psychologic: Affect anxious, judgement normal, mood normal. [] Current Patient Data: Vital Signs: Vital Signs Date Time Temp Pulse Resp B/P (MAP) Pulse Ox O2 Delivery O2 Flow Rate FiO2 11/10/21 17:52 97.9 94 18 110/63 (79) 100 Room Air EKG: EKG: My interpretation EKG shows a sinus rhythm at 83 bpm. No acute findings of STEMI with contralateral changes. Does have slightly prolonged MO interval at 210 ms. Has low voltages in limb leads. Some nonspecific T wave changes. Time of EKG is 1857 hrs. [] lead V1 had artifact Radiology/Procedures: Radiology/Procedures: [[address] [address] IMAGING REPORT Signed PATIENT: HERNAN ANGEL I ACCOUNT: [id number] : 1960 LOCATION: ER AGE: 61 SEX: F EXAM STATUS: REG ER ORD. PHYSICIAN: CASEY CANNON MD REASON: sz PROCEDURE: PORTABLE CHEST 1V EXAM: XR CHEST 1V 11/10/2021 6:56 PM CLINICAL INDICATION: Seizure COMPARISON: Chest radiograph 10/02/2021 TECHNIQUE: AP view of the chest FINDINGS: The heart is normal in size. Lungs are well-expanded. No consolidation, pleural effusion, or pneumothorax. No acute osseous abnormality. IMPRESSION: No acute cardiopulmonary abnormality. Electronically signed by: Cydney Holliday MD (11/10/2021 7:45 PM) [facility] DICTATED AND SIGNED BY: CYDNEY HOLLIDAY MD DATE: 11/10/211943 CC: CASEY CANNON MD; JESSICA ROTHMAN ~ ] Signed PATIENT: HERNAN ANGEL I ACCOUNT: [id number] : 1960 LOCATION: ER AGE: 61 SEX: F EXAM STATUS: REG ER ORD. PHYSICIAN: CASEY CANNON MD REASON: sz PROCEDURE: CT HEAD AND CERVICAL SPINE WO Exam: CT head and cervical spine INDICATION: Seizure TECHNIQUE: Sequential axial images through the head and cervical spine were obtained without the administration of IV contrast. Exposure: One or more of the following in the visualized dose reduction techniques were utilized for this examination: 1. Automated exposure control 2. Adjustment of the MA and/or KV according to patient size 3. Use of iterative of reconstructive technique Comparisons: None FINDINGS: Head: No focal parenchymal lesion or hemorrhage is identified. There is no midline shift or sulcal effacement. No acute vascular territory infarction is identified. David-white distinction is preserved. The ventricular system is within normal limits without compression hydrocephalus. The basal cisterns are well maintained. The visualized portions of the paranasal sinuses and mastoid air cells are well- pneumatized. No acute fractures. Cervical spine: Straightening of cervical spine which may positional. Vertebral body heights are well-maintained. Fracture through the cervical spine is not identified. No significant spondylotic change in the cervical spine. Visualized paraspinal soft tissues are unremarkable. IMPRESSION: 1. No acute intracranial abnormality. 2. Negative CT C-spine for acute traumatic injury. Electronically signed by: Raine Stiles MD (11/10/2021 7:09 PM) [facility] DICTATED AND SIGNED BY: RAINE STILES MD DATE: 11/10/211901 CC: CASEY CANNON MD; JESSICA ROTHMAN ~ Heart Score: C/O Chest Pain: N/A Risk Factors: Risk Factors: DM, Current or recent (<one month) smoker, HTN, HLP, family history of CAD, obesity. Risk Scores: Score 0 - 3: 2.5% MACE over next 6 weeks - Discharge Home Score 4 - 6: 20.3% MACE over next 6 weeks - Admit for Clinical Observation Score 7 - 10: 72.7% MACE over next 6 weeks - Early Invasive Strategies Course & Med Decision Making: Course & Med Decision Making Pertinent Labs and Imaging studies reviewed. (See chart for details) Patient requesting discharge does not want further work-up. We will follow-up with primary care Char and Dr. Rosado. Patient resume her Keppra as previous directed. Impression: 1. Seizure 2. Hx CADz 3. Hx. DM 4. Hx. of PE 5. Hx of HIV 6. Hx. of MN 7. Hx. of HTN 8. Hx. Elevated Cholesterol 9. Mild Elevation Leukocytosis 10. Anemia Hgb 11.5 11. Mild Hypokalemia 12. Mild Elevation of T-Stewart, 1.2, Alk Phos 128, [] Dragon Disclaimer: Dragon Disclaimer: This electronic medical record was generated, in whole or in part, using a voice recognition dictation system. Departure Departure: Referrals: JESSICA ROTHMAN (PCP) CASEY CANNON MD November 10, 2021 18:14
[2021-11-10] MEDS ORDERED: levETIRAcetam 500 MG TABLET PO SCH (18:30)
[2021-11-10] MEDS ORDERED: IV RINGERS SOLUTION,LACTATED 1,000 ML IV SCH (18:30)
--- NOTE | 2021-11-10 19:12 | RAD ---
Exam: CT head and cervical spine INDICATION: Seizure TECHNIQUE: Sequential axial images through the head and cervical spine were obtained without the admi nistration of IV contrast. Exposure: One or more of the following in the visualized dose reduction techniques were utilized for this examination: 1. Automated exposure control 2. Adjustment of the MA and/or KV according to patient size 3. Use of iterative of reconstructive technique Comparisons: None FINDINGS: Head: No focal parenchymal lesion or hemorrhage is identified. There is no midline shift or sulcal effaceme nt. No acute vascular territory infarction is identified. David-white distinction is preserved. The ventricular system is within normal limits without compression hydrocephalus. The basal cisterns are well maintained. The visualized portions of the paranasal sinuses and mastoid air cells are well-pneumatized. No acute fractures. Cervical spine: Straightening of cervical spine which may positional. Vertebral body heights are well-maintained. Fracture through the cervical spine is not identified. No significant spondylotic change in the cervical spine. Visualized paraspinal soft tissues are unremarkable. IMPRESSION: 1. No acute intracranial abnormality. 2. Negative CT C-spine for acute traumatic injury. Electronically signed by: Raine Senior MD (11/10/2021 7:09 PM) [facility]
--- NOTE | 2021-11-10 19:47 | RAD ---
EXAM: XR CHEST 1V 11/10/2021 6:56 PM CLINICAL INDICATION: Seizure COMPARISON: Chest radiograph 10/02/2021 TECHNIQUE: AP view of the chest FINDINGS: The heart is normal in size. Lungs are well-expanded. No consolidation, pleural effusion, or pneumothorax. No acute osseous abnormality. IMPRESSION: No acute cardiopulmonary abnormality. Electronically signed by: Cydney Holliday MD (11/10/2021 7:45 PM) [facility]
[2021-11-10] MEDS ORDERED: oxyCODONE/APAP 5/325 1 TAB TABLET PO ONE (20:15)
[2021-11-10 20:23] LABS: CALCIUM 9.4 mg/dL (8.5-10.1); GFR 68.7; POTASSIUM 3.4 mmol/L (3.5-5.1)
[2021-11-10 20:24] LABS: BASO # 0.1 x10^3/uL (0.0-0.2); BASO % 1 % (0-3); EOS # 0.1 x10^3/uL (0.0-0.7); EOS % 0 % (0-3); HEMOGLOBIN 11.5 g/dL (12.0-15.5); LYMPH # 2.8 x10^3/uL (1.0-4.8); LYMPH % 24 % (24-48); MEAN CORPUSCULAR HEMOGLOBIN 29 pg (25-35); MEAN CORPUSCULAR HGB CONC 32 g/dL (31-37); MEAN CORPUSCULAR VOLUME 90 fL (79-100); MONO # 0.6 x10^3/uL (0.0-1.1); MONO % 6 % (0-9); NEUT # 8.2 x10^3uL (1.8-7.7); NEUT % 70 % (31-73); PLATELET COUNT 273 x10^3/uL (140-400); RED CELL DISTRIBUTION WIDTH 15.1 % (11.5-14.5); WHITE BLOOD COUNT 11.8 x10^3/uL (4.0-11.0)
[2021-11-10 20:35] LABS: ALBUMIN 3.3 g/dL (3.4-5.0); DIRECT BILIRUBIN 0.2 mg/dL (0.0-0.2); MAGNESIUM 1.8 mg/dL (1.8-2.4); TOTAL BILIRUBIN 1.2 mg/dL (0.2-1.0); TOTAL PROTEIN 7.1 g/dL (6.4-8.2)
[2021-11-10 20:42] LABS: CLARITY,URINE CLEAR; COLOR,URINE YELLOW; GLUCOSE,URINE NEG (NEG); NITRITE,URINE NEG (NEG); RBC,URINE OCC /HPF (0-2); UROBILINOGEN,URINE 0.2 mg/dL (0.2 mg/dL)
[2021-11-10 20:43] LABS: BACTERIA,URINE FEW /HPF (0-FEW); SQUAMOUS EPITHELIAL CELL,UR FEW /LPF
[2021-11-10 22:00] VITALS: BP 125/77
[2021-11-10] MEDS ORDERED: POTASSIUM CHLORIDE 20 MEQ TABLET.ER. PO ONE (22:30)
== END 2021-11-10 22:18 | disposition home or self-care (01) ==
LOC: ER 17:34
DX: R56.9 Unspecified convulsions (principal); D64.9 Anemia, unspecified; E87.6 Hypokalemia; R79.89 Other specified abnormal findings of blood chemistry; I25.10 Atherosclerotic heart disease of native coronary artery without angina pectoris; E11.9 Type 2 diabetes mellitus without complications; I25.2 Old myocardial infarction; E78.00 Pure hypercholesterolemia, unspecified; I11.9 Hypertensive heart disease without heart failure; Z86.711 Personal history of pulmonary embolism; Z88.1 Allergy status to other antibiotic agents; Z88.6 Allergy status to analgesic agent; Z88.8 Allergy status to other drugs, medicaments and biological substances
CPT/HCPCS: 36415; 70450; 71045; 72125; 80048; 80076; 81001; 82550; 83690; 83735; 83880; 84443; 84484; 85025; 85379; 85610; 85730; 87086; 93005; 96360; 96361; 99285; J7120

== ENCOUNTER 2021-11-16 18:34 | Emergency (ER) | payer MEDICARE, OTHER | END 2021-11-16 19:35 | disposition left against medical advice (07) | LOC: ER 18:34 | DX: H57.89 Other specified disorders of eye and adnexa (principal); Z53.21 Procedure and treatment not carried out due to patient leaving prior to being seen by health care provider ==

== ENCOUNTER 2021-11-18 12:25 | Emergency (ER) | payer MEDICARE, OTHER ==
[~2021-11-18] VITALS: Ht 167.6 cm; Wt 98.3 kg
[2021-11-18 12:25] VITALS: BP 123/76
--- NOTE | 2021-11-18 12:44 | PHYS DOC ---
Past History Past Medical History: CAD, Depression, Diabetes, Heart Disease, HIV, Seizure Additional Past Medical Histor: back pain, abd pain, PE Past Surgical History: Appendectomy, Hysterectomy, Oophorectomy, Other Additional Past Surgical Histo: BACK AND ACHILLES Smoking: Non-smoker Alcohol Use: None Drug Use: None General Adult EDM: Chief Complaint: HEADACHE HPI: HPI: Patient is a 61-year-old female who presents to the emergency department today for frontal headache that started 1 hour prior to arrival. Headache is associated with nausea and photophobia. She rates her pain 10 out of 10. No treatment prior to arrival. She does have a history of headaches. Patient denies that this is the worst headache she is ever experienced, she denies thunderclap headache, photophobia, injury. Review of Systems: Review of Systems: Constitutional: see HPI Eyes: see HPI HENT: see HPI GI: see HPI Neurologic: see HPI Allergies: Allergies: Allergies Coded Allergies Type Severity Reaction Last Updated Verified levofloxacin Allergy Severe seizure 09/26/21 Yes acetaminophen Allergy Mild itching 10/02/21 Yes aspirin Allergy Mild 09/26/21 Yes naproxen Allergy Mild RASH 09/26/21 Yes tramadol Allergy Mild RASH 09/26/21 Yes I S O L A T I O N *CONTACT* Allergy Unknown 09/26/21 Yes ibuprofen Allergy Unknown 09/26/21 Yes Physical Exam: PE: Constitutional: Well developed, well nourished, no acute distress, non-toxic appearance. [] HENT: Normocephalic, atraumatic, bilateral external ears normal, oropharynx mois t, no oral exudates, nose normal. [] Eyes: PERRL, 3 mm delay, EOMI, conjunctiva normal, no discharge. [] Neck: Normal range of motion, no tenderness, supple, no nuchal rigidity, no stridor. [] Cardiovascular:Heart rate regular rhythm, no murmur [] Lungs & Thorax: Bilateral breath sounds clear to auscultation [] Abdomen: Bowel sounds normal, soft, no tenderness, obese, no masses, no pulsatile masses. [] Skin: Warm, dry, no erythema, no rash. [] Back: No tenderness, normal range of motion Extremities: No tenderness, no cyanosis, no clubbing, ROM intact, no edema. [] Neurologic: Alert and oriented X 3, normal motor function, normal sensory function, no focal deficits noted no pronator drift, no limb ataxia, patient moving all 4 extremities equally,. [] Psychologic: Affect normal, judgement normal, mood normal. [] EKG: EKG: [] Radiology/Procedures: Radiology/Procedures: [] Heart Score: C/O Chest Pain: N/A Risk Factors: Risk Factors: DM, Current or recent (<one month) smoker, HTN, HLP, family history of CAD, obesity. Risk Scores: Score 0 - 3: 2.5% MACE over next 6 weeks - Discharge Home Score 4 - 6: 20.3% MACE over next 6 weeks - Admit for Clinical Observation Score 7 - 10: 72.7% MACE over next 6 weeks - Early Invasive Strategies Course & Med Decision Making: Course & Med Decision Making Pertinent Labs and Imaging studies reviewed. (See chart for details) [] Patient presents to the emergency department for frontal headache associated with nausea and photophobia. Patient does have a history of headaches. She denies thunderclap headache. This is not the worst headache she is ever experienced. Patient reports that she was recently in the emergency department and did have CT imaging of her head at that time which was negative for any acute findings. It appears the patient was seen in this emergency department on November 10. Patient will be treated in the emergency department with IV fluids, Compazine and Benadryl as she is allergic to NSAIDs. Patient reports improvement in her headache following treatment in the emergency department. She is advised to follow-up with her primary care provider and her neurologist regarding migraine medications. I discussed with patient all findings and diagnostic testing as well as the need to follow-up with PCP for further evaluation and treatment or return to the ER if any new or worsening symptoms. Strict return precautions were also discussed at length. Patient voiced understanding and agreement with the plan. Patient is hemodynamically stable at the time of disposition. Dragon Disclaimer: Christopher Disclaimer: This electronic medical record was generated, in whole or in part, using a voice recognition dictation system. Departure Departure: Impression: Primary Impression: Migraine headache Qualified Codes: G43.909 - Migraine, unspecified, not intractable, without status migrainosus Disposition: HOME / SELF CARE / HOMELESS Condition: GOOD Referrals: JESSICA ROTHMAN (PCP) Patient Instructions: Migraine Headache Additional Instructions: You are seen in the emergency department today for a headache which is likely a migraine headache. Please increase your fluids at home. Follow-up with your primary care provider or your neurologist regarding your headaches as they may want to place you on an migraine medication. Return to the emergency department if you develop worsening of your headache, intractable nausea or vomiting, high fevers refractory to treatment, confusion or poor coordination, speech changes, chest pain, shortness of breath. [employer] November 18, 2021 12:44
[2021-11-18] MEDS ORDERED: diphenhydrAMINE 50 MG/ML VIAL IVP ONE (12:45)
[2021-11-18] MEDS ORDERED: PROCHLORPERAZINE 10 MG/2 ML VIAL. IV ONE (12:45)
[2021-11-18] MEDS ORDERED: IV NORMAL SALINE 1,000ML 1,000 ML IV ONE (12:45)
== END 2021-11-18 14:02 | disposition home or self-care (01) ==
LOC: ER 12:25
DX: G43.909 Migraine, unspecified, not intractable, without status migrainosus (principal); I25.10 Atherosclerotic heart disease of native coronary artery without angina pectoris; E11.9 Type 2 diabetes mellitus without complications; Z88.1 Allergy status to other antibiotic agents; Z88.8 Allergy status to other drugs, medicaments and biological substances; Z88.6 Allergy status to analgesic agent
CPT/HCPCS: 96361; 96374; 96375; 99284; J0780; J1200; J7030